=== PATIENT | female | born 1955 | race Caucasian/White ===

== ENCOUNTER → 2018-03-26 00:50 | Outpatient (CLI) | payer OTHER, SELFPAY ==
--- NOTE | 2018-03-26 08:47 | DI.REPORT_ITS ---
SYMPTOM/DIAGNOSIS: ACUTE MENISCAL TEAR OF LT KNEE, RULE OUT HEMARTHROSIS S83.207A LEFT KNEE: Three views: No priors. There is moderate narrowing of the medial femoral tibial joint space and patellofemoral joint. Periarticular spurring is seen involving all three joint compartments. The bones are intact and normally mineralized. There is a small suprapatellar joint effusion. Vascular calcifications are present. IMPRESSION: Moderately severe degenerative changes of the left knee.
== END ==
PROVIDERS: PCP Family Medicine; Visit Provider Family Medicine
DX: M25.562 Pain in left knee (principal); M17.12 Unilateral primary osteoarthritis, left knee; M25.462 Effusion, left knee; S83.207A Unspecified tear of unspecified meniscus, current injury, left knee, initial encounter
CPT/HCPCS: 73562

== ENCOUNTER 2018-08-27 02:04 | Outpatient (CLI) | payer OTHER, SELFPAY | END 2018-08-27 02:24 | PROVIDERS: PCP Family Medicine; Visit Provider Internal Medicine Interventional Cardiology | DX: I48.91 Unspecified atrial fibrillation (principal); Z53.8 Procedure and treatment not carried out for other reasons ==

== ENCOUNTER 2018-12-20 10:09 | Outpatient (REF) | payer OTHER, SELFPAY ==
[2018-12-20 13:40] LABS: ALT 67 U/L (12-78); AST 43 U/L (15-37); Albumin 3.4 g/dL (3.4-5.0); Alkaline Phosphatase 80 U/L (46-116); Anion Gap 11.6 mmol/L (3-11); BUN 10 mg/dL (7-18); Bilirubin, Total 0.4 mg/dL (0.2-1.0); CO2 24.4 mmol/L (21.0-32.0); CREATININE 0.83 mg/dL (0.55-1.02); Calcium 8.9 mg/dL (8.5-10.1); Chloride 102 mmol/L (98-107); Glucose 147 mg/dL (70-100); Lipase 120 U/L (73-393); Potassium 4.3 mmol/L (3.5-5.1); Sodium 138 mmol/L (136-145); Total Protein 7.2 g/dL (6.4-8.2)
== END 2018-12-20 10:29 ==
LOC: LBN 10:09
PROVIDERS: PCP Family Medicine; Visit Provider Family Medicine
DX: R19.7 Diarrhea, unspecified (principal)
CPT/HCPCS: 80053; 83690

== ENCOUNTER 2019-07-08 01:41 | Outpatient (CLI) | payer OTHER, SELFPAY ==
--- NOTE | 2019-07-08 10:46 | DI.MAMMO_ITS ---
EXAM: MG MAMMO SCREENING MG MAMMO SCREENING CLINICAL HISTORY: screening, Z12.39 screening, Z12.39 TECHNIQUE: Mammograms were interpreted according to the usual protocol including computer analysis w ith CAD system, tomosynthesis and C-view imaging. COMPARISON: 2009 through 2017 FINDINGS: The breasts are composed of scattered fibroglandular densities, Breast Density category B. No suspicious masses or suspicious microcalcifications are seen. There is a stable area nodularity i n the central left breast. No skin thickening or abnormal axillary lymph nodes are seen. There has been no significant change from prior exams. IMPRESSION: BIRADS Category 1, negative mammogram. Yearly screening mammography is recommended.
== END 2019-07-08 02:01 ==
PROVIDERS: PCP Family Medicine; Visit Provider Family Medicine
DX: Z12.31 Encounter for screening mammogram for malignant neoplasm of breast (principal)
CPT/HCPCS: 77063; 77067

== ENCOUNTER → 2020-09-09 04:33 | Outpatient (CLI) | payer OTHER, SELFPAY ==
[2020-09-09 11:36] LABS: Abs Immature Grans 0.04 10^3/uL (0.0-0.06); Absolute Basophil Count 0.04 10^3/uL (0.0-0.2); Absolute Eosinophil Count 0.08 10^3/uL (0.0-0.7); Absolute Lymphocyte Count 2.18 10^3/uL (1.2-3.4); Absolute Monocyte Count 0.65 10^3/uL (0.1-0.8); Basophils % 0.4; Eosinophils % 0.9; HCT 42.4 % (36.0-46.0); HGB 14.3 g/dL (11.2-15.7); Immature Grans % 0.4; Lymphocytes % 24.2; MCH 30.4 pg (27.0-33.0); MCHC 33.7 % (32.0-36.0); MCV 90.2 fL (80-95); MPV 10.3 fL (8.0-11.0); Monocytes % 7.2; Neutrophils % 66.9; Nucleated RBC 0 %; Platelet Count 268 10^3/uL (130-400); RDW-SD 49.3 fL; WBC 8.99 10^3/uL (4.4-10.8)
[2020-09-09 12:06] LABS: Hemoglobin A1C > 14.0 % (<5.7)
[2020-09-09 12:17] LABS: Anion Gap 13.3 mmol/L (3-11); BUN 12 mg/dL (7-18); CO2 23.7 mmol/L (21.0-32.0); CREATININE 1.03 mg/dL (0.55-1.02); Calcium 8.7 mg/dL (8.5-10.1); Chloride 95 mmol/L (98-107); Estimated GFR 53.95 (mL/min/1.73m2); Glucose 449 mg/dL (74-106); Potassium 3.6 mmol/L (3.5-5.1); Sodium 132 mmol/L (136-145)
== END ==
PROVIDERS: PCP Family Medicine; Visit Provider Family Medicine
DX: I83.028 Varicose veins of left lower extremity with ulcer other part of lower leg (principal); L97.822 Non-pressure chronic ulcer of other part of left lower leg with fat layer exposed; R73.9 Hyperglycemia, unspecified
CPT/HCPCS: 36415; 80048; 83036; 85025

== ENCOUNTER 2020-10-22 04:09 | Outpatient (CLI) | payer OTHER, SELFPAY ==
[2020-10-22 12:13] LABS: Cholesterol 218 mg/dL (<200); HDL Cholesterol 29 mg/dL (40-60); Triglyceride 473 mg/dL (<150)
[2020-10-22 12:25] LABS: LDL CHOLESTEROL 105 mg/dL (<100)
== END 2020-10-22 04:10 | disposition home or self-care (01) ==
LOC: LBO 04:09
PROVIDERS: PCP Family Medicine; Visit Provider Family Medicine
DX: E11.65 Type 2 diabetes mellitus with hyperglycemia (principal)
CPT/HCPCS: 36415; 80061; 83721

== ENCOUNTER 2020-12-21 14:52 | Outpatient (REF) | payer OTHER, SELFPAY ==
--- NOTE | 2020-12-21 14:30 | PAPFT_PTH ---
PATIENT: Zuleyka Alvarado LOC: [facility] U#:[id number] AGE/SX: 65/F ROOM: RE12/21/[address]: PORSCHE Benitez : 1955 BED: DIS: 12/21/2020 SPEC #: [id number] RECD: 12/21/20 18:36 STATUS: YESENIA REQ #: [id number] BENIGNO: 12/21/20 14:[address]: Sonja Slade DEPT: [facility] Cytology RECD BY: Gris Rodriguez ENTERED: 12/21/20 18:37 SP TYPE: PAPFT OTHR DR: Gage Paul, Tissues: 1 - CX/ENDOCX FOR PAP SMEARS Procedures: PAP THIN PREP/UVM Screening HPV DNA PROBE Comments: [id number]
== END 2020-12-21 14:53 | disposition home or self-care (01) ==
LOC: LBN 14:52
PROVIDERS: PCP Family Medicine; Visit Provider Nurse Practitioner Family
DX: Z12.4 Encounter for screening for malignant neoplasm of cervix (principal); Z11.51 Encounter for screening for human papillomavirus (HPV)
CPT/HCPCS: 88142; 87624

== ENCOUNTER 2020-12-25 04:20 | Outpatient (CLI) | payer OTHER, SELFPAY ==
--- NOTE | 2020-12-25 09:23 | DI.MAMMO_ITS ---
Exam(s) MAMMO SCREENING EXAM: MAMMO SCREENING CLINICAL HISTORY: screening,Z12.39. TECHNIQUE: Bilateral full field digital CC and MLO mammographic images were obtained with 3D tomosyn thesis and utilizing computer aided detection (CAD). COMPARISON: Prior mammograms dating back to 2018, the most recent being June 2019. FINDINGS: Small benign-appearing microcalcification group up again suggest wall in the right breast remain stab le. No new right breast findings. Asymmetric density at approximately 12 o'clock position of the left breast is again noted, located ap proximately 5 cm in from the nipple, this lobulated density measuring approximately 1.6 by 1.7 cm. I t does not contain microcalcifications nor unchanged in size from 2018. There is no significant architectural distortion nor skin thickening-retraction. IMPRESSION: No radiographic evidence of malignancy in the right breast 16 x 17 millimeter central left breast nodule, unchanged from prior studies and therefore most probab ly benign. Nevertheless, I recommend follow-up breast ultrasound to determine if this is an actual n odule such as fibroadenoma versus just asymmetric fibroglandular tissue. BI-RADS Category 0 - Assessment Incomplete: Need additional imaging evaluation Breast Density - Category B - Scattered areas of fibroglandular density Breast density Category C or D implies that the patient has dense breast tissue. Dense breast tissue can make it harder to find cancer on a mammogram. Dense breast tissue is also associated with an incr eased risk of breast cancer. This information about the result of the mammogram report was provided to the patient to raise their awareness. Use this report when you speak with the patient about their risks for breast cancer, which includes their family history. At that time, you may recommend additional screening tests (Ultrasoun d or MRI) as these tests may add significant information. A negative radiographic report should not delay biopsy if a dominant or clinically suspicious mass is present. Up to ten percent of cancers are not identified on mammography. A negative report may reinforce clinical impression. Adenosis and dense breasts may obscure an underlying neoplasm. False positive reports average 6 to 10%. Patient will receive a letter notifying them of these results.
== END 2020-12-25 04:40 ==
PROVIDERS: PCP Family Medicine; Visit Provider Nurse Practitioner Family
DX: Z12.31 Encounter for screening mammogram for malignant neoplasm of breast (principal); R92.8 Other abnormal and inconclusive findings on diagnostic imaging of breast
CPT/HCPCS: 77063; 77067

== ENCOUNTER 2021-03-06 00:07 | Emergency (ER) | payer OTHER, SELFPAY ==
[2021-03-06] VITALS (45 sets, daily range): BP systolic 98–169; BP diastolic 62–138; PULSE 92–175; RESP 13–36; O2SAT 74–98
--- NOTE | 2021-03-06 | RT.EKG_ITS ---
APPROVED REPORT Exam: Resting ECG Reason for Exam: sob Patient Location: E HR:150 bpm ECG Measurements Heart Rate 150 AXIS WA 81 P 0 QRSd 80 QRS -23 QT 287 T 30 QTc 454 Conclusion Sinus tachycardia with irregular rate...V-rate 109-185, variation>10% Anterior infarct, old...Q >40mS, abnormal ST-T, V2-V5 ST depr, consider ischemia, anterolateral lds...ST <-0.10mV, I aVL V2-V6
--- NOTE | 2021-03-06 | DI.RAD_ITS ---
Exam(s) XR PORTABLE CHEST AP EXAM: XR PORTABLE CHEST AP CLINICAL HISTORY: shortness of breath. TECHNIQUE: 2D digital imaging was performed. COMPARISON: No exams were available for comparison FINDINGS: Chest leads in place included chest pads. There is cardiomegaly. Left lung base is difficult to evaluate because of overlying chest leads part Alfonso a. Patient is a lso rotated towards the right. There appears to be a pulmonary venous hypertension pattern. Possibl e interstitial pulmonary edema. Also bandlike infiltrate in the left lower lobe retrocardiac region. IMPRESSION: As above. Recommend nonportable upright PA and lateral views when clinically possible, preferably no n rotated and with no overlying material to obscure visualization. DATA REPOSITORY: RADIATION DOSE DELIVERED: All CT scans at this facility use at least one of these dose optimization techniques: automated exposure control; mA and/or kV adjustment per patient size (includes targeted e xams where dose is matched to clinical indication); or iterative reconstruction.
--- NOTE | 2021-03-06 00:15 | RT.EKG_ITS ---
APPROVED REPORT Exam: Resting ECG Reason for Exam: short of breath Patient Location: E HR:154 bpm ECG Measurements Heart Rate 154 AXIS [place] [id number] P [id number] QRSd 90 QRS -10 QT 310 T 65 QTc 498 Conclusion Atrial fibrillation...V-rate 123-176, irreg A-activity Inferior infarct, old...Q >35mS, II III aVF Anterior infarct, old...Q >40mS, abnormal ST-T, V2-V5
--- NOTE | 2021-03-06 00:26 | W.ED.GENAD ---
Discharge Plan Disposition Patient Disposition: [facility] INPATIENT Condition: Critical Discharge Details Clinical Impression: Acute CHF, DKA (diabetic ketoacidosis), Atrial fibrillation with rapid ventricular response, Pneumonia, Acute respiratory failure with hypoxia Primary Care Provider: Gage Paul ED Provider: Sj Elaine Hurley Meds and New Rx's Prescriptions: No Action Eliquis 5 mg tablet 5 mg PO BID Qty: 180 RF: 3 diltiazem HCl 360 mg capsule,extended release 24 hr 360 mg PO DAILY Qty: 90 RF: 3 metoprolol succinate 100 mg tablet extended release 24 hr 100 mg PO HS 90 Days Qty: 90 RF: 3 sertraline 50 mg tablet 50 mg PO DAILY Qty: 90 RF: 3 (DME) lancets Misc See Rx Instructions .ROUTE .MEDSUPPLY Qty: 100 RF: 3 clotrimazole-betamethasone 1-0.05 % cream 1 applic topical BID 10 Days Qty: 15 RF: 2 atorvastatin 40 mg tablet 40 mg PO DAILY Qty: 90 RF: 3 pramipexole 0.75 mg tablet 1.5 mg PO QHS Qty: 180 RF: 3 metformin 1,000 mg tablet 1,000 mg PO BID Qty: 180 RF: 3 nicotine 14 mg/24 hr patch 24 hour 1 patch transdermal Q24H Qty: 28 RF: 1 Lantus Solostar U-100 Insulin 100 unit/mL (3 mL) insulin pen 25 unit subcut QPM RF: 0 furosemide 40 mg tablet 40 mg PO BID RF: 0 insulin lispro 100 unit/mL insulin pen See Rx Instructions subcut TID RF: 0 (DME) pen needle, diabetic [BD Ultra-Fine Orig Pen Needle] 29 gauge x 1/2 needle 0 .ROUTE .MEDSUPPLY Qty: 100 RF: 0 (DME) Blood Glucose Test Strip See Rx Instructions .ROUTE .MEDSUPPLY Qty: 100 RF: 3 metoprolol succinate 100 mg Tablet Extended Release 24 Hr 100 mg PO DAILY RF: 0 multivitamin [One-A-Day Essential] 1 EACH tablet 1 ea PO DAILY RF: 0 acetaminophen [Mapap Extra Strength] 500 MG tablet 500 - 1,000 mg PO PRN PRNRF: 0 Discharge Data Discharge Date/Time-TO BE ENTERED AT DEPARTURE: 03/06/21 04:12 Medical Decision Making 1229 --patient was seen immediately on arrival. Initial assessment is limited given lack of medical record and inability for patient to provide history. Patient is a 65-year-old female with unknown medical history presents with shortness of breath with EMS in respiratory distress. Patient hypoxic requiring supplemental oxygen. Patient is in atrial fibrillation with RVR on monitor. She is normotensive. Patient is in critical condition on arrival. Converted from EMS CPAP to BiPAP with respiratory therapy present and assisting. Patient is tolerating BiPAP well and maintaining oxygenation in the 90s. Patient has rails on exam with lower extremity edema and I am concerned about acute congestive heart failure. I will check a chest x-ray and send BNP and troponin. Screening EKG limited by artifact, interpreted by me: Please see report, A. fib with RVR. --Additional history obtained: Patient has a history of diastolic heart failure, atrial fibrillation, hyperlipidemia, diabetes. I reviewed a [employer] patch library monitor from 2018 that revealed 100% atrial fibrillation with average rate 112 bpm ranging 67-210. Reviewed cardiology office visit from 06/04/2018 that reveals paroxysmal persistent atrial fibrillation, echo from October 20, 2017 showed LVEF of 60 to 65%, mildly dilated aortic root and ascending aorta are upper limits of normal with 2+ MR. 1237 -- VBG from today reviewed and reveals pH of 7.08 with a PCO2 of 69 consistent with respiratory acidosis. 103 --chest x-ray was reviewed and interpreted by me as bibasilar opacities with cardiopulmonary vascular congestion. Patient reassessed and is improved on BiPAP and nitroglycerin infusion. Now speaking in sentences. Labs reviewed and leukocytosis noted, Covid test pending, patient does have an anion gap of 17.4 with glucose of 538. Potassium is 4.0. 144-- Patient started on insulin infusion with no bolus. I will also give potassium 20 meq IV Patient reassessed and much improved, now able to speak in sentences. She notes she has had a cough over the past 1 week. No fevers. She is vaccinated against Covid. Plan to continue BiPAP at this time. Patient's blood pressure has decreased to systolic of 98 and she remains tachycardic in A. fib. I will decrease nitroglycerin infusion to 5mcg/min. Chest x-ray interpreted by radiology as hyperinflation, increased interstitial markings suggesting CHF or interstitial edema. Right lung base consolidative changes suggested which may represent infiltrate or atelectasis. Small right pleural effusion. Cardiomegaly. Given recent cough, leukocytosis and questionable infiltrate, I will initiate antibiotic coverage with ceftriaxone 1 g IV and send blood cultures and procalcitonin. D-dimer is elevated but patient will not tolerate lying flat at this time. Patient is anticoagulated on Eliquis and I do not believe CT indicated now given alternate diagnosis. I spoke with Dr. Landrum who recommends second trop piror to admission. 243 -- Patient reassessed and continues to improve. Delta trop at 2 hours elevated at 0.16. I called [facility] transfer center to request transfer. Awaiting call back. 300 -- Spoke with [facility] critical care - they will accept patient in transfer. Dr. Arcos to accept. Awaiting bed placement. 325 --almost repeat VBG interpreted by me: Improved pH and decreased PCO2. Repeat BMP pending. [facility] called with bed now available. Will arrange for EMS transportation. 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 Medical Records Medical records reviewed: Yes I reviewed the patient's medical records. Lab Data Lab results reviewed: Yes I reviewed the patient's lab results. Labs: 03/06/21 01:50 Blood Blood Culture - Pending 03/06/21 01:30 Blood Blood Culture - Pending Laboratory Tests Range/Units 03/06/21 03/06/21 03/06/21 00:20 00:20 00:20 WBC (4.4-10.8) 10^3/uL 15.86 H RBC (3.93-5.22) 10^6/uL 4.20 Hgb (11.2-15.7) g/dL 12.9 Hct (36.0-46.0) % 41.5 MCV (80-95) fL 98.8 H MCH (27.0-33.0) pg 30.7 MCHC (32.0-36.0) % 31.1 L RDW (11.7-14.6) % 14.6 Plt Count (130-400) 10^3/uL 356 MPV (8.0-11.0) fL 10.0 Immature Gran % See Differential Neutrophils % 56.0 Lymphocytes % 35.0 Monocytes % 6.0 Eosinophils % 2.0 Basophils % 0.0 Metamyelocytes % 1 Nucleated RBC % % 0 Absolute Neutrophils (1.2-6.7) 10^3/uL 8.88 H Absolute Lymphocytes (1.2-3.4) 10^3/uL 5.55 H Absolute Monocytes (0.1-0.8) 10^3/uL 0.95 H Absolute Eosinophils (0.0-0.7) 10^3/uL 0.32 Absolute Basophils (0.0-0.2) 10^3/uL 0.00 RBC Morphology Normal D-Dimer (<500) ng/mlFEU 731 H VBG pH (7.31-7.41) VBG pCO2 (41-51) mmHg VBG pO2 mmHg VBG HCO3 (23-28) mmol/L VBG Total CO2 (24-29) mmol/L VBG O2 Saturation % VBG Base Excess (-2-3) mmol/L VBG Lactate (0.6-1.4) mmol/L Sodium (136-145) mmol/L 138 Potassium (3.5-5.1) mmol/L 4.0 Chloride (98-107) mmol/L 99 Carbon Dioxide (21.0-32.0) mmol/L 21.6 Anion Gap (3-11) mmol/L 17.4 H BUN (7-18) mg/dL 14 Creatinine (0.55-1.02) mg/dL 1.3 H Estimated GFR/1.73 m2 (mL/min/1.73m2) 41.24 Glucose (74-106) mg/dL 538 H* Calcium (8.5-10.1) mg/dL 9.0 Magnesium (1.8-2.4) mg/dL 1.9 Total Bilirubin (0.2-1.0) mg/dL 0.4 AST (15-37) U/L 56 H ALT (14-59) U/L 58 Alkaline Phosphatase (46-116) U/L 68 Troponin I (<0.06) ng/mL < 0.05 NT-Pro-B Natriuret Pep (<300) pg/mL 1043 H Total Protein (6.4-8.2) g/dL 7.5 Albumin (3.4-5.0) g/dL 3.4 Procalcitonin ng/mL COVID-19 Source SARS-CoV-2 (PCR) (Negative) Range/Units 03/06/21 03/06/21 03/06/21 00:20 00:25 01:30 WBC (4.4-10.8) 10^3/uL RBC (3.93-5.22) 10^6/uL Hgb (11.2-15.7) g/dL Hct (36.0-46.0) % MCV (80-95) fL MCH (27.0-33.0) pg MCHC (32.0-36.0) % RDW (11.7-14.6) % Plt Count (130-400) 10^3/uL MPV (8.0-11.0) fL Immature Gran % Neutrophils % Lymphocytes % Monocytes % Eosinophils % Basophils % Metamyelocytes % Nucleated RBC % % Absolute Neutrophils (1.2-6.7) 10^3/uL Absolute Lymphocytes (1.2-3.4) 10^3/uL Absolute Monocytes (0.1-0.8) 10^3/uL Absolute Eosinophils (0.0-0.7) 10^3/uL Absolute Basophils (0.0-0.2) 10^3/uL RBC Morphology D-Dimer (<500) ng/mlFEU VBG pH (7.31-7.41) 7.08 L* VBG pCO2 (41-51) mmHg 69 H* VBG pO2 mmHg 53 VBG HCO3 (23-28) mmol/L 21 L VBG Total CO2 (24-29) mmol/L 20 L VBG O2 Saturation % 75 VBG Base Excess (-2-3) mmol/L -9 L VBG Lactate (0.6-1.4) mmol/L 5.1 H* Sodium (136-145) mmol/L Potassium (3.5-5.1) mmol/L Chloride (98-107) mmol/L Carbon Dioxide (21.0-32.0) mmol/L Anion Gap (3-11) mmol/L BUN (7-18) mg/dL Creatinine (0.55-1.02) mg/dL Estimated GFR/1.73 m2 (mL/min/1.73m2) Glucose (74-106) mg/dL Calcium (8.5-10.1) mg/dL Magnesium (1.8-2.4) mg/dL Total Bilirubin (0.2-1.0) mg/dL AST (15-37) U/L ALT (14-59) U/L Alkaline Phosphatase (46-116) U/L Troponin I (<0.06) ng/mL NT-Pro-B Natriuret Pep (<300) pg/mL Total Protein (6.4-8.2) g/dL Albumin (3.4-5.0) g/dL Procalcitonin ng/mL < 0.1 COVID-19 Source Nasal/Nares SARS-CoV-2 (PCR) (Negative) Negative Range/Units 03/06/21 03/06/21 02:05 03:15 WBC (4.4-10.8) 10^3/uL RBC (3.93-5.22) 10^6/uL Hgb (11.2-15.7) g/dL Hct (36.0-46.0) % MCV (80-95) fL MCH (27.0-33.0) pg MCHC (32.0-36.0) % RDW (11.7-14.6) % Plt Count (130-400) 10^3/uL MPV (8.0-11.0) fL Immature Gran % Neutrophils % Lymphocytes % Monocytes % Eosinophils % Basophils % Metamyelocytes % Nucleated RBC % % Absolute Neutrophils (1.2-6.7) 10^3/uL Absolute Lymphocytes (1.2-3.4) 10^3/uL Absolute Monocytes (0.1-0.8) 10^3/uL Absolute Eosinophils (0.0-0.7) 10^3/uL Absolute Basophils (0.0-0.2) 10^3/uL RBC Morphology D-Dimer (<500) ng/mlFEU VBG pH (7.31-7.41) 7.30 L VBG pCO2 (41-51) mmHg 50 VBG pO2 mmHg 45 VBG HCO3 (23-28) mmol/L 25 VBG Total CO2 (24-29) mmol/L 23 L VBG O2 Saturation % 77 VBG Base Excess (-2-3) mmol/L -2 VBG Lactate (0.6-1.4) mmol/L Sodium (136-145) mmol/L Potassium (3.5-5.1) mmol/L Chloride (98-107) mmol/L Carbon Dioxide (21.0-32.0) mmol/L Anion Gap (3-11) mmol/L BUN (7-18) mg/dL Creatinine (0.55-1.02) mg/dL Estimated GFR/1.73 m2 (mL/min/1.73m2) Glucose (74-106) mg/dL Calcium (8.5-10.1) mg/dL Magnesium (1.8-2.4) mg/dL Total Bilirubin (0.2-1.0) mg/dL AST (15-37) U/L ALT (14-59) U/L Alkaline Phosphatase (46-116) U/L Troponin I (<0.06) ng/mL 0.17 H* NT-Pro-B Natriuret Pep (<300) pg/mL Total Protein (6.4-8.2) g/dL Albumin (3.4-5.0) g/dL Procalcitonin ng/mL COVID-19 Source SARS-CoV-2 (PCR) (Negative) HPI General Mode of arrival: EMS. Date/Time Provider Initiated Documentation: 03/06/21 00:13. Limitations to Documentation: altered mental status. Information obtained by: EMS. HPI Narrative: 65-year-old female with unknown medical history here with acute respiratory distress. History and review of systems limited as patient is currently on BiPAP and having difficulty speaking. EMS note they were called for shortness of breath and found the patient hypoxic in the 80s. CPAP was initiated. Then identified she was in A. fib with RVR, normotensive. They administered diltiazem 15 mg IV prior to arrival. Patient denies pain. Related Data Home Medications Medication Instructions Recorded Confirmed multivitamin [One-A-Day Essential] 1 ea PO DAILY 10/20/17 03/02/21 acetaminophen [Mapap Extra 500 - 1,000 mg PO PRN PRN 02/26/18 03/02/21 Strength] apixaban 5 mg tablet 5 mg PO BID #180 tab 04/10/20 03/02/21 diltiazem HCl 360 mg capsule,24 360 mg PO DAILY #90 cap 04/10/20 03/02/21 hr,extended release metoprolol succinate 100 mg 100 mg PO HS 90 Days #90 tabcr 04/10/20 03/02/21 tablet,extended release 24 hr sertraline 50 mg tablet 50 mg PO DAILY #90 tab 04/10/20 03/02/21 pramipexole 0.75 mg tablet 1.5 mg PO QHS #180 tab 06/02/20 03/02/21 lancets #100 ea 09/14/20 03/02/21 metformin 1,000 mg tablet 1,000 mg PO BID #180 tab 11/02/20 03/02/21 clotrimazole-betamethasone 1 1 applic TOPICAL BID 10 Days #15 g 12/21/20 03/02/21 %-0.05 % topical cream atorvastatin 40 mg tablet 40 mg PO DAILY #90 tab 12/22/20 03/02/21 nicotine 14 mg/24 hr daily 1 patch TRANSDERMAL Q24H #28 ea 02/19/21 03/02/21 transdermal patch metoprolol succinate 100 mg PO DAILY 03/06/21 03/06/21 furosemide 40 mg tablet 40 mg PO BID 03/09/21 insulin glargine 100 unit/mL (3 25 unit SUBCUT QPM ml 03/09/21 mL) subcutaneous pen insulin lispro 100 unit/mL See Rx Instructions SUBCUT TID 03/09/21 subcutaneous pen pen needle, diabetic 29 gauge x #100 ea 03/09/2108/22 blood sugar diagnostic #100 ea 03/11/21 Previous Rx's Medication Instructions Recorded apixaban 5 mg tablet 5 mg PO BID #180 tab 04/10/20 diltiazem HCl 360 mg capsule,24 360 mg PO DAILY #90 cap 04/10/20 hr,extended release metoprolol succinate 100 mg 100 mg PO HS 90 Days #90 tabcr 04/10/20 tablet,extended release 24 hr sertraline 50 mg tablet 50 mg PO DAILY #90 tab 04/10/20 pramipexole 0.75 mg tablet 1.5 mg PO QHS #180 tab 06/02/20 lancets #100 ea 09/14/20 metformin 1,000 mg tablet 1,000 mg PO BID #180 tab 11/02/20 clotrimazole-betamethasone 1 1 applic TOPICAL BID 10 Days #15 g 12/21/20 %-0.05 % topical cream atorvastatin 40 mg tablet 40 mg PO DAILY #90 tab 12/22/20 nicotine 14 mg/24 hr daily 1 patch TRANSDERMAL Q24H #28 ea 02/19/21 transdermal patch blood sugar diagnostic #100 ea 03/11/21 Allergies Allergy/AdvReac Type Severity Reaction Status Date / Time environmental Allergy Unknown Uncoded 03/10/21 11:35 General Stated Complaint: SOB SYED: 1 Review of Systems Unobtainable due to mental status [facility] Medical History (Updated 03/10/21 @ 11:35 by Anastasia Romo) A-fib Acute respiratory failure with hypercapnia inpatient [facility] 03/06-03/09/21 Afib Arthritis (10/12/17) CHF (congestive heart failure) Degenerative joint disease of left knee Diabetes Diabetes mellitus type II, uncontrolled Diastolic heart failure due to valvular disease Heart murmur (10/12/17) Hyperlipidemia Lipoma of left shoulder Loss of taste Nocturnal hypoxemia Pulmonary edema inpatient [facility] 03/06-03/09/21 Restless leg syndrome Rheumatic fever (10/12/17) Tobacco use disorder Venous insufficiency (chronic) (peripheral) Venous stasis ulcer limited to breakdown of skin with varicose veins Family History Mother Diabetes Hypertension Heart disease Depression Anxiety Maternal Aunt Diabetes Neoplasm Breast Maternal Uncle Neoplasm Father , cardiac issues at age 64. Heart disease Social History (System 03/10/21 @ 11:35 by Anastasia Romo) Smoking/Tobacco Use Status: Current every day Tobacco Type: cigarettes Smoking packs per day: 0.5 Smoking cigarettes per day: 10.0 Years smoked: 46 Smoking pack-years: 23.00 Tobacco: How many years used: 46 Quit status: quit date established Counseling given: support medications Smoking risk assessment performed?: Yes Alcohol Intake: never Drug use: Never Substance use type: does not use Caregiver/Support person: No Housing: house Number of Children: 1 Communication Needs: Hard of Hearing Do you need help understanding health information?: Rarely 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 - [employer] Pets and animals: Yes Pets and animals: cat(s) Do you think of yourself as: straight/heterosexual Current gender identity: female What is your relationship status?: How often do you talk on the phone with friends or family?: three or more times per week How often do you get together with friends or relatives?: twice per week Do you belong to any clubs or organized social groups?: no Panel score (0-1 are the most socially isolated patients): 1 What type of physical activity do you participate in: walking Duration: 15-30 minutes/day Frequency: 1-2 times per week Rebecca/Denominational: Christianity Special rebecca needs: No Seatbelt use: always Helmet use: Yes Helmet use: sometimes Drive intox or ride w/intox electric mule driver: No Working smoke detector in home: Yes Carbon monox detector in home: Yes Do you feel safe at home: Yes Do you feel safe in your relationship?: Yes Exam Const General: acute distress moderate and respiratory and ill appearing Nutritional Appearance: obese Orientation: alert and confused HENMT Head: atraumatic Mouth: moist mucous membranes Eyes Conjunctivae: normal conjunctivae Sclera: normal sclerae EOM: EOM intact bilaterally Neck Neck: trachea midline and supple Resp Auscultation: rales bilaterally and no rhonchi Cardio Rate: tachycardic Rhythm: abnormal rhythm GI Palpation: soft, not firm, no guarding, no masses, not rigid and nontender Skin General skin exam: no rashes or lesions noted Neuro General: patient alert, patient awake, patient oriented x3 and tone normal Extrem General: edema Laterality: bilateral Psych Appearance: grossly normal Course Vital Signs Vital signs: Vital Signs Pulse 161 H 03/06/21 00:05 Respiratory Rate 28 H 03/06/21 00:05 Pulse Oximetry 74 L 03/06/21 00:05 Pulse 161 H 03/06/21 00:05 Pulse 144 H 03/06/21 00:10 Respiratory Rate 31 H 03/06/21 00:13 Respiratory Effort Accessory Muscle Use 03/06/21 00:13 Pulse Oximetry 85 L 03/06/21 00:10 Oxygen Delivery Method Bi-pap 03/06/21 00:05 Critical Care Time Critical Care Time Critical Care Time: Yes Total Critical Care Time: 125 Attestation: I spent greater than 125 minutes addressing this patient's immediate life threats. Please see MDM section of note. This time was spent engaged in work directly related to the patient's care, exclusive of separate procedures, and failure to initiate these interventions would have likely resulted in clinically significant or life threatening deterioration in the patient's condition.
[2021-03-06 00:35] LABS: Source Nasal/Nares
[2021-03-06 00:35] LABS: BE (Venous) -9 mmol/L (-2-3); HCO3 (Venous) 21 mmol/L (23-28); O2 Sat (Venous) 75 %; TCO2 (Venous) 20 mmol/L (24-29); pO2 (Venous) 53 mmHg
[2021-03-06 00:37] LABS: pCO2 (Venous) 69 mmHg (41-51); pH (Venous) 7.08 (7.31-7.41)
[2021-03-06 00:40] LABS: Abs Immature Grans 0.15 10^3/uL (0.0-0.06); HCT 41.5 % (36.0-46.0); HGB 12.9 g/dL (11.2-15.7); MCH 30.7 pg (27.0-33.0); MCHC 31.1 % (32.0-36.0); MCV 98.8 fL (80-95); Nucleated RBC 0 %; Platelet Count 356 10^3/uL (130-400); RDW 14.6 % (11.7-14.6); RDW-SD 52.7 fL; WBC 15.86 10^3/uL (4.4-10.8)
[2021-03-06] MEDS: nitroGLYcerin in D5W 50 MG/250 ML BTL IV (00:46)
[2021-03-06 00:57] LABS: ALT 58 U/L (14-59); AST 56 U/L (15-37); Albumin 3.4 g/dL (3.4-5.0); Alkaline Phosphatase 68 U/L (46-116); Anion Gap 17.4 mmol/L (3-11); BUN 14 mg/dL (7-18); Bilirubin, Total 0.4 mg/dL (0.2-1.0); CO2 21.6 mmol/L (21.0-32.0); CREATININE 1.3 mg/dL (0.55-1.02); Chloride 99 mmol/L (98-107); Estimated GFR 41.24 (mL/min/1.73m2); Magnesium 1.9 mg/dL (1.8-2.4); NT-proBNP 1043 pg/mL (<300); Sodium 138 mmol/L (136-145); Total Protein 7.5 g/dL (6.4-8.2)
[2021-03-06 00:58] LABS: Absolute Eosinophil Count 0.32 10^3/uL (0.0-0.7); Absolute Lymphocyte Count 5.55 10^3/uL (1.2-3.4); Absolute Monocyte Count 0.95 10^3/uL (0.1-0.8); Absolute Neutrophil Count 8.88 10^3/uL (1.2-6.7); Diff Comment Manual Differential; Metamyelocytes % 1; RBC Morphology Normal
[2021-03-06 00:59] LABS: Troponin I < 0.05 ng/mL (<0.06)
[2021-03-06 01:00] LABS: Glucose 538 mg/dL (74-106)
--- NOTE | 2021-03-06 01:12 | DI.VRAD_ITS ---
PROCEDURE INFORMATION: Exam: XR Chest Exam date and time: 03/06/2021 12:14 AM Age: 32 years old Clinical indication: Other: Shortness of breath TECHNIQUE: Imaging protocol: XR of the chest. Views: 1 view. COMPARISON: No relevant prior studies available. FINDINGS: Lungs: Hyperinflation bilaterally. This likely reflects COPD. Differential diagnosis of reactive airway disease or air trapping from an upper respiratory infection. There is diffuse increase interstitial markings suggesting interstitial edema or congestive heart failure. Consolidative changes of the basilar aspect of the right lung suggested. Cannot exclude infiltrate. Differential diagnosis of atelectasis. Pleural spaces: Small right pleural effusion. Heart/Mediastinum: Moderate cardiac enlargement. Bones/joints: Degenerative thoracic spine disease. IMPRESSION: 1. Hyperinflation. 2. Increase interstitial markings suggesting CHF or interstitial edema. 3. Right lung base consolidative changes suggested which may represent infiltrate or atelectasis. 4. Small right pleural effusion. 5. Cardiomegaly. Dictated and Authenticated by: Jeffery Maxwell MD. Ordering:NELY Gustafson MD
[2021-03-06 01:20] LABS: D-Dimer 731 ng/mlFEU (<500)
[2021-03-06 01:35] LABS: COVID-19 PCR Negative (Negative)
[2021-03-06 01:41] LABS: Lactate 5.1 mmol/L (0.6-1.4)
[2021-03-06] MEDS: INSULIN REGULAR IN 0.9 % NACL 100 UNIT/100 ML BAG IV (01:50)
[2021-03-06] MEDS: cefTRIAXone 1 GM/50 ML BAG IVPB (01:53)
[2021-03-06 02:13] LABS: Procalcitonin < 0.1 ng/mL
[2021-03-06] MEDS: POTASSIUM CHLORIDE 20 MEQ/100 ML BAG 50 MEQ IVPB (02:24)
[2021-03-06 02:38] LABS: Troponin I 0.17 ng/mL (<0.06)
[2021-03-06] MEDS: Normal Saline 1,000 ML 50 ML IV (02:45)
[2021-03-06 03:20] LABS: BE (Venous) -2 mmol/L (-2-3); HCO3 (Venous) 25 mmol/L (23-28); O2 Sat (Venous) 77 %; TCO2 (Venous) 23 mmol/L (24-29); pCO2 (Venous) 50 mmHg (41-51); pO2 (Venous) 45 mmHg
[2021-03-06 03:29] LABS: Anion Gap 12.3 mmol/L (3-11); BUN 19 mg/dL (7-18); CO2 24.7 mmol/L (21.0-32.0); CREATININE 1.3 mg/dL (0.55-1.02); Calcium 8.9 mg/dL (8.5-10.1); Chloride 103 mmol/L (98-107); Estimated GFR 41.24 (mL/min/1.73m2); Glucose 371 mg/dL (74-106); Potassium 4.8 mmol/L (3.5-5.1); Sodium 140 mmol/L (136-145)
[2021-03-06] MEDS: AZITHROMYCIN 500 MG in Normal Saline 250 ML 250 MG IVPB (03:46)
== END 2021-03-06 04:12 | disposition short-term general hospital (02) ==
PROVIDERS: Emergency Provider Student in an Organized Health Care Education/Training Program; PCP Family Medicine
DX: I50.9 Heart failure, unspecified (principal); E11.10 Type 2 diabetes mellitus with ketoacidosis without coma; I48.20 Chronic atrial fibrillation, unspecified; J18.9 Pneumonia, unspecified organism; F17.210 Nicotine dependence, cigarettes, uncomplicated; J96.01 Acute respiratory failure with hypoxia
CPT/HCPCS: 36415; 80048; 80053; 82805; 84145; 87040; 87635; 93005; 96361; 96365; 96366; 96367; 99291; 99292; 71045; 83605; 83735; 83880; 84484; 85025; 85379; 93010; J0456; J0696; J3480

== ENCOUNTER 2021-04-30 11:20 | Outpatient (CLI) | payer OTHER, SELFPAY ==
--- NOTE | 2021-04-30 11:15 | RT.EKG_ITS ---
APPROVED REPORT Exam: Resting ECG Reason for Exam: afib Patient Location: O HR:96 bpm ECG Measurements Heart Rate 96 AXIS [place] [id number] P [id number] QRSd 94 QRS -28 QT 403 T 16 QTc 510 Conclusion Atrial fibrillation...V-rate 75-115, irreg A-activity Low voltage Poor R wave progression, cannot exclude old anterior infarct
== END 2021-04-30 11:21 | disposition home or self-care (01) ==
LOC: DI.CARD 11:20
PROVIDERS: PCP Family Medicine; Visit Provider Internal Medicine Cardiovascular Disease
DX: I48.91 Unspecified atrial fibrillation (principal)
CPT/HCPCS: 93010

== ENCOUNTER 2021-06-22 01:39 | Outpatient (CLI) | payer OTHER, SELFPAY ==
--- NOTE | 2021-06-22 06:30 | DI.US_ITS ---
APPROVED REPORT EXAM: Comprehensive 2D, Doppler, and color-flow Echocardiogram Patient Location: Out-Patient Assistant Purchasing Manager: eF Kapoor RDCS (AE) Indications: Diastolic heart failure, Endocarditis Other Information Study Quality: Adequate Conclusion Mildly dilated left ventricle. Estimated ejection fraction is 35% with global hypokinesis Right ventricular size is normal. The right ventricle appears mildly hypocontractile Severely dilated left atrium. Moderately dilated right atrium The aortic valve is sclerotic with trace regurgitation. No aortic stenosis Mild mitral annular calcification. Moderate mitral regurgitation Normal tricuspid valve with mild regurgitation. Estimated right ventricular systolic pressure is 27 mmHg Patient was in atrial fibrillation throughout with heart rates approximately 100 bpm Wall motion Left Ventricle Left ventricle is mildly dilated. Left ventricular systolic function is moderately decreased. There i s normal left ventricular wall thickness. There is global hypokinesis of the left ventricle. There is no ventricular septal defect visualized. LVEF is 35%. Right Ventricle The right ventricle is normal size. Right ventricle is mildly hypokinetic. The RVSP is 27.6mmHg. Atria Left atrium is severely dilated. Right atrium is moderately dilated. The interatrial septum is intact with no evidence for an atrial septal defect. Aortic Valve Aortic valve is calcified. The Aortic valve is sclerotic. Number of aortic valve leaflets could not b e assessed. There is no aortic valvular stenosis. Trace aortic regurgitation. Mitral Valve Moderate mitral annular calcification. No evidence of mitral valve stenosis. moderate mitral regurgit ation. Tricuspid Valve The tricuspid valve is normal in structure. There is no tricuspid valve stenosis. Mild tricuspid regu rgitation. Pulmonic Valve The pulmonary valve is normal in structure. There is no pulmonic valvular stenosis. Trace pulmonic re gurgitation. Great Vessels The aortic root is normal in size. The ascending aorta is mildly dilated. Aortic arch is not well vis ualized. IVC is normal in size and collapses >50% with inspiration. Pericardium There is no pericardial effusion. 2D Dimensions IVSD d PLAX 1.02 cm F: 0.6-1.0 LV Vol A2C d MOD 130.9 mL LVPW d PLAX 1.01 cm F: 0.6 - 1.0 LV Vol A4C d MOD 144.8 mL LVID d PLAX 5.32 cm F: 3.8 - 5.2 LA vol/ BSA A2C s A-L 46.3 mL/m2 LVDs 4.60 cm F: 2.2 - 3.5 LA vol/ BSA A4C s A-L 37.7 mL/m2 Ao Root d 3.34 cm F: 2.7 - 3.3 LA Vol/ BSA Biplane s A-L 42.9 mL/m2 RA Area A4C 18.84 cm2 LA Area A4C s MOD 25.49 cm2 RA Vol/ BSA A4C s A-L 25.4 mL/m2 LA Area A2C s MOD 27.51 cm2 Ao Asc Diam d 3.41 cm F: 2.3 - 3.1 LV EF A4C MOD 35.0 % LV EF Teichholz 28.5 % LV EF A2C MOD 35.8 % LVEF (Whittaker's) 34.46 % F: 54 - 74 LV EF Biplane MOD 34.5 % LV Volume 99.95 mL F: 46 - 106 SV 47.57 mL LV Volume Index 44.82 mL/m2 F: 29 - 61 SV Index 21.32 mL/m2 LV Vol Biplane MOD 138.0 mL FS 13.40 % M-Mode TAPSE 1.45 cm (M/F) >1.7 LV Diastology MV E' medial 0.109 (>0.07 m/s) MV E Vmax 1.43 (0.4-1.3 m/s) LV E/e MED 13.10 (<14) MV E' lateral 0.110 (>0.1 m/s) LV E/e LAT 13.00 (<14) MV E/E' medial 13.15 MV E/E' lateral 13.00 Aortic Valve LVOT Area 3.45 cm2 AoV Area Vmax 2.12 cm2 LVOT Vmax 1.13 m/s AoV Area/ BSA (Vmax) 0.95 cm2/m2 LVOT Mean Andrey. 0.75 m/s NABEEL Mean Andrey. 1.90 cm2 LVOT Peak Grad 5.1 mmHg NABEEL Mean Andrey. Index 0.85 cm2/m2 LVOT Mean Grad 2.6 mmHg LVOT VTI 0.176 m LVOT Diam s 2.05 cm AoV Vmax 1.84 m/s Velocity Ratio 0.61 AoV Mean Andrey. 1.36 m/s AoV Peak Grad 13.6 mmHg LVOT SV 60.62 mL AoV Mean Grad 8.0 mmHg AoV VTI 0.320 m AoV Area VTI 1.89 cm2 AoV Area/ BSA (VTI) 0.85 cm/m2 Mitral Valve MV DT 203 (160-240 msec) MR Vmax 4.33 m/s MV PHT 59 msec MR VTI 1.150 m MV Area PHT 3.74 cm2 MR Peak Grad 74.9 mmHg MV VTI 0.303 m MR Mean Grad 52.2 mmHg MV Area VTI 2.00 (4.0-6.0 cm2) MR PISA Radius 0.43 cm MR EROA 0.10 cm2 MR Aliasing Velocity 0.35 m/s MR PISA 1.18 cm2 Pulmonary Valve PV Vmax 1.12 (0.5-1.5 m/s) RVOT Peak Gr. 1.22 mmHg PV Peak Grad 5.0 mmHg RVOT Mean Gr. 0.60 mmHg PV Mean Grad 2.3 mmHg RVOT VTI 0.099 m PV VTI 0.199 m RVOT Vmax 0.55 m/s Tricuspid Valve TR Peak Grad 24.6 mmHg TR Vmax 2.48 m/s RA Pressure 3.00 mmHg RVSP (TR) 27.6 mmHg
== END 2021-06-22 01:59 ==
PROVIDERS: PCP Family Medicine; Visit Provider Internal Medicine Cardiovascular Disease
DX: I38 Endocarditis, valve unspecified (principal); I50.30 Unspecified diastolic (congestive) heart failure; I08.1 Rheumatic disorders of both mitral and tricuspid valves; I48.91 Unspecified atrial fibrillation
CPT/HCPCS: 93306

== ENCOUNTER → 2021-09-14 11:46 | Outpatient (BNVA) | payer OTHER, SELFPAY | PROVIDERS: PCP Family Medicine; Visit Provider Internal Medicine Cardiovascular Disease | DX: I48.91 Unspecified atrial fibrillation (principal); J44.9 Chronic obstructive pulmonary disease, unspecified; E11.65 Type 2 diabetes mellitus with hyperglycemia; I42.9 Cardiomyopathy, unspecified; F17.211 Nicotine dependence, cigarettes, in remission | CPT/HCPCS: 99214 ==

== ENCOUNTER → 2022-01-03 12:59 | Outpatient (BNVA) | payer SELFPAY | PROVIDERS: PCP Family Medicine; Visit Provider Internal Medicine Cardiovascular Disease | DX: I48.91 Unspecified atrial fibrillation (principal); I50.32 Chronic diastolic (congestive) heart failure; I42.9 Cardiomyopathy, unspecified; J44.9 Chronic obstructive pulmonary disease, unspecified | CPT/HCPCS: 99214; 99213 ==

== ENCOUNTER 2024-09-22 15:52 | Emergency (ER) | payer MEDICARE, SELFPAY ==
[2024-09-22] VITALS (11 sets, daily range): BP systolic 87–110; BP diastolic 45–66; PULSE 84–111; RESP 18–25; TEMP 36.8; O2SAT 93–97
--- NOTE | 2024-09-22 16:30 | RT.EKG_ITS ---
APPROVED REPORT Exam: Resting ECG Reason for Exam: lightheaded Patient Location: E HR:102 bpm ECG Measurements Heart Rate 102 AXIS NM [id number] P [id number] QRSd 99 QRS -3 QT 458 T 161 QTc 596 Conclusion Atrial fibrillation 102 long QTC no stemi
--- NOTE | 2024-09-22 16:36 | ED.GENADUL_ITS ---
Discharge Plan Disposition Patient Disposition: Against Medical Advice Discharge Details Clinical Impression: Atrial fibrillation, Lightheadedness, Prolonged QT interval, Wound of right leg Primary Care Provider: Gage Paul ED Provider: Samantha Brewster Home Meds and New Rx's Prescriptions: No Action clotrimazole-betamethasone 1-0.05 % cream 1 applic topical BID 10 Days Qty: 15 2RF (DME) sarwat.stocking,knee,reg,xlrg Misc See Rx Instructions .ROUTE .MEDSUPPLY Qty: 12 6RF Rx Instructions: As directed atorvastatin 40 mg tablet 40 mg PO DAILY Qty: 90 3RF (DME) Blood Glucose Test Strip See Rx Instructions .Route Qty: 300 3RF Rx Instructions: Accu-check test sstrips. test 4x/day to keep HbA1c less than 6/5%. Dx E11.9 (DME) blood-glucose meter Misc See Rx Instructions .Route Qty: 1 0RF Rx Instructions: accu-check meter. to test 4x/day to keep HbA1c less than 6.5% Dx E11.9 diltiazem HCl 360 mg capsule,extended release 24 hr 360 mg PO DAILY Qty: 90 3RF Jardiance 10 mg tablet 10 mg PO DAILY Qty: 90 3RF furosemide 40 mg tablet 40 mg PO BID Qty: 180 3RF gabapentin 300 mg capsule 300 mg PO TID Qty: 270 3RF insulin degludec [Tresiba FlexTouch U-200] 200 unit/mL (3 mL) insulin pen See Rx Instructions subcut DAILY Qty: 9 6RF Rx Instructions: 20 units qam, 50 units qhs subcutaneously daily; (DME) lancets 33 gauge misc See Rx Instructions .ROUTE .MEDSUPPLY Qty: 100 11RF Rx Instructions: As directed, TID, to keep HbA1c below 6.5%, on insulin; Dx: E11.9 losartan 25 mg tablet 25 mg PO BID Qty: 180 3RF metformin 1,000 mg tablet 1,000 mg PO BID Qty: 180 3RF metoprolol succinate 100 mg tablet extended release 24 hr 100 mg PO BID 90 Days Qty: 180 3RF nicotine 21 mg/24 hr patch 24 hour 1 patch transdermal Q24H Qty: 28 3RF (DME) pen needle, diabetic [BD Ultra-Fine Orig Pen Needle] 29 gauge x 1/2 needle 0 .ROUTE .MEDSUPPLY Qty: 100 12RF Rx Instructions: As directed, 5x day pramipexole 0.75 mg tablet 1.5 mg PO QHS Qty: 180 3RF sertraline 50 mg tablet 50 mg PO DAILY Qty: 90 3RF spironolactone 25 mg tablet 25 mg PO DAILY Qty: 90 3RF insulin aspart U-100 [Novolog FlexPen U-100 Insulin] 100 unit/mL (3 mL) insulin pen See Rx Instructions subcut TID MDD 30 units Qty: 15 11RF Rx Instructions: Inject 1-10 units SQ TID with each meal acording to sliding scale subcut three times a day; 140-180 3 units, 181-240 4 units, 241-300 6 units, 301-350 8 units, 351-400 10 units Ozempic 0.25 mg or 0.5 mg (2 mg/3 mL) pen injector 0.5 mg subcut QWEEK Qty: 3 1RF Rx Instructions: for 4 weeks multivitamin [One-A-Day Essential] 1 EACH tablet 1 ea PO DAILY acetaminophen [Mapap Extra Strength] 500 MG tablet 500 - 1,000 mg PO PRN PRN Discharge Instructions Additional Instructions: You have decided to leave AGAINST MEDICAL ADVICE. There were concerning changes on your EKG and you have a very low magnesium. I am concerned that this could cause serious cardiac arrhythmias leading to permanent disability or if untreated. Please take an [id number]-[id number] magnesium supplement (there are dissolvable ones like CALM or tablets of magnesium available over the counter) to help correct your low magnesium. You are also quite dehydrated today. Drink plenty of fluids at home. Elevate your legs above heart level. Change your right lower leg dressing daily, wash with antibacterial soap and water and apply a nonstick bandage. Keep an eye out for signs of infection such as redness, swelling, pus drainage, pain. You may return to emergency care at any time to complete your workup/treatment or if you develop any new concerning symptoms such as weakness, episodes of dizziness, chest pain, shortness of breath; or if you are very worried and wanted to be rechecked again immediately. As discussed, call [facility] internal medicine first thing in the morning to schedule follow-up appointment and to be rechecked in office [facility]. Referrals: Gage Paul DO [Primary Care Provider] - [facility] General Date/Time Provider Initiated Documentation: 09/22/24 16:03 . [facility] Narrative: Zuleyka is a 69year old female who presents to the emergency department today for evaluation of bleeding lesion to her right lower leg. She reports that she must of scratched one of the sores on her leg and taken off a scab while she was toweling off after shower today. She had difficulty controlling the bleeding, EMS came and dressed the wound, and transported her to the hospital. While ambulating to the room from the waiting room He became lightheaded. Denies other associated symptoms such as warmth, nausea, palpitations, shortness of breath. This was transient, resolved when she she sat down. Heart rate was noted to be up to the 140s initially, then dropped back into the 70s/80s. She denies recent fever/chills, headache, dizziness, syncope, congestion, sore throat, cough, chest pain, palpitations, shortness of breath, nausea/vomiting, abdominal pain, change in bowel or bladder function. Admits she has not been drinking any water today, says her mouth feels dry. Past medical history is significant for IDDM, COPD, diastolic HF, cardiomyopathy, A-fib not on anticoag ulation due to cost (stopped a few months ago), venous stasis dermatitis of lower extremities, and HLD. She is a tobacco user. Physical exam remarkable for irregular rate and rhythm, tachycardia. Very tacky mucous membranes. Easy work of breathing, lung sounds clear bilaterally. Abdomen soft, nondistended, nontender palpation. Bilateral pedal edema noted, 1 mm superficial laceration noted over varicose vein to right anterior mir, no active bleeding at this time. D/dx includes but is not limited to: Dehydration, electrolyte imbalance, cardiac arrhythmia, hypoglycemia, orthostatic hypotension, medication reaction I independently interpreted the following tests: EKG notable for A-fib with rate 102, mild ST depressions noted in lateral leads, no changes consistent with acute ischemia. QTc prolonged, 596. Patient does have a history of A-fib with prolonged QTc, QTc 510 on 04/30/2021 EKG. Mild leukocytosis, white cell count 11.32. Creatinine slightly elevated at 1.5, with BUN 22. Hypomagnesemia noted, 1.4. Coags reassuring. While in the emergency department, Zuleyka took p.o. fluids (large cup of water) and magnesium p.o. without difficulty. I did discuss with her my significant concern regarding her very prolonged QTc in light of hypomagnesemia, as well as dehydration. She refused IV, but had been agreeable to straight stick for blood work. RN washed and dressed the wound. 1. I explained the current situation and condition to the patient. 2. I explained the recommended treatment for this condition -IV magnesium and rehydration. 3. I explained the risk of not having the recommended treatment -cardiac arrhythmia, CVA/NH, permanent disability, loss of lifestyle, 4. The patient understands this information has no questions, and repeated back this information. She acknowledges the risks associated with leaving prior to completion of treatment. 5. The patient states that they need to leave and will follow-up tomorrow with PCP 6. Mental status is lucid and the patient has decision-making capacity. 7. I did provide discharge instructions to patient, including use of magnesium supplements. Advised her that she can come back at any time to finish workup/treatment. I did review wound care instructions, including red flags concerning for infection. Related Data Home Medications ?Medication ?Instructions ?Recorded ?Confirmed multivitamin (One-A-Day Essential 1 ea PO DAILY 10/20/17 09/22/24 tablet) acetaminophen 500 mg tablet (Mapap 500 - 1,000 mg PO PRN PRN 02/26/18 09/22/24 Extra Strength) sarwat.stocking,knee,reg,xlrg #12 ea 04/06/21 09/22/24 atorvastatin 40 mg tablet 40 mg PO DAILY #90 tabs 06/21/24 09/22/24 blood sugar diagnostic (Blood #300 ea 06/21/24 09/22/24 Glucose Test strips) blood-glucose meter #1 ea 06/21/24 09/22/24 diltiazem HCl 360 mg capsule,24 360 mg PO DAILY #90 caps 06/21/24 09/22/24 hr,extended release empagliflozin 10 mg tablet 10 mg PO DAILY #90 tabs 06/21/24 09/22/24 (Jardiance) furosemide 40 mg tablet 40 mg PO BID #180 tabs 06/21/24 09/22/24 gabapentin 300 mg capsule 300 mg PO TID #270 caps 06/21/24 09/22/24 insulin degludec 200 unit/mL (3 See Rx Instructions subcut DAILY 06/21/24 09/22/24 mL) subcutaneous pen (Tresiba #9 mL FlexTouch U-200 insulin) lancets 33 gauge #100 ea 06/21/24 09/22/24 losartan 25 mg tablet 25 mg PO BID #180 tabs 06/21/24 09/22/24 metformin 1,000 mg tablet 1,000 mg PO BID #180 tabs 06/21/24 09/22/24 metoprolol succinate 100 mg 100 mg PO BID atrial fibrillation 06/21/24 09/22/24 tablet,extended release 24 hr 90 days #180 tabs nicotine 21 mg/24 hr daily 1 patch transdermal Q24H #28 ea 06/21/24 09/22/24 transdermal patch pen needle, diabetic 29 gauge x #100 ea 06/21/24 09/22/24 1/2 (BD Ultra-Fine Original Pen Needle) pramipexole 0.75 mg tablet 1.5 mg (2 x 0.75 mg) PO QHS #180 06/21/24 09/22/24 tabs sertraline 50 mg tablet 50 mg PO DAILY #90 tabs 06/21/24 09/22/24 spironolactone 25 mg tablet 25 mg PO DAILY #90 tabs 06/21/24 09/22/24 clotrimazole-betamethasone 1 1 applic topical BID 10 days #15 07/02/24 09/22/24 %-0.05 % topical cream grams insulin aspart U-100 100 unit/mL See Rx Instructions subcut TID #15 07/04/24 09/22/24 (3 mL) subcutaneous pen (Novolog mL FlexPen U-100 Insulin aspart) semaglutide 0.25 mg or 0.5 mg (2 0.5 mg (0.736 mL) subcut QWEEK #3 09/12/24 09/22/24 mg/3 mL) subcutaneous pen injector mL (Ozempic) Previous Rx's ?Medication ?Instructions ?Recorded sarwat.stocking,knee,reg,xlrg #12 ea 04/06/21 atorvastatin 40 mg tablet 40 mg PO DAILY #90 tabs 06/21/24 blood sugar diagnostic (Blood #300 ea 06/21/24 Glucose Test strips) blood-glucose meter #1 ea 06/21/24 diltiazem HCl 360 mg capsule,24 360 mg PO DAILY #90 caps 06/21/24 hr,extended release empagliflozin 10 mg tablet 10 mg PO DAILY #90 tabs 06/21/24 (Jardiance) furosemide 40 mg tablet 40 mg PO BID #180 tabs 06/21/24 gabapentin 300 mg capsule 300 mg PO TID #270 caps 06/21/24 insulin degludec 200 unit/mL (3 See Rx Instructions subcut DAILY 06/21/24 mL) subcutaneous pen (Tresiba #9 mL FlexTouch U-200 insulin) lancets 33 gauge #100 ea 06/21/24 losartan 25 mg tablet 25 mg PO BID #180 tabs 06/21/24 metformin 1,000 mg tablet 1,000 mg PO BID #180 tabs 06/21/24 metoprolol succinate 100 mg 100 mg PO BID atrial fibrillation 06/21/24 tablet,extended release 24 hr 90 days #180 tabs nicotine 21 mg/24 hr daily 1 patch transdermal Q24H #28 ea 06/21/24 transdermal patch pen needle, diabetic 29 gauge x #100 ea 06/21/24 1/2 (BD Ultra-Fine Original Pen Needle) pramipexole 0.75 mg tablet 1.5 mg (2 x 0.75 mg) PO QHS #180 06/21/24 tabs sertraline 50 mg tablet 50 mg PO DAILY #90 tabs 06/21/24 spironolactone 25 mg tablet 25 mg PO DAILY #90 tabs 06/21/24 clotrimazole-betamethasone 1 1 applic topical BID 10 days #15 07/02/24 %-0.05 % topical cream grams insulin aspart U-100 100 unit/mL See Rx Instructions subcut TID #15 07/04/24 (3 mL) subcutaneous pen (Novolog mL FlexPen U-100 Insulin aspart) semaglutide 0.25 mg or 0.5 mg (2 0.5 mg (0.736 mL) subcut QWEEK #3 09/12/24 mg/3 mL) subcutaneous pen injector mL (Ozempic) Allergies Allergy/AdvReac Type Severity Reaction Status Date / Time environmental Allergy Unknown post nasal Uncoded 09/22/24 16:17 drip General Stated Complaint: GenMedical SYED: 3 Review of Systems Narrative: see HPI Exam Const General: cooperative, comfortable, no acute distress and well developed Nutritional Appearance: overweight Orientation: alert and oriented x3 HENMT Head: normal to inspection Ears: hearing grossly normal bilaterally General nose exam: external nose normal Face and sinus: dry mucous membranes Mouth: tongue abnormal (dry) Resp Effort & Inspection: normal respiratory effort and able to speak in complete sentences Auscultation: clear to auscultation bilaterally Cardio Rate: tachycardic Rhythm: abnormal rhythm irregularly irregular GI Inspection: normal to inspection and non-distended Palpation: soft, no guarding and not rigid Skin Trauma: laceration (1 mm laceration above varicose vein on anterior right mir) Extrem General: edema Laterality: bilateral (lower leg and ankle) Course Vital Signs Vital signs: Vital Signs Temperature 36.8 C 09/22/24 16:12 Pulse 84 09/22/24 16:12 Respiratory Rate 20 09/22/24 16:12 Blood Pressure 87/60 L 09/22/24 16:12 Pulse Oximetry 95 09/22/24 16:12 Temperature 36.8 C 09/22/24 16:12 Pulse 111 H 09/22/24 16:25 Respiratory Rate 25 H 09/22/24 16:25 Respiratory Effort Normal 09/22/24 16:25 Respiratory Depth Normal 09/22/24 16:25 Respiratory Pattern Normal 09/22/24 16:25 Blood Pressure 99/45 L 09/22/24 16:25 Blood Pressure Position Supine 09/22/24 16:25 Pulse Oximetry 96 09/22/24 16:25 Oxygen Delivery Method Room Air 09/22/24 16:25 Oxygen Flow Rate 0 09/22/24 16:12 Medical Decision Making Quality:SDOH Health Related Social Needs: No Data to Display PFSH All Active Problems (Updated 09/22/24 @ 18:16 by Samantha Chacon) Wound of right leg (Acute) Prolonged QT interval (Acute) Lightheadedness (Acute) Onychogryphosis (Acute) Nocturnal hypoxia (Acute) Personal history of nicotine dependence (Acute) Cardiomyopathy (Acute) Diabetic peripheral neuropathy (Acute) Chronic obstructive pulmonary disease (Chronic) Chronic diastolic heart failure (Acute) Venous stasis dermatitis of both lower extremities (Acute) Toenail deformity (Acute) Atrial fibrillation with rapid ventricular response (Acute) Pneumonia (Acute) Acute respiratory failure with hypoxia (Acute) Sebaceous cyst (Acute 10/12/17) Nocturnal hypoxemia (Chronic) 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) Restless leg syndrome (Chronic) Degenerative joint disease of left knee (Chronic) Lipoma of left shoulder (Acute) Hyperlipidemia (Acute) Diabetes mellitus type II, uncontrolled (Acute) Venous stasis ulcer limited to breakdown of skin with varicose veins (Acute) Elevated BP without diagnosis of hypertension (Chronic 10/12/17) Atrial fibrillation (Chronic) Medical History A-fib Acute respiratory failure with hypercapnia inpatient [facility] [place] 03/06-03/09/21 Afib Arthritis (10/12/17) CHF (congestive heart failure) Diabetes Heart murmur (10/12/17) Loss of taste Pulmonary edema inpatient [facility] [place] 03/06-03/09/21 Rheumatic fever (10/12/17) Venous insufficiency (chronic) (peripheral) Family History Mother Diabetes Hypertension Heart disease Depression Anxiety Maternal Aunt Diabetes Neoplasm Breast Maternal Uncle Neoplasm Father , cardiac issues at age 64. 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 - [employer] Pets and animals: Yes Pets and animals: cat(s) Do you think of yourself as: straight/heterosexual Current gender identity: female What is your relationship status?: How often do you talk on the phone with friends or family?: three or more times per week How often do you get together with friends or relatives?: twice per week Do you belong to any clubs or organized social groups?: no Panel score (0-1 are the most socially isolated patients): 1 What type of physical activity do you participate in: walking Duration: 15-30 minutes/day Frequency: 1-2 times per week Rebecca/Sabianism: Anglican Special rebecca needs: No Seatbelt use: always Helmet use: Yes Helmet use: sometimes Drive intox or ride w/intox laundry route driver: No Working smoke detector in home: Yes Carbon monox detector in home: Yes Do you feel safe at home: Yes Do you feel safe in your relationship?: Yes
[2024-09-22 17:16] LABS: Abs Immature Grans 0.05 10^3/uL (0.0-0.06); Absolute Basophil Count 0.09 10^3/uL (0.0-0.2); Absolute Lymphocyte Count 2.28 10^3/uL (1.2-3.4); Absolute Monocyte Count 0.82 10^3/uL (0.1-0.8); Basophils % 0.8 %; Eosinophils % 0.9 %; HCT 38.8 % (36.0-46.0); HGB 12.7 g/dL (11.2-15.7); Immature Grans % 0.4 %; Lymphocytes % 20.1 %; MCHC 32.7 % (32.0-36.0); MCV 92 fL (80-95); MPV 9.3 fL (8.0-11.0); Monocytes % 7.2 %; Neutrophils % 70.6 %; Platelet Count 303 10^3/uL (130-400); RBC 4.23 10^6/uL (3.93-5.22); RDW 16.2 % (11.7-14.6); RDW-SD 54.9 fL; WBC 11.32 10^3/uL (4.4-10.8)
[2024-09-22 17:17] LABS: Absolute Neutrophil Count 7.99 10^3/uL (1.2-6.7)
[2024-09-22 17:30] LABS: INR 1.1 (0.9-1.1); PTT Activated 24.6 sec (20.6-30.2); Prothrombin Time 10.7 sec (9.1-11.1)
[2024-09-22 17:42] LABS: ALT 24 U/L (14-59); AST 15 U/L (15-37); Albumin 3.3 g/dL (3.4-5.0); Alkaline Phosphatase 97 U/L (46-116); Anion Gap 9.8 mmol/L (3-11); BUN 22 mg/dL (7-18); Bilirubin, Total 0.35 mg/dL (0.2-1.0); CO2 31.2 mmol/L (21.0-32.0); CREATININE 1.5 mg/dL (0.55-1.02); Calcium 8.8 mg/dL (8.5-10.1); Chloride 102 mmol/L (98-107); Estimated GFR 37.72 (mL/min/1.73m2); Glucose 178 mg/dL (74-106); Magnesium 1.4 mg/dL (1.8-2.4); Potassium 3.9 mmol/L (3.5-5.1); Sodium 143 mmol/L (136-145); Total Protein 7.5 g/dL (6.4-8.2)
[2024-09-22 17:59] LABS: FREE T4 0.89 ng/dL (0.76-1.46)
[2024-09-22] MEDS: Magnesium Oxide 400 MG TAB 800 MG PO (18:39)
== END 2024-09-22 18:39 | disposition left against medical advice (07) ==
PROVIDERS: Emergency Provider Nurse Practitioner Family; PCP Family Medicine
DX: R42 Dizziness and giddiness (principal); E83.42 Hypomagnesemia; I50.32 Chronic diastolic (congestive) heart failure; I48.91 Unspecified atrial fibrillation; E11.9 Type 2 diabetes mellitus without complications; E78.5 Hyperlipidemia, unspecified; R94.31 Abnormal electrocardiogram [ECG] [EKG]; Z79.4 Long term (current) use of insulin; Z79.84 Long term (current) use of oral hypoglycemic drugs; Z79.85 Long-term (current) use of injectable non-insulin antidiabetic drugs; Z87.891 Personal history of nicotine dependence
CPT/HCPCS: 80053; 82962; 93005; 99284; 83735; 84439; 84443; 85025; 85610; 85730; 93010

== ENCOUNTER → 2025-06-24 00:52 | Outpatient (CLI) | payer MEDICARE, SELFPAY ==
--- NOTE | 2025-06-24 07:30 | DI.MAMMO_ITS ---
Exam(s) MAMMO SCREENING EXAM: MAMMO SCREENING CLINICAL HISTORY: screening,z12.39. TECHNIQUE: Bilateral full field digital CC and MLO mammographic images were obtained with 3D tomosynthesis and utilizing computer aided detection (CAD). COMPARISON: Prior mammograms were reviewed. Prior ultrasound 2020 also reviewed FINDINGS: There has been no significant change in the appearance and distribution of the fibroglandular tissue. Asymmetric density 5 cm in from the nipple in the left breast is unchanged from prior mammograms dating back to 2018 and therefore benign. Benign-appearing microcalcifications inferiorly and posteriorly in the right breast are unchanged. There are no new spiculated masses nor malignant appearing microcalcification groups. There is no significant architectural distortion nor skin thickening-retraction. IMPRESSION: No radiographic evidence of malignancy. Stable benign-appearing findings. BI-RADS Category 2 - Benign Findings Breast Density - Category B - There are scattered areas of fibroglandular density. Breast density Category C or D implies that the patient has dense breast tissue. Dense breast tissue can make it harder to find cancer on a mammogram. Dense breast tissue is also associated with an increased risk of breast cancer. This information about the result of the mammogram report was provided to the patient to raise their awareness. Use this report when you speak with the patient about their risks for breast cancer, which includes their family history. At that time, you may recommend additional screening tests (Ultrasound or MRI) as these tests may add significant information. A negative radiographic report should not delay biopsy if a dominant or clinically suspicious mass is present. Up to ten percent of cancers are not identified on mammography. A negative report may reinforce clinical impression. Adenosis and dense breasts may obscure an underlying neoplasm. False positive reports average 6 to 10%. Patient will receive a letter notifying them of these results.
== END ==
LOC: DI 00:52
PROVIDERS: PCP Family Medicine; Visit Provider Family Medicine
DX: Z12.31 Encounter for screening mammogram for malignant neoplasm of breast (principal); R92.323 Mammographic fibroglandular density, bilateral breasts
CPT/HCPCS: 77063; 77067

== ENCOUNTER 2025-07-14 15:19 | Outpatient (REF) | payer MEDICARE, SELFPAY | END 2025-07-14 15:20 | disposition home or self-care (01) | LOC: LBN 15:19 | PROVIDERS: PCP Family Medicine; Visit Provider Family Medicine | DX: R41.82 Altered mental status, unspecified (principal) | CPT/HCPCS: 87077; 87086; 87186 ==

== ENCOUNTER 2025-07-20 15:02 | Inpatient (IN) | payer MEDICARE, SELFPAY ==
[2025-07-20] VITALS (12 sets, daily range): BP systolic 103–118; BP diastolic 60–84; PULSE 82–129; RESP 12–19; TEMP 36–36.8; O2SAT 89–93
--- NOTE | 2025-07-20 15:00 | RT.EKG_ITS ---
APPROVED REPORT Exam: Resting ECG Reason for Exam: tachycardia Patient Location: E HR:130 bpm ECG Measurements Heart Rate 130 AXIS NH [id number] P [id number] QRSd 111 QRS 105 QT 357 T 27 QTc 525 Conclusion Atrial fibrillation...V-rate 105-147, irreg A-activity Anterior infarct, old...Q >40mS, abnormal ST-T, V2-V5 Prolonged QT interval...QTc >500mS No Occlusion CT
--- NOTE | 2025-07-20 15:00 | DI.CT_ITS ---
Exam(s) CT HEAD WO EXAM: CT HEAD WO CLINICAL HISTORY: hallucinations. TECHNIQUE: Imaging Protocol: Axial computed tomography images with coronal and sagittal reformatted images were created and reviewed COMPARISON: No exams were available for comparison FINDINGS: Ventricles and Extra axial spaces: Normal in size and morphology for the patient's age. Hemorrhage: None. Cerebral parenchyma: There is no evidence of an acute territorial infarct. No acute mass effect is identified. The goldsmith-white matter differentiation is preserved. Midline shift: None. Brainstem/Cerebellum: Normal. Calvarium: Normal. Visualized Paranasal sinuses/Mastoids: There is complete opacification of the left maxillary sinus. The remaining visualized paranasal sinuses and mastoid air cells are clear. Soft Tissues: Unremarkable. IMPRESSION: 1. No acute intracranial process. 2. Left maxillary sinusitis. 3. The preliminary [facility] report was reviewed. RADIATION DOSE DELIVERED: 871.27mGy.cm Total DLP DATA REPOSITORY: All CT scans at this facility are submitted to the National Radiology Data Registry (NRDR) Dose Index Registry (DIR) with the [employer] (ACR). RADIATION OPTIMIZATION: All CT scans at this facility use at least one of these dose optimization techniques: automated exposure control; mA and/or kV adjustment per patient size (includes targeted exams where dose is matched to clinical indication); or iterative reconstruction.
--- NOTE | 2025-07-20 15:19 | W.ED.GENAD ---
Discharge Plan Disposition Patient Disposition: Admit to [facility] Condition: Stable Discharge Details Clinical Impression: Vision loss, bilateral, Hypnopompic hallucination, Right hilar mass, Atrial fibrillation, Diabetes mellitus type II, uncontrolled, Atrial fibrillation with rapid ventricular response, Nocturnal hypoxemia Primary Care Provider: Gage Paul ED Provider: Elizaebth Bermudez Home Meds and New Rx's Prescriptions: No Action (DME) sarwat.stocking,knee,reg,xlrg Misc See Rx Instructions .ROUTE .MEDSUPPLY Qty: 12 6RF Rx Instructions: As directed apixaban 5 mg tablet 5 mg PO BID Qty: 60 3RF atorvastatin 40 mg tablet 40 mg PO DAILY Qty: 90 3RF clotrimazole-betamethasone 1-0.05 % cream 1 applic topical BID 10 Days Qty: 15 2RF diltiazem HCl 360 mg capsule,extended release 24 hr 360 mg PO DAILY Qty: 90 3RF furosemide 40 mg tablet 40 mg PO BID Qty: 180 3RF insulin degludec [Tresiba FlexTouch U-200] 200 unit/mL (3 mL) insulin pen See Rx Instructions subcut DAILY Qty: 9 6RF Rx Instructions: 20 units qam, 50 units qhs subcutaneously daily; losartan 25 mg tablet 25 mg PO BID Qty: 180 3RF nicotine 21 mg/24 hr patch 24 hour 1 patch transdermal Q24H Qty: 28 3RF sertraline 50 mg tablet 50 mg PO DAILY Qty: 90 3RF spironolactone 25 mg tablet 25 mg PO DAILY Qty: 90 3RF (DME) Blood Glucose Test Strip See Rx Instructions .Route Qty: 300 3RF Rx Instructions: Accu-check test sstrips. test 4x/day to keep HbA1c less than 6/5%. Dx E11.9 (DME) blood-glucose meter Misc See Rx Instructions .Route Qty: 1 0RF Rx Instructions: accu-check meter. to test 4x/day to keep HbA1c less than 6.5% Dx E11.9 (DME) lancets 33 gauge misc See Rx Instructions .ROUTE .MEDSUPPLY Qty: 100 11RF Rx Instructions: As directed, TID, to keep HbA1c below 6.5%, on insulin; Dx: E11.9 (DME) pen needle, diabetic [BD Ultra-Fine Orig Pen Needle] 29 gauge x 1/2 needle 0 .ROUTE .MEDSUPPLY Qty: 100 12RF Rx Instructions: As directed, 5x day insulin aspart U-100 [Novolog FlexPen U-100 Insulin] 100 unit/mL (3 mL) insulin pen See Rx Instructions subcut TID MDD 30 units Qty: 15 11RF Rx Instructions: Inject 1-10 units SQ TID with each meal acording to sliding scale subcut three times a day; 140-180 3 units, 181-240 4 units, 241-300 6 units, 301-350 8 units, 351-400 10 units metoprolol succinate 100 mg tablet extended release 24 hr 100 mg PO BID 90 Days Qty: 180 3RF metformin 1,000 mg tablet 1,000 mg PO BID Qty: 180 3RF multivitamin [One-A-Day Essential] 1 EACH tablet 1 ea PO DAILY acetaminophen [Mapap Extra Strength] 500 MG tablet 500 - 1,000 mg PO PRN PRN HPI General Mode of arrival: EMS. Date/Time Provider Initiated Documentation: 07/20/25 15:11. Limitations to Documentation: no limitations. Information obtained by: patient, EMS and old records reviewed. HPI Narrative: This is a 70-year-old female patient with a past medical history significant for cardiomyopathy/diastolic heart failure, COPD, diabetes, A-fib on apixaban, hypertension, and bilateral cataracts, presenting for evaluation of ongoing hallucinations. The patient was seen at her primary care providers on the of this month, with hallucinations that occur upon awakening. She states that she sees furniture flying through the air, states that she was recently diagnosed with severe cataracts, and at this point can only perceive light, she cannot read things but when she looks at her phone she sees letters that are upside down. She recognizes that these are hallucinations, but they are very bothersome to her. She reports that she has an appointment to have her cataracts manage next Monday, but is having difficulty performing her ADLs. She has not been taking her medications because she cannot read the labels, states that she has not taken any falls or injuries, but has not been eating and drinking normally and since these vision changes started about a month ago, she feels that she has lost about 60 pounds due to not having adequate p.o. intake. Denies headaches, fever, chills, or other physical complaints. Denies suicidal and homicidal ideation Related Data Home Medications ?Medication ?Instructions ?Recorded ?Confirmed multivitamin (One-A-Day Essential 1 ea PO DAILY 10/20/17 07/20/25 tablet) acetaminophen 500 mg tablet (Mapap 500 - 1,000 mg PO PRN PRN 02/26/18 07/20/25 Extra Strength) sarwat.stocking,knee,reg,xlrg #12 ea 04/06/21 07/20/25 blood sugar diagnostic (Blood #300 ea 06/21/24 07/20/25 Glucose Test strips) blood-glucose meter #1 ea 06/21/24 07/20/25 lancets 33 gauge #100 ea 06/21/24 07/20/25 pen needle, diabetic 29 gauge x #100 ea 06/21/24 07/20/25 1/2 (BD Ultra-Fine Original Pen Needle) insulin aspart U-100 100 unit/mL See Rx Instructions subcut TID #15 07/04/24 07/20/25 (3 mL) subcutaneous pen (Novolog mL FlexPen U-100 Insulin aspart) metformin 1,000 mg tablet 1,000 mg PO BID #180 tabs 05/05/25 07/20/25 metoprolol succinate 100 mg 100 mg PO BID atrial fibrillation 05/05/25 07/20/25 tablet,extended release 24 hr 90 days #180 tabs apixaban 5 mg tablet 5 mg PO BID stroke prevention #60 05/30/25 07/20/25 tabs atorvastatin 40 mg tablet 40 mg PO DAILY #90 tabs 05/30/25 07/20/25 clotrimazole-betamethasone 1 1 applic topical BID 10 days #15 05/30/25 07/20/25 %-0.05 % topical cream grams diltiazem HCl 360 mg capsule,24 360 mg PO DAILY #90 caps 05/30/25 07/20/25 hr,extended release furosemide 40 mg tablet 40 mg PO BID #180 tabs 05/30/25 07/20/25 insulin degludec 200 unit/mL (3 See Rx Instructions subcut DAILY 05/30/25 07/20/25 mL) subcutaneous pen (Tresiba #9 mL FlexTouch U-200 insulin) losartan 25 mg tablet 25 mg PO BID #180 tabs 05/30/25 07/20/25 nicotine 21 mg/24 hr daily 1 patch transdermal Q24H #28 ea 05/30/25 07/20/25 transdermal patch sertraline 50 mg tablet 50 mg PO DAILY #90 tabs 05/30/25 07/20/25 spironolactone 25 mg tablet 25 mg PO DAILY #90 tabs 05/30/25 07/20/25 Previous Rx's ?Medication ?Instructions ?Recorded sarwat.stocking,knee,reg,xlrg #12 ea 04/06/21 blood sugar diagnostic (Blood #300 ea 06/21/24 Glucose Test strips) blood-glucose meter #1 ea 06/21/24 lancets 33 gauge #100 ea 06/21/24 pen needle, diabetic 29 gauge x #100 ea 06/21/24 1 (BD Ultra-Fine Original Pen Needle) insulin aspart U-100 100 unit/mL See Rx Instructions subcut TID #15 07/04/24 (3 mL) subcutaneous pen (Novolog mL FlexPen U-100 Insulin aspart) metformin 1,000 mg tablet 1,000 mg PO BID #180 tabs 05/05/25 metoprolol succinate 100 mg 100 mg PO BID atrial fibrillation 05/05/25 tablet,extended release 24 hr 90 days #180 tabs apixaban 5 mg tablet 5 mg PO BID stroke prevention #60 05/30/25 tabs atorvastatin 40 mg tablet 40 mg PO DAILY #90 tabs 05/30/25 clotrimazole-betamethasone 1 1 applic topical BID 10 days #15 05/30/25 %-0.05 % topical cream grams diltiazem HCl 360 mg capsule,24 360 mg PO DAILY #90 caps 05/30/25 hr,extended release furosemide 40 mg tablet 40 mg PO BID #180 tabs 05/30/25 insulin degludec 200 unit/mL (3 See Rx Instructions subcut DAILY 05/30/25 mL) subcutaneous pen (Tresiba #9 mL FlexTouch U-200 insulin) losartan 25 mg tablet 25 mg PO BID #180 tabs 05/30/25 nicotine 21 mg/24 hr daily 1 patch transdermal Q24H #28 ea 05/30/25 transdermal patch sertraline 50 mg tablet 50 mg PO DAILY #90 tabs 05/30/25 spironolactone 25 mg tablet 25 mg PO DAILY #90 tabs 05/30/25 Allergies Allergy/AdvReac Type Severity Reaction Status Date / Time No Known Allergies Allergy Verified 07/20/25 16:05 General Stated Complaint: GenMedical SYED: 3 Exam Narrative Exam Narrative: Gen: Awake and alert, in no apparent distress HEENT: Non-icteric sclera, pupils are equal and sluggishly reactive to light, light perception and hand wave but cannot finger count, eyes do not accurately track where this provider's hand is during finger counting attempt. EOMs are full, conjunctiva clear, pressure 12mmHg b/l Neck: Supple Lungs: No apparent respiratory distress, normal respiratory effort. CV: Appears well perfused, strong distal pulses Abdomen: Non-distended MSK: Moves 4 extremities without apparent limitation in ROM Skin: Visualized skin without rashes, cyanosis. Neuro: No unilateral weakness, symmetrical strength and sensation, no facial asymmetry. Speaks in full, clear sentences. Psych: Appropriate for situation. Course Vital Signs Vital signs: Vital Signs Temperature 36.8 C 07/20/25 14:59 Pulse 118 H 07/20/25 14:59 Respiratory Rate 18 07/20/25 14:59 Blood Pressure 117/76 07/20/25 14:59 Pulse Oximetry 92 07/20/25 14:59 Temperature 36.8 C 07/20/25 14:59 Temperature Source Oral 07/20/25 14:59 Pulse 118 H 07/20/25 14:59 Respiratory Rate 18 07/20/25 14:59 Respiratory Effort Normal 07/20/25 15:10 Respiratory Depth Normal 07/20/25 15:10 Respiratory Pattern Normal 07/20/25 15:10 Blood Pressure 117/76 07/20/25 14:59 Blood Pressure Position Supine 07/20/25 14:59 Pulse Oximetry 92 07/20/25 14:59 Oxygen Delivery Method Room Air 07/20/25 14:59 Oxygen Flow Rate 0 07/20/25 14:59 Pain Level 0 07/20/25 15:10 Medical Decision Making This is a 70-year-old female patient presenting for evaluation of hallucinations. Differential includes but is not limited to hallucinations in the setting of her significant visual impairment, Certainly I considered medical Intermatic etiologies including intracranial hemorrhage, mass effect, metabolic and electrolyte derangement, anemia, hyper and hypothyroidism. Considered ongoing infection though the patient has completed a course of ciprofloxacin for cystitis, and is asymptomatic at this time. Consider dehydration, kidney injury, liver pathology. We will obtain an EKG as the patient is slightly tachycardic, as well as labs to include CBC, CMP, magnesium, troponin, TSH, urinalysis. I will obtain a Noncon head CT. Will provide the patient with some fluids for rehydration given her tachycardia and poor p.o. intake. - I reviewed the patient's laboratory studies, which show no leukocytosis, anemia, or thrombocytopenia. Her chemistry panel reveals no significant electrolyte derangements other than a very mild hypokalemia to 3.4, creatinine 1.1, no liver enzyme elevations. Troponin is negative and without interval increase on 1 hour delta recheck. The patient's EKG shows an atrial fibrillation with RVR, patient reports that she has not yet taken her meds tonight, and has been missing doses. CT of her brain shows no abnormalities to account for her symptoms. Repeat urinalysis did have some squamous contamination with pyuria, but no bacteria or nitrates to suggest ongoing infection. I consulted ophthalmology at [facility] to discuss this patient's case. I was able to find a note from approximately 1 month ago where she had a diabetic retinopathy examination which was reassuring, and at that time had 20/80 corrected vision. I am concerned given the significant decrease in vision from that time on my exam today. New loss of vision is bilateral, with no eye pain, redness, or increase in intraocular pressure to suggest glaucoma, optic neuritis, uveitis, etc. She did have a vitreous hemorrhage last month, I will obtain an ultrasound to evaluate for retinal detachment. They recommend adding ESR and CRP to rule out temporal arteritis, this was done and the patient had very low values which is reassuring against this etiology. The on-call provider at [facility] was able to be gotten in contact with, they note that it is technically possible for her bilateral cataracts to have progressed rapidly in the setting of uncontrolled diabetes, and could have become brunescent, which can cause significant visual loss. They will review the patient's chart and prior exams tomorrow and contact the hospitalist with recommendations. The patient did have an episode of hypoxia to 88-89% on room air, she does have a documented history of nocturnal hypoxia but given her ongoing tachycardia and missed doses of apixaban I do think it prudent to proceed with CT imaging of the chest to rule out any associated respiratory abnormalities. I reviewed the patient CT as well as the radiology report, and unfortunately note is made of a large right hilar mass, concerning for primary lung malignancy with metastases. There is no evidence of pulmonary embolism, underlying COPD is noted. I made the patient aware of this finding, she has no prior diagnosis of lung cancer or lung mass, and will require further workup and management of this acute finding. I do not think that it adequately explains the symptoms which she presented with today, namely rapid vision loss and hallucinations. However, she would benefit from an MRI to evaluate for metastatic lesion, and cannot safely be discharged home due to her new oxygen requirement and inability to perform ADLs and safely take her medications. For this reason I reached out to the hospitalist who has graciously accepted this patient for admission to their service for ongoing management of her acute visual loss, hallucinations, and hypoxia likely due to COPD and newly identified lung mass. The patient remained hemodynamically improved while under my care, though continued to have some tachycardia, was transferred to the hospitalist service without incident. Elizabeth Bermudez MD [facility] All Active Problems (Updated 07/20/25 @ 20:58 by Elizabeth Bermudez MD) Right hilar mass (Acute) Vision loss, bilateral (Acute) Suspected malignant neoplasm of lung (Acute) Acute hypoxemic respiratory failure (Acute) Cystitis (Acute) Hypnopompic hallucination (Acute) Environmental allergies (Acute) Wound of right leg (Acute) Onychogryphosis (Acute) Nocturnal hypoxia (Acute) Personal history of nicotine dependence (Acute) Cardiomyopathy (Acute) Diabetic peripheral neuropathy (Acute) Chronic obstructive pulmonary disease (Chronic) Chronic diastolic heart failure (Acute) Venous stasis dermatitis of both lower extremities (Acute) Toenail deformity (Acute) Atrial fibrillation with rapid ventricular response (Acute) Pneumonia (Acute) Acute respiratory failure with hypoxia (Acute) Sebaceous cyst (Acute 10/12/17) Nocturnal hypoxemia (Chronic) 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) Restless leg syndrome (Chronic) Degenerative joint disease of left knee (Chronic) Lipoma of left shoulder (Acute) Hyperlipidemia (Acute) Diabetes mellitus type II, uncontrolled (Acute) Venous stasis ulcer limited to breakdown of skin with varicose veins (Acute) Elevated BP without diagnosis of hypertension (Chronic 10/12/17) Atrial fibrillation (Chronic) Medical History A-fib Acute respiratory failure with hypercapnia inpatient [facility] 03/06-03/09/21 Afib Arthritis (10/12/17) CHF (congestive heart failure) Diabetes Heart murmur (10/12/17) Loss of taste Pulmonary edema inpatient [facility] 03/06-03/09/21 Rheumatic fever (10/12/17) Venous insufficiency (chronic) (peripheral) Family History Mother Diabetes Hypertension Heart disease Depression Anxiety Maternal Aunt Diabetes Neoplasm Breast Maternal Uncle Neoplasm Father , cardiac issues at age 64. 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 - [employer] Pets and animals: Yes Pets and animals: cat(s) Do you think of yourself as: straight/heterosexual Current gender identity: female What is your relationship status?: How often do you talk on the phone with friends or family?: three or more times per week How often do you get together with friends or relatives?: twice per week Do you belong to any clubs or organized social groups?: no Panel score (0-1 are the most socially isolated patients): 1 What type of physical activity do you participate in: walking Duration: 15-30 minutes/day Frequency: 1-2 times per week Rebecca/Yarsani: Mormonism Special rebecca needs: No Seatbelt use: always Helmet use: Yes Helmet use: sometimes Drive intox or ride w/intox stage driver: No Working smoke detector in home: Yes Carbon monox detector in home: Yes Do you feel safe at home: Yes Do you feel safe in your relationship?: Yes POCUS Exam (ED) Limited Ocular Exam DATE OF EXAM: 07/20/25 TIME OF EXAM: 19:43 PROVIDER THAT PERFORMED THE STUDY: Elizabeth Bermudez OCULAR EXAM: Right eye INDICATION FOR RIGHT EYE EXAM: Decreased vision VISUALIZED STRUCTURES: Right optic nerve and Right lens. PERTINENT FINDINGS/IMPRESSION OF THE RIGHT EYE: No apparent abnomalities and Left eye INDICATION FOR LEFT EYE EXAM: Decreased vision. VISUALIZED STRUCTURES: Left optic nerve and Left lens PERTINTINENT FINDINGS/IMPRESSION OF THE LEFT EYE: No apparent abnormalities: Exam complete
[2025-07-20] MEDS: Lactated Ringers 1,000 ML 1000 ML IV (15:34)
[2025-07-20 15:42] LABS: Abs Immature Grans 0.02 10^3/uL (0.0-0.06); HCT 34.9 % (36.0-46.0); HGB 11.5 g/dL (11.2-15.7); Immature Grans % 0.3 %; MCH 29.0 pg (27.0-33.0); MCHC 33.0 % (32.0-36.0); MCV 88 fL (80-95); MPV 9.3 fL (8.0-11.0); Platelet Count 270 10^3/uL (130-400); RBC 3.96 10^6/uL (3.93-5.22); RDW 16.6 % (11.7-14.6); RDW-SD 53.6 fL; WBC 7.98 10^3/uL (4.4-10.8)
[2025-07-20 15:53] LABS: Magnesium 1.6 mg/dL (1.6-2.6)
[2025-07-20 15:54] LABS: Troponin I 15 ng/L (<35)
[2025-07-20 15:55] LABS: ALT 14 U/L (10-49); AST 20 U/L (<34); Albumin 4.1 g/dL (3.2-5.0); Alkaline Phosphatase 90 U/L (46-116); Anion Gap 7.5 mmol/L (3-11); BUN 19 mg/dL (9-23); Bilirubin, Total 0.80 mg/dL (0.2-1.2); CO2 26.5 mmol/L (20.0-31.0); Calcium 9.3 mg/dL (8.3-10.6); Chloride 107 mmol/L (98-107); Glucose 84 mg/dL (74-106); Potassium 3.4 mmol/L (3.5-5.1); Sodium 141 mmol/L (136-145); Total Protein 7.6 g/dL (5.7-8.2)
[2025-07-20 15:57] LABS: TSH (W/Ref FT4) 4.98 uIU/mL (0.55-4.78)
--- NOTE | 2025-07-20 16:21 | DI.[facility]AD_ITS ---
PROCEDURE INFORMATION: Exam: CT Head Without Contrast Exam date and time: 07/20/2025 3:50 PM Age: 70 years old Clinical indication: Other: Hallucinations TECHNIQUE: Imaging protocol: Computed tomography of the head without contrast. COMPARISON: No relevant prior studies available. FINDINGS: Brain: Cerebral volume loss noted. Scattered areas of decreased attenuation in the deep periventricular white matter consistent with small vessel ischemic change. No evidence for acute intracranial hemorrhage. Cerebral ventricles: No ventriculomegaly. Paranasal sinuses: There is dense left maxillary sinus opacification. Mastoid air cells: Visualized mastoid air cells are well aerated. Bones: Unremarkable. No acute fracture. Soft tissues: Unremarkable. IMPRESSION: Senescent changes noted. No acute intracranial abnormality. Dictated and Authenticated by: Lyudmila Hyman MD. Orderin [facility]. Yuan Johnson MD
[2025-07-20 16:53] LABS: Troponin I 14 ng/L (<35)
[2025-07-20 17:26] LABS: ESR 28 mm/hr (0-30)
[2025-07-20 17:38] LABS: C-Reactive Protein 0.90 mg/dL (<=0.50)
[2025-07-20 18:22] LABS: Glucose Negative (Negative)
--- NOTE | 2025-07-20 18:30 | DI.CT_ITS ---
Exam(s) CT CHEST PE CTA EXAM: CT CHEST PE CTA CLINICAL HISTORY: tachy, hypoxia. TECHNIQUE: Imaging Protocol: CT angiography of the chest was performed using pulmonary embolus protocol. Multi planar reconstructions were performed. CONTRAST MATERIAL: Intravenous: Omnipaque 350 Contrast volume: 90 cc COMPARISON: No exams were available for comparison FINDINGS: CHEST: PULMONARY ARTERIES: There are no intraluminal filling defects to suggest acute pulmonary emboli. LUNGS: COPD findings. There is significant volume loss the right middle lobe. There is also right hilar-infrahilar mass and prominent right hilar and contiguous subcarinal adenopathy. There is also paratracheal adenopathy. Also adenopathy in the aortopulmonic window.. There are no pleural effusions. MEDIASTINUM: Prominent right hilar and mediastinal and subcarinal lymphadenopathy as described above. CARDIAC: Mild cardiomegaly. No pericardial effusion.Caliber of the thoracic aorta is within normal limits. No evidence of aortic dissection. There is no significant shift of the interventricular septum. PARTIALLY VISUALIZED UPPERMOST ABDOMEN: There is a left adrenal lesion measuring 2.5 by 1.5 cm. This may be metastatic. OSSEOUS: There is a compression deformity of T3 vertebral body with approximately 30 percent height loss; may be metastatic. There is no retropulsion of the posterior cortex of T3 vertebral body.. IMPRESSION: 1. There is extensive mediastinal and right hilar and subcarinal adenopathy. There appears to be right hilar mass..Most probably lung malignancy with mediastinal metastases. There are no pleural effusions. 2. No evidence of pulmonary embolus. No evidence of aortic dissection nor pericardial effusion. 3. T3 compression deformity, possibly metastatic. Left adrenal mass possibly metastatic. Preliminary V rad report was reviewed RADIATION DOSE DELIVERED: 188.14mGy.cm Total DLP DATA REPOSITORY: All CT scans at this facility are submitted to the National Radiology Data Registry (NRDR) Dose Index Registry (DIR) with the [employer] [place] [employer] [employer] (ACR). RADIATION OPTIMIZATION: All CT scans at this facility use at least one of these dose optimization techniques: automated exposure control; mA and/or kV adjustment per patient size (includes targeted exams where dose is matched to clinical indication); or iterative reconstruction.
[2025-07-20 18:35] LABS: RBC Negative HPF (0-2)
[2025-07-20] MEDS: Tetracaine 0.5% 4 ML BTL OP (18:35)
[2025-07-20] MEDS: Normal Saline - Diluent 50 ML VIAL IJ (18:55)
[2025-07-20] MEDS: Omnipaque 350 MG/ML 100 ML BTL IJ (18:55)
--- NOTE | 2025-07-20 20:27 | DI.VRAD_ITS ---
PROCEDURE INFORMATION: Exam: CTA Chest With Contrast Exam date and time: 07/20/2025 7:36 PM Age: 70 years old Clinical indication: Tachypnea and other: Hypoxia; Tachy, hypoxia TECHNIQUE: Imaging protocol: Computed tomographic angiography of the chest with contrast. Exam focused on the arteries. 3D rendering (Not supervised by radiologist): MIP and/or 3D reconstructed images were created by the technologist. COMPARISON: SD XR CHEST ONE VIEW 03/06/2021 6:44 AM FINDINGS: Pulmonary arteries: Normal. No pulmonary emboli. Aorta: Unremarkable. No aortic aneurysm. No aortic dissection. Lungs: There is right middle lobe atelectasis. Underlying COPD noted. There is attenuation of the mainstem bronchi bilaterally, right worse than left particularly involving the right lower lobe bronchus. Pleural spaces: Unremarkable. No pneumothorax. No pleural effusion. Heart: Mild cardiomegaly. Coronary arteries: Coronary artery calcifications/stents identified. Lymph nodes: There is severe mediastinal and subcarinal adenopathy. There is some left supraclavicular adenopathy and bilateral hilar adenopathy, right much worse than left. There appears to be a right middle mediastinal mass measuring 3.5 cm. Right hilar mass measures approximately 3.1 cm. Adrenal glands: Left adrenal lesion 1.6 cm. Bones/joints: Compression deformity T3 noted with possible subtle osteo sclerotic change. No retropulsion or stenosis. Soft tissues: Unremarkable. IMPRESSION: 1. Extensive mediastinal and hilar adenopathy with concern for right hilar mass. Suspect primary lung neoplasm with metastases. 2. T3 compression deformity, possible metastatic change. 3. No evidence for pulmonary embolus. 4. Possible metastatic disease left adrenal gland. Dictated and Authenticated by: Lyudmila Hyman MD. Orderin St. Yuan Johnson MD
--- NOTE | 2025-07-20 20:52 | W.PM.HP.N ---
Date of service: 07/20/25 Time of Service: 20:52 Assessment and Plan Assessment and plan (1) Acute hypoxemic respiratory failure: Status: Acute Assessment and plan: - Likely due to combination of new presumed metastatic lung mass in combination with COPD (though without acute exacerbation) - Patient also does have a documented history of some nocturnal hypoxia - Given history of COPD will maintain oxygen saturation between 80 and 92% (2) Suspected malignant neoplasm of lung: Status: Acute Assessment and plan: - As seen on chest CT describing extensive mediastinal and hilar adenopathy concern for right hilar mass suspected primary lung neoplasm with metastasis including a T3 compression deformity possible metastatic change and possible metastatic disease of the left adrenal gland - Patient is aware of these findings - Recommend close outpatient follow-up and establishment with oncology (3) Hypnopompic hallucination: Status: Acute Assessment and plan: - Secondary to rapidly declining visual changes as noted above - Appreciate ophthalmology consultation and follow-up (4) Chronic obstructive pulmonary disease: Status: Chronic Assessment and plan: - Acute exacerbation - Patient does not appear to have inhalers (5) Atrial fibrillation: Status: Chronic Assessment and plan: - Continue home Lopressor and diltiazem - Patient reportedly had been taking Eliquis but recently stopped - Will be on Lovenox during hospitalization for DVT prophylaxis (6) Diabetes mellitus type II, uncontrolled: Status: Acute Assessment and plan: - Unpleasant worsening vision - Continue home long-acting insulin add metformin - Sliding scale insulin, carb consistent diet (7) Diastolic heart failure due to valvular disease: Status: Chronic Assessment and plan: - New home Lopressor, spironolactone, losartan, Lasix, statin History of Present Illness History of Present Illness Chief Complaint: visual hallucinations Narrative: 70-year-old female with a past medical history A-fib on Eliquis, COPD, cataracts presented to the emergency department with complaints of visual hallucination and rapid visual loss over the last few weeks. Patient states that when she wakes up she feels pressure upon her across the room at her vision has become significantly worse to the point where she can only see hand waving just in front of her face. She states that she has an appointment with ophthalmology and should be having surgery on Monday but that she is unable to perform her activities of daily living including taking her medications due to her rapid visual loss. She denies any headache, lightheadedness, dizziness, chest pain, nausea vomiting or diarrhea. In the emergency department patient was noted as being somewhat tachycardic and actually being hypoxic with pulse ox down to mid 80s requiring 2 L nasal cannula to maintain oxygen saturation between 88 and 92% due to history of COPD. Case was discussed with on-call ophthalmology who will review the case see the patient tomorrow. Additionally given that the patient was hypoxic CT chest PE was performed and all did not show any pulmonary emboli did show extensive mediastinal hilar adenopathy concerning for right hilar mass suspecting primary lung neoplasm with metastasis potentially to the left adrenal gland as well as a T3 compression deformity, though no pulmonary emboli were seen. Given the patient has acute hypoxic respiratory failure likely due to presumed lung mass in combination with visual acuity preventing her from performing her ADLs emergency room provider paged hospitalist for admission. Review of Systems All systems reviewed & are unremarkable except as noted in HPI and below PFSH All Active Problems (Updated 07/20/25 @ 20:58 by Elizabeth Bermudez MD) Right hilar mass (Acute) Vision loss, bilateral (Acute) Suspected malignant neoplasm of lung (Acute) Acute hypoxemic respiratory failure (Acute) Cystitis (Acute) Hypnopompic hallucination (Acute) Environmental allergies (Acute) Wound of right leg (Acute) Onychogryphosis (Acute) Nocturnal hypoxia (Acute) Personal history of nicotine dependence (Acute) Cardiomyopathy (Acute) Diabetic peripheral neuropathy (Acute) Chronic obstructive pulmonary disease (Chronic) Chronic diastolic heart failure (Acute) Venous stasis dermatitis of both lower extremities (Acute) Toenail deformity (Acute) Atrial fibrillation with rapid ventricular response (Acute) Pneumonia (Acute) Acute respiratory failure with hypoxia (Acute) Sebaceous cyst (Acute 10/12/17) Nocturnal hypoxemia (Chronic) 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) Restless leg syndrome (Chronic) Degenerative joint disease of left knee (Chronic) Lipoma of left shoulder (Acute) Hyperlipidemia (Acute) Diabetes mellitus type II, uncontrolled (Acute) Venous stasis ulcer limited to breakdown of skin with varicose veins (Acute) Elevated BP without diagnosis of hypertension (Chronic 10/12/17) Atrial fibrillation (Chronic) Medical History A-fib Acute respiratory failure with hypercapnia inpatient [facility] [place] 03/06-03/09/21 Afib Arthritis (10/12/17) CHF (congestive heart failure) Diabetes Heart murmur (10/12/17) Loss of taste Pulmonary edema inpatient [facility] [place] 03/06-03/09/21 Rheumatic fever (10/12/17) Venous insufficiency (chronic) (peripheral) Family History Mother Diabetes Hypertension Heart disease Depression Anxiety Maternal Aunt Diabetes Neoplasm Breast Maternal Uncle Neoplasm Father , cardiac issues at age 64. 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 - [employer] Pets and animals: Yes Pets and animals: cat(s) Do you think of yourself as: straight/heterosexual Current gender identity: female What is your relationship status?: How often do you talk on the phone with friends or family?: three or more times per week How often do you get together with friends or relatives?: twice per week Do you belong to any clubs or organized social groups?: no Panel score (0-1 are the most socially isolated patients): 1 What type of physical activity do you participate in: walking Duration: 15-30 minutes/day Frequency: 1-2 times per week Rebecca/Yazidi: Bahai Special rebecca needs: No Seatbelt use: always Helmet use: Yes Helmet use: sometimes Drive intox or ride w/intox short haul driver: No Working smoke detector in home: Yes Carbon monox detector in home: Yes Do you feel safe at home: Yes Do you feel safe in your relationship?: Yes Meds Allergies and Home Medications Allergies Allergy/AdvReac Type Severity Reaction Status Date / Time No Known Allergies Allergy Verified 07/20/25 16:05 Home Medications ?Medication ?Instructions ?Recorded ?Confirmed ?Type multivitamin (One-A-Day Essential 1 ea PO DAILY 10/20/17 07/20/25 History tablet) acetaminophen 500 mg tablet (Mapap 500 - 1,000 mg PO PRN PRN 02/26/18 07/20/25 History Extra Strength) sarwat.stocking,knee,reg,xlrg #12 ea 04/06/21 07/20/25 Rx blood sugar diagnostic (Blood #300 ea 06/21/24 07/20/25 Rx Glucose Test strips) blood-glucose meter #1 ea 06/21/24 07/20/25 Rx lancets 33 gauge #100 ea 06/21/24 07/20/25 Rx pen needle, diabetic 29 gauge x #100 ea 06/21/24 07/20/25 Rx 1/2 (BD Ultra-Fine Original Pen Needle) insulin aspart U-100 100 unit/mL See Rx Instructions subcut TID #15 07/04/24 07/20/25 Rx (3 mL) subcutaneous pen (Novolog mL FlexPen U-100 Insulin aspart) metformin 1,000 mg tablet 1,000 mg PO BID #180 tabs 05/05/25 07/20/25 Rx metoprolol succinate 100 mg 100 mg PO BID atrial fibrillation 05/05/25 07/20/25 Rx tablet,extended release 24 hr 90 days #180 tabs apixaban 5 mg tablet 5 mg PO BID stroke prevention #60 05/30/25 07/20/25 Rx tabs atorvastatin 40 mg tablet 40 mg PO DAILY #90 tabs 05/30/25 07/20/25 Rx clotrimazole-betamethasone 1 1 applic topical BID 10 days #15 05/30/25 07/20/25 Rx %-0.05 % topical cream grams diltiazem HCl 360 mg capsule,24 360 mg PO DAILY #90 caps 05/30/25 07/20/25 Rx hr,extended release furosemide 40 mg tablet 40 mg PO BID #180 tabs 05/30/25 07/20/25 Rx insulin degludec 200 unit/mL (3 See Rx Instructions subcut DAILY 05/30/25 07/20/25 Rx mL) subcutaneous pen (Tresiba #9 mL FlexTouch U-200 insulin) losartan 25 mg tablet 25 mg PO BID #180 tabs 05/30/25 07/20/25 Rx nicotine 21 mg/24 hr daily 1 patch transdermal Q24H #28 ea 05/30/25 07/20/25 Rx transdermal patch sertraline 50 mg tablet 50 mg PO DAILY #90 tabs 05/30/25 07/20/25 Rx spironolactone 25 mg tablet 25 mg PO DAILY #90 tabs 05/30/25 07/20/25 Rx Exam Narrative Exam Narrative: Well-appearing female laying in bed in no acute distress, ANO x 4, heart regular rhythm, lungs good auscultation bilaterally, abdomen soft, nontender, nondistended, severely impaired vision, only able to see hand waving about 6 inches in front of her face Results Labs 07/20/25 15:26 07/20/25 15:26 Labs: Laboratory Results - last 24 hr 07/20/25 07/20/25 07/20/25 15:26 16:30 18:11 WBC 7.98 RBC 3.96 Hgb 11.5 Hct 34.9 L MCV 88 MCH 29.0 MCHC 33.0 RDW 16.6 H Plt Count 270 MPV 9.3 Immature Gran % 0.3 Neutrophils % 66.1 Lymphocytes % 19.9 Monocytes % 11.4 Eosinophils % 1.4 Basophils % 0.9 Nucleated RBC % 0.0 Absolute Neutrophils 5.28 Absolute Lymphocytes 1.59 Absolute Monocytes 0.91 H Absolute Eosinophils 0.11 Absolute Basophils 0.07 ESR 28 Sodium 141 Potassium 3.4 L Chloride 107 Carbon Dioxide 26.5 Anion Gap 7.5 BUN 19 Creatinine 1.16 H Est GFR (CKD-EPI 2020) 46.30 Glucose 84 Calcium 9.3 Magnesium 1.6 Total Bilirubin 0.80 AST 20 ALT 14 Alkaline Phosphatase 90 Troponin I 15 14 Cancelled C-Reactive Protein 0.90 H Total Protein 7.6 Albumin 4.1 TSH 4.98 H Free T4 1.24 Urine Color Urine Clarity Urine pH Ur Specific [place] Urine Protein Urine Ketones Urine Blood Urine Nitrite Urine Bilirubin Urine Urobilinogen Ur Leukocyte Esterase Urine RBC Urine WBC Ur Epithelial Cells Urine Crystals Urine Bacteria Urine Casts Urine Mucus Ur Culture Indicated? Urine Glucose 07/20/25 18:14 WBC RBC Hgb Hct MCV MCH MCHC RDW Plt Count MPV Immature Gran % Neutrophils % Lymphocytes % Monocytes % Eosinophils % Basophils % Nucleated RBC % Absolute Neutrophils Absolute Lymphocytes Absolute Monocytes Absolute Eosinophils Absolute Basophils ESR Sodium Potassium Chloride Carbon Dioxide Anion Gap BUN Creatinine Est GFR (CKD-EPI 2020) Glucose Calcium Magnesium Total Bilirubin AST ALT Alkaline Phosphatase Troponin I C-Reactive Protein Total Protein Albumin TSH Free T4 Urine Color Yellow Urine Clarity Clear Urine pH 6.0 Ur Specific [place] 1.020 Urine Protein 30 H Urine Ketones Trace H Urine Blood Negative Urine Nitrite Negative Urine Bilirubin Small H Urine Urobilinogen 1.0 H Ur Leukocyte Esterase Negative Urine RBC Negative Urine WBC 10-20 H Ur Epithelial Cells Many Urine Crystals Negative Urine Bacteria Negative Urine Casts Negative Urine Mucus Heavy Ur Culture Indicated? No/Sq. Contamination Urine Glucose Negative Last Vital Signs Temp 98.3 F 07/20/25 14:59 Pulse 99 H 07/20/25 17:00 Resp 18 07/20/25 14:59 BP 109/84 07/20/25 17:00 Pulse Ox 90 L 07/20/25 17:00 VTE Prohylaxis Risk Level: Moderate/High Risk Contraindications: None Prophylaxis: Pharmacologic Time Spent Time spent with Patient: <40 minutes Time was spent: preparing to see the patient(eg.review tests), obtaining and/or reviewing separately otained hiistory, ordering medications,tests, procedures, referring, communicating with other health manager critical care unit, indepentently interpreting results, counseling the patient and care coordination
--- NOTE | 2025-07-20 21:48 | W.PC.ACHO ---
Registration Status: REG ER Primary Language: Preferred Language: Swedish ED Information & Data Chief Complaint GenMedical 07/20/25 15:22 Triage Note Per EMS, pt experiencing 07/20/25 14:59 ongoing visual hallucinations x1 week. Pt states known PMH of cataracts that are getting worse. Follows up with Dr. Figueroa for them. Recently treated for cystitis with Cephalexin per pt. A&Ox4. Medical / Surgical History (Last Reviewed 01/03/22 @ 13:21 by Lauren De Los Santos MD) Diabetes CHF (congestive heart failure) A-fib Pulmonary edema Acute respiratory failure with hypercapnia Arthritis (10/12/17) Heart murmur (10/12/17) Rheumatic fever (10/12/17) Loss of taste Venous insufficiency (chronic) (peripheral) Afib Most Recent Vital Signs Temperature 36.8 C 07/20/25 14:59 Temperature Source Oral 07/20/25 14:59 Pulse 99 H 07/20/25 17:00 Respiratory Rate 18 07/20/25 14:59 Respiratory Effort Normal 07/20/25 15:10 Respiratory Depth Normal 07/20/25 15:10 Respiratory Pattern Normal 07/20/25 15:10 Blood Pressure 109/84 07/20/25 17:00 Blood Pressure Mean 92 07/20/25 17:00 Blood Pressure Position Supine 07/20/25 14:59 Pulse Oximetry 90 L 07/20/25 17:00 Oxygen Delivery Method Room Air 07/20/25 14:59 Oxygen Flow Rate 0 07/20/25 14:59 Pain Level 0 07/20/25 15:10 Allergies No Known Allergies Allergy (Verified 07/20/25 16:05) Active Medications Generic Name Dose Route Start Last Admin Trade Name Freq PRN Reason Stop Dose Admin Iohexol 100 ml 07/20/25 19:00 07/20/25 18:55 Omnipaque 350 Mg/Ml 100 Ml Btl IJ 08/19/25 23:59 90 ml DIRECTED MARY ANN Administration Sodium Chloride 50 ml 07/20/25 19:00 07/20/25 18:55 Normal Saline - Diluent 50 Ml Vial IJ 50 ml DIRECTED MARY ANN Administration Tetracaine HCl 4 ml 07/20/25 19:00 07/20/25 18:35 Tetracaine 0.5% 4 Ml Btl OP 2 drp DIRECTED MARY ANN Administration IV IV Catheter Type [Left Saline Lock Antecubital] IV Catheter Gauge [Left 20 Antecubital] Diagnostics 07/20/25 07/20/25 07/20/25 Range/Units 18:14 18:11 16:30 WBC (4.4-10.8) 10^3/uL RBC (3.93-5.22) 10^6/uL Hgb (11.2-15.7) g/dL Hct (36.0-46.0) % MCV (80-95) fL MCH (27.0-33.0) pg MCHC (32.0-36.0) % RDW (11.7-14.6) % Plt Count (130-400) 10^3/uL MPV (8.0-11.0) fL Immature Gran % % Neutrophils % % Lymphocytes % % Monocytes % % Eosinophils % % Basophils % % Nucleated RBC % (0.0-0.3) % Absolute Neutrophils (1.2-6.7) 10^3/uL Absolute Lymphocytes (1.2-3.4) 10^3/uL Absolute Monocytes (0.1-0.8) 10^3/uL Absolute Eosinophils (0.0-0.7) 10^3/uL Absolute Basophils (0.0-0.2) 10^3/uL ESR (0-30) mm/hr Sodium (136-145) mmol/L Potassium (3.5-5.1) mmol/L Chloride (98-107) mmol/L Carbon Dioxide (20.0-31.0) mmol/L Anion Gap (3-11) mmol/L BUN (9-23) mg/dL Creatinine (0.55-1.02) mg/dL Est GFR (CKD-EPI 2020) (mL/min/1.73m2) Glucose (74-106) mg/dL Calcium (8.3-10.6) mg/dL Magnesium (1.6-2.6) mg/dL Total Bilirubin (0.2-1.2) mg/dL AST (<34) U/L ALT (10-49) U/L Alkaline Phosphatase (46-116) U/L Troponin I Cancelled 14 (<35) ng/L C-Reactive Protein 0.90 H (<=0.50) mg/dL Total Protein (5.7-8.2) g/dL Albumin (3.2-5.0) g/dL TSH (0.55-4.78) uIU/mL Free T4 (0.89-1.76) ng/mL Urine Color Yellow (Yellow) Urine Clarity Clear (Clear) Urine pH 6.0 (5-8) Ur Specific [place] 1.020 (1.005-1.025) Urine Protein 30 H (Neg-Trace) mg/dL Urine Ketones Trace H (Negative) mg/dL Urine Blood Negative (Negative) Urine Nitrite Negative (Negative) Urine Bilirubin Small H (Negative) Urine Urobilinogen 1.0 H (Up to 0.2) mg/dL Ur Leukocyte Esterase Negative (Negative) Urine RBC Negative (0-2) HPF Urine WBC 10-20 H (0-5) HPF Ur Epithelial Cells Many (Negative) HPF Urine Crystals Negative (Negative) HPF Urine Bacteria Negative (Negative) HPF Urine Casts Negative (Negative) LPF Urine Mucus Heavy (Negative) Ur Culture Indicated? No/Sq. Contamination Urine Glucose Negative (Negative) mg/dL 07/20/25 Range/Units 15:26 WBC 7.98 (4.4-10.8) 10^3/uL RBC 3.96 (3.93-5.22) 10^6/uL Hgb 11.5 (11.2-15.7) g/dL Hct 34.9 L (36.0-46.0) % MCV 88 (80-95) fL MCH 29.0 (27.0-33.0) pg MCHC 33.0 (32.0-36.0) % RDW 16.6 H (11.7-14.6) % Plt Count 270 (130-400) 10^3/uL MPV 9.3 (8.0-11.0) fL Immature Gran % 0.3 % Neutrophils % 66.1 % Lymphocytes % 19.9 % Monocytes % 11.4 % Eosinophils % 1.4 % Basophils % 0.9 % Nucleated RBC % 0.0 (0.0-0.3) % Absolute Neutrophils 5.28 (1.2-6.7) 10^3/uL Absolute Lymphocytes 1.59 (1.2-3.4) 10^3/uL Absolute Monocytes 0.91 H (0.1-0.8) 10^3/uL Absolute Eosinophils 0.11 (0.0-0.7) 10^3/uL Absolute Basophils 0.07 (0.0-0.2) 10^3/uL ESR 28 (0-30) mm/hr Sodium 141 (136-145) mmol/L Potassium 3.4 L (3.5-5.1) mmol/L Chloride 107 (98-107) mmol/L Carbon Dioxide 26.5 (20.0-31.0) mmol/L Anion Gap 7.5 (3-11) mmol/L BUN 19 (9-23) mg/dL Creatinine 1.16 H (0.55-1.02) mg/dL Est GFR (CKD-EPI 2020) 46.30 (mL/min/1.73m2) Glucose 84 (74-106) mg/dL Calcium 9.3 (8.3-10.6) mg/dL Magnesium 1.6 (1.6-2.6) mg/dL Total Bilirubin 0.80 (0.2-1.2) mg/dL AST 20 (<34) U/L ALT 14 (10-49) U/L Alkaline Phosphatase 90 (46-116) U/L Troponin I 15 (<35) ng/L C-Reactive Protein (<=0.50) mg/dL Total Protein 7.6 (5.7-8.2) g/dL Albumin 4.1 (3.2-5.0) g/dL TSH 4.98 H (0.55-4.78) uIU/mL Free T4 1.24 (0.89-1.76) ng/mL Urine Color (Yellow) Urine Clarity (Clear) Urine pH (5-8) Ur Specific [place] (1.005-1.025) Urine Protein (Neg-Trace) mg/dL Urine Ketones (Negative) mg/dL Urine Blood (Negative) Urine Nitrite (Negative) Urine Bilirubin (Negative) Urine Urobilinogen (Up to 0.2) mg/dL Ur Leukocyte Esterase (Negative) Urine RBC (0-2) HPF Urine WBC (0-5) HPF Ur Epithelial Cells (Negative) HPF Urine Crystals (Negative) HPF Urine Bacteria (Negative) HPF Urine Casts (Negative) LPF Urine Mucus (Negative) Ur Culture Indicated? Urine Glucose (Negative) mg/dL Intake and Output - 24 Hour Total 07/20/25 14:54 thru 11/30/25 17:19 Intake Total 1000 Balance 1000 Weight 239 lb 6.4 oz Intake: IV 1000 Falls Risk Assessment History of Falls No History 07/20/25 15:10 Contributing Factors Confusion,Unstable, 07/20/25 15:10 Impairments,Medications Ambulatory Aids Uses ambulatory device 07/20/25 15:10 Tubes/Lines None 07/20/25 15:10 Gait Evaluation No gait disturbance 07/20/25 15:10 Fall Total Score 27 07/20/25 15:10 Level of Risk Moderate Risk 07/20/25 15:10 Problems (Last Reviewed 01/03/22 @ 13:21 by Lauren De Los Santos MD) Suspected malignant neoplasm of lung (Acute) Acute hypoxemic respiratory failure (Acute) Hypnopompic hallucination (Acute) Chronic obstructive pulmonary disease (Chronic) 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) Diabetes mellitus type II, uncontrolled (Acute) Atrial fibrillation (Chronic) Attestation Statement: By documenting the first initial, last name, and credentials of the reporting nurse below, both parties acknowledge that all relevant information regarding the patient handoff has been communicated, and that all questions have been addressed to ensure continuity and safety of care. Additional Patient Information/Comments: Alert and oriented x4. hx afib, current smoker, on 2 lpm O2. ambulated with walker and directions. Severe cataracts with significant vision loss. Visual halluciniations but is aware of them. Needs MRI. Report Received From: Sonja
--- NOTE | 2025-07-21 | DI.MRI_ITS ---
Exam(s) MR BRAIN WO/W EXAM: MR BRAIN WO/W CLINICAL HISTORY: lung tumor, vision changes, hallucinations TECHNIQUE: Multiplanar multisequence MRI of the brain was performed. Both noninfused and contrast infused sequences were performed. IV Contrast injected was 20 cc Dotarem. COMPARISON: CT CT HEAD WO from 07/20/2025 FINDINGS: There is some motion artifact on multiple sequences CEREBRAL PARENCHYMA: No evidence of intracranial hemorrhage, mass effect nor shift of midline structure. No extraaxial fluid collections. Ventricles are not enlarged nor shifted. There is no significant focal signal abnormality in the cerebellar hemispheres nor within the vaishali, midbrain, and thalami. There are few small foci of FLAIR bright sub cm signal abnormality in the Azul- supra ventricular white matter as well as in both sides of the vaishali, not associated with hemorrhage, surrounding edema, nor restricted diffusion. DWI: No areas of restricted diffusion to suggest acute ischemic event. SWI: No microhemorrhages evident. There are no ring enhancing lesions in the brain. There is no abnormal meningeal enhancement. PITUITARY GLAND: No mass nor parasellar abnormality. No obvious abnormality in the cavernous sinuses. FLOW VOIDS: The expected flow void are noted. No evidence of obvious aneurysm nor obvious vascular malformation. PARANASAL SINUSES: Left maxillary sinus is completely opacified. Right maxillary sinus is clear as are the other paranasal sinuses and there are no mastoid effusions. ORBITS: No obvious abnormal findings. IMPRESSION: 1. No significant acute intracranial findings on this MRI scan of the brain. 2. No abnormal enhancing intracranial findings. There are no ring enhancing lesions in the brain and there is no abnormal meningeal enhancement. 3. There are few nonspecific FLAIR bright foci of signal abnormality as described above not associated with hemorrhage, surrounding edema, nor restricted diffusion nor enhancement and therefore most probably related to chronic small vessel ischemic changes. There is no evidence of obvious metastatic lesions in the brain. DATA REPOSITORY:
[2025-07-21 03:33] VITALS: BP 96/66; PULSE 110; RESP 20; TEMP 36.5; O2SAT 93
[2025-07-21 06:44] LABS: HCT 34.7 % (36.0-46.0); HGB 11.4 g/dL (11.2-15.7); MCH 28.9 pg (27.0-33.0); MCHC 32.9 % (32.0-36.0); MCV 88 fL (80-95); MPV 9.4 fL (8.0-11.0); Platelet Count 239 10^3/uL (130-400); RBC 3.95 10^6/uL (3.93-5.22); RDW 16.3 % (11.7-14.6); RDW-SD 52.5 fL; WBC 7.17 10^3/uL (4.4-10.8)
[2025-07-21 07:04] LABS: Anion Gap 6.1 mmol/L (3-11); BUN 12 mg/dL (9-23); CO2 27.9 mmol/L (20.0-31.0); Calcium 8.5 mg/dL (8.3-10.6); Chloride 110 mmol/L (98-107); Glucose 71 mg/dL (74-106); Potassium 3.3 mmol/L (3.5-5.1); Sodium 144 mmol/L (136-145)
[2025-07-21 07:08] LABS: Magnesium 1.6 mg/dL (1.6-2.6)
--- NOTE | 2025-07-21 07:15 | PUCON_ITS ---
General Date Of Service Date of service: 07/21/25 Time of Service: 07:50 Requesting physician: Tyson Bragg Reason for Consult: Lung mass Recommendations: Assessment: 1. Right hilar lung mass - highly concerning for a primary lung cancer with mediastinal spread 2. Mediastinal lymphadenopathy - likely due to malignancy 3. Weight loss 4. Visual hallucinations 5. Afib - on eliquis Recommendations: - given vision changes / hallucinations and lung mass, recommend MRI brain to assess for COLLISION MECHANIC metastatic disease - tentatively schedule for EBUS to obtain tissue for diagnosis. Can schedule for 07/29/25. Will need to hold anticoagulation 72 hrs prior - social work evaluation to help with discharge planning, given her vision issues - recommend discharge with either airsupra PRN, breyna 80 PRN, or symbicort 80 PRN - will need full PFT's as an outpatient, which I will arrange for Discussed with Dr. Bragg Assessment and Plan Assessment and plan (1) Tobacco use disorder: Status: Resolved (2) Suspected malignant neoplasm of lung: Status: Acute (3) Right hilar mass: Status: Acute History of Present Illness Narrative: Patient is a 70 yo with a history of COPD, tobacco abuse, and Afib, who was admitted on 07/20 for hypoxia, visual hallucinations and vision loss. CT chest imaging on admission showed a large right hilar mass with extension vs lymphadenopathy in the mediasitnum / subcarinal region. CT head did not show any evidence of COLLISION MECHANIC metastatic disease. She has had visual hallucinations and blurry vision for the past 1-2 weeks. Denied significant dyspnea. Has an intermittent cough. Denies any hemoptysis or purulent sputum production. She was an actgive smoker prior to admission. She has lost 60 lbs over the past 6 months. Denies any prior diagnosis of COPD or asthma. She has seasonal allergies to pollens and has increased dyspnea during pollen season. Does not use any inhalers on a regular basis. Currently on room air. Denies any further visual hallucinations since admission. ROS: 10 pt ROS negative except as above. PFSH All Active Problems (Updated 07/20/25 @ 20:58 by Elizabeth Bermudez MD) Right hilar mass (Acute) Vision loss, bilateral (Acute) Suspected malignant neoplasm of lung (Acute) Acute hypoxemic respiratory failure (Acute) Cystitis (Acute) Hypnopompic hallucination (Acute) Environmental allergies (Acute) Wound of right leg (Acute) Onychogryphosis (Acute) Nocturnal hypoxia (Acute) Personal history of nicotine dependence (Acute) Cardiomyopathy (Acute) Diabetic peripheral neuropathy (Acute) Chronic obstructive pulmonary disease (Chronic) Chronic diastolic heart failure (Acute) Venous stasis dermatitis of both lower extremities (Acute) Toenail deformity (Acute) Atrial fibrillation with rapid ventricular response (Acute) Pneumonia (Acute) Acute respiratory failure with hypoxia (Acute) Sebaceous cyst (Acute 10/12/17) Nocturnal hypoxemia (Chronic) 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) Restless leg syndrome (Chronic) Degenerative joint disease of left knee (Chronic) Lipoma of left shoulder (Acute) Hyperlipidemia (Acute) Diabetes mellitus type II, uncontrolled (Acute) Venous stasis ulcer limited to breakdown of skin with varicose veins (Acute) Elevated BP without diagnosis of hypertension (Chronic 10/12/17) Atrial fibrillation (Chronic) Medical History A-fib Acute respiratory failure with hypercapnia inpatient [facility] 03/06-03/09/21 Afib Arthritis (10/12/17) CHF (congestive heart failure) Diabetes Heart murmur (10/12/17) Loss of taste Pulmonary edema inpatient [facility] 03/06-03/09/21 Rheumatic fever (10/12/17) Venous insufficiency (chronic) (peripheral) Family History Mother Diabetes Hypertension Heart disease Depression Anxiety Maternal Aunt Diabetes Neoplasm Breast Maternal Uncle Neoplasm Father , cardiac issues at age 64. 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 - [employer] Pets and animals: Yes Pets and animals: cat(s) Do you think of yourself as: straight/heterosexual Current gender identity: female What is your relationship status?: How often do you talk on the phone with friends or family?: three or more times per week How often do you get together with friends or relatives?: twice per week Do you belong to any clubs or organized social groups?: no Panel score (0-1 are the most socially isolated patients): 1 What type of physical activity do you participate in: walking Duration: 15-30 minutes/day Frequency: 1-2 times per week Rebecca/Denominational: Confucianist Special rebecca needs: No Seatbelt use: always Helmet use: Yes Helmet use: sometimes Drive intox or ride w/intox independent driver: No Working smoke detector in home: Yes Carbon monox detector in home: Yes Do you feel safe at home: Yes Do you feel safe in your relationship?: Yes Visit Medication and Allergies Active Medications Generic Name Dose Route Start Last Admin Trade Name Freq PRN Reason Stop Dose Admin Atorvastatin Calcium 40 mg 07/21/25 08:30 Atorvastatin 40 Mg Tab PO DAILY MARY ANN Dextrose 0 gm 07/20/25 21:41 Glucose Oral Gel 15 Gm/37.5 Gm Tube PO DIRECTED PRN Dextrose 0 gm 07/20/25 21:41 Glucose Oral Gel 15 Gm/37.5 Gm Tube PO DIRECTED PRN Dextrose/Water 0 gm 07/20/25 21:41 Dextrose 50%-Water 25 Gm/50 Ml Syr IVP DIRECTED PRN Diltiazem HCl 360 mg 07/21/25 08:30 Diltiazem Cd 180 Mg Capcr PO DAILY MARY ANN Enoxaparin Sodium 40 mg 07/21/25 08:30 Enoxaparin 40 Mg/0.4 Ml Syr SC DAILY [facility] Insulin Aspart 0 units 07/20/25 22:00 07/20/25 22:23 Insulin Aspart 300 Units/3 Ml Pen SC Not Given 0800,1200,1700,2200 [facility] Protocol Iohexol 100 ml 07/20/25 19:00 07/20/25 18:55 Omnipaque 350 Mg/Ml 100 Ml Btl IJ 08/19/25 23:59 90 ml DIRECTED MARY ANN Administration Losartan Potassium 25 mg 07/21/25 08:30 Losartan 25 Mg Tab PO BID [facility] Metformin HCl 1,000 mg 07/21/25 08:00 Metformin 500 Mg Tab PO BID@0800,1700 [facility] Metoprolol Succinate 100 mg 07/21/25 08:30 Metoprolol Cr 100 Mg Tabcr PO BID MARY ANN Non-Formulary Medication 0 unit 07/21/25 08:30 Insulin Degludec [Tresiba Flextouch U-200] SC DAILY MARY ANN Polyethylene Glycol 17 gm 07/20/25 22:28 Polyethylene Glycol 3350 17 Gm Packet PO DAILY PRN PRN Constipation Sertraline HCl 50 mg 07/21/25 08:30 Sertraline 50 Mg Tab PO DAILY MARY ANN Sodium Chloride 50 ml 07/20/25 19:00 07/20/25 18:55 Normal Saline - Diluent 50 Ml Vial IJ 50 ml DIRECTED MARY ANN Administration Spironolactone 25 mg 07/21/25 08:30 Spironolactone 25 Mg Tab PO DAILY MARY ANN Tetracaine HCl 4 ml 07/20/25 19:00 07/20/25 18:35 Tetracaine 0.5% 4 Ml Btl OP 2 drp DIRECTED MARY ANN Administration Allergies No Known Allergies Allergy (Verified 07/20/25 16:05) Exam Narrative Exam Narrative: General: alert, no acute distress Head: normocephalic ENT: no stridor, trachea midline CV: normal rate, irregular rhythm Respiratory: no wheezing, no crackles, no rhonchi, no prolonged expiration GI: abd soft, non-tender, non-distended Skin: no rashes Extremities: no edema Psych: normal affect Results Last Vital Signs Temp 36.5 C 07/21/25 03:33 Pulse 110 H 07/21/25 03:33 Resp 20 07/21/25 03:33 BP 96/66 L 07/21/25 03:33 Pulse Ox 93 07/21/25 03:33 Labs 07/21/25 06:26 07/21/25 06:26 Labs: Laboratory Results - last 24 hr 07/20/25 07/20/25 07/20/25 15:26 16:30 18:11 WBC 7.98 RBC 3.96 Hgb 11.5 Hct 34.9 L MCV 88 MCH 29.0 MCHC 33.0 RDW 16.6 H Plt Count 270 MPV 9.3 Immature Gran % 0.3 Neutrophils % 66.1 Lymphocytes % 19.9 Monocytes % 11.4 Eosinophils % 1.4 Basophils % 0.9 Nucleated RBC % 0.0 Absolute Neutrophils 5.28 Absolute Lymphocytes 1.59 Absolute Monocytes 0.91 H Absolute Eosinophils 0.11 Absolute Basophils 0.07 ESR 28 Sodium 141 Potassium 3.4 L Chloride 107 Carbon Dioxide 26.5 Anion Gap 7.5 BUN 19 Creatinine 1.16 H Est GFR (CKD-EPI 2020) 46.30 Glucose 84 Calcium 9.3 Magnesium 1.6 Total Bilirubin 0.80 AST 20 ALT 14 Alkaline Phosphatase 90 Troponin I 15 14 Cancelled C-Reactive Protein 0.90 H Total Protein 7.6 Albumin 4.1 TSH 4.98 H Free T4 1.24 Urine Color Urine Clarity Urine pH Ur Specific [place] Urine Protein Urine Ketones Urine Blood Urine Nitrite Urine Bilirubin Urine Urobilinogen Ur Leukocyte Esterase Urine RBC Urine WBC Ur Epithelial Cells Urine Crystals Urine Bacteria Urine Casts Urine Mucus Ur Culture Indicated? Urine Glucose 07/20/25 07/21/25 18:14 06:26 WBC 7.17 RBC 3.95 Hgb 11.4 Hct 34.7 L MCV 88 MCH 28.9 MCHC 32.9 RDW 16.3 H Plt Count 239 MPV 9.4 Immature Gran % Neutrophils % Lymphocytes % Monocytes % Eosinophils % Basophils % Nucleated RBC % Absolute Neutrophils Absolute Lymphocytes Absolute Monocytes Absolute Eosinophils Absolute Basophils ESR Sodium 144 Potassium 3.3 L Chloride 110 H Carbon Dioxide 27.9 Anion Gap 6.1 BUN 12 Creatinine 0.86 Est GFR (CKD-EPI 2020) 65.39 Glucose 71 L Calcium 8.5 Magnesium 1.6 Total Bilirubin AST ALT Alkaline Phosphatase Troponin I C-Reactive Protein Total Protein Albumin TSH Free T4 Urine Color Yellow Urine Clarity Clear Urine pH 6.0 Ur Specific [place] 1.020 Urine Protein 30 H Urine Ketones Trace H Urine Blood Negative Urine Nitrite Negative Urine Bilirubin Small H Urine Urobilinogen 1.0 H Ur Leukocyte Esterase Negative Urine RBC Negative Urine WBC 10-20 H Ur Epithelial Cells Many Urine Crystals Negative Urine Bacteria Negative Urine Casts Negative Urine Mucus Heavy Ur Culture Indicated? No/Sq. Contamination Urine Glucose Negative Imaging CT scan - chest: report reviewed and image reviewed
[2025-07-21 07:46] VITALS: BP 129/79; PULSE 88; RESP 16; TEMP 36.6; O2SAT 96
[2025-07-21 08:35] VITALS: O2SAT 90
--- NOTE | 2025-07-21 09:14 | PDOC.CMIN ---
Date of service: 07/21/25 Time of Service: 09:14 Care Management Initial Assmt Initial Assessment Reason for Hospitalization: Respiratory Failure, visual hallucinations Functional Status/Living Situation Patient Presentation: Zuleyka was sitting on the edge of her bed when CM met with her. She was easy to engage in conversation and c/o vision loss and visual hallucinations x 10 days. Per pt, her hallucinations happened when she was home, but not since she came to [facility]. She is also waiting to see an ophthamologist, and is hoping to get in sooner. Zuleyka lives alone in a [place] in [place] [place]. Her brother Glen lives next door and checks in on her several times per day. He also provides her transportation, since she no longer drives. Per pt, her son Jose lives out of state and the two are not close. Zuleyka is planning to discharge home when medically ready and is agreeable to new services if indicated. She is also interested in receiving MOW, CM will send a referral to the [facility]. Patient may benefit from a PT and Palliative consults. CM will follow. 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[place]) Instrumental Activities of Daily Living (ADLs): Independent (requires support with ambulation) and Requires support with Groceries and Transportation Medications Medication Management: No Issues/Barriers identified Physical Functioning/Mobility Assistive Device: Walker, grab bars, glucometer Advance Directives Advance Directives: Do you have an Advance Directive: N 03/06/21, 00:51 AD On File at [facility]: N 03/06/21, 00:51 Date Asked 07/20/25 07/20/25, 15:05 AD Date Reviewed COLST On File at [facility] COLST Date Scanned Code Status Resuscitation Status Full Code Insurance Coverage/Financial Issues Insurance: HUMANA Medicare Replacement - [id number] Care Team Visit Care Team Role Provider Type Jessica Thapa NP MD [facility] STAFF PHYSICIAN Gage Paul DO Primary Care Provider OSTEOPATHIC DOCTOR Sameer Altman MD Other Providers [facility] STAFF PHYSICIAN Elizabeth Bermudez MD Emergency Provider [facility] STAFF PHYSICIAN Humza Bueno MD Admit Provider [facility] STAFF PHYSICIAN Attending Provider Discharge Potential Discharge Needs: PT Evaluation Anticipated Barriers to Discharge: None Identified Patient/Family Education Needs: Review discharge instructions, discuss Ask Me Three Transportation: Private vehicle Plan: Anticipate, Zuleyka will discharge home with New [facility] services if indicated. Patient will follow up with community providers and continue per her discharge plan of care. Brother Glen will provide her transportation. Social Determinants of Health Screening Social Determinants of health last assessed in clinic: 07/21/25 Will the Patient Participate in the Screening?: Yes Do you worry about having a steady place to live?: no Problems where you live: no known problems In the past 12 months, have you had to go without electric, gas, oil or water in your home?: no 1. Within the past 12 months, we worried whether our food would run out before we got money to buy more.: Never true 2. Within the past 12 months, the food we bought just didn't last and we didn't have money to get more.: Never true Has lack of transportation kept you from medical appointments or from doing things needed for daily living?: no Has anyone in your life made you feel unsafe or unsupported?: no How hard is it for you to pay for the very basics like food, housing, medical care, and heating? Would you say it is:: Very hard Do you want help finding or keeping work or a job?: I do not need or want help If for any reason you need help with day-to-day activities such as bathing, preparing meals, shopping, managing finances, etc., do you get the help you need?: I could use a little more help How often do you feel lonely or isolated from those around you?: Never Do you speak a language other than Nauruan at home?: No Health Related Social Needs Health related social needs: problems related to housing/economic circumstances (Z59.89) and problems with daily activities (Z73.9) Health related social needs details: visually impaired, diffuculty with daily needs due to vision loss [facility] All Active Problems (Updated 07/20/25 @ 20:58 by Elizabeth Bermudez MD) Right hilar mass (Acute) Vision loss, bilateral (Acute) Suspected malignant neoplasm of lung (Acute) Acute hypoxemic respiratory failure (Acute) Cystitis (Acute) Hypnopompic hallucination (Acute) Environmental allergies (Acute) Wound of right leg (Acute) Onychogryphosis (Acute) Nocturnal hypoxia (Acute) Personal history of nicotine dependence (Acute) Cardiomyopathy (Acute) Diabetic peripheral neuropathy (Acute) Chronic obstructive pulmonary disease (Chronic) Chronic diastolic heart failure (Acute) Venous stasis dermatitis of both lower extremities (Acute) Toenail deformity (Acute) Atrial fibrillation with rapid ventricular response (Acute) Pneumonia (Acute) Acute respiratory failure with hypoxia (Acute) Sebaceous cyst (Acute 10/12/17) Nocturnal hypoxemia (Chronic) 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) Restless leg syndrome (Chronic) Degenerative joint disease of left knee (Chronic) Lipoma of left shoulder (Acute) Hyperlipidemia (Acute) Diabetes mellitus type II, uncontrolled (Acute) Venous stasis ulcer limited to breakdown of skin with varicose veins (Acute) Elevated BP without diagnosis of hypertension (Chronic 10/12/17) Atrial fibrillation (Chronic) Medical History A-fib Acute respiratory failure with hypercapnia inpatient [facility] 03/06-03/09/21 Afib Arthritis (10/12/17) CHF (congestive heart failure) Diabetes Heart murmur (10/12/17) Loss of taste Pulmonary edema inpatient [facility] 03/06-03/09/21 Rheumatic fever (10/12/17) Venous insufficiency (chronic) (peripheral) Family History Mother Diabetes Hypertension Heart disease Depression Anxiety Maternal Aunt Diabetes Neoplasm Breast Maternal Uncle Neoplasm Father , cardiac issues at age 64. 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 - [employer] Pets and animals: Yes Pets and animals: cat(s) Do you think of yourself as: straight/heterosexual Current gender identity: female What is your relationship status?: How often do you talk on the phone with friends or family?: three or more times per week How often do you get together with friends or relatives?: twice per week Do you belong to any clubs or organized social groups?: no Panel score (0-1 are the most socially isolated patients): 1 What type of physical activity do you participate in: walking Duration: 15-30 minutes/day Frequency: 1-2 times per week Rebecca/Judaism: Amish Special rebecca needs: No Seatbelt use: always Helmet use: Yes Helmet use: sometimes Drive intox or ride w/intox jinrikisha driver: No Working smoke detector in home: Yes Carbon monox detector in home: Yes Do you feel safe at home: Yes Do you feel safe in your relationship?: Yes
[2025-07-21] MEDS: Normal Saline Flush 10 ML SYR IVP (09:24)
[2025-07-21] MEDS: Gadoterate meglumine 20 ML SYRINGE IJ (09:25)
[2025-07-21] MEDS: metFORMIN 500 MG TAB 1000 MG PO ×2 (10:20→16:30)
[2025-07-21] MEDS: Losartan 25 MG TAB PO (10:20)
[2025-07-21] MEDS: Atorvastatin 40 MG TAB PO (10:21)
[2025-07-21] MEDS: Metoprolol CR 100 MG TABCR PO (10:21)
[2025-07-21] MEDS: Sertraline 50 MG TAB PO (10:21)
[2025-07-21] MEDS: dilTIAZem CD 180 MG CAPCR 360 MG PO (10:22)
[2025-07-21] MEDS: Spironolactone 25 MG TAB PO (10:22)
[2025-07-21] MEDS: Enoxaparin 40 MG/0.4 ML SYR SC (10:25)
[2025-07-21 10:58] VITALS: BP 114/82; PULSE 134; RESP 16; TEMP 36.7; O2SAT 93
[2025-07-21] MEDS: Insulin Glargine 300 UNITS/3 ML PEN 16 UNITS SC (11:57)
[2025-07-21] MEDS: Insulin Aspart 300 UNITS/3 ML PEN SC ×2 (12:22→17:46)
--- NOTE | 2025-07-21 14:24 | NUR.NOTE ---
Nursing Note: Received a call from [facility] regarding a referral received. ED Note and H&P note sent, will ask Med Surg staff to fax discharge summary once completed.
--- NOTE | 2025-07-21 15:38 | PHA.REVIEW2 ---
Pharmacy Admission Review Admission Clinical Review Admission Pharmacy Review: Right hilar mass (Acute) Suspected malignant neoplasm of lung (Acute) Acute hypoxemic respiratory failure (Acute) Hypnopompic hallucination (Acute) Diabetes mellitus type II, uncontrolled (Acute) No Known Allergies Allergy (Verified 07/20/25 16:05) Resuscitation Status Full Code Height 5 ft 4 in Weight 108.6 kg Comments Comments/Follow Ups: avoid or recheck qtc before starting meds that prolong qtc Pharmacy Admission Review Renal Dosing Renal Dosing: BUN 12 mg/dL (9-23) 07/21/25 06:26 Creatinine 0.86 mg/dL (0.55-1.02) 07/21/25 06:26 Medications needing adjustments: Reviewed (scr=0.86; crcl=63; no meds need adjustment) Anticoagulation Anticoagulation: Hgb 11.4 g/dL (11.2-15.7) 07/21/25 06:26 Hct 34.7 % (36.0-46.0) L 07/21/25 06:26 Plt Count 239 10^3/uL (130-400) 07/21/25 06:26 Creatinine 0.86 mg/dL (0.55-1.02) 07/21/25 06:26 DVT Prophylaxis: Reviewed Medications: Enoxaparin Opiate Usage Evaluate Pain Scale/Pains Meds: N/A Relevant Labs Relevant Labs: ESR 28 mm/hr (0-30) 07/20/25 15:26 Sodium 144 mmol/L (136-145) 07/21/25 06:26 Potassium 3.3 mmol/L (3.5-5.1) L 07/21/25 06:26 Chloride 110 mmol/L (98-107) H 07/21/25 06:26 Magnesium 1.6 mg/dL (1.6-2.6) 07/21/25 06:26 C-Reactive Protein 0.90 mg/dL (<=0.50) H 07/20/25 16:30 Electrolytes, C-Reactive P, ESR: Reviewed (recommended to replete K+ and Mg+) DM Control DM Control: Reviewed Insulin Dosing, Diabetic Medication: on home metformin and converted Tresiba to glargine; am glucose=71 Cardiac Review Cardiac Review: bp=99/67; hr=64 Troponin I Cancelled 07/20/25 18:11 BP, HR, EF%: Reviewed QTc Review QTc: N/A (bqs=848ml meds ordered that prolong qtc) Home Meds Home Med List reviewed: Reviewed Current Meds Current Medication Order Review: Reviewed Pharmacy Antibiotic Review Relevant Labs: Relevant Labs 07/20/25 16:30 C-Reactive Protein 0.90 H Comments: no antibiotics at this time Comments Comments/Follow Ups: avoid or recheck qtc before starting meds that prolong qtc
[2025-07-21 15:43] VITALS: BP 99/67; PULSE 64; RESP 16; TEMP 36.6; O2SAT 95
--- NOTE | 2025-07-21 16:18 | CMDISCH_ITS ---
Date of service: 07/21/25 Time of Service: 16:18 LACE Index Scoring Tool Questions: Length of Stay (in days): 1 Was the patient admitted via the E.D.?: Yes Comorbidities: Diabetes w/o Complication and Metastatic Solid Tumor E.D. Visits: 11 Answers: Total Score: 13 Risk of Readmission: High Risk Care Management Discharge Plan Reason for Hospitalization: Visual hallucinations, hypoxic Discharge Plan: Zuleyka is being discharged home with New [facility] RN/PT/OT/TOY ELECTRIC TRAIN REPAIRER services. Zuleyka will follow up with community providers and continue per her discharge plan of care. Zuleyka's brother Glen is planning on providing transportation. Patient/Family Education Needs: Review discharge instructions and plan for outpatient follow up. Discuss ask me three. Services Needed at Discharge: Home Health Care Services (CM notified Sudarshan at [facility] prior to discharge. ) SDOH Health Related Social Needs: Health related social needs house/econ circumstance da ashley activities Health related social needs details visually impaired, diffuculty with daily needs due to vision loss Health related social needs details: visually impaired, diffuculty with daily needs due to vision loss
[2025-07-21] MEDS: Magnesium Chloride 64 MG TABCR PO (16:31)
[2025-07-21] MEDS: Potassium Chloride 20 MEQ TABCR 40 MEQ PO (16:31)
--- NOTE | 2025-07-21 16:56 | DSE_ITS ---
Date of service: 07/21/25 Time of Service: 16:56 DS: Diagnosis Discharge Diagnosis (1) Tobacco use disorder: Status: Resolved (2) Suspected malignant neoplasm of lung: Status: Acute (3) Right hilar mass: Status: Acute Discharge Plan Disposition Patient Disposition: Home W/Home Health Services Home Health Services: New Referral Anticipated Discharge Date/Time: 07/21/25 17:00 Condition: Fair Discharge Details Reason For Visit: Acute Hypoxic Respiratory Failure Admit Date/Time: 07/20/25 20:51 Admit Provider: Humza Bueno Attending Provider: Humza Bueno [facility] Hospital Course: The patient presented with visual hallucinations, rapid vision loss, and new hypoxemia. In the ED she was noted to be tachycardic and hypoxic, requiring 2 L NC to maintain oxygen saturation between 88?92%. CT chest revealed a large right hilar mass with extensive mediastinal and subcarinal lymphadenopathy, concerning for primary lung malignancy with possible metastasis to the left adrenal gland and T3 compression deformity. No pulmonary embolism was identified. CT head showed no acute intracranial process. Ophthalmology was consulted for rapidly worsening visual acuity and hypnopompic hallucinations (likely related to severe bilateral visual loss). Pulmonology was consulted for evaluation of the lung mass, new hypoxemia, and diagnostic planning. Hypoxia improved during hospitalization, and the patient maintained oxygenation on room air by discharge. Pertinent Results Laboratory Findings * CBC: Hgb 11.5, Hct 34.9 (mild anemia); WBC 7.98. * BMP: K? 3.4 (mild hypokalemia), Cr 1.16, eGFR 46. * CRP 0.90. TSH 4.98 (mildly elevated), Free T4 normal. * Troponin normal. * UA: 10?20 WBC, trace ketones, protein 30; no culture indicated due to con tamination. Imaging * CT Chest PE protocol: Large right hilar mass with mediastinal/subcarinal adenopathy; no PE; suspected metastatic disease (left adrenal, T3 compression deformity). * CT Head: No acute intracranial abnormality; no evidence of brain metastasis. 1. Acute Hypoxemic Respiratory Failure ? Acute * Likely secondary to combination of presumed metastatic lung mass and underlying COPD. * Known history of nocturnal hypoxia. * Oxygen saturation goal 88?92% given COPD. * Hypoxia improved; discharged on room air. * Breyna on discharge per recommendation of pulmonology 2. Suspected Malignant Neoplasm of Lung / Right Hilar Mass ? Acute * CT chest: large right hilar mass with mediastinal and subcarinal adenopathy; concern for metastatic spread. * Possible metastatic changes at T3 and left adrenal gland. * Patient is aware of results. * Follow-up: * EBUS planned for 07/29/25 (hold anticoagulation for 72 hours beforehand). * Outpatient PFTs to be arranged. * Establish care with oncology promptly after discharge. 3. Hypnopompic Hallucinations ? Acute * Likely secondary to profound vision loss. * Ophthalmology consulted; follow-up arranged. 4. Rapid Vision Loss / Cataracts ? Acute * Only able to perceive hand motion ~6 inches from face. * Keep scheduled appointment this Monday with [facility] for planned cataract surgery and further evaluation. * Return precautions provided. 5. Chronic Obstructive Pulmonary Disease ? Chronic * No clear acute exacerbation during stay. * Initiate PRN inhaler regimen at discharge Breyna 80 (per pulmonology). * Arrange outpatient PFTs. 6. Atrial Fibrillation ? Chronic * Continue home metoprolol and diltiazem. * Patient had recently stopped Eliquis; received Lovenox during hospitalization for DVT prophylaxis, continue Eliquis in setting of possible cancer adn Afib. * Anticoagulation management to be coordinated around upcoming EBUS - stop 72 hours prior. 7. Diabetes Mellitus Type II, Uncontrolled ? Acute * Continue home long-acting insulin. * Continue metformin. * Sliding-scale insulin with meals; carbohydrate-consistent diet. * Vision impairment impacts medication self-management; outpatient support recommended. 8. Chronic Diastolic Heart Failure due to Valvular Disease ? Chronic * Continue home metoprolol, spironolactone, losartan, Lasix, and atorvastatin. Pertinent Exam on Day of Discharge * Well-appearing, no acute distress. * Alert and oriented ?4. * Lungs clear to auscultation. * Heart regular rate and rhythm. * Abdomen soft and non-tender. * Profound bilateral visual impairment; unable to see beyond hand motion at ~6 inches. Discharged home with home health services, including [facility], physical therapy, occupational therapy, and medical social work for assistance with medication management, safety evaluation, vision-related functional support, and ongoing monitoring of medical conditions. Patient states her brother is staying with her in her home and that she is safe for discharge. Home Meds and New Rx's Prescriptions: New magnesium chloride [Mag 64] 64 mg Tablet,Delayed Release (Dr/Ec) 64 mg PO NOW Qty: 30 0RF budesonide-formoterol [Breyna] 80-4.5 mcg/actuation HFA aerosol inhaler 1 - 2 puff inhalation 12XD PRNQty: 10.2 0RF Rx Instructions: up to max 12 times per day (24h) as needed for difficulty breathing Continued (DME) sarwat.stocking,knee,reg,xlrg Misc See Rx Instructions .ROUTE .MEDSUPPLY Qty: 12 6RF Rx Instructions: As directed apixaban 5 mg tablet 5 mg PO BID Qty: 60 3RF atorvastatin 40 mg tablet 40 mg PO DAILY Qty: 90 3RF clotrimazole-betamethasone 1-0.05 % cream 1 applic topical BID 10 Days Qty: 15 2RF diltiazem HCl 360 mg capsule,extended release 24 hr 360 mg PO DAILY Qty: 90 3RF furosemide 40 mg tablet 40 mg PO BID Qty: 180 3RF insulin degludec [Tresiba FlexTouch U-200] 200 unit/mL (3 mL) insulin pen See Rx Instructions subcut DAILY Qty: 9 6RF Rx Instructions: 20 units qam, 50 units qhs subcutaneously daily; losartan 25 mg tablet 25 mg PO BID Qty: 180 3RF nicotine 21 mg/24 hr patch 24 hour 1 patch transdermal Q24H Qty: 28 3RF sertraline 50 mg tablet 50 mg PO DAILY Qty: 90 3RF spironolactone 25 mg tablet 25 mg PO DAILY Qty: 90 3RF (DME) Blood Glucose Test Strip See Rx Instructions .Route Qty: 300 3RF Rx Instructions: Accu-check test sstrips. test 4x/day to keep HbA1c less than 6/5%. Dx E11.9 (DME) blood-glucose meter Misc See Rx Instructions .Route Qty: 1 0RF Rx Instructions: accu-check meter. to test 4x/day to keep HbA1c less than 6.5% Dx E11.9 (DME) lancets 33 gauge misc See Rx Instructions .ROUTE .MEDSUPPLY Qty: 100 11RF Rx Instructions: As directed, TID, to keep HbA1c below 6.5%, on insulin; Dx: E11.9 (DME) pen needle, diabetic [BD Ultra-Fine Orig Pen Needle] 29 gauge x 1/2 needle 0 .ROUTE .MEDSUPPLY Qty: 100 12RF Rx Instructions: As directed, 5x day insulin aspart U-100 [Novolog FlexPen U-100 Insulin] 100 unit/mL (3 mL) insulin pen See Rx Instructions subcut TID MDD 30 units Qty: 15 11RF Rx Instructions: Inject 1-10 units SQ TID with each meal acording to sliding scale subcut three times a day; 140-180 3 units, 181-240 4 units, 241-300 6 units, 301-350 8 units, 351-400 10 units metoprolol succinate 100 mg tablet extended release 24 hr 100 mg PO BID 90 Days Qty: 180 3RF metformin 1,000 mg tablet 1,000 mg PO BID Qty: 180 3RF multivitamin [One-A-Day Essential] 1 EACH tablet 1 ea PO DAILY acetaminophen [Mapap Extra Strength] 500 MG tablet 500 - 1,000 mg PO PRN PRN Discharge Instructions Instructions: Chronic Obstructive Pulmonary Disease (COPD) (DC), Budesonide and Formoterol Additional Instructions: Ophthalmology: * Keep appointment this Monday with [facility]. * Return sooner for new eye pain, worsened vision, or recurrence of hallucinations. Pulmonology / Oncology: * EBUS scheduled for 07/29/25 (hold anticoagulation 72 hours before). * Pulmonology to arrange outpatient PFTs. * Establish and follow closely with oncology - a referral has been sent to [facility] oncology. * STOP smoking Medications: * Continue all home medications unless otherwise specified. * Use PRN inhaler Breyna 80 as prescribed. * Continue diabetic regimen; take meals regularly. * Continue Apixaban (restart) is very important that you take your apixaban every day as prescribed because it greatly lowers your risk of having a stroke or a dangerous blood clot. * Start magnesium; your level was low. Return to ED for: * Worsening shortness of breath * Chest pain * Severe or sudden worsening vision * Altered mental status or new hallucinations * Signs of infection or fever Home Health will call you after discharge to arrange your first visit and schedule your services Stand Alone Forms: Portal Information Referrals: [facility] [Outside] - 07/25/25 HEMATOLOGY/ONC,[facility] [OTHER, Oncology] Referral Note: A referral has been sent. They will call you with appointment. Gage Paul DO [Primary Care Provider, Medicine] Referral Note: 1 week post inpatient hospitalization - new diagnosis of Lung mass. Activity:: Activity as Tolerated Equipment/Supplies:: No Equipment Needed Diet:: As Tolerated DS: Summary Time Spent with Patient providing and/or coordinating discharge services: Greater than 30 minutes Status at Discharge Functional status at discharge: independent ambulation Overall status at discharge: patient is back to baseline Mental Status: mental status grossly normal Speech and Movement: speech and movement normal Mood: congruent mood Affect: normal affect Quality:SDOH Health Related Social Needs: Health related social needs house/econ circumstance da ashley activities Health related social needs details visually impaired, diffuculty with daily needs due to vision loss Health related social needs details: visually impaired, diffuculty with daily needs due to vision loss Exam Narrative Exam Narrative: General: Awake, alert, in no apparent distress. HEENT: Sclera non-icteric. Pupils equal and sluggishly reactive to light. Vision limited to light perception and hand-motion; unable to count fingers. Eyes do not accurately track during finger-counting attempts. Extraocular movements intact. Conjunctiva clear. Intraocular pressure 12 mmHg bilaterally. Neck: Supple. Lungs: No respiratory distress; normal respiratory effort. Cardiovascular: Well perfused; strong distal pulses. Abdomen: Non-distended. Musculoskeletal: Moves all four extremities without limitation in range of motion. Skin: No rashes or cyanosis observed. Neurologic: No focal deficits. Symmetric strength and sensation. No facial asymmetry. Speech fluent and clear. Psychiatric: Appropriate affect and behavior for the situation. Psych Mental Status: mental status grossly normal Speech and Movement: speech and movement normal Mood: congruent mood Affect: normal affect DS: Data Vitals/I&O Vitals and I&O: Vital Signs Temperature 36.6 C 07/21/25 15:43 Temperature Source Temporal Artery Scan 07/21/25 15:43 Pulse 64 07/21/25 15:43 Pulse Rhythm Irregular 07/20/25 22:02 Pulse 124 H 07/20/25 21:39 Respiratory Rate 16 07/21/25 15:43 Respiratory Effort Normal, Non-Labored 07/20/25 22:02 Respiratory Depth Normal 07/20/25 22:02 Respiratory Pattern Normal 07/20/25 22:02 Blood Pressure 99/67 L 07/21/25 15:43 Blood Pressure Mean 77 07/21/25 15:43 Blood Pressure Position Supine 07/20/25 14:59 Pulse Oximetry 95 07/21/25 15:43 Oxygen Delivery Method Room Air 07/21/25 15:43 Oxygen Flow Rate 0 07/21/25 15:43 Pain Level 0 07/21/25 15:43 Comment pulse kept bouncing from 130s to 100s 07/21/25 10:58 Comment 2L NC 07/20/25 21:39 Intake & Output 07/20/25 07/21/25 07/21/25 23:59 11:59 23:59 Intake Total 1000 / 1000 300 / 300 Output Total 400 / 400 Balance 1000 / 1000 300 / -100 -400 / -100 Weight 108.6 kg Intake: IV 1000 / 1000 Oral 300 / 300 Output: Urine 400 / 400 Other: Urine Color Light Ally Urine Appearance Clear Stool Size Large Stool Characteristics Soft Data Completed and Pending Pending Labs at Discharge: 07/20/25 07/20/25 07/20/25 15:26 16:30 18:11 WBC 7.98 RBC 3.96 Hgb 11.5 Hct 34.9 L MCV 88 MCH 29.0 MCHC 33.0 RDW 16.6 H Plt Count 270 MPV 9.3 Immature Gran % 0.3 Neutrophils % 66.1 Lymphocytes % 19.9 Monocytes % 11.4 Eosinophils % 1.4 Basophils % 0.9 Nucleated RBC % 0.0 Absolute Neutrophils 5.28 Absolute Lymphocytes 1.59 Absolute Monocytes 0.91 H Absolute Eosinophils 0.11 Absolute Basophils 0.07 ESR 28 Sodium 141 Potassium 3.4 L Chloride 107 Carbon Dioxide 26.5 Anion Gap 7.5 BUN 19 Creatinine 1.16 H Est GFR (CKD-EPI 2020) 46.30 Glucose 84 Calcium 9.3 Magnesium 1.6 Total Bilirubin 0.80 AST 20 ALT 14 Alkaline Phosphatase 90 Troponin I 15 14 Cancelled C-Reactive Protein 0.90 H Total Protein 7.6 Albumin 4.1 TSH 4.98 H Free T4 1.24 Urine Color Urine Clarity Urine pH Ur Specific [place] Urine Protein Urine Ketones Urine Blood Urine Nitrite Urine Bilirubin Urine Urobilinogen Ur Leukocyte Esterase Urine RBC Urine WBC Ur Epithelial Cells Urine Crystals Urine Bacteria Urine Casts Urine Mucus Ur Culture Indicated? Urine Glucose 07/20/25 07/21/25 18:14 06:26 WBC 7.17 RBC 3.95 Hgb 11.4 Hct 34.7 L MCV 88 MCH 28.9 MCHC 32.9 RDW 16.3 H Plt Count 239 MPV 9.4 Immature Gran % Neutrophils % Lymphocytes % Monocytes % Eosinophils % Basophils % Nucleated RBC % Absolute Neutrophils Absolute Lymphocytes Absolute Monocytes Absolute Eosinophils Absolute Basophils ESR Sodium 144 Potassium 3.3 L Chloride 110 H Carbon Dioxide 27.9 Anion Gap 6.1 BUN 12 Creatinine 0.86 Est GFR (CKD-EPI 2020) 65.39 Glucose 71 L Calcium 8.5 Magnesium 1.6 Total Bilirubin AST ALT Alkaline Phosphatase Troponin I C-Reactive Protein Total Protein Albumin TSH Free T4 Urine Color Yellow Urine Clarity Clear Urine pH 6.0 Ur Specific [place] 1.020 Urine Protein 30 H Urine Ketones Trace H Urine Blood Negative Urine Nitrite Negative Urine Bilirubin Small H Urine Urobilinogen 1.0 H Ur Leukocyte Esterase Negative Urine RBC Negative Urine WBC 10-20 H Ur Epithelial Cells Many Urine Crystals Negative Urine Bacteria Negative Urine Casts Negative Urine Mucus Heavy Ur Culture Indicated? No/Sq. Contamination Urine Glucose Negative PFSH All Active Problems (Updated 07/20/25 @ 20:58 by Elizabeth Bermudez MD) Right hilar mass (Acute) Vision loss, bilateral (Acute) Suspected malignant neoplasm of lung (Acute) Acute hypoxemic respiratory failure (Acute) Cystitis (Acute) Hypnopompic hallucination (Acute) Environmental allergies (Acute) Wound of right leg (Acute) Onychogryphosis (Acute) Nocturnal hypoxia (Acute) Personal history of nicotine dependence (Acute) Cardiomyopathy (Acute) Diabetic peripheral neuropathy (Acute) Chronic obstructive pulmonary disease (Chronic) Chronic diastolic heart failure (Acute) Venous stasis dermatitis of both lower extremities (Acute) Toenail deformity (Acute) Atrial fibrillation with rapid ventricular response (Acute) Pneumonia (Acute) Acute respiratory failure with hypoxia (Acute) Sebaceous cyst (Acute 10/12/17) Nocturnal hypoxemia (Chronic) 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) Restless leg syndrome (Chronic) Degenerative joint disease of left knee (Chronic) Lipoma of left shoulder (Acute) Hyperlipidemia (Acute) Diabetes mellitus type II, uncontrolled (Acute) Venous stasis ulcer limited to breakdown of skin with varicose veins (Acute) Elevated BP without diagnosis of hypertension (Chronic 10/12/17) Atrial fibrillation (Chronic) Medical History A-fib Acute respiratory failure with hypercapnia inpatient [facility] 03/06-03/09/21 Afib Arthritis (10/12/17) CHF (congestive heart failure) Diabetes Heart murmur (10/12/17) Loss of taste Pulmonary edema inpatient [facility] 03/06-03/09/21 Rheumatic fever (10/12/17) Venous insufficiency (chronic) (peripheral) Family History Mother Diabetes Hypertension Heart disease Depression Anxiety Maternal Aunt Diabetes Neoplasm Breast Maternal Uncle Neoplasm Father , cardiac issues at age 64. 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 - [employer] Pets and animals: Yes Pets and animals: cat(s) Do you think of yourself as: straight/heterosexual Current gender identity: female What is your relationship status?: How often do you talk on the phone with friends or family?: three or more times per week How often do you get together with friends or relatives?: twice per week Do you belong to any clubs or organized social groups?: no Panel score (0-1 are the most socially isolated patients): 1 What type of physical activity do you participate in: walking Duration: 15-30 minutes/day Frequency: 1-2 times per week Rebecca/Jehovah'S Witness: Restoration Special rebecca needs: No Seatbelt use: always Helmet use: Yes Helmet use: sometimes Drive intox or ride w/intox backhaul driver: No Working smoke detector in home: Yes Carbon monox detector in home: Yes Do you feel safe at home: Yes Do you feel safe in your relationship?: Yes Time Spent with Patient Time Spent with Patient: 45-69 minutes Time was spent: preparing to see the patient(eg.review tests), ordering medications,tests, procedures, referring, communicating with other health animal care attendant, indepentently interpreting results, counseling the patient and care coordination
--- NOTE | 2025-07-21 17:00 | PDOC.HHF2F_ITS ---
Date of service: 07/21/25 Time of Service: 17:00 Home Health Referral Home Health Orders Clinical synopsis of why skilled professionals are needed: The patient presented with visual hallucinations, rapid vision loss, and new hypoxemia. In the ED she was noted to be tachycardic and hypoxic, requiring 2 L NC to maintain oxygen saturation between 88?92%. CT chest revealed a large right hilar mass with extensive mediastinal and subcarinal lymphadenopathy, concerning for primary lung malignancy with possible metastasis to the left adrenal gland and T3 compression deformity. No pulmonary embolism was identified. CT head showed no acute intracranial process. MRI showed no acute intracranial process. Ophthalmology was consulted for rapidly worsening visual acuity and hypnopompic hallucinations (likely related to severe bilateral visual loss). Pulmonology was consulted for evaluation of the lung mass, new hypoxemia, and diagnostic planning. 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 CBS causes vivid, non-threatening visual hallucinations that occur in the absence of a mental health disorder. It is important to reassure the patient that these hallucinations are not a sign of dementia or psychosis but are instead linked to the profound visual impairment. The patient has been advised to follow up with ophthalmology as needed for further evaluation and management. Hypoxia improved during hospitalization, and the patient maintained oxygenation on room air by discharge. Due to the patient's newly diagnosed lung cancer, rapid vision loss, hypoxemia, and functional limitations related to her visual impairment, she is referred for home health services. These will assist with medication management, safety evaluation, daily living tasks, and functional mobility. The patient has demonstrated medication non-compliance, and fdc will help ensure proper medication administration and adherence. Physical therapy and occupational therapy will support her mobility and ability to perform daily activities, while medical social work will help coordinate care and address psychosocial concerns. The home health agency will contact the patient to schedule the initial visit. 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; new diagnosis of a large right hilar mass with extensive mediastinal and subcarinal lymphadenopathy, concerning for primary lung malignancy with possible metastasis to the left adrenal gland and T3 compression deformity Registered Nurse: Check all that apply Instruct on new or changed medication(s)/assess compliance: Ordered Assess for exacerbation of medical condition, instruct patient/caregivers on signs and symptoms to report for early detection: Ordered Physical Therapist: Check all that apply Increase strength & endurance for safe mobility at home: Ordered To design/establish home maintenance program: Ordered Fall reduction therapy program for patient with history of frequent falls: Ordered Home safety evaluation and teaching/gait training including stair management (if applicable): Ordered Occupational Therapist: Evaluate and treat for patient unable to perform ADL/IADL/self-care: Ordered Upper extremity strengthening, range and motion: Ordered Technical Instructor Course Developer: Assist with community resources: Ordered Assist with terminal clerk care planning: Ordered Home Bound Status Assistance of another person (Describe assistance and medical necessity): Unable to see adequately Patient has a condition such that leaving home is medically contraindicated (Describe): Unable to see adequately Describe why leaving home would require a considerable and taxing effort: Safety Concerns: describe (Unable to see adequately ) Encounter Date and Reason: I certify that a FTF encounter for this patient was performed on July 21, 2025 and that such encounter was related to the primary reason the patient requires home health services. The encounter was conducted in the following manner: * By me as the certifying physician, [employer], PA or * By an inpatient physician, [employer] or PA during an inpatient stay who communicated findings to me, Certification And Authentication I certify that I composed the above information based on my clinical judgment relating to this patient's medical condition and, if applicable, clinical findings communicated to me by the NPP or inpatient physician who performed the FTF encounter. Name of Provider that will be monitoring home health services: Gage Paul
== END 2025-07-21 18:36 | disposition home health service (06) | DRG 180 ==
LOC: ER 21:29 → MS 21:55
PROVIDERS: Admitting Provider Family Medicine; Emergency Provider Emergency Medicine; PCP Family Medicine; Responsible Provider Nurse Practitioner Family; Visit Provider Family Medicine
DX: C34.01 Malignant neoplasm of right main bronchus (principal); J96.01 Acute respiratory failure with hypoxia; R44.2 Other hallucinations; Z68.41 Body mass index [BMI] 40.0-44.9, adult; C77.1 Secondary and unspecified malignant neoplasm of intrathoracic lymph nodes; I42.9 Cardiomyopathy, unspecified; I50.32 Chronic diastolic (congestive) heart failure; C79.72 Secondary malignant neoplasm of left adrenal gland; I48.91 Unspecified atrial fibrillation; J44.9 Chronic obstructive pulmonary disease, unspecified; E11.65 Type 2 diabetes mellitus with hyperglycemia; R63.4 Abnormal weight loss; E11.42 Type 2 diabetes mellitus with diabetic polyneuropathy; I87.2 Venous insufficiency (chronic) (peripheral); Z79.4 Long term (current) use of insulin; Z79.84 Long term (current) use of oral hypoglycemic drugs; H54.3 Unqualified visual loss, both eyes; H53.16 Psychophysical visual disturbances; Z87.891 Personal history of nicotine dependence
CPT/HCPCS: 00123; 36415; 70553; 71275; 76512; 80048; 80053; 85027; 85652; 93005; 96360; 96361; 99222; 99285; J1650; 70450; 81003; 81015; 83735; 84439; 84443; 84484; 85025; 86140; 93010; 94760; 99239; J1815; J3490

== ENCOUNTER → 2025-07-21 09:54 | Outpatient (BNVA) | payer MEDICARE, SELFPAY | PROVIDERS: PCP Family Medicine; Referring Provider Family Medicine; Visit Provider Internal Medicine Pulmonary Disease ==

== ENCOUNTER → 2025-07-29 12:44 | Outpatient (CLI) | payer MEDICARE, SELFPAY ==
--- NOTE | 2025-07-29 12:45 | DI.US_ITS ---
APPROVED REPORT EXAM: Comprehensive 2D, Doppler, and color-flow Echocardiogram Patient Location: Out-Patient Hide Dropper: Fe Kapoor RDCS (AE) Indications: Systolic heart failure, Pre op evaluation for EBUS lung screen, HX of CHF Other Information Study Quality: Adequate Conclusion Mild concentric left ventricular hypertrophy. Ejection fraction is 45%. There is global hypokinesis Normal right ventricular size and function Both atria are borderline in size Aortic valve is calcified and trileaflet without stenosis. There is trace aortic regurgitation Mild mitral annular calcification Mild mitral and tricuspid regurgitation Estimated right ventricular systolic pressure is 26 mmHg Very mildly dilated aortic root and ascending aorta Wall motion Left Ventricle The left ventricle is normal size. Left ventricular systolic function is mildly decreased. Mild concentric left ventricular hypertrophy. There is global hypokinesis of the left ventricle. There is no ventricular septal defect visualized. LVEF is 45%. Right Ventricle The right ventricle is normal size. The right ventricular systolic function is normal. Atria Left atrium is borderline dilated. Right atrium is borderline dilated. The interatrial septum is intact with no evidence for an atrial septal defect. Aortic Valve Aortic valve is calcified. Aortic valve is trileaflet. No hemodynamically significant valvular aortic stenosis. Trace aortic regurgitation. Mitral Valve Mild mitral annular calcification. No evidence of mitral valve stenosis. Mild mitral regurgitation. Tricuspid Valve The tricuspid valve is normal in structure. There is no tricuspid valve stenosis. Mild tricuspid regurgitation. The RVSP is 25..9 mmHg. Pulmonic Valve The pulmonary valve is normal in structure. There is no pulmonic valvular stenosis. Mild pulmonic regurgitation. Great Vessels Aortic root is mildly dilated. The ascending aorta is mildly dilated. Ascending aorta is not well visualized. IVC is normal in size and collapses >50% with inspiration. Pericardium There is no pericardial effusion. 2D Dimensions IVSD d PLAX 1.10 cm F: 0.6-1.0 Ao Root d 3.41 cm F: 2.7 - 3.3 LVPW d PLAX 1.14 cm F: 0.6 - 1.0 Ao Asc Diam d 3.45 cm F: 2.3 - 3.1 LVID d PLAX 5.00 cm F: 3.8 - 5.2 LVDs 3.90 cm F: 2.2 - 3.5 LV EF Teichholz 44.8 % FS 22.34 % LV EDV (Teich) 117.4 mL LV ESV (Teich) 64.8 mL M-Mode TAPSE 1.23 cm (M/F) >1.7 Auto EF LV EDV A4C 83.4 mL LV EDV A2C 97.1 mL LV EDV BP 93.5 mL LV ESV A4C 47.8 mL LV ESV A2C 52.3 mL LV ESV BP 52.5 mL LVEF(%) A4C 42.8 % LVEF(%) A2C 46.2 % LVEF(%) BP 43.8 % LV SV A4C 35.7 ml LV SV A2C 44.8 ml LV SV BP 40.9 ml LV CO A4C 2.3 L/min LV CO A2C 3.0 L/min LV CO BP 2.7 L/min HR A4C 64.72 BPM HR A2C 67.65 BPM LV EDV Index (BP) LV Strain Long Pk Overal Avg (s) 11.04 LA Volume LA Length A4C 6.0 cm LA Length A2C 6.4 cm LA Area A4C s 21.95 cm2 LA Area A2C s 23.28 cm2 LA Vol A4C A-L 67.84 mL LA Vol A2C A-L 72.07 mL LA Vol Biplane A-L 72.0 mL LA Vol/BSA A4C A-L LA Vol/BSA A2C A-L LA Vol/BSA BP A-L 34.1 mL/m2 LA Vol A4C MOD 61.0 mL LA Vol A2C MOD 68.8 mL LA Vol BP MOD 66.4 mL RA Volume RA Area A4C 15.1 cm2 RA ESV A4C (A-L) 34.1mL RA Vol/BSA A4C A-L RA Length A4C 5.6 cm RA ESV A4C (MOD) 31.9mL LV Diastology MV E' medial 0.087 (>0.07 m/s) MV E Vmax 1.23 (0.4-1.3 m/s) MV E/E' MED 14.11 (<14) MV A Vmax 0.50 (0.4-1.3 m/s) MV E' lateral 0.108 (>0.1 m/s) E/A Ratio 2.5 MV E/E' LAT 11.42 (<14) MV E' Average 0.097 m/s MV E/E'(average) 12.63 Aortic Valve AoV Vmax 2.17 m/s LVOT Vmax 1.33 m/s AoV Peak Grad 18.9 mmHg LVOT Peak Grad 7.1 mmHg AoV Area (Vmax) 1.98 cm2 LVOT VTI 0.285 m AoV VTI 0.498 m LVOT Mean Grad 4.1 mmHg AoV Mean Andrey. 1.55 m/s LVOT SV 91.94 mL AoV Mean Grad 10.9 mmHg LVOT Diam s 2.00 cm AoV Area (VTI) 1.84 cm2 Velocity Ratio 0.61 Mitral Valve MV DT 167 (160-240 msec) MV Vmax TIPS 1.34 m/s MV Mean Grad 2.3 (<2mmHg) MV VTI 0.305 m Pulmonary Valve PV Vmax 1.06 (0.5-1.5 m/s) RVOT Vmax 0.72 m/s PV Peak Grad 4.5 mmHg RVOT Peak Gr. 2.1 mmHg PV Mean Andrey 0.74 m/s RVOT VTI 0.192 m PV Mean Grad 2.5 mmHg RVOT Mean Gr. 1.2 mmHg Tricuspid Valve RA Pressure 3.00 mmHg TR Vmax 2.39 m/s TV S' 0.08 m/s TR Peak Grad 22.8 mmHg RVSP (TR) 25.9 mmHg
== END ==
LOC: DI 12:44
PROVIDERS: PCP Family Medicine; Visit Provider Internal Medicine Pulmonary Disease
DX: I50.20 Unspecified systolic (congestive) heart failure (principal); I51.7 Cardiomegaly
CPT/HCPCS: 93306

== ENCOUNTER 2025-07-30 08:59 | Inpatient (IN) | payer MEDICARE, SELFPAY ==
[2025-07-30] VITALS (63 sets, daily range): BP systolic 91–156; BP diastolic 53–113; PULSE 60–149; RESP 11–30; TEMP 36.4–37; O2SAT 74–99
--- NOTE | 2025-07-30 08:45 | RT.EKG_ITS ---
APPROVED REPORT Exam: Resting ECG Reason for Exam: Dizzy Patient Location: E HR:89 bpm ECG Measurements Heart Rate 89 AXIS LA [id number] P [id number] QRSd 117 QRS 21 QT 406 T 37 QTc 492 Conclusion Atrial fibrillation...V-rate 66-115, irreg A-activity Nonspecific intraventricular conduction delay...QRSd >115mS, not LBBB/RBBB Low voltage, extremity and precordial leads...extremity<0.5mV, precordial<1.0mV Anteroseptal infarct, old...Q >40mS, V1-V2 Physician: No STEMI
--- NOTE | 2025-07-30 09:30 | DI.RAD_ITS ---
Exam(s) XR CHEST 2V PA LATERAL EXAM: XR CHEST 2V PA LATERAL CLINICAL HISTORY: shortness of breath. TECHNIQUE: 2D digital imaging was performed. COMPARISON: CR,XR XR PORTABLE CHEST AP from 03/06/[address] ABDOMEN PELVIS W from 07/30/2025 FINDINGS: 2 views: Cardiomegaly again noted. There is infiltrate in the right lung base appearing to be in the right middle lobe. There is also interstitial disease in both lung [place]. Also mild increased markings in left lower lobe retrocardiac region posterior basal segment left lower lobe. There are no obvious pleural effusions IMPRESSION: Abnormal findings as above. Please note that recent chest CT scan of 07/20/2025 revealed right lung-hilar mass and extensive mediastinal and subcarinal adenopathy. DATA REPOSITORY: RADIATION DOSE DELIVERED:
--- NOTE | 2025-07-30 09:30 | DI.CT_ITS ---
Exam(s) CT ABDOMEN PELVIS W EXAM: CT ABDOMEN PELVIS W CLINICAL HISTORY: abdominal pain, anorexia, nausea. TECHNIQUE: Imaging Protocol: Axial computed tomography images with coronal and sagittal reformatted images were created and reviewed CONTRAST MATERIAL: Intravenous: Omnipaque-350 100cc Oral: None COMPARISON: CT CT CHEST PE CTA from 07/20/2025 FINDINGS: VISUALIZED LUNG BASES: Right lung mass infiltrate and subcarinal lymphadenopathy noted, as evident on recent chest CT scan of 07/20/2025 and highly suspicious for malignancy. There are no pleural effusions. ABDOMEN: There is no ascites. LIVER: There are no focal hepatic lesions evident. No dilated intrahepatic ducts. GALLBLADDER/BILIARY: No obvious gallbladder pathology. CBD is not dilated. PANCREAS: No evidence of pancreatic mass nor dilatation of the pancreatic duct. SPLEEN: Spleen is not enlarged. No obvious intrasplenic lesions. Splenic and portal veins are patent. ADRENALS: Again noted is a previously described hypodense nodule in the left adrenal gland which measures 2.8 by 1.9 cm. The opposite-right adrenal gland remains unremarkable. KIDNEYS:Benign cysts are noted in left kidney, the largest of these in the mid- superior aspect of the left kidney measuring 3.3 x 3 cm and appearing to contain a single thin internal septum/Bosniak 2. Another smaller benign cyst in the inferior pole left kidney measuring 2.5 cm also noted. In the opposite-right kidney there are no significant focal findings. No solid renal masses. No calculi nor hydronephrosis.. ABDOMINAL AORTA: Abdominal aorta is calcified and atherosclerotic and there is a fusiform infrarenal abdominal aortic aneurysm which exhibits maximum external diameter of 3.2 cm. The common iliac arteries are calcified but not enlarged. External iliac arteries also calcified but not enlarged. There are no aneurysms evident within the internal iliac arteries. LYMPH NODES:There is no retroperitoneal nor paraaortic adenopathy. ABDOMINAL WALL: No evidence of significant anterior abdominal wall nor inguinal hernia. GI: There is no evidence of bowel obstruction, free air, nor abscess. PELVIS: GI: No evidence of appendicitis.There diverticuli evident in the left side of the colon as well as within the redundant sigmoid. There is, however, no evidence of obvious acute diverticulitis. LYMPH NODES: There is no intrapelvic nor inguinal adenopathy. REPRODUCTIVE: Uterus and adnexal regions appear age-appropriate. There is no free fluid in the pelvis. URINARY BLADDER: The urinary bladder is mildly distended, measuring 11.5 cm AP x 10 cm wide by 8 cm craniocaudal. No masses nor calculi seen within the bladder. OSSEOUS: No fractures and no significant osseous lesions. There is grade 1 degenerative anterolisthesis of L4 upon L5 related to facet arthropathy. IMPRESSION: 1. There is a snowman shaped fusiform infrarenal abdominal aortic aneurysm. The maximum diameter is 3.2 cm. There is no para-aortic adenopathy. 2. There is extensive subcarinal lymphadenopathy evident on the uppermost images as well as right lung mass, these findings recently documented on chest CT scan of 07/20/2025. 3. There is a nodule/mass in the left adrenal gland gland noted measuring approximately 8 x 19 mm. This may be metastatic, given the findings in the chest. The opposite-right adrenal gland remains unremarkable. 4. There is diverticulosis of the very redundant sigmoid but no evidence of obvious acute diverticulitis. There is also no evidence of appendicitis. Report called by myself to ER provider 07/30/2025 at 10:33 a.m. RADIATION DOSE DELIVERED: 766.08mGy.cm Total DLP DATA REPOSITORY: All CT scans at this facility are submitted to the National Radiology Data Registry (NRDR) Dose Index Registry (DIR) with the [employer] ([employer]). RADIATION OPTIMIZATION: All CT scans at this facility use at least one of these dose optimization techniques: automated exposure control; mA and/or kV adjustment per patient size (includes targeted exams where dose is matched to clinical indication); or iterative reconstruction.
[2025-07-30 09:43] LABS: BE (Venous) 5 mmol/L (-2-3); HCO3 (Venous) 31 mmol/L (23-28); HCT 40.7 % (36.0-46.0); HGB 13.4 g/dL (11.2-15.7); MCH 29.4 pg (27.0-33.0); MCHC 32.9 % (32.0-36.0); MCV 89 fL (80-95); MPV 9.4 fL (8.0-11.0); O2 Sat (Venous) 43 %; Platelet Count 281 10^3/uL (130-400); RBC 4.56 10^6/uL (3.93-5.22); RDW 16.7 % (11.7-14.6); RDW-SD 54.6 fL; TCO2 (Venous) 28 mmol/L (24-29); WBC 11.09 10^3/uL (4.4-10.8); pCO2 (Venous) 54 mmHg (41-51); pO2 (Venous) 27 mmHg
[2025-07-30 09:44] LABS: Abs Immature Grans 0.04 10^3/uL (0.0-0.06); Immature Grans % 0.4 %
[2025-07-30] MEDS: Normal Saline 1,000 ML 150 ML IV (09:54)
[2025-07-30] MEDS: Albuterol/Ipratropium 3 ML UPD VIAL UPD ×2 (09:54→13:56)
[2025-07-30] MEDS: Omnipaque 350 MG/ML 100 ML BTL IJ (10:01)
[2025-07-30] MEDS: Normal Saline - Diluent 50 ML VIAL IJ (10:01)
[2025-07-30 10:18] LABS: Troponin I 3 ng/L (<35)
[2025-07-30 10:19] LABS: ALT 15 U/L (10-49); AST 26 U/L (<34); Albumin 4.2 g/dL (3.2-5.0); Alkaline Phosphatase 92 U/L (46-116); Anion Gap 5.4 mmol/L (3-11); BUN 21 mg/dL (9-23); Bilirubin, Total 0.4 mg/dL (0.2-1.2); CO2 30.7 mmol/L (20.0-31.0); Calcium 9.2 mg/dL (8.3-10.6); Chloride 99 mmol/L (98-107); Glucose 73 mg/dL (74-106); Potassium 4.4 mmol/L (3.5-5.1); Sodium 135 mmol/L (136-145); Total Protein 7.9 g/dL (5.7-8.2)
--- NOTE | 2025-07-30 10:30 | DI.RAD_ITS ---
Exam(s) XR TIB/FIB LT EXAM: XR TIB/FIB LT CLINICAL HISTORY: pain and swelling. TECHNIQUE: 2D digital imaging was performed. COMPARISON: No exams were available for comparison FINDINGS: 2 Views-AP and lateral No evidence of acute fracture of the tibia and fibula. There are advanced osteoarthritic degenerative changes in the knee. Mild degenerative changes in the ankle tibiotalar joint. No osseous lesions evident. There is diffuse subcutaneous soft tissue swelling throughout the entire length of the calf extending into the foot. IMPRESSION: No fractures. Advanced osteoarthritic degenerative changes in the knee. Diffuse subcutaneous circumferential soft tissue swelling in the calf. There is no radiopaque foreign body. DATA REPOSITORY: RADIATION DOSE DELIVERED:
[2025-07-30 11:04] LABS: Troponin I 3 ng/L (<35)
--- NOTE | 2025-07-30 11:30 | DI.US_ITS ---
Exam(s) US LOWER EXTREMITY VENOUS LT EXAM: US LOWER EXTREMITY VENOUS LT CLINICAL HISTORY: swelling and tenderness TECHNIQUE: Grayscale, color, and doppler imaging of the deep venous system of the left lower extremity was performed. COMPARISON: US US ECHOCARDIOGRAM from 07/29/2025 FINDINGS: There is no evidence of intraluminal thrombus and there is normal compression and augmentation demonstrated within the common femoral vein, femoral vein, and popliteal vein. In the ipsilateral calf the interrogated veins also exhibit normal compression/ augmentation properties. The ipsilateral saphenofemoral junction is patent. IMPRESSION: 1. No evidence of DVT in the left lower extremity. DATA REPOSITORY:
--- NOTE | 2025-07-30 12:25 | W.ED.GENAD ---
Discharge Plan Disposition Patient Disposition: Admit to [facility] Discharge Details Clinical Impression: Orthostasis, Respiratory failure, Lung mass, Hypoglycemia, Diabetes, Atrial fibrillation Primary Care Provider: Gage Paul ED Provider: Gris Romano Home Meds and New Rx's Prescriptions: No Action (DME) sarwat.stocking,knee,reg,xlrg Misc See Rx Instructions .ROUTE .MEDSUPPLY Qty: 12 6RF Rx Instructions: As directed apixaban 5 mg tablet 5 mg PO BID Qty: 60 3RF atorvastatin 40 mg tablet 40 mg PO DAILY Qty: 90 3RF clotrimazole-betamethasone 1-0.05 % cream 1 applic topical BID 10 Days Qty: 15 2RF diltiazem HCl 360 mg capsule,extended release 24 hr 360 mg PO DAILY Qty: 90 3RF furosemide 40 mg tablet 40 mg PO BID Qty: 180 3RF insulin degludec [Tresiba FlexTouch U-200] 200 unit/mL (3 mL) insulin pen See Rx Instructions subcut DAILY Qty: 9 6RF Rx Instructions: 20 units qam, 50 units qhs subcutaneously daily; losartan 25 mg tablet 25 mg PO BID Qty: 180 3RF nicotine 21 mg/24 hr patch 24 hour 1 patch transdermal Q24H Qty: 28 3RF sertraline 50 mg tablet 50 mg PO DAILY Qty: 90 3RF spironolactone 25 mg tablet 25 mg PO DAILY Qty: 90 3RF (DME) Blood Glucose Test Strip See Rx Instructions .Route Qty: 300 3RF Rx Instructions: Accu-check test sstrips. test 4x/day to keep HbA1c less than 6/5%. Dx E11.9 (DME) blood-glucose meter Mis See Rx Instructions .Route Qty: 1 0RF Rx Instructions: accu-check meter. to test 4x/day to keep HbA1c less than 6.5% Dx E11.9 (DME) lancets 33 gauge misc See Rx Instructions .ROUTE .MEDSUPPLY Qty: 100 11RF Rx Instructions: As directed, TID, to keep HbA1c below 6.5%, on insulin; Dx: E11.9 (DME) pen needle, diabetic [BD Ultra-Fine Orig Pen Needle] 29 gauge x 1/2 needle 0 .ROUTE .MEDSUPPLY Qty: 100 12RF Rx Instructions: As directed, 5x day insulin aspart U-100 [Novolog FlexPen U-100 Insulin] 100 unit/mL (3 mL) insulin pen See Rx Instructions subcut TID MDD 30 units Qty: 15 11RF Rx Instructions: Inject 1-10 units SQ TID with each meal acording to sliding scale subcut three times a day; 140-180 3 units, 181-240 4 units, 241-300 6 units, 301-350 8 units, 351-400 10 units metoprolol succinate 100 mg tablet extended release 24 hr 100 mg PO BID 90 Days Qty: 180 3RF metformin 1,000 mg tablet 1,000 mg PO BID Qty: 180 3RF multivitamin [One-A-Day Essential] 1 EACH tablet 1 ea PO DAILY acetaminophen [Mapap Extra Strength] 500 MG tablet 500 - 1,000 mg PO PRN PRN magnesium chloride [Mag 64] 64 mg Tablet,Delayed Release (Dr/Ec) 64 mg PO NOW Qty: 30 0RF budesonide-formoterol [Breyna] 80-4.5 mcg/actuation HFA aerosol inhaler 1 - 2 puff inhalation 12XD PRNQty: 10.2 0RF Rx Instructions: up to max 12 times per day (24h) as needed for difficulty breathing HPI General Date/Time Provider Initiated Documentation: 07/30/25 09:02. HPI Narrative: This 70-year-old female presents with history of Cisco Bonnet syndrome, undifferentiated right hilar mass, acute hypoxemic respiratory failure, cardiomyopathy peripheral vascular disease venous stasis of bilateral lower extremities with report of left leg pain nausea, weakness and increased swelling and pain to the left lower extremity this morning. States she took her medications yesterday has not taken any medications today. Unable to see or ambulate while at home secondary to weakness per patient. States he has not been eating or drinking much as she has no interest secondary to some anorexia. This has been for the past week. She states she maybe had a cup of water yesterday. She did take her insulin last evening. She reports that her blood sugar was 43 this morning so she had some orange juice and when EMS picked her up they reported her blood glucose was 88. She states she has been getting around her house okay until today but her symptoms are progressively worsening over the course of the week. She denies any changes in medications. She states she has difficulty seeing her medications at baseline. She scheduled for a biopsy of a lung mass tomorrow. Is holding her Eliquis for biopsy per patient. Related Data Home Medications ?Medication ?Instructions ?Recorded ?Confirmed multivitamin (One-A-Day Essential 1 ea PO DAILY 10/20/17 07/30/25 tablet) acetaminophen 500 mg tablet (Mapap 500 - 1,000 mg PO PRN PRN 02/26/18 07/30/25 Extra Strength) sarwat.stocking,knee,reg,xlrg #12 ea 04/06/21 07/30/25 blood sugar diagnostic (Blood #300 ea 06/21/24 07/30/25 Glucose Test strips) blood-glucose meter #1 ea 06/21/24 07/30/25 lancets 33 gauge #100 ea 06/21/24 07/30/25 pen needle, diabetic 29 gauge x #100 ea 06/21/24 07/30/25 1/2 (BD Ultra-Fine Original Pen Needle) insulin aspart U-100 100 unit/mL See Rx Instructions subcut TID #15 07/04/24 07/30/25 (3 mL) subcutaneous pen (Novolog mL FlexPen U-100 Insulin aspart) metformin 1,000 mg tablet 1,000 mg PO BID #180 tabs 05/05/25 07/30/25 metoprolol succinate 100 mg 100 mg PO BID atrial fibrillation 05/05/25 07/30/25 tablet,extended release 24 hr 90 days #180 tabs apixaban 5 mg tablet 5 mg PO BID stroke prevention #60 05/30/25 07/30/25 tabs atorvastatin 40 mg tablet 40 mg PO DAILY #90 tabs 05/30/25 07/30/25 clotrimazole-betamethasone 1 1 applic topical BID 10 days #15 05/30/25 07/30/25 %-0.05 % topical cream grams diltiazem HCl 360 mg capsule,24 360 mg PO DAILY #90 caps 05/30/25 07/30/25 hr,extended release furosemide 40 mg tablet 40 mg PO BID #180 tabs 05/30/25 07/30/25 insulin degludec 200 unit/mL (3 See Rx Instructions subcut DAILY 05/30/25 07/30/25 mL) subcutaneous pen (Tresiba #9 mL FlexTouch U-200 insulin) losartan 25 mg tablet 25 mg PO BID #180 tabs 05/30/25 07/30/25 nicotine 21 mg/24 hr daily 1 patch transdermal Q24H #28 ea 05/30/25 07/30/25 transdermal patch sertraline 50 mg tablet 50 mg PO DAILY #90 tabs 05/30/25 07/30/25 spironolactone 25 mg tablet 25 mg PO DAILY #90 tabs 05/30/25 07/30/25 budesonide-formoterol HFA 80 1 - 2 puff inhalation 12XD PRN 07/21/25 07/30/25 mcg-4.5 mcg/actuation aerosol #10.2 grams inhaler (Breyna) magnesium chloride 64 mg 64 mg PO NOW #30 tabs 07/21/25 07/30/25 (magnesium chloride) tablet,delayed release (Mag 64) Previous Rx's ?Medication ?Instructions ?Recorded sarwat.stocking,knee,reg,xlrg #12 ea 04/06/21 blood sugar diagnostic (Blood #300 ea 06/21/24 Glucose Test strips) blood-glucose meter #1 ea 06/21/24 lancets 33 gauge #100 ea 06/21/24 pen needle, diabetic 29 gauge x #100 ea 06/21/24 1/2 (BD Ultra-Fine Original Pen Needle) insulin aspart U-100 100 unit/mL See Rx Instructions subcut TID #15 07/04/24 (3 mL) subcutaneous pen (Novolog mL FlexPen U-100 Insulin aspart) metformin 1,000 mg tablet 1,000 mg PO BID #180 tabs 05/05/25 metoprolol succinate 100 mg 100 mg PO BID atrial fibrillation 05/05/25 tablet,extended release 24 hr 90 days #180 tabs apixaban 5 mg tablet 5 mg PO BID stroke prevention #60 05/30/25 tabs atorvastatin 40 mg tablet 40 mg PO DAILY #90 tabs 05/30/25 clotrimazole-betamethasone 1 1 applic topical BID 10 days #15 05/30/25 %-0.05 % topical cream grams diltiazem HCl 360 mg capsule,24 360 mg PO DAILY #90 caps 05/30/25 hr,extended release furosemide 40 mg tablet 40 mg PO BID #180 tabs 05/30/25 insulin degludec 200 unit/mL (3 See Rx Instructions subcut DAILY 05/30/25 mL) subcutaneous pen (Tresiba #9 mL FlexTouch U-200 insulin) losartan 25 mg tablet 25 mg PO BID #180 tabs 05/30/25 nicotine 21 mg/24 hr daily 1 patch transdermal Q24H #28 ea 05/30/25 transdermal patch sertraline 50 mg tablet 50 mg PO DAILY #90 tabs 05/30/25 spironolactone 25 mg tablet 25 mg PO DAILY #90 tabs 05/30/25 budesonide-formoterol HFA 80 1 - 2 puff inhalation 12XD PRN 07/21/25 mcg-4.5 mcg/actuation aerosol #10.2 grams inhaler (Breyna) magnesium chloride 64 mg 64 mg PO NOW #30 tabs 07/21/25 (magnesium chloride) tablet,delayed release (Mag 64) Allergies Allergy/AdvReac Type Severity Reaction Status Date / Time No Known Allergies Allergy Verified 07/30/25 09:09 General Stated Complaint: GenMedical SYED: 3 Exam Narrative Exam Narrative: Alert and oriented chronically ill 70-year-old female presents with wheezing, no respiratory distress lungs irregular regular heart rhythm, bilateral lymphedema left with some erythema, no crepitus or warmth, distal pulse intact posterior tibialis, cranial nerves II QDOT intact following MVC commands, mild epigastric abdominal discomfort Course Vital Signs Vital signs: Vital Signs Temperature 36.4 C L 07/30/25 08:59 Pulse 88 07/30/25 08:59 Respiratory Rate 18 07/30/25 08:59 Blood Pressure 116/86 07/30/25 08:59 Pulse Oximetry 94 07/30/25 08:59 Temperature 36.4 C L 07/30/25 09:09 Temperature Source Oral 07/30/25 09:09 Pulse 101 H 07/30/25 11:31 Pulse 101 H 07/30/25 11:31 Respiratory Rate 16 07/30/25 11:31 Respiratory Effort Normal, Non-Labored 07/30/25 10:28 Respiratory Depth Normal 07/30/25 10:28 Respiratory Pattern Normal 07/30/25 10:28 Blood Pressure 104/53 L 07/30/25 11:31 Blood Pressure Mean 72 07/30/25 11:31 Blood Pressure Position Supine 07/30/25 09:09 Pulse Oximetry 89 L 07/30/25 11:31 Oxygen Delivery Method Room Air 07/30/25 09:09 Oxygen Flow Rate 0 07/30/25 09:09 Pain Level 7 07/30/25 09:09 Lab/Test Results Lab/Test Results: Laboratory Tests Range/Units 07/30/25 07/30/25 09:35 10:35 WBC (4.4-10.8) 10^3/uL 11.09 H RBC (3.93-5.22) 10^6/uL 4.56 Hgb (11.2-15.7) g/dL 13.4 Hct (36.0-46.0) % 40.7 MCV (80-95) fL 89 MCH (27.0-33.0) pg 29.4 MCHC (32.0-36.0) % 32.9 RDW (11.7-14.6) % 16.7 H Plt Count (130-400) 10^3/uL 281 MPV (8.0-11.0) fL 9.4 Immature Gran % % 0.4 Neutrophils % % 74.8 Lymphocytes % % 14.4 Monocytes % % 9.1 Eosinophils % % 0.9 Basophils % % 0.4 Nucleated RBC % (0.0-0.3) % 0.0 Absolute Neutrophils (1.2-6.7) 10^3/uL 8.30 H Absolute Lymphocytes (1.2-3.4) 10^3/uL 1.60 Absolute Monocytes (0.1-0.8) 10^3/uL 1.01 H Absolute Eosinophils (0.0-0.7) 10^3/uL 0.10 Absolute Basophils (0.0-0.2) 10^3/uL 0.04 VBG pH (7.31-7.41) 7.36 VBG pCO2 (41-51) mmHg 54 H VBG pO2 mmHg 27 VBG HCO3 (23-28) mmol/L 31 H VBG Total CO2 (24-29) mmol/L 28 VBG O2 Saturation % 43 VBG Base Excess (-2-3) mmol/L 5 H Sodium (136-145) mmol/L 135 L Potassium (3.5-5.1) mmol/L 4.4 Chloride (98-107) mmol/L 99 Carbon Dioxide (20.0-31.0) mmol/L 30.7 Anion Gap (3-11) mmol/L 5.4 BUN (9-23) mg/dL 21 Creatinine (0.55-1.02) mg/dL 1.03 H Est GFR (CKD-EPI 2020) (mL/min/1.73m2) 53.10 Glucose (74-106) mg/dL 73 L Calcium (8.3-10.6) mg/dL 9.2 Total Bilirubin (0.2-1.2) mg/dL 0.4 AST (<34) U/L 26 ALT (10-49) U/L 15 Alkaline Phosphatase (46-116) U/L 92 Troponin I (<35) ng/L 3 3 NT-Pro-B Natriuret Pep (<300) pg/mL 292 Total Protein (5.7-8.2) g/dL 7.9 Albumin (3.2-5.0) g/dL 4.2 Medical Decision Making Results: CT abdomen and pelvis shows an adrenal mass concerning for carcinoma possible metastasis per radiology interpretation, 3.2 cm abdominal aortic aneurysm, no other acute findings, CT chest was reviewed from prior stay patient has a right perihilar mass consistent with chest x-ray today without acute obvious infiltrate CBC without significant acute abnormality, pCO2 54, patient fully alert and oriented and answering questions appropriately, CMP within normal limits aside from glucose which was 73 creatinine 1.03 urinalysis without findings consistent with infection. Ultrasound and x-ray of left lower extremity do not show acute pathology Assessment and plan: Chronically ill 70-year-old female with a complex medical history presents in rate controlled atrial flutter with some weakness, her blood pressure soft 107/80 on arrival no obvious signs of infection, she does have some erythema to her left lower extremity without crepitus or warmth, this is likely venous stasis related secondary to swelling. Do not feel like patient needs antibiotics for this at this time. Ultrasound and x-ray reassuring. No significant leukocytosis low suspicion for sepsis clinically. Glucose of 73 so supplemented with crackers and some orange juice. Repeat 88 blood glucose so patient ordered a meal and blood glucose increased to 120. On repeat assessment 1 hour later likely cost was 98 so this will likely need to be trended. She has ordered another meal. Patient has not been eating or drinking much at home and I suspect with her insulin is causing her hypoglycemia at this time. Will continue to perform hourly checks. Patient is hypoxic when she sleeps but with any exertion such as sitting up in bed she does desat to approximately 85%, we performed orthostatics and patient dropped from 111/83 in the supine position to 83/58 sitting. She was notably tachycardic with this, however she is in atrial fibrillation. She did not take her metoprolol today and she is unsure as to whether or not she took it yesterday so likely she needs her oral medications. Metoprolol 100 mg CR was initiated in the emergency department. As patient is intermittently hypoglycemic, hypoxic, in atrial fibrillation, weak on reassessment, she remains tachycardic after orthostatics and ambulation in the emergency department. Also when patient is exerting herself her oxygen pulse to 85%. Blood pressure initially was fluid responsive, 150 cc an hour was initiated secondary to ejection fraction of 45% on her 07/29/2025 echocardiogram. Pushing oral fluids as well. At rest she is 90 to 91% and no history of COPD per patient. Low suspicion for pneumonia or bacterial source we will hold on antibiotics and steroids secondary to procedure tomorrow. Patient was noted to be tachycardic at approximately 1400 when she was sitting up and eating, I suspect there is also an element of orthostasis related to this so we will continue with fluids she is not exhibiting worsening hypoxia so do not think she is in CHF, holding furosemide and insulin right now. I will treat with a single dose of Lopressor 5 mg after discussing with admitting hospitalist, Dr. Bueno who will be taking over her care. Spoke with Dr. Atlman pulmonology who is performing patient's procedure tomorrow I will be involved with her care as needed. Quality:SDOH Health Related Social Needs: Health related social needs house/econ circumstance daily activities Health related social needs details visually impaired, diffuculty with daily needs due to vision loss PFSH All Active Problems (Updated 07/30/25 @ 14:48 by DIXON Banks) Atrial fibrillation (Chronic) Diabetes (Chronic) Hypoglycemia (Acute) Lung mass (Acute) Respiratory failure (Acute) Orthostasis (Acute) Hypoglycemia (Acute) Orthostatic hypotension (Acute) Cisco Bonnet syndrome (Acute) Right hilar mass (Acute) Vision loss, bilateral (Acute) Suspected malignant neoplasm of lung (Acute) Acute hypoxemic respiratory failure (Acute) Cystitis (Acute) Hypnopompic hallucination (Acute) Environmental allergies (Acute) Wound of right leg (Acute) Onychogryphosis (Acute) Nocturnal hypoxia (Acute) Personal history of nicotine dependence (Acute) Cardiomyopathy (Acute) Diabetic peripheral neuropathy (Acute) Chronic obstructive pulmonary disease (Chronic) Chronic diastolic heart failure (Acute) Venous stasis dermatitis of both lower extremities (Acute) Toenail deformity (Acute) Atrial fibrillation with rapid ventricular response (Acute) Pneumonia (Acute) Acute respiratory failure with hypoxia (Acute) Sebaceous cyst (Acute 10/12/17) Nocturnal hypoxemia (Chronic) Restless leg syndrome (Chronic) Degenerative joint disease of left knee (Chronic) Lipoma of left shoulder (Acute) Hyperlipidemia (Acute) Venous stasis ulcer limited to breakdown of skin with varicose veins (Acute) Elevated BP without diagnosis of hypertension (Chronic 10/12/17) Medical History A-fib Acute respiratory failure with hypercapnia inpatient [facility] 03/06-03/09/21 Afib Arthritis (10/12/17) CHF (congestive heart failure) Diabetes Heart murmur (10/12/17) Loss of taste Pulmonary edema inpatient [facility] 03/06-03/09/21 Rheumatic fever (10/12/17) Venous insufficiency (chronic) (peripheral) Family History Mother Diabetes Hypertension Heart disease Depression Anxiety Maternal Aunt Diabetes Neoplasm Breast Maternal Uncle Neoplasm Father , cardiac issues at age 64. 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 - [employer] Pets and animals: Yes Pets and animals: cat(s) Do you think of yourself as: straight/heterosexual Current gender identity: female What is your relationship status?: How often do you talk on the phone with friends or family?: three or more times per week How often do you get together with friends or relatives?: twice per week Do you belong to any clubs or organized social groups?: no Panel score (0-1 are the most socially isolated patients): 1 What type of physical activity do you participate in: walking Duration: 15-30 minutes/day Frequency: 1-2 times per week Rebecca/Bahai: Yarsanism Special rebecca needs: No Seatbelt use: always Helmet use: Yes Helmet use: sometimes Drive intox or ride w/intox dumpster driver: No Working smoke detector in home: Yes Carbon monox detector in home: Yes Do you feel safe at home: Yes Do you feel safe in your relationship?: Yes
[2025-07-30] MEDS: Metoprolol CR 100 MG TABCR PO ×2 (12:31→19:46)
[2025-07-30 13:02] LABS: Glucose Negative (Negative)
--- NOTE | 2025-07-30 14:12 | W.PM.HP.N ---
Date of service: 07/30/25 Time of Service: 14:12 Assessment and Plan Assessment and plan (1) Hypoglycemia: Status: Acute Assessment and plan: -patient found to have hypoglycemia after using long acting insulin in AM with recent poor PO intake -gluc initially down to 66 in ED, now up to 98 -continue Q1hr finger sticks and encourage PO intake -will also need to be NPO at midnight for potential procedure in AM (see below) (2) Orthostatic hypotension: Status: Acute Assessment and plan: -in ED was 111/83 and dropped to 83/51 when standing -likely due to recent poor PO intake and taking her lasix, losartan and diltiazem (all of which will be held) -s/p 1L NS in ED -will continue NS at 75ml/hr -recheck orthostatics in AM (3) Chronic obstructive pulmonary disease: Status: Chronic Assessment and plan: - witthout acute exacerbation - continue home inhaler regimen (4) Atrial fibrillation: Assessment and plan: - Continue home Lopressor and diltiazem - hold eliquis for EBUS tomorrow morning (5) Diabetes mellitus type II, uncontrolled: Assessment and plan: - here with hypoglycemia (see above) - holding insluin at this time (6) Suspected malignant neoplasm of lung: Status: Acute Assessment and plan: - As seen on chest CT describing extensive mediastinal and hilar adenopathy concern for right hilar mass suspected primary lung neoplasm with metastasis including a T3 compression deformity possible metastatic change and possible metastatic disease of the left adrenal gland - patient scheduled for EBUS with Pulm tomororw morning 07/31 - if patients hypoglycemia and orthostasis resolves plan is to DC early AM straight to her EBUS (7) Diastolic heart failure due to valvular disease: Assessment and plan: - hold home spironolactone, losartan, Lasix, as patient is orthostatic (see above) (8) Cisco Bonnet syndrome: Status: Acute Assessment and plan: -secondary to rapid decline in vision over the last few months -aparently is worse in the morning when she wakes up History of Present Illness History of Present Illness Chief Complaint: nausea, weakness Narrative: 70yo female with a-fib not on anticoagulation, IDDM with significant recent visual decline 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 Patient states that due to her weakness and her visual impairment she was unable to ambulate at home and that she has had significant decrease in her p.o. intake of both fluid and solids. She states that she last took her medications yesterday morning but did not take her metoprolol, diltiazem, losartan, Lasix, spironolactone, or insulin this morning. She also states that she checked her blood sugar this morning and it was 43 prompting her to drink some orange juice and called EMS. Once EMS arrived her blood glucose increased to 88. She denies any headache, lightheadedness, dizziness, chest pain, shortness of breath, diarrhea or vomiting. In the emergency department patient was noted to being tachycardic with a heart rate up to the 120s, and initial blood pressure 116/86. CBC and CMP were unremarkable as well as CT abdomen pelvis, chest x-ray, tib-fib x-ray and lower extremity venous study looking for DVT. However, patient was noted as being persistently hypoglycemic with blood sugars 66 though did improve after eating in the emergency department up to 98. She also was persistently tachycardic with heart rates in the 120s despite giving her a.m. long-acting metoprolol. She was given an additional 5 mg of IV Lopressor. Additionally, patient was noted as having orthostatic hypotension with an initial blood pressure of 111/83 that dropped to 83/51 upon standing. Of note, patient has EBUS procedure scheduled for tomorrow morning 07/31/2025. At which time emergency room provider paged hospitalist for admission for patient with orthostatic hypotension and hypoglycemia. Review of Systems All systems reviewed & are unremarkable except as noted in HPI and below PFSH All Active Problems (Updated 07/30/25 @ 14:48 by DIXON Banks) Atrial fibrillation (Chronic) Diabetes (Chronic) Hypoglycemia (Acute) Lung mass (Acute) Respiratory failure (Acute) Orthostasis (Acute) Hypoglycemia (Acute) Orthostatic hypotension (Acute) Cisco Bonnet syndrome (Acute) Right hilar mass (Acute) Vision loss, bilateral (Acute) Suspected malignant neoplasm of lung (Acute) Acute hypoxemic respiratory failure (Acute) Cystitis (Acute) Hypnopompic hallucination (Acute) Environmental allergies (Acute) Wound of right leg (Acute) Onychogryphosis (Acute) Nocturnal hypoxia (Acute) Personal history of nicotine dependence (Acute) Cardiomyopathy (Acute) Diabetic peripheral neuropathy (Acute) Chronic obstructive pulmonary disease (Chronic) Chronic diastolic heart failure (Acute) Venous stasis dermatitis of both lower extremities (Acute) Toenail deformity (Acute) Atrial fibrillation with rapid ventricular response (Acute) Pneumonia (Acute) Acute respiratory failure with hypoxia (Acute) Sebaceous cyst (Acute 10/12/17) Nocturnal hypoxemia (Chronic) Restless leg syndrome (Chronic) Degenerative joint disease of left knee (Chronic) Lipoma of left shoulder (Acute) Hyperlipidemia (Acute) Venous stasis ulcer limited to breakdown of skin with varicose veins (Acute) Elevated BP without diagnosis of hypertension (Chronic 10/12/17) Medical History A-fib [place] [facility] [place] Afib Arthritis (10/12/17) CHF (congestive heart failure) Diabetes Heart murmur (10/12/17) Loss of taste Pulmonary edema [place] [facility] [place] Rheumatic fever (10/12/17) Venous insufficiency (chronic) (peripheral) Family History Mother Diabetes Hypertension Heart disease Depression Anxiety Maternal Aunt Diabetes Neoplasm Breast Maternal Uncle Neoplasm Father , cardiac issues at age 64. 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 - [employer] Pets and animals: Yes Pets and animals: cat(s) Do you think of yourself as: straight/heterosexual Current gender identity: female What is your relationship status?: How often do you talk on the phone with friends or family?: three or more times per week How often do you get together with friends or relatives?: twice per week Do you belong to any clubs or organized social groups?: no Panel score (0-1 are the most socially isolated patients): 1 What type of physical activity do you participate in: walking Duration: 15-30 minutes/day Frequency: 1-2 times per week Rebecca/Latter-Day: Jew Special rebecca needs: No Seatbelt use: always Helmet use: Yes Helmet use: sometimes Drive intox or ride w/intox refuse driver: No Working smoke detector in home: Yes Carbon monox detector in home: Yes Do you feel safe at home: Yes Do you feel safe in your relationship?: Yes Meds Allergies and Home Medications Allergies Allergy/AdvReac Type Severity Reaction Status Date / Time No Known Allergies Allergy Verified 07/30/25 09:09 Home Medications ?Medication ?Instructions ?Recorded ?Confirmed ?Type multivitamin (One-A-Day Essential 1 ea PO DAILY 10/20/17 07/30/25 History tablet) acetaminophen 500 mg tablet (Mapap 500 - 1,000 mg PO PRN PRN 02/26/18 07/30/25 History Extra Strength) sarwat.stocking,knee,reg,xlrg #12 ea 04/06/21 07/30/25 Rx blood sugar diagnostic (Blood #300 ea 06/21/24 07/30/25 Rx Glucose Test strips) blood-glucose meter #1 ea 06/21/24 07/30/25 Rx lancets 33 gauge #100 ea 06/21/24 07/30/25 Rx pen needle, diabetic 29 gauge x #100 ea 06/21/24 07/30/25 Rx 1/2 (BD Ultra-Fine Original Pen Needle) insulin aspart U-100 100 unit/mL See Rx Instructions subcut TID #15 07/04/24 07/30/25 Rx (3 mL) subcutaneous pen (Novolog mL FlexPen U-100 Insulin aspart) metformin 1,000 mg tablet 1,000 mg PO BID #180 tabs 05/05/25 07/30/25 Rx metoprolol succinate 100 mg 100 mg PO BID atrial fibrillation 05/05/25 07/30/25 Rx tablet,extended release 24 hr 90 days #180 tabs apixaban 5 mg tablet 5 mg PO BID stroke prevention #60 05/30/25 07/30/25 Rx tabs atorvastatin 40 mg tablet 40 mg PO DAILY #90 tabs 05/30/25 07/30/25 Rx clotrimazole-betamethasone 1 1 applic topical BID 10 days #15 05/30/25 07/30/25 Rx %-0.05 % topical cream grams diltiazem HCl 360 mg capsule,24 360 mg PO DAILY #90 caps 05/30/25 07/30/25 Rx hr,extended release furosemide 40 mg tablet 40 mg PO BID #180 tabs 05/30/25 07/30/25 Rx insulin degludec 200 unit/mL (3 See Rx Instructions subcut DAILY 05/30/25 07/30/25 Rx mL) subcutaneous pen (Tresiba #9 mL FlexTouch U-200 insulin) losartan 25 mg tablet 25 mg PO BID #180 tabs 05/30/25 07/30/25 Rx nicotine 21 mg/24 hr daily 1 patch transdermal Q24H #28 ea 05/30/25 07/30/25 Rx transdermal patch sertraline 50 mg tablet 50 mg PO DAILY #90 tabs 05/30/25 07/30/25 Rx spironolactone 25 mg tablet 25 mg PO DAILY #90 tabs 05/30/25 07/30/25 Rx budesonide-formoterol HFA 80 1 - 2 puff inhalation 12XD PRN 07/21/25 07/30/25 Rx mcg-4.5 mcg/actuation aerosol #10.2 grams inhaler (Breyna) magnesium chloride 64 mg 64 mg PO NOW #30 tabs 07/21/25 07/30/25 Rx (magnesium chloride) tablet,delayed release (Mag 64) Exam Narrative Exam Narrative: Well-appearing female laying in bed in no acute distress, ANO x 4, heart irregularly irregular with rates in the low 100's, lungs good auscultation bilaterally, abdomen soft, nontender, nondistended, severely impaired vision, only able to see hand waving about 6 inches in front of her face Results Labs 07/30/25 09:35 07/30/25 09:35 Labs: Laboratory Results - last 24 hr 07/30/25 07/30/25 12 09:35 10:35 12:43 WBC 11.09 H RBC 4.56 Hgb 13.4 Hct 40.7 MCV 89 MCH 29.4 MCHC 32.9 RDW 16.7 H Plt Count 281 MPV 9.4 Immature Gran % 0.4 Neutrophils % 74.8 Lymphocytes % 14.4 Monocytes % 9.1 Eosinophils % 0.9 Basophils % 0.4 Nucleated RBC % 0.0 Absolute Neutrophils 8.30 H Absolute Lymphocytes 1.60 Absolute Monocytes 1.01 H Absolute Eosinophils 0.10 Absolute Basophils 0.04 VBG pH 7.36 VBG pCO2 54 H VBG pO2 27 VBG HCO3 31 H VBG Total CO2 28 VBG O2 Saturation 43 VBG Base Excess 5 H Sodium 135 L Potassium 4.4 Chloride 99 Carbon Dioxide 30.7 Anion Gap 5.4 BUN 21 Creatinine 1.03 H Est GFR (CKD-EPI 2020) 53.10 Glucose 73 L Calcium 9.2 Total Bilirubin 0.4 AST 26 ALT 15 Alkaline Phosphatase 92 Troponin I 3 3 NT-Pro-B Natriuret Pep 292 Total Protein 7.9 Albumin 4.2 Urine Color Yellow Urine Clarity Clear Urine pH 7.0 Ur Specific [place] 1.010 Urine Protein Negative Urine Ketones Negative Urine Blood Negative Urine Nitrite Negative Urine Bilirubin Negative Urine Urobilinogen 0.2 Ur Leukocyte Esterase Negative Urine Glucose Negative Last Vital Signs Temp 97.5 F L 07/30/25 09:09 Pulse 101 H 07/30/25 11:31 Resp 16 07/30/25 11:31 BP 104/53 L 07/30/25 11:31 Pulse Ox 89 L 07/30/25 11:31 VTE Prohylaxis Risk Level: Moderate/High Risk Contraindications: Other (planned procedure in AM) Prophylaxis: Mechanical Time Spent Time spent with Patient: >75 minutes Time was spent: preparing to see the patient(eg.review tests), obtaining and/or reviewing separately otained hiistory, ordering medications,tests, procedures, referring, communicating with other health day care assistant, indepentently interpreting results, counseling the patient and care coordination
[2025-07-30] MEDS: Metoprolol 5 MG/5 ML VIAL IVP (14:35)
--- NOTE | 2025-07-30 16:05 | PHA.REVIEW2 ---
Pharmacy Admission Review Admission Clinical Review Admission Pharmacy Review: Hypoglycemia (Acute) Orthostatic hypotension (Acute) Cisco Bonnet syndrome (Acute) Suspected malignant neoplasm of lung (Acute) No Known Allergies Allergy (Verified 07/30/25 09:09) Resuscitation Status Full Code Height 5 ft 4 in Weight 109.316 kg Pharmacy Admission Review Renal Dosing Renal Dosing: BUN 21 mg/dL (9-23) 07/30/25 09:35 Creatinine 1.03 mg/dL (0.55-1.02) H 07/30/25 09:35 Medications needing adjustments: Reviewed (CrCl 62.29 mL/min) List of meds needing interventions: Current medications are okay Anticoagulation Anticoagulation: Hgb 13.4 g/dL (11.2-15.7) 07/30/25 09:35 Hct 40.7 % (36.0-46.0) 07/30/25 09:35 Plt Count 281 10^3/uL (130-400) 07/30/25 09:35 Creatinine 1.03 mg/dL (0.55-1.02) H 07/30/25 09:35 DVT Prophylaxis: Reviewed (holding home Eliquis due to EBUS tomorrow per H+P) Relevant Labs Relevant Labs: Sodium 135 mmol/L (136-145) L 07/30/25 09:35 Potassium 4.4 mmol/L (3.5-5.1) 07/30/25 09:35 Chloride 99 mmol/L (98-107) 07/30/25 09:35 Electrolytes, C-Reactive P, ESR: Reviewed DM Control DM Control: Glucose 73 mg/dL (74-106) L 07/30/25 09:35 Finger Stick Blood Glucose 99 1435 Finger Stick Blood Glucose 99 1435 Finger Stick Blood Glucose 98 1323 Finger Stick Blood Glucose 98 1323 Finger Stick Blood Glucose 125 1202 Finger Stick Blood Glucose 125 1202 Finger Stick Blood Glucose 67 1037 Finger Stick Blood Glucose 67 1037 Finger Stick Blood Glucose 88 0930 Finger Stick Blood Glucose 88 0930 DM Control: Reviewed Insulin Dosing, Diabetic Medication: No meds ordered at this time - home meds on hold per H+P, hypoglycemic in ED Cardiac Review Cardiac Review: Troponin I 3 ng/L (<35) 07/30/25 10:35 NT-Pro-B Natriuret Pep 292 pg/mL (<300) 07/30/25 09:35 Blood Pressure 98/84 1507 Blood Pressure 97/67 1507 Blood Pressure 126/78 1450 Blood Pressure 112/71 1441 Blood Pressure 119/85 1435 Blood Pressure 140/113 1431 Blood Pressure 156/99 1418 Blood Pressure 119/85 1401 Blood Pressure 105/67 1345 Blood Pressure 105/80 1335 Blood Pressure 102/71 1332 Blood Pressure 104/58 1326 Blood Pressure 111/84 1210 Blood Pressure 119/82 1206 Blood Pressure 103/64 1131 Blood Pressure 104/53 1101 Blood Pressure 125/79 1052 BP, HR, EF%: Reviewed (HR 101 (has been in 100-140 range all day)) List meds needing interventions: Has order for metoprolol XL 100mg BID and patients own diltiazem ER 360mg daily QTc Review QTc: Reviewed (525 from 07/20, report for 07/30 pending) IV to PO Switch IV Medications: Reviewed (NPO for EBUS tomorrow) Home Meds Home Med List reviewed: Intervened Relevent Home Meds Not ordered & why?: acetaminophen (PRN), Eliquis (on hold per H+P), clotrimazole/betamethasone cream, furosemide (on hold per H+P), Tresiba (on hold per H+P), insulin aspart (on hold per H+P), losartan (on hold per H+P), metformin (on hold per H+P), multivitamin and spironolactone (on hold per H+P) Changed diltiazem to patients own order (ER capsules are non-formulary). Reached out to nurse to see if this could be brought in for the patient. Waiting to hear back. Current Meds Current Medication Order Review: Reviewed
--- NOTE | 2025-07-30 16:18 | W.PC.ACHO ---
Registration Status: ADM IN Primary Language: Preferred Language: Amharic ED Information & Data Chief Complaint GenMedical 07/30/25 14:37 Triage Note Pt reports weakness, 07/30/25 08:59 dizziness, nausea for a few days- reports that she has not slept for a few night- pedal edema (L greater than R)- nothing for pain this morning Medical / Surgical History (Last Reviewed 01/03/22 @ 13:21 by Lauren De Los Santos MD) Diabetes mellitus type II, uncontrolled Diastolic heart failure due to valvular disease Atrial fibrillation Diabetes CHF (congestive heart failure) A-fib Pulmonary edema Acute respiratory failure with hypercapnia Arthritis (10/12/17) Heart murmur (10/12/17) Rheumatic fever (10/12/17) Loss of taste Venous insufficiency (chronic) (peripheral) Afib Most Recent Vital Signs Temperature 36.4 C L 07/30/25 09:09 Temperature Source Oral 07/30/25 09:09 Pulse 110 H 07/30/25 15:10 Pulse Rhythm Irregular 07/30/25 15:49 Pulse 120 H 07/30/25 15:10 Respiratory Rate 14 07/30/25 15:10 Respiratory Effort Short of Breath 07/30/25 15:49 Respiratory Depth Normal 07/30/25 15:49 Respiratory Pattern Normal 07/30/25 15:49 Blood Pressure 98/84 L 07/30/25 15:07 Blood Pressure Mean 87 07/30/25 15:07 Blood Pressure Position Supine 07/30/25 09:09 Pulse Oximetry 92 07/30/25 15:10 Oxygen Delivery Method Room Air 07/30/25 09:09 Oxygen Flow Rate 0 07/30/25 09:09 Pain Level 7 07/30/25 16:09 Allergies No Known Allergies Allergy (Verified 07/30/25 09:09) Precautions Isolation Standard precaution 07/30/25 09:08 IV IV Catheter Type [Right Peripheral IV Antecubital] IV Catheter Gauge [Right 20 Antecubital] Diet Orders Category Date Time Status Diabetes Consistent CHO/Heart Healthy [DIET] Nutrition 07/30/25 Dinner Active Nothing Per Oral [DIET] Nutrition 07/31/25 00:01 Ordered Diagnostics 07/30/25 07/30/25 07/30/25 Range/Units 12:43 10:35 09:35 WBC 11.09 H (4.4-10.8) 10^3/uL RBC 4.56 (3.93-5.22) 10^6/uL Hgb 13.4 (11.2-15.7) g/dL Hct 40.7 (36.0-46.0) % MCV 89 (80-95) fL MCH 29.4 (27.0-33.0) pg MCHC 32.9 (32.0-36.0) % RDW 16.7 H (11.7-14.6) % Plt Count 281 (130-400) 10^3/uL MPV 9.4 (8.0-11.0) fL Immature Gran % 0.4 % Neutrophils % 74.8 % Lymphocytes % 14.4 % Monocytes % 9.1 % Eosinophils % 0.9 % Basophils % 0.4 % Nucleated RBC % 0.0 (0.0-0.3) % Absolute Neutrophils 8.30 H (1.2-6.7) 10^3/uL Absolute Lymphocytes 1.60 (1.2-3.4) 10^3/uL Absolute Monocytes 1.01 H (0.1-0.8) 10^3/uL Absolute Eosinophils 0.10 (0.0-0.7) 10^3/uL Absolute Basophils 0.04 (0.0-0.2) 10^3/uL VBG pH 7.36 (7.31-7.41) VBG pCO2 54 H (41-51) mmHg VBG pO2 27 mmHg VBG HCO3 31 H (23-28) mmol/L VBG Total CO2 28 (24-29) mmol/L VBG O2 Saturation 43 % VBG Base Excess 5 H (-2-3) mmol/L Sodium 135 L (136-145) mmol/L Potassium 4.4 (3.5-5.1) mmol/L Chloride 99 (98-107) mmol/L Carbon Dioxide 30.7 (20.0-31.0) mmol/L Anion Gap 5.4 (3-11) mmol/L BUN 21 (9-23) mg/dL Creatinine 1.03 H (0.55-1.02) mg/dL Est GFR (CKD-EPI 2020) 53.10 (mL/min/1.73m2) Glucose 73 L (74-106) mg/dL Calcium 9.2 (8.3-10.6) mg/dL Total Bilirubin 0.4 (0.2-1.2) mg/dL AST 26 (<34) U/L ALT 15 (10-49) U/L Alkaline Phosphatase 92 (46-116) U/L Troponin I 3 3 (<35) ng/L NT-Pro-B Natriuret Pep 292 (<300) pg/mL Total Protein 7.9 (5.7-8.2) g/dL Albumin 4.2 (3.2-5.0) g/dL Urine Color Yellow (Yellow) Urine Clarity Clear (Clear) Urine pH 7.0 (5-8) Ur Specific [place] 1.010 (1.005-1.025) Urine Protein Negative (Neg-Trace) mg/dL Urine Ketones Negative (Negative) mg/dL Urine Blood Negative (Negative) Urine Nitrite Negative (Negative) Urine Bilirubin Negative (Negative) Urine Urobilinogen 0.2 (Up to 0.2) mg/dL Ur Leukocyte Esterase Negative (Negative) Urine Glucose Negative (Negative) mg/dL Iffus-wi-Omdw Documentation Fingerstick Glucose Start: 07/30/25 09:32 Freq: Status: Complete Protocol: Activity Type Activity Date Activity User E-sign Co-sign Detail Recorded Client Recorded Date Recorded By Document 07/30/25 09:30 BKG DAEMON(5) NVT-BG05 07/30/25 09:32 BKG DAEMON(6) Fingerstick Glucose Start: 07/30/25 09:28 Freq: .Stat Status: Active Protocol: Activity Type Activity Date Activity User E-sign Co-sign Detail Recorded Client Recorded Date Recorded By Document 07/30/25 14:35 BKG DAEMON(7) NVT-BG05 07/30/25 14:48 BKG DAEMON(8) Intake and Output - 24 Hour Total 07/30/25 08:52 thru 07/30/25 15:49 Intake Total 10 Balance 10 Weight 109.316 kg Intake: IV 10 Other: Urine Appearance Clear Falls Risk Assessment History of Falls No History 07/30/25 15:49 Contributing Factors Unstable,Impairments, 07/30/25 09:59 Medications Ambulatory Aids Uses ambulatory device 07/30/25 15:49 Tubes/Lines With any additional score 07/30/25 15:49 Gait Evaluation W/any additional score 07/30/25 15:49 Cognition No cognitive impairment 07/30/25 09:59 Fall Total Score 55 07/30/25 15:49 Level of Risk High Risk 07/30/25 15:49 Problems (Last Reviewed 01/03/22 @ 13:21 by Lauren De Los Santos MD) Hypoglycemia (Acute) Orthostatic hypotension (Acute) Cisco Bonnet syndrome (Acute) Suspected malignant neoplasm of lung (Acute) Chronic obstructive pulmonary disease (Chronic) Attestation Statement: By documenting the first initial, last name, and credentials of the reporting nurse below, both parties acknowledge that all relevant information regarding the patient handoff has been communicated, and that all questions have been addressed to ensure continuity and safety of care. Additional Patient Information/Comments: Pt admitted with weakness, afib with RVR, and hypoglycemia, deteriorating vision for 2 month, cataract surgery scheduled. Pt on IVF NS 150ml/hr, is alert, oriented, verbal, ambulatory with walker and guidance, voided and BM in ED Report Received From: SAMANTA Marin
[2025-07-30] MEDS: Normal Saline 1,000 ML 75 ML IV ×2 (16:22→21:46)
[2025-07-30] MEDS: Melatonin 3 MG TAB PO (20:54)
[2025-07-30] MEDS: dilTIAZem 60 MG TAB PO (21:36)
[2025-07-31] VITALS (82 sets, daily range): BP systolic 88–160; BP diastolic 48–145; PULSE 86–132; RESP 14–27; TEMP 36.3–37.3; O2SAT 83–97; BMI 41.3
[2025-07-31] MEDS: Acetaminophen 325 MG TAB 650 MG PO (00:29)
[2025-07-31] MEDS: Ondansetron 4 MG/2 ML VIAL IVP ×2 (00:38→16:24)
[2025-07-31] MEDS: DEXTROSE 5%-LACTATED RINGERS 1,000 ML 100 ML IV (05:26)
[2025-07-31 06:40] LABS: HCT 34.6 % (36.0-46.0); HGB 11.4 g/dL (11.2-15.7); MCH 29.3 pg (27.0-33.0); MCHC 32.9 % (32.0-36.0); MCV 89 fL (80-95); MPV 9.8 fL (8.0-11.0); Platelet Count 241 10^3/uL (130-400); RBC 3.89 10^6/uL (3.93-5.22); RDW 16.7 % (11.7-14.6); RDW-SD 54.4 fL; WBC 7.97 10^3/uL (4.4-10.8)
[2025-07-31 07:03] LABS: Magnesium 1.5 mg/dL (1.6-2.6)
[2025-07-31 07:05] LABS: Anion Gap 6.6 mmol/L (3-11); BUN 17 mg/dL (9-23); CO2 27.4 mmol/L (20.0-31.0); Calcium 8.5 mg/dL (8.3-10.6); Chloride 107 mmol/L (98-107); Glucose 69 mg/dL (74-106); Potassium 4.5 mmol/L (3.5-5.1); Sodium 141 mmol/L (136-145)
[2025-07-31] MEDS: Atorvastatin 40 MG TAB PO (08:18)
[2025-07-31] MEDS: Magnesium Chloride 64 MG TABCR PO (08:18)
[2025-07-31] MEDS: Sertraline 50 MG TAB PO (08:19)
[2025-07-31] MEDS: Metoprolol CR 100 MG TABCR PO ×2 (08:19→20:52)
[2025-07-31] MEDS: dilTIAZem CD 180 MG CAPCR 360 MG PO (08:19)
--- NOTE | 2025-07-31 09:38 | W.PULMCON ---
General Date Of Service Date of service: 07/31/25 Time of Service: 09:00 Requesting physician: Humza Bueno Reason for Consult: Lung mass Recommendations: Assessment: 1. Right hilar lung mass - highly concerning for a primary lung cancer with mediastinal spread 2. Mediastinal lymphadenopathy - likely due to malignancy 3. Weight loss 4. Visual hallucinations 5. Afib - on eliquis - held for EBUS today Recommendations: - her acute issues have improved. At this time I feel it is safe to proceed as planned with EBUS today at 1 pm, to help diagnose her large lung mass. This is likely malignant, so expediting her diagnosis is important. I reviewed the risks (including bleeding, respiratory failure, pneumothorax, chest pain) benefits, and alternatives with her this AM. She is agreeable to proceed. Consent signed - continue breyna 80 BID and PRN albuterol as outpatient Discussed with Dr. Bueno Assessment and Plan Assessment and plan (1) Lung mass: Status: Acute (2) Acute hypoxemic respiratory failure: Status: Acute (3) Tobacco use disorder: Status: Resolved (4) A-fib: History of Present Illness Narrative: Patient is a 70 yo with a history of COPD, tobacco abuse, and Afib, who was admitted on 07/31 for hypoglycemia and orthostatic hypotension. CT chest imaging last month showed a large right hilar mass with extension vs lymphadenopathy in the mediasitnum / subcarinal region. MRI brain did not show any evidence of HAND TILE MAKER metastatic disease. She was scheduled for EBUS on 07/31 to diagnose her lung mass. She presented to the ED due to hypoglycemia. Was taking insulin and not having any PO intake. Overnight has not had any significant acute issues. Currently on 2 L O2. Her eliquis has been held for > 48 hours. ROS: 10 pt ROS negative except as above. PFSH All Active Problems (Updated 07/30/25 @ 14:48 by DIXON Banks) Atrial fibrillation (Chronic) Diabetes (Chronic) Hypoglycemia (Acute) Lung mass (Acute) Respiratory failure (Acute) Orthostasis (Acute) Hypoglycemia (Acute) Orthostatic hypotension (Acute) Cisco Bonnet syndrome (Acute) Right hilar mass (Acute) Vision loss, bilateral (Acute) Suspected malignant neoplasm of lung (Acute) Acute hypoxemic respiratory failure (Acute) Cystitis (Acute) Hypnopompic hallucination (Acute) Environmental allergies (Acute) Wound of right leg (Acute) Onychogryphosis (Acute) Nocturnal hypoxia (Acute) Personal history of nicotine dependence (Acute) Cardiomyopathy (Acute) Diabetic peripheral neuropathy (Acute) Chronic obstructive pulmonary disease (Chronic) Chronic diastolic heart failure (Acute) Venous stasis dermatitis of both lower extremities (Acute) Toenail deformity (Acute) Atrial fibrillation with rapid ventricular response (Acute) Pneumonia (Acute) Acute respiratory failure with hypoxia (Acute) Sebaceous cyst (Acute 10/12/17) Nocturnal hypoxemia (Chronic) Restless leg syndrome (Chronic) Degenerative joint disease of left knee (Chronic) Lipoma of left shoulder (Acute) Hyperlipidemia (Acute) Venous stasis ulcer limited to breakdown of skin with varicose veins (Acute) Elevated BP without diagnosis of hypertension (Chronic 10/12/17) Medical History A-fib Acute respiratory failure with hypercapnia [place] [facility] [place] Afib Arthritis (10/12/17) CHF (congestive heart failure) Diabetes Heart murmur (10/12/17) Loss of taste Pulmonary edema inpatient [facility] [place]/06-03/09/21 Rheumatic fever (10/12/17) Venous insufficiency (chronic) (peripheral) Family History Mother Diabetes Hypertension Heart disease Depression Anxiety Maternal Aunt Diabetes Neoplasm Breast Maternal Uncle Neoplasm Father , cardiac issues at age 64. 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 - [employer] Pets and animals: Yes Pets and animals: cat(s) Do you think of yourself as: straight/heterosexual Current gender identity: female What is your relationship status?: How often do you talk on the phone with friends or family?: three or more times per week How often do you get together with friends or relatives?: twice per week Do you belong to any clubs or organized social groups?: no Panel score (0-1 are the most socially isolated patients): 1 What type of physical activity do you participate in: walking Duration: 15-30 minutes/day Frequency: 1-2 times per week Rebecca/Taoism: Sabianism Special rebecca needs: No Seatbelt use: always Helmet use: Yes Helmet use: sometimes Drive intox or ride w/intox hazardous materials driver: No Working smoke detector in home: Yes Carbon monox detector in home: Yes Do you feel safe at home: Yes Do you feel safe in your relationship?: Yes Visit Medication and Allergies Active Medications Generic Name Dose Route Start Last Admin Trade Name Freq PRN Reason Stop Dose Admin Acetaminophen 650 mg 07/31/25 00:24 07/31/25 00:29 Acetaminophen 325 Mg Tab PO 650 mg Q6H PRN PRN Administration Atorvastatin Calcium 40 mg 07/31/25 08:30 07/31/25 08:18 Atorvastatin 40 Mg Tab PO 40 mg DAILY MARY ANN Administration Budesonide/Formoterol Fumarate 1 - 2 puff 07/30/25 15:48 Budesonide/Formoterol 80/4.5 6.9 Gm 60 Puff Inh IH Q4H PRN PRN Diltiazem HCl 360 mg 07/31/25 08:30 07/31/25 08:19 Diltiazem Cd 180 Mg Capcr PO 360 mg DAILY MARY ANN Administration Magnesium Chloride 64 mg 07/31/25 08:30 07/31/25 08:18 Magnesium Chloride 64 Mg Tabcr PO 64 mg DAILY MARY ANN Administration Melatonin 3 mg 07/30/25 21:00 07/30/25 20:54 Melatonin 3 Mg Tab PO 3 mg HS MARY ANN Administration Metoprolol Succinate 100 mg 07/30/25 20:00 07/31/25 08:19 Metoprolol Cr 100 Mg Tabcr PO 100 mg BID MARY ANN Administration Nicotine 21 mg 07/31/25 08:30 Nicotine 21 Mg/24 Hr Patch TD Q24H MARY ANN Ondansetron HCl 4 mg 07/31/25 00:34 07/31/25 00:38 Ondansetron 4 Mg/2 Ml Vial IVP 4 mg Q8H PRN PRN Administration Polyethylene Glycol 17 gm 07/30/25 15:48 Polyethylene Glycol 3350 17 Gm Packet PO DAILY PRN PRN Constipation Sertraline HCl 50 mg 07/31/25 08:30 07/31/25 08:19 Sertraline 50 Mg Tab PO 50 mg DAILY MARY ANN Administration Allergies No Known Allergies Allergy (Verified 07/30/25 09:09) Exam Narrative Exam Narrative: General: alert, no acute distress Head: normocephalic ENT: no stridor, trachea midline CV: normal rate, irregular rhythm Respiratory: no wheezing, no crackles, no rhonchi, no prolonged expiration GI: abd soft, non-tender, non-distended Skin: no rashes Extremities: no edema Psych: normal affect Results Last Vital Signs Temp 36.8 C 07/31/25 03:25 Pulse 104 H 07/31/25 07:36 Resp 18 07/31/25 03:25 BP 123/89 07/31/25 07:36 Pulse Ox 96 07/31/25 08:39 Labs 07/31/25 06:15 07/31/25 06:15 Labs: Laboratory Results - last 24 hr 07/30/25 07/30/25 07/30/25 09:35 10:35 12:43 WBC 11.09 H RBC 4.56 Hgb 13.4 Hct 40.7 MCV 89 MCH 29.4 MCHC 32.9 RDW 16.7 H Plt Count 281 MPV 9.4 Immature Gran % 0.4 Neutrophils % 74.8 Lymphocytes % 14.4 Monocytes % 9.1 Eosinophils % 0.9 Basophils % 0.4 Nucleated RBC % 0.0 Absolute Neutrophils 8.30 H Absolute Lymphocytes 1.60 Absolute Monocytes 1.01 H Absolute Eosinophils 0.10 Absolute Basophils 0.04 VBG pH 7.36 VBG pCO2 54 H VBG pO2 27 VBG HCO3 31 H VBG Total CO2 28 VBG O2 Saturation 43 VBG Base Excess 5 H Sodium 135 L Potassium 4.4 Chloride 99 Carbon Dioxide 30.7 Anion Gap 5.4 BUN 21 Creatinine 1.03 H Est GFR (CKD-EPI 2020) 53.10 Glucose 73 L Calcium 9.2 Magnesium Total Bilirubin 0.4 AST 26 ALT 15 Alkaline Phosphatase 92 Troponin I 3 3 NT-Pro-B Natriuret Pep 292 Total Protein 7.9 Albumin 4.2 Urine Color Yellow Urine Clarity Clear Urine pH 7.0 Ur Specific Cameron 1.010 Urine Protein Negative Urine Ketones Negative Urine Blood Negative Urine Nitrite Negative Urine Bilirubin Negative Urine Urobilinogen 0.2 Ur Leukocyte Esterase Negative Urine Glucose Negative 07/31/25 06:15 WBC 7.97 RBC 3.89 L Hgb 11.4 D Hct 34.6 L MCV 89 MCH 29.3 MCHC 32.9 RDW 16.7 H Plt Count 241 MPV 9.8 Immature Gran % Neutrophils % Lymphocytes % Monocytes % Eosinophils % Basophils % Nucleated RBC % Absolute Neutrophils Absolute Lymphocytes Absolute Monocytes Absolute Eosinophils Absolute Basophils VBG pH VBG pCO2 VBG pO2 VBG HCO3 VBG Total CO2 VBG O2 Saturation VBG Base Excess Sodium 141 Potassium 4.5 Chloride 107 Carbon Dioxide 27.4 Anion Gap 6.6 BUN 17 Creatinine 0.88 Est GFR (CKD-EPI 2020) 63.68 Glucose 69 L Calcium 8.5 Magnesium 1.5 L Total Bilirubin AST ALT Alkaline Phosphatase Troponin I NT-Pro-B Natriuret Pep Total Protein Albumin Urine Color Urine Clarity Urine pH Ur Specific Cameron Urine Protein Urine Ketones Urine Blood Urine Nitrite Urine Bilirubin Urine Urobilinogen Ur Leukocyte Esterase Urine Glucose Imaging CT scan - chest: report reviewed and image reviewed
[2025-07-31] MEDS: Dextrose 50%-Water 25 GM/50 ML SYR IVP (11:51)
--- NOTE | 2025-07-31 12:23 | W.ANESPRE ---
General Info Date of Service Date Performed: 07/31/25 Height: 5 ft 4 in Weight: 109.316 kg Body Mass Index (BMI): 41.3 Surgical Procedure: Operation Date: 07/31/25 13:10 Proposed Procedure Side Surgeon p Bronchoscopy with TYRA Altman MD Meds Allergies and Home Medications Allergies Allergy/AdvReac Type Severity Reaction Status Date / Time No Known Allergies Allergy Verified 07/30/25 09:09 Home Medication ?Medication ?Instructions ?Recorded multivitamin (One-A-Day Essential 1 ea PO DAILY 10/20/17 tablet) acetaminophen 500 mg tablet (Mapap 500 - 1,000 mg PO PRN PRN 02/26/18 Extra Strength) sarwat.stocking,knee,reg,xlrg #12 ea 04/06/21 blood sugar diagnostic (Blood #300 ea 06/21/24 Glucose Test strips) blood-glucose meter #1 ea 06/21/24 lancets 33 gauge #100 ea 06/21/24 pen needle, diabetic 29 gauge x #100 ea 06/21/24 1/2 (BD Ultra-Fine Original Pen Needle) insulin aspart U-100 100 unit/mL See Rx Instructions subcut TID #15 07/04/24 (3 mL) subcutaneous pen (Novolog mL FlexPen U-100 Insulin aspart) metformin 1,000 mg tablet 1,000 mg PO BID #180 tabs 05/05/25 metoprolol succinate 100 mg 100 mg PO BID atrial fibrillation 05/05/25 tablet,extended release 24 hr 90 days #180 tabs apixaban 5 mg tablet 5 mg PO BID stroke prevention #60 05/30/25 tabs atorvastatin 40 mg tablet 40 mg PO DAILY #90 tabs 05/30/25 clotrimazole-betamethasone 1 1 applic topical BID 10 days #15 05/30/25 %-0.05 % topical cream grams diltiazem HCl 360 mg capsule,24 360 mg PO DAILY #90 caps 05/30/25 hr,extended release furosemide 40 mg tablet 40 mg PO BID #180 tabs 05/30/25 insulin degludec 200 unit/mL (3 See Rx Instructions subcut DAILY 05/30/25 mL) subcutaneous pen (Tresiba #9 mL FlexTouch U-200 insulin) losartan 25 mg tablet 25 mg PO BID #180 tabs 10/10/25 nicotine 21 mg/24 hr daily 1 patch transdermal Q24H #28 ea 05/30/25 transdermal patch sertraline 50 mg tablet 50 mg PO DAILY #90 tabs 05/30/25 spironolactone 25 mg tablet 25 mg PO DAILY #90 tabs 05/30/25 budesonide-formoterol HFA 80 1 - 2 puff inhalation 12XD PRN 07/21/25 mcg-4.5 mcg/actuation aerosol #10.2 grams inhaler (Breyna) magnesium chloride 64 mg 64 mg PO NOW #30 tabs 07/21/25 (magnesium chloride) tablet,delayed release (Mag 64) Current Visit Medications: Current Medications Generic Name Dose Route Start Last Admin Trade Name Freq PRN Reason Stop Dose Admin Acetaminophen 650 mg 07/31/25 00:24 07/31/25 00:29 Acetaminophen 325 Mg Tab PO 650 mg Q6H PRN PRN Administration Atorvastatin Calcium 40 mg 07/31/25 08:30 07/31/25 08:18 Atorvastatin 40 Mg Tab PO 40 mg DAILY MARY ANN Administration Budesonide/Formoterol Fumarate 1 - 2 puff 07/30/25 15:48 Budesonide/Formoterol 80/4.5 6.9 Gm 60 Puff Inh IH Q4H PRN PRN Diltiazem HCl 360 mg 07/31/25 08:30 07/31/25 08:19 Diltiazem Cd 180 Mg Capcr PO 360 mg DAILY MARY ANN Administration Magnesium Chloride 64 mg 07/31/25 08:30 07/31/25 08:18 Magnesium Chloride 64 Mg Tabcr PO 64 mg DAILY MARY ANN Administration Melatonin 3 mg 07/30/25 21:00 07/30/25 20:54 Melatonin 3 Mg Tab PO 3 mg HS MARY ANN Administration Metoprolol Succinate 100 mg 07/30/25 20:00 07/31/25 08:19 Metoprolol Cr 100 Mg Tabcr PO 100 mg BID MARY ANN Administration Nicotine 21 mg 07/31/25 08:30 07/31/25 08:30 Nicotine 21 Mg/24 Hr Patch TD Not Given Q24H MARY ANN Ondansetron HCl 4 mg 07/31/25 00:34 07/31/25 00:38 Ondansetron 4 Mg/2 Ml Vial IVP 4 mg Q8H PRN PRN Administration Polyethylene Glycol 17 gm 07/30/25 15:48 Polyethylene Glycol 3350 17 Gm Packet PO DAILY PRN PRN Constipation Sertraline HCl 50 mg 07/31/25 08:30 07/31/25 08:19 Sertraline 50 Mg Tab PO 50 mg DAILY [facility] Administration [facility] Active Problems Active Problems: Problem Status Onset Code Atrial fibrillation Chronic I48.91 Diabetes Chronic E11.9 Hypoglycemia Acute E16.2 Lung mass Acute R91.8 Respiratory failure Acute J96.90 Orthostasis Acute I95.1 Hypoglycemia Acute E16.2 Orthostatic hypotension Acute I95.1 Cisco Bonnet syndrome Acute H53.16 Right hilar mass Acute R91.8 Vision loss, bilateral Acute H54.3 Suspected malignant neoplasm of lung Acute R68.89 Acute hypoxemic respiratory failure Acute J96.01 Cystitis Acute N30.90 Hypnopompic hallucination Acute R44.2 Environmental allergies Acute Z91.09 Wound of right leg Acute S81.801A Onychogryphosis Acute L60.2 Nocturnal hypoxia Acute G47.34 Personal history of nicotine dependence Acute Z87.891 Cardiomyopathy Acute I42.9 Diabetic peripheral neuropathy Acute E11.42 Chronic obstructive pulmonary disease Chronic J44.9 Chronic diastolic heart failure Acute I50.32 Venous stasis dermatitis of both lower extremities Acute I87.2 Toenail deformity Acute L60.8 Atrial fibrillation with rapid ventricular response Acute I48.91 Pneumonia Acute J18.9 Acute respiratory failure with hypoxia Acute J96.01 Sebaceous cyst Acute 10/12/17 L72.3 Nocturnal hypoxemia Chronic G47.34 Tobacco use disorder Resolved F17.200 Restless leg syndrome Chronic G25.81 Degenerative joint disease of left knee Chronic M17.12 Lipoma of left shoulder Acute D17.22 Hyperlipidemia Acute E78.5 Venous stasis ulcer limited to breakdown of skin with varicose veins Acute I83.009, L97.901 Elevated BP without diagnosis of hypertension Chronic 10/12/17 R03.0 Medical History Medical History A-fib Acute respiratory failure with hypercapnia [place] [facility] [place]03[place]09[place] Afib Arthritis (10/12/17) CHF (congestive heart failure) Diabetes Heart murmur (10/12/17) Loss of taste Pulmonary edema inpatient [facility] [place]06-03/09/21 Rheumatic fever (10/12/17) Venous insufficiency (chronic) (peripheral) Tobacco Smoking/Tobacco Use Status: Former Tobacco Use Passive smoking exposure: Yes Counseling given: support medications Alcohol Alcohol Intake: never Substance Use Substance use: Never Substance use type: does not use Vital Signs and Lab Results Vital Signs Most Recent Vital Signs in EMR: Most Recent Vital Signs Temp Pulse Resp BP Pulse Ox 37.1 C 91 H 16 107/69 96 07/31/25 11:38 07/31/25 11:38 07/31/25 11:38 07/31/25 11:38 07/31/25 11:38 Point of Care Results Point of Care Results: Finger Stick Blood Glucose 148 07/31/25 12:07 Lab Results 07/31/25 06:15 07/31/25 06:15 Complete Blood Count: WBC, (4.4-10.8) 7.97 10^3/uL Today, 06:15 RBC, (3.93-5.22) 3.89 10^6/uL L Today, 06:15 Hgb, (11.2-15.7) 11.4 g/dL Δ Today, 06:15 Hct, (36.0-46.0) 34.6 % L Today, 06:15 Plt Count, (130-400) 241 10^3/uL Today, 06:15 Complete Metabolic Panel: Sodium, (136-145) 141 mmol/L Today, 06:15 Potassium, (3.5-5.1) 4.5 mmol/L Today, 06:15 Chloride, (98-107) 107 mmol/L Today, 06:15 Carbon Dioxide, (20.0-31.0) 27.4 mmol/L Today, 06:15 BUN, (9-23) 17 mg/dL Today, 06:15 Creatinine, (0.55-1.02) 0.88 mg/dL Today, 06:15 Est GFR (CKD-EPI 2020), (mL/min/1.73m2) 63.68 Today, 06:15 Magnesium, (1.6-2.6) 1.5 mg/dL L Today, 06:15 Calcium, (8.3-10.6) 8.5 mg/dL Today, 06:15 Albumin, (3.2-5.0) 4.2 g/dL 07/30/25, 09:35 Glucose, (74-106) 69 mg/dL L Today, 06:15 C-Reactive Protein, (<=0.50) 0.90 mg/dL H 07/20/25, 16:30 Liver Function Panel: ALT, (10-49) 15 U/L 07/30/25, 09:35 AST, (<34) 26 U/L 07/30/25, 09:35 Cardiac Panel: Troponin I, (<35) 3 ng/L 07/30/25 NT-Pro-B Natriuret Pep, (<300) 292 pg/mL 07/30/25 Venous Blood Gas: VBG pH, (7.31-7.41) 7.36 07/30/25, 09:35 VBG pO2 27 mmHg 07/30/25, 09:35 VBG pCO2, (41-51) 54 mmHg H 07/30/25, 09:35 VBG O2 Saturation 43 % 07/30/25, 09:35 VBG HCO3, (23-28) 31 mmol/L H 07/30/25, 09:35 VBG Base Excess, (-2-3) 5 mmol/L H 07/30/25, 09:35 VBG Total CO2, (24-29) 28 mmol/L 07/30/25, 09:35 Thyroid Panel: TSH, (0.55-4.78) 4.98 uIU/mL H 07/20/25, 15:26 Imaging and Studies Imaging and Studies Study information below may be from another EMR and interpreted by another provider. Please see original notes in EMR for more complete details. EKG Summary: 07/30/25 Exam: Resting ECG Reason for Exam: Dizzy Patient Location: E HR:89 bpm ECG Measurements Heart Rate 89 AXIS LA [id number] P [id number] QRSd 117 QRS 21 QT 406 T37 QTc 492 Conclusion Atrial fibrillation...V-rate 66-115, irreg A-activity Nonspecific intraventricular conduction delay...QRSd >115mS, not LBBB/RBBB Low voltage, extremity and precordial leads...extremity<0.5mV, precordial<1.0mV Anteroseptal infarct, old...Q >40mS, V1-V2 Echocardiogram Summary: 07/29/25 Conclusion Mild concentric left ventricular hypertrophy. Ejection fraction is 45%. There is global hypokinesis Normal right ventricular size and function Both atria are borderline in size Aortic valve is calcified and trileaflet without stenosis. There is trace aortic regurgitation Mild mitral annular calcification Mild mitral and tricuspid regurgitation Estimated right ventricular systolic pressure is 26 mmHg Very mildly dilated aortic root and ascending aorta Pulmonary Function Summary: 03/08/18 FVC: 2.26 FEV1/FVC: 77 FEV1: 1.73 Anesthesia Assessment and Plan Anesthesia History Personal History: No History of Anesthesia Complications Family History: No Family History of Anesthesia Complications Exercise Tolerance Exercise Tolerance: Metabolic Equivalents<4 Pertinent Negatives Pertinent Negatives: No Symptoms of GERD Cardiac & Pulmonary Exam Cardiac Exam: Normal S1/S2 Heart Sounds Pulmonary Exam: Clear Bilateral Breath Sounds Implantable Cardiac Device Does patient have a Pacemaker or an ICD?: No Airway Exam Known Difficult Airway: No Mallampati Class: 3 Mouth Opening: Normal (> 3cm) Thyromental Distance: Greater than 3 cm Neck Range of Motion: Full ROM Neck Circumference: Normal Teeth Condition: Generalized Poor Dentition and Loose or Chipped (pt stated that all her teeth are loose) Tooth Numbering:  1. Missing 14-18, 25-28, 46-48, 38-36 ASA Classification ASA Score: ASA 3 Emergency Case?: No NPO Status NPO Status: NPO Clears >2 hours, Solids >8 hours Anesthesia Plan Resuscitation Status: Full Code Anesthesia Technique: General Anesthesia Airway Planned: Endotracheal Tube Monitors Used: Standard Monitors Preoperative Comments:: 1152 FS 51, amp D50, 1205 FS 148
[2025-07-31] MEDS: Albuterol 2.5 MG/3 ML INH SOLN VIAL UPD (12:51)
[2025-07-31] MEDS: Lidocaine 2% Pres-Free 2 ML VIAL IJ (12:54)
--- NOTE | 2025-07-31 12:56 | W.PM.OP ---
Operative Note Operative Note PRE-OP DIAGNOSIS: Lung mass, mediastinal lymphadenopathy PROCEDURE: Flexible video bronchoscopy with endobronchial ultrasound (EBUS) and ultrasound guided transbronchial needle aspiration of lymph nodes in stations 7 SURGEON: Sameer Altman ANESTHESIA TYPE: General LMA/ETT (Under the direction of the anesthesiolgy team and as per the anesthesia record) Refer to Anesthesia Record ESTIMATED BLOOD LOSS: 5 (mL) PATHOLOGY: other (Transbronchial needle aspirate of lymph nodes in stations 7 sent for cytopathology.) COMPLICATIONS: None Indications: Diagnosis of lung mass and mediastinal lymphadenopathy Procedure Description: The procedure risks, benefits, and alternatives were discussed with the patient. The patient understood and informed consent was obtained. Laboratory studies and radiographs were reviewed. A time-out was performed. Following induction of general anesthesia, the patient was ventilated through an 8.0 ET tube. The video bronchoscope was introduced through the ET tube and into the trachea. The right and left bronchial trees were visualized to the segmental level. There was diffuse endobronchial disease from the level of the main babar to the distal main stem bronchi. The RML was totally occluded by tumor. The left main stem bronchus was ~30% occluded by tumor compressing the airway. The video bronchoscope was withdrawn and the EBUS scope was inserted into the airway without difficulty. Endobronchial ultrasound was used to examine, measure, and guide the sampling of lymph nodes as follows: 1. Biopsy: Station 7. The largest lymph node measured 3 cm in short axis. The node was isoechoic and the capsule was intact. Under EBUS guidance, 7 transbronchial needle aspirates were performed at this station. This lymph node measured [address] scan. Rapid onsite cytology demonstrated the presence of malignant cells At this point, the EBUS scope was withdrawn from the airway and the conventional flexible video bronchoscope was reinserted. A second survey of the accessible airway was performed to ensure hemostasis, which was adequate. The patient was recovered under the direction of the anesthesiology team and transported to the recovery area. The results of the procedure will be discussed with the patient and appropriate follow up will be arranged. Date of Procedure: 07/31/25
[2025-07-31] MEDS: Lactated Ringers 1,000 ML 30 ML IV (13:40)
--- NOTE | 2025-07-31 14:00 | PAPNONF_PTH ---
PATIENT: Zuleyka Alvarado LOC: U#:[id number] AGE/SX: 70/F ROOM: 208 RE07/30/[address]: Humza Bueno MD : [id number] BED: A DIS: 08/06/2025 SPEC #: [id number] RECD: 07/31/25 18:21 STATUS: YESENIA REQ #: [id number] BENIGNO: 07/31/25 14:[address]: Humza Bueno DEPT: [facility] Cytology RECD BY: Gris Rodriguez ENTERED: 07/31/25 18:23 SP TYPE: PAPEDGARF WEI DR: Gage Paul DO Tissues: 1 - BODY FLUID CYTO-FINE NEEDLE ASPIRATE-[facility] Procedures: BODY FLUID CYTO-FINE NEEDLE ASPIRATE-[facility] Comments: [id number] (PATH FNA EBUS CONSULT) (REFRIGERATED)
--- NOTE | 2025-07-31 15:16 | W.ANESPOSTOP ---
Postoperative Evaluation Date, Time and Location Date Performed: 07/31/25 Time Performed: 15:17 Patient Location: PACU Vital Signs Most Recent Imported Vital Signs: Most Recent Vital Signs Temp Pulse Resp BP Pulse Ox 36.4 C L 108 H 17 108/65 90 L 07/31/25 15:11 07/31/25 15:11 07/31/25 15:11 07/31/25 15:10 07/31/25 15:11 Pain Score Most Recent Pain Score: Most Recent Pain Score Pain Level [Left Leg] 4 07/30/25 20:30 Pain Level 7 07/30/25 09:09 Assessment Mental Status: Awake (Alert & Oriented to Patient Baseline) Airway and Respiratory Function: Patent airway with normal (patient baseline) respiratory exam Cardiovascular Function: Hemodynamically Stable Hydration Status: Adequately Hydrated Nausea & Vomiting: No Nausea or Vomiting Pain: Pain is tolerable per patient Peripheral Nerve Block: Patient did not receive a nerve block Postoperative Comments:: pt having productive cough, duoneb given at 1511
--- NOTE | 2025-07-31 16:27 | INITIAL_ITS ---
Date of service: 07/31/25 Time of Service: 16:53 Care Management Initial Assmt Initial Assessment Reason for Hospitalization: hypoglycemia, orthostatic hypotension Functional Status/Living Situation Patient Presentation: Zuleyka was lying in bed and had just returned to [place] following her endobronchial ultrasound (EBUS) when CM met with her. Zuleyka initially presented to the ED on 07/20 for evaluation of ongoing hallucinations. She was admitted and subsequently discharged on 07/21. She re-presented to the ED on 07/30, reporting that she was unable to see or ambulate at home due to weakness, accompanied by low blood sugar. She also reported reduced oral intake due to lack of interest (see ED documentation). Per report, Zuleyka has required 3L O2 via nasal cannula, which is not her baseline. Patient reports no home O2 is in place. Per RN, Zuleyka stated she had no food at home. A to-go bag of food will be provided at discharge. A previous referral was sent to [facility] Meals on Wheels. Zuleyka shared that she had a meeting scheduled with the [facility] case maker on 07/30, which she missed due to hospitalization. CM recommends she follow up with [facility]. Zuleyka lives alone in a log cabin in [facility]. Her brother, Glen, lives next door and is a strong support for her, including providing transportation. Per PCP, [facility] has a Hematology/Oncology referral in place. A Palliative Care consult may also be appropriate. CM will continue to follow. Town of Residence: [facility] Resides with: Alone Significant Other/Family: Local (Brother Glen, Son Jose lives out of the sate and their relationship is distant. ) Natural Supports: Brother Glen lives next door Employment Status: Retired (Ran a [employer] in [place]) Instrumental Activities of Daily Living (ADLs): Requires support with Groceries, Transportation and Other (Ambulation) Medications Medication Management: No Issues/Barriers identified Physical Functioning/Mobility Assistive Device: Walker, grab bars, glucometer Advance Directives Advance Directives: Do you have an Advance Directive: N , 00:51 AD On File at [facility]: N 03/06/21, 00:51 Date Asked 07/30/25 07/30/25, 09:13 AD Date Reviewed COLST On File at [facility] COLST Date Scanned Code Status Resuscitation Status Full Code Portal Pt does not currently have a portal and education provided: Yes Insurance Coverage/Financial Issues Insurance: [employer] Medicare Replacement - [id number] Care Team Visit Care Team Role Provider Type Gage Paul DO Primary Care Provider OSTEOPATHIC DOCTOR DIXON Banks Emergency Provider PHYSICIANS TELECOMM[employer]ICATIONS FIELD ENGINEER Humza uBeno MD Admit Provider MD LEWIS STAFF PHYSICIAN Attending Provider Discharge Potential Discharge Needs: PCP F/U Appt Anticipated Barriers to Discharge: None Identified Patient/Family Education Needs: Review discharge instructions, discuss Ask Me Three Transportation: Private vehicle (Brother) Plan: Anticipate, Zuleyka will discharge home with a resumption of [facility] PT/OT/RN/CORE ANALYST. It is recommended that Zuleyka follow up with community providers and continue per her discharge plan of care. Brother Glen will provide her transportation. CM will follow. Social Determinants of Health Screening Social Determinants of health last assessed in clinic: 07/31/25 Will the Patient Participate in the Screening?: Yes Do you worry about having a steady place to live?: no Problems where you live: no known problems In the past 12 months, have you had to go without electric, gas, oil or water in your home?: yes 1. Within the past 12 months, we worried whether our food would run out before we got money to buy more.: Don't know/refused 2. Within the past 12 months, the food we bought just didn't last and we didn't have money to get more.: Don't know/refused Has lack of transportation kept you from medical appointments or from doing things needed for daily living?: no Has anyone in your life made you feel unsafe or unsupported?: no How hard is it for you to pay for the very basics like food, housing, medical care, and heating? Would you say it is:: Very hard Do you want help finding or keeping work or a job?: I do not need or want help If for any reason you need help with day-to-day activities such as bathing, preparing meals, shopping, managing finances, etc., do you get the help you need?: I need a lot more help How often do you feel lonely or isolated from those around you?: Rarely Do you speak a language other than Syriac at home?: No Does the patient want assistance with any of the above?: Yes Health Related Social Needs Health related social needs: material hardship(utilities) (Z59.12), problems related to housing/economic circumstances (Z59.89), problems with daily activities (Z73.9) and feeling lonely/isolated (Z60.8) Health related social needs details: poor vision, has cataract appointments 10/12 and 10/17 COUNTS INCLUDE 234 BEDS AT THE [facility] All Active Problems (Updated 07/30/25 @ 14:48 by DIXON Banks) Atrial fibrillation (Chronic) Diabetes (Chronic) Hypoglycemia (Acute) Lung mass (Acute) Respiratory failure (Acute) Orthostasis (Acute) Hypoglycemia (Acute) Orthostatic hypotension (Acute) Cisco Bonnet syndrome (Acute) Right hilar mass (Acute) Vision loss, bilateral (Acute) Suspected malignant neoplasm of lung (Acute) Acute hypoxemic respiratory failure (Acute) Cystitis (Acute) Hypnopompic hallucination (Acute) Environmental allergies (Acute) Wound of right leg (Acute) Onychogryphosis (Acute) Nocturnal hypoxia (Acute) Personal history of nicotine dependence (Acute) Cardiomyopathy (Acute) Diabetic peripheral neuropathy (Acute) Chronic obstructive pulmonary disease (Chronic) Chronic diastolic heart failure (Acute) Venous stasis dermatitis of both lower extremities (Acute) Toenail deformity (Acute) Atrial fibrillation with rapid ventricular response (Acute) Pneumonia (Acute) Acute respiratory failure with hypoxia (Acute) Sebaceous cyst (Acute 10/12/17) Nocturnal hypoxemia (Chronic) Restless leg syndrome (Chronic) Degenerative joint disease of left knee (Chronic) Lipoma of left shoulder (Acute) Hyperlipidemia (Acute) Venous stasis ulcer limited to breakdown of skin with varicose veins (Acute) Elevated BP without diagnosis of hypertension (Chronic 10/12/17) Medical History A-fib Acute respiratory failure with hypercapnia inpatient [facility] 03/06-03/09/21 Afib Arthritis (10/12/17) CHF (congestive heart failure) Diabetes Heart murmur (10/12/17) Loss of taste Pulmonary edema inpatient [facility] 03/06-03/09/21 Rheumatic fever (10/12/17) Venous insufficiency (chronic) (peripheral) Family History Mother Diabetes Hypertension Heart disease Depression Anxiety Maternal Aunt Diabetes Neoplasm Breast Maternal Uncle Neoplasm Father , cardiac issues at age 64. 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 - [employer] Pets and animals: Yes Pets and animals: cat(s) Do you think of yourself as: straight/heterosexual Current gender identity: female What is your relationship status?: How often do you talk on the phone with friends or family?: three or more times per week How often do you get together with friends or relatives?: twice per week Do you belong to any clubs or organized social groups?: no Panel score (0-1 are the most socially isolated patients): 1 What type of physical activity do you participate in: walking Duration: 15-30 minutes/day Frequency: 1-2 times per week Rebecca/Islam: Quaker Special rebecca needs: No Seatbelt use: always Helmet use: Yes Helmet use: sometimes Drive intox or ride w/intox class b truck driver: No Working smoke detector in home: Yes Carbon monox detector in home: Yes Do you feel safe at home: Yes Do you feel safe in your relationship?: Yes Readmission Within the Past 30 Days Yes or No: Yes Date of First Admission Date of 1st Admission: 07/21/25 Date of this Admission Date of Admission: 07/30/25 This admission was: Through ED Office Visit Since 1st Admission Have you seen your PCP in the office since discharge?: No Had an appointment Been Scheduled?: Yes Speicalist Appointments Have you seen any other specialist since your 1st Admission?: Yes Date you saw the Specialist: 07/29/25 Specialist Seen: Pulmonology I. Interview patient and/or Family Difficulty reaching your doctor or getting an office appt?: No Have you had trouble purchasing/ or taking medication?: No Have you had trouble with getting meals at home?: Yes Describe your typical meals since you have been home: minimal Did you feel ready for discharge when you left the last time: Yes Were services received that you thought were set up on disch: Yes What services were received?: HH services, SERAFINW had not come out yet Why weren't services received?: MOChely KEEN was suppose to met with her 07/30 Did you call your physician beore you came to the ED?: No Did your physician tell you to come in?: No If the patient had a VNA ordered Did the patient have a VNA order?: Yes Did you call the VNA before you came?: No Did the VNA tell you to come to the hospital?: No Ask the Care Team Members: What do you think caused the patient to be readmitted: Unable to see or ambulate while at home secondary to weakness per patient. ED visits How many ED visits in the past 12 months: 3 Assessment for Readmission Summary of readmission circumstances, based upon interviews: Patient returned to the ED following weakness and unable to see or ambulate while at home. Pt also arrive with low BS and shares she had no meals in the home. Anticipated HH Services Anticipated HH Services at Discharge [facility] Resumption,.
--- NOTE | 2025-07-31 17:18 | W.PM.PROGNOT ---
Date of Service Date of service: 07/31/25 Time of Service: 17:18 Assessment and Plan Assessment and plan (1) Hypoglycemia: Status: Acute Assessment and plan: -patient found to have hypoglycemia after using long acting insulin in AM with recent poor PO intake -gluc initially down to 66 in ED, now up to 98 -continue Q1hr finger sticks and encourage PO intake -glucose improved throughout the day, now taking PO (2) Orthostatic hypotension: Status: Acute Assessment and plan: -in ED was 111/83 and dropped to 83/51 when standing -likely due to recent poor PO intake and taking her lasix, losartan and diltiazem (all of which will be held) -s/p 1L NS in ED -was on NS at 75ml/hr -BPs now improved (3) Acute hypoxemic respiratory failure: Status: Acute Assessment and plan: -found to require 2L NC to maintain O2 >92% -likely combination of s/p procedure and lung CA -will wean as tolerated, and if contnues to require O2 in the AM will do home O2 exercise test prior to DC (4) Chronic obstructive pulmonary disease: Status: Chronic Assessment and plan: - witthout acute exacerbation - continue home inhaler regimen (5) Atrial fibrillation: Assessment and plan: - Continue home Lopressor and diltiazem (6) Diabetes mellitus type II, uncontrolled: Assessment and plan: - here with hypoglycemia (see above) - holding insluin at this time as blood sugars remain low (7) Suspected malignant neoplasm of lung: Status: Acute Assessment and plan: - As seen on chest CT describing extensive mediastinal and hilar adenopathy concern for right hilar mass suspected primary lung neoplasm with metastasis including a T3 compression deformity possible metastatic change and possible metastatic disease of the left adrenal gland - s/p EBUS at this time (8) Diastolic heart failure due to valvular disease: Assessment and plan: - hold home spironolactone, losartan, Lasix, as patient is orthostatic (see above) (9) Cisco Bonnet syndrome: Status: Acute Assessment and plan: -secondary to rapid decline in vision over the last few months -aparently is worse in the morning when she wakes up Discharge Planning Discharge Planning: pending either improvement in O2 requirements or setting up with home O2, either way likely DC 08/01 Subjective Subjective Interval history since last seen: Patient seen prior to EBUS procedure where she stated that she was doing well and had no complaints. Exam Narrative Exam Narrative: Well-appearing female laying in bed in no acute distress, ANO x 4, heart irregularly irregular with rates in the low 100's, lungs good auscultation bilaterally, abdomen soft, nontender, nondistended, severely impaired vision, only able to see hand waving about 6 inches in front of her face Objective Last Vital Signs Temp 97.5 F L 07/31/25 15:31 Pulse 103 H 07/31/25 16:41 Resp 16 07/31/25 16:25 BP 117/74 07/31/25 16:25 Pulse Ox 83 L 07/31/25 16:30 Laboratory Results - last 24 hr 07/31/25 06:15 WBC 7.97 RBC 3.89 L Hgb 11.4 D Hct 34.6 L MCV 89 MCH 29.3 MCHC 32.9 RDW 16.7 H Plt Count 241 MPV 9.8 Sodium 141 Potassium 4.5 Chloride 107 Carbon Dioxide 27.4 Anion Gap 6.6 BUN 17 Creatinine 0.88 Est GFR (CKD-EPI 2020) 63.68 Glucose 69 L Calcium 8.5 Magnesium 1.5 L VTE Prohylaxis Risk Level: Moderate/High Risk Contraindications: Other (planned procedure in AM) Prophylaxis: Mechanical Time Spent with Patient Time Spent with Patient: >50 minutes Time was spent: preparing to see the patient(eg.review tests), obtaining and/or reviewing separately otained hiistory, ordering medications,tests, procedures, referring, communicating with other health rn progressive care, indepentently interpreting results, counseling the patient and care coordination
[2025-07-31] MEDS: Melatonin 3 MG TAB PO (20:52)
[2025-08-01] VITALS (12 sets, daily range): BP systolic 93–111; BP diastolic 55–91; PULSE 95–112; RESP 16–25; TEMP 36–36.9; O2SAT 81–92
[2025-08-01] MEDS: Sertraline 50 MG TAB PO (08:25)
[2025-08-01] MEDS: Metoprolol CR 100 MG TABCR PO ×2 (08:25→19:48)
[2025-08-01] MEDS: dilTIAZem CD 180 MG CAPCR 360 MG PO (08:25)
[2025-08-01] MEDS: Atorvastatin 40 MG TAB PO (08:25)
[2025-08-01] MEDS: Magnesium Chloride 64 MG TABCR PO (08:25)
--- NOTE | 2025-08-01 09:10 | W.PM.PROGNOT ---
Date of Service Date of service: 08/01/25 Time of Service: 09:10 Assessment and Plan Assessment and plan (1) Hypoglycemia: Status: Acute Assessment and plan: -patient found to have hypoglycemia after using long acting insulin in AM with recent poor PO intake -gluc initially down to 66 in ED, now up to 98 -continue Q1hr finger sticks and encourage PO intake -glucose improved throughout the day, now taking PO (2) Orthostatic hypotension: Status: Acute Assessment and plan: -in ED was 111/83 and dropped to 83/51 when standing -likely due to recent poor PO intake and taking her lasix, losartan and diltiazem (all of which will be held) -s/p 1L NS in ED -was on NS at 75ml/hr -BPs now improved (3) Acute hypoxemic respiratory failure: Status: Acute Assessment and plan: -found to require 3L NC to maintain O2 >92% -likely combination of s/p procedure and lung CA -will wean as tolerated -home O2 test showed 3L NC continuous (4) Chronic obstructive pulmonary disease: Status: Chronic Assessment and plan: - witthout acute exacerbation - continue home inhaler regimen (5) Atrial fibrillation: Assessment and plan: - Continue home Lopressor and diltiazem (6) Diabetes mellitus type II, uncontrolled: Assessment and plan: - here with hypoglycemia (see above) - holding insluin at this time as blood sugars remain low (7) Suspected malignant neoplasm of lung: Status: Acute Assessment and plan: - As seen on chest CT describing extensive mediastinal and hilar adenopathy concern for right hilar mass suspected primary lung neoplasm with metastasis including a T3 compression deformity possible metastatic change and possible metastatic disease of the left adrenal gland - s/p EBUS at this time (8) Diastolic heart failure due to valvular disease: Assessment and plan: - hold home spironolactone, losartan, Lasix, as patient is orthostatic (see above) (9) Cisco Bonnet syndrome: Status: Acute Assessment and plan: -secondary to rapid decline in vision over the last few months -aparently is worse in the morning when she wakes up Discharge Planning Discharge Planning: Plan was to go home, but patient now stating that her brother is no longer willing to take care of her. Given her poor eye sight, recent food insecurities, and new O2 requirement, Care Management will discuss plan for safe discharge with patient. Subjective Subjective Interval history since last seen: Patient states that she is doing well and appreciates that we are working on a safe discharge plan for her. Exam Narrative Exam Narrative: Well-appearing female laying in bed in no acute distress, ANO x 4, heart irregularly irregular with rates in the low 100's, lungs good auscultation bilaterally, abdomen soft, nontender, nondistended, severely impaired vision, only able to see hand waving about 6 inches in front of her face Objective Last Vital Signs Temp 96.8 F L 08/01/25 07:40 Pulse 100 H 08/01/25 07:40 Resp 16 08/01/25 07:40 BP 101/67 08/01/25 07:40 Pulse Ox 88 L 08/01/25 07:40 VTE Prohylaxis Risk Level: Moderate/High Risk Contraindications: Other (planned procedure in AM) Prophylaxis: Mechanical Time Spent with Patient Time Spent with Patient: >50 minutes Time was spent: preparing to see the patient(eg.review tests), obtaining and/or reviewing separately otained hiistory, ordering medications,tests, procedures, referring, communicating with other health transitional care liaison, indepentently interpreting results, counseling the patient and care coordination
--- NOTE | 2025-08-01 09:18 | CMPROGNOTE_ITS ---
Date of service: 08/01/25 Time of Service: 09:18 Care Management Progress Note Progress Note Text Progress Note Text: Zuleyka was sitting on the side of her bed when CM met with her. She was pleasant in manner and agreeable to conversation. Zuleyka was admitted with hypoglycemia and hypotension. Her systolic blood pressure has improved but remains in the 90s. The hypoglycemia has also improved with blood sugars of 126 and 99 today. Zuleyka explained that she has been able to function independently at home. She is able to shower, toilet and dress herself. She can heat meals in the microwave and make her way throughout her house using a floor lighting system. Her brother Jace lives next door and has been very helpful. Zuleyka informed CM that the reason he stated he can't help her anymore is because his won't let him. She thinks she wants her in a group home. Zuleyka is afraid they will not let her return to her home. She reported to CM that she was ready for discharge yesterday but that her brother and [id number] refused to come and get her. When asked who owns the home (it was their parents), she stated that she signed it over to her brother a while back but has been living there for 10 years. After the discussion, CM attempted to reach Vaibhav but his phone is not accepting calls and no message could be left. Discharge Potential Discharge Needs: PCP F/U Appt Anticipated Barriers to Discharge: SDOH Patient/Family Education Needs: Review discharge instructions, discuss Ask Me Three Transportation: Private vehicle Plan: Zuleyka's discharge plan is unclear at this time. She had been living alone with assistance from her brother who lives next door. Apparently he has indicated he will no longer be available to help Zuleyka. It has been suggested that Zuleyka seek short term rehab in a SNF but her PT evaluation indicated she was supervision only with a FWW and could likely manage at home if not for the oxygen tubing. CM will follow and continue to support discharge planning. Social Determinants of Health Screening Social Determinants of health last assessed in clinic: 08/01/25 Will the Patient Participate in the Screening?: Yes Do you worry about having a steady place to live?: no Problems where you live: no known problems In the past 12 months, have you had to go without electric, gas, oil or water in your home?: yes 1. Within the past 12 months, we worried whether our food would run out before we got money to buy more.: Never true 2. Within the past 12 months, the food we bought just didn't last and we didn't have money to get more.: Never true Has lack of transportation kept you from medical appointments or from doing things needed for daily living?: no Has anyone in your life made you feel unsafe or unsupported?: no How hard is it for you to pay for the very basics like food, housing, medical care, and heating? Would you say it is:: Very hard Do you want help finding or keeping work or a job?: I do not need or want help If for any reason you need help with day-to-day activities such as bathing, preparing meals, shopping, managing finances, etc., do you get the help you need?: I need a lot more help How often do you feel lonely or isolated from those around you?: Rarely Do you speak a language other than New Zealander at home?: No Does the patient want assistance with any of the above?: Yes Health Related Social Needs Health related social needs: material hardship(utilities) (Z59.12), problems related to housing/economic circumstances (Z59.89), problems with daily activities (Z73.9) and feeling lonely/isolated (Z60.8) Health related social needs details: poor vision, has cataract appointments 10/12 and 10/17
--- NOTE | 2025-08-01 15:22 | PT.INIE ---
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 Patient states that due to her weakness and her visual impairment she was unable to ambulate at home and that she has had significant decrease in her p.o. intake. Pt is awaiting results of her biopsy. She currently is requiring 3L/Min to sustain sats >88%. PMHX: Atrial fibrillation (Chronic) Diabetes (Chronic) Hypoglycemia (Acute) Lung mass (Acute) Respiratory failure (Acute) Orthostasis (Acute) Hypoglycemia (Acute) Orthostatic hypotension (Acute) Cisco Bonnet syndrome (Acute) Right hilar mass (Acute) Vision loss, bilateral (Acute) Suspected malignant neoplasm of lung (Acute) Acute hypoxemic respiratory failure (Acute) Cystitis (Acute) Hypnopompic hallucination (Acute) Environmental allergies (Acute) Wound of right leg (Acute) Onychogryphosis (Acute) Nocturnal hypoxia (Acute) Personal history of nicotine dependence (Acute) Cardiomyopathy (Acute) Diabetic peripheral neuropathy (Acute) Chronic obstructive pulmonary disease (Chronic) Chronic diastolic heart failure (Acute) Venous stasis dermatitis of both lower extremities (Acute) Toenail deformity (Acute) Atrial fibrillation with rapid ventricular response (Acute) Pneumonia (Acute) Acute respiratory failure with hypoxia (Acute) Sebaceous cyst (Acute 10/12/17) Nocturnal hypoxemia (Chronic) Restless leg syndrome (Chronic) Degenerative joint disease of left knee (Chronic) Lipoma of left shoulder (Acute) Hyperlipidemia (Acute) Venous stasis ulcer limited to breakdown of skin with varicose veins (Acute) Elevated BP without diagnosis of hypertension (Chronic 10/12/17) Medical History A-fib Acute respiratory failure with hypercapnia inpatient [facility] [place] 03/06-03/09/21Afib Arthritis (10/12/17) CHF (congestive heart failure) Diabetes Heart murmur (10/12/17) Loss of taste Pulmonary edema inpatient [facility] [place] 03/06-03/09/21Rheumatic fever (10/12/17) Venous insufficiency (chronic) (peripheral) Social History/Home Situation: Pt resides alone in her own home with 1 3 step to enter. Pt is independent with her FWW with in her home. SHe has added pink lighting close to the floor to aide her in navigation d/t her progressive loss of vision.. She reports she is able to prepare meals in microwave, manage her meds and perform her ADLs independently despite her visual impairment. She reports she had HHS and MOW. Equipment Owned/DME: FWW Subjective: Pt reports she does not need the oxygen because she has not needed it in the past. Pt education provided regarding new findings of low oxygen saturation at rest and with activity requiring 3 L/min continuously with sats dropping to83% at times. Objective: [] General Observation: Patient presented side-lying left with 3 L O2 via nasal cannula. Patient with 2+ pitting edema bilateral lower extremities, continuous SaO2 monitoring Mental Status: Alert and oriented x 4, cooperative, able to follow instructions, agreeable to participate in assessment Pain: Denied ROM: [] BUE: WFL BLE: WFL Strength: [] BUE: >/= to 3/5 Right Lower Extremity: >/= to 3/5 Left Lower Extremity: >/= to 3/5 Sensation: Intact Bed Mobility/Transfers: [] Supine to sit independent Sit to stand independent Stand to sit independent Bed to chair FWW standby assist with cues for environmental orientation due to blindness Gait: Ambulated with FWW SBA with cues for environmental orientation due to blindness 100 feet, dependent for O2 tubing management with 3 stand rests. SaO2 on 3 L/min via nasal cannula ranged from 83-89%. Patient demonstrated reciprocal pattern with adequate foot clearance Balance: [] Static Sitting: Normal Dynamic Sitting: Good Static Standing:Normal Dynamic Standing: Fair d/t visual deficit Special Tests: [] Mobility Limitations Standardized Measure [] [facility] AM-PAC 6 clicks Basic Mobility Inpatient Short Form: [] Raw Score: 23 CMS Score: 11.20% Informed Consent/Education: Patient instructed in purpose of PT consult. Assessment: Patient is a 70 yo female who presents with clinical signs and symptoms consistent with current/admitting diagnoses that have resulted to mobility limitations, gait instability, generalized weakness, and impairment of motor control as demonstrated by the following impairment level findings: 1. increased Work of breathing 2. Impaired standing balance 3. poor breath control/ pacing techniques to maintain sats 88-92% Impairments are contributing to the following functional limitations: 1. Inability to safely ambulate without assistive device 2. Increase completion time for mobility ADL performance 3. Increased fall risk Patient is assessed as a low complexity based on the following: History: 70-year-old female with impairment level findings, functional limitations, and past medical history as indicated above Examination: Demonstrable impairment in strength, balance, and mobility level with underlying impairments and functional limitations as documented above Presentation: low Decision Making: low Goals: 1. pt will demonstrate independent tubing management during functional mobility with FWW 2. pt will maintain sats 88-92% during functional mobility tasks Plan of Care/Treatment Plan: 1-2x/day, 7 days/week x 1 week. Plan of care has been reviewed with the COMMUNITY HEALTH PROGRAM COORDINATOR providing the service under Physical Therapy direction. Initiate Physical Therapy intervention for strengthening, bed mobility, transfers, gait, stairs, balance training, use of assistive device. DISCHARGE RECOMMENDATIONS: HHPT vs short term SNF for instruction in tubing management TREATMENT CODE/TIME: 21191, 38454/ [id number] Thank you for the opportunity to participate in the care of this patient. Angela Abel PT [facility]
[2025-08-01] MEDS: Acetaminophen 325 MG TAB 650 MG PO (19:00)
[2025-08-01] MEDS: Melatonin 3 MG TAB PO (19:48)
[2025-08-02] VITALS (9 sets, daily range): BP systolic 102–119; BP diastolic 65–79; PULSE 78–102; RESP 16–18; TEMP 36–36.8; O2SAT 88–93
[2025-08-02] MEDS: Acetaminophen 325 MG TAB 650 MG PO ×2 (06:56→20:24)
[2025-08-02] MEDS: Atorvastatin 40 MG TAB PO (10:01)
[2025-08-02] MEDS: Metoprolol CR 100 MG TABCR PO ×2 (10:02→20:24)
[2025-08-02] MEDS: dilTIAZem CD 180 MG CAPCR 360 MG PO (10:02)
[2025-08-02] MEDS: Magnesium Chloride 64 MG TABCR PO (10:02)
[2025-08-02] MEDS: Sertraline 50 MG TAB PO (10:02)
--- NOTE | 2025-08-02 13:48 | W.PM.PROGNOT ---
Date of Service Date of service: 08/02/25 Time of Service: 08:00 Assessment and Plan Assessment and plan (1) Hypoglycemia: Status: Resolved Assessment and plan: Home incident with hypoglycemia, used long acting insulin in the morning, poor PO intake Improved with PO intake while hospitalized, resolved from a causation/response standpoint (2) Orthostatic hypotension: Status: Resolved Assessment and plan: -in ED was 111/83 and dropped to 83/51 when standing -likely due to recent poor PO intake and taking her lasix, losartan and diltiazem (all of which will be held) -s/p 1L NS in ED -was on NS at 75ml/hr -BPs now improved (3) Acute hypoxemic respiratory failure: Status: Acute Assessment and plan: -found to require 3L NC to maintain O2 >92% -likely combination of s/p procedure and lung CA -will wean as tolerated -home O2 test showed 3L NC continuous Will need home O2 at discharge (4) Chronic obstructive pulmonary disease: Status: Chronic Assessment and plan: - witthout acute exacerbation - continue home inhaler regimen (5) Atrial fibrillation: Assessment and plan: - Continue home Lopressor and diltiazem (6) Diabetes mellitus type II, uncontrolled: Assessment and plan: Hypoglycemic on admission due to poor PO intake Blood glucose at appropriate levels Rechecking A1C, likely can restart a subset of home regimen (7) Suspected malignant neoplasm of lung: Status: Acute Assessment and plan: - As seen on chest CT describing extensive mediastinal and hilar adenopathy concern for right hilar mass suspected primary lung neoplasm with metastasis including a T3 compression deformity possible metastatic change and possible metastatic disease of the left adrenal gland - s/p EBUS at this time Needs oncology set up before discharge (8) Diastolic heart failure due to valvular disease: Assessment and plan: - hold home spironolactone, losartan, Lasix, as patient is orthostatic (see above) (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 Alvarado is comfortable in bed. No new concerns. Exam Narrative Exam Narrative: General: This is a pleasant woman in no distress HEENT: Normocephalic, atraumatic. Severe vision deficit. CV: irregularly irregular Resp: CTAB Abd: soft, NTND MSK: voluntary motion x4 Neuro: awake, alert, poor visual perception Objective Last Vital Signs Temp 36.8 C 08/02/25 11:39 Pulse 102 H 08/02/25 11:39 Resp 16 08/02/25 11:39 BP 102/68 08/02/25 11:39 Pulse Ox 89 L 08/02/25 11:39 VTE Prohylaxis Risk Level: Moderate/High Risk Contraindications: Other (planned procedure in AM) Prophylaxis: Mechanical Time Spent with Patient Time Spent with Patient: 25-34 minutes Time was spent: preparing to see the patient(eg.review tests), obtaining and/or reviewing separately otained hiistory, ordering medications,tests, procedures, referring, communicating with other health career technical education instructor, indepentently interpreting results, counseling the patient and care coordination
--- NOTE | 2025-08-02 16:11 | PT.INTREAT ---
PT Notes Visit Reasons: Hypoglycemia, Orthostatic Hypotension Inpatient Physical Therapy Treatment Note [facility] Date: August 02, 2025 PRECAUTIONS: Impaired vision, fall risk, standard SUBJECTIVE: Patient motivated to participate in therapy today OBJECTIVE: ? PAIN: 0/10 VITALS: O2 saturation during ambulation. At start of ambulation was 91% on 3 L O2. She required 3 stop breaks during ambulation each time her O2 saturation dropping to 83-85%. She is able to do pursed lip breathing and bring it up to 88-90%. Therapeutic Activities (12710 ): Direct one-on-one instruction in dynamic activities to improve functional performance. ? BED MOBILITY/TRANSFERS? Rolling L/R: Independent Supine-sit: Independent ? Sit-supine: Independent ? Sit-stand: Independent ? Stand-sit: Independent? Bed-Chair: Independent ? Chair-bed: Independent Provided skilled cues and instruction on performance and technique throughout. Gait Training (83497b1): Direct one-on-one instruction and skilled instruction in: [x] employing an assistive device [x] movement sequencing [x] turning and movement with proper form : Requiring verbal cues secondary to impaired vision [x] Provided verbal cues for equipment management and technique [x] Patient education regarding pacing and breathing techniques to maximize activity tolerance? GAIT? Assistive Device: [Front wheel walker]? Weight bearing: [Full weightbearing] Assist: Standby assist? Distance: 80 feet x 2 with 3 rest breaks ? Deviation: Left and right secondary to impaired vision ? Therapeutic Exercises (29109c[]): Direct one-on-one instruction in therapeutic exercises to develop strength, endurance, range of motion and flexibility. ? Exercises Long arc quad bilateral 2 x 10 in sitting Seated marching 2 x 10 Ankle pumps 20 times left and right Standing hip abduction 2 x 5 bilateral ? Heel raises 10 Right short swing ham 10 times bilateral Seated hip abduction 10 x 3-second hold? ? Provided skilled instruction in proper exercise performance ASSESSMENT:?Need to monitor O2 saturations as she does desat with ambulation. Due to vision impairment requires verbal cues for directional assistance. Tolerated her therapeutic exercises well with no significant drop in O2 saturation. PLAN: Continue as above until medically cleared for discharge. TREATMENT CODE/TIME: 16092 X1 16856 X1 30 minutes (2:15-2:45 pm) DISCHARGE RECOMMENDATION: HHPT vs short term SNF for instruction in tubing management
--- NOTE | 2025-08-02 16:54 | CMPROGNOTE_ITS ---
Date of service: 08/02/25 Time of Service: 16:54 Care Management Progress Note Progress Note Text Progress Note Text: This afternoon CM received a call from Jose Dawson, Zuleyka's estranged son. His uncle Vaibhav, Zuleyka's brother, who lives next door, notified him of her hospitalization and of his concerns about her returning home. Jose was not looking for information; he called to provide some background. He informed CM that his mother has always been difficult and nasty, especially when she did not get what she wanted. He stated that she has alienated everyone in her family and the only one who still talks to her is her brother. Jose went on to explain that the house Zuleyka is living in was built by his grandfather 40 years ago. It was in both Zuleyka's name and her brother Vaibhav' name. In recent years Zuleyka has become very irresponsible with her money and has been scammed multiple times. She has not been paying the bills and the house has gone into disrepair. Because her vision is so bad, it is possible Zuleyka does not realize how bad it is. Acc ording to Jose, Vaibhav reported that there is a plumbing leak and that there are bugs in the area of the leak. He also stated that she does not have power although she likely has heat as she gets fuel assistance. Due the concerns about being scammed, Her brother was able to convince Zuleyka to sign over the property to him completely. She has been living there for about 10 years. CM discussed short term rehab with Zuleyka yesterday and she was not willing to consider that option. In light of today's conversation however, it might be best if she did go to rehab until a better solution can be found for her living arrangements. LEONILA will discuss this with Zuleyka again tomorrow. In the meantime, LEONILA asked Jose to try to have his uncle contact CM so that some of these issues can be discussed. He is on her HIPAA. Discharge Anticipated Barriers to Discharge: SDAL Patient/Family Education Needs: Review discharge instructions, discuss [facility] Transportation: Other (to be determined by disposition) Plan: Audelias discharge plan is not clear at this time. Her home is reportedly in disrepair and may not have power or heat and has a water leak. Her brother owns the house and has indicated to his nephew that he is no longer going to try to help his sister but it is not clear what that means. Hopefully Vaibhav will contact LEONILA so the issues can be discussed. LEONILA will discuss the possibility of short term rehab with Zuleyka again as well. Social Determinants of Health Screening Social Determinants of health last assessed in clinic: 08/02/25 Will the Patient Participate in the Screening?: Yes Do you worry about having a steady place to live?: no Problems where you live: no known problems In the past 12 months, have you had to go without electric, gas, oil or water in your home?: yes 1. Within the past 12 months, we worried whether our food would run out before we got money to buy more.: Sometimes true 2. Within the past 12 months, the food we bought just didn't last and we didn't have money to get more.: Sometimes true Has lack of transportation kept you from medical appointments or from doing things needed for daily living?: no Has anyone in your life made you feel unsafe or unsupported?: no How hard is it for you to pay for the very basics like food, housing, medical care, and heating? Would you say it is:: Very hard Do you want help finding or keeping work or a job?: I do not need or want help If for any reason you need help with day-to-day activities such as bathing, preparing meals, shopping, managing finances, etc., do you get the help you need?: I need a lot more help How often do you feel lonely or isolated from those around you?: Rarely Do you speak a language other than Icelandic at home?: No Does the patient want assistance with any of the above?: Yes Health Related Social Needs Health related social needs: food insecurity (Z59.41), material hardship(utilities) (Z59.12), problems related to housing/economic circumstances (Z59.89), problems with daily activities (Z73.9) and feeling lonely/isolated (Z60.8) Health related social needs details: poor vision, has cataract appointments 10/12 and 10/17
[2025-08-02] MEDS: Melatonin 3 MG TAB PO (20:24)
[2025-08-03 03:45] VITALS: BP 124/90; PULSE 90; RESP 18; TEMP 36.7; O2SAT 89
[2025-08-03 07:14] LABS: Magnesium 1.5 mg/dL (1.6-2.6)
[2025-08-03 07:20] LABS: Hemoglobin A1C 7.6 % (<5.7)
--- NOTE | 2025-08-03 09:20 | PTTR_ITS ---
PT Notes Visit Reasons: Hypoglycemia, Orthostatic Hypotension Inpatient Physical Therapy Treatment Note [facility] Date: 08/04/25 AM SESSION: PRECAUTIONS: Impaired vision, fall risk, standard SUBJECTIVE: Patient motivated to participate in therapy today OBJECTIVE: ? PAIN: 0/10 VITALS: O2 saturation during ambulation. At start of ambulation was 89% on 3 L O2. Had her perform some pursed lip breathing which elevated O2 saturation to 91% prior to walking. Only 1 she required 1 stop break today compared to 3 stops yesterday during ambulation each time her O2 saturation dropping to 85- 87%. She is able to do pursed lip breathing and bring it up to 88-90%. Following her ambulation she returned to bed with O2 saturation of 91%. Therapeutic Activities (57674 ): Direct one-on-one instruction in dynamic activities to improve functional performance. ? BED MOBILITY/TRANSFERS? Rolling L/R: Independent Supine-sit: Independent ? Sit-supine: Independent ? Sit-stand: Independent ? Stand-sit: Independent? Bed-Chair: Independent ? Chair-bed: Independent Provided skilled cues and instruction on performance and technique throughout. Gait Training (30209u6): Direct one-on-one instruction and skilled instruction in: [x] employing an assistive device [x] movement sequencing [x] turning and movement with proper form : Requiring verbal cues secondary to impaired vision [x] Provided verbal cues for equipment management and technique [x] Patient education regarding pacing and breathing techniques to maximize activity tolerance? GAIT? Assistive Device: [Front wheel walker]? Weight bearing: [Full weightbearing] Assist: Standby assist? Distance: 80 feet x 2 with 1 rest break ? Deviation: Left and right secondary to impaired vision ? Therapeutic Exercises (32584l9): Direct one-on-one instruction in therapeutic exercises to develop strength, endurance, range of motion and flexibility. O2 saturation fluctuated between 88 and 91% during her seated strengthening exercises. ? Exercises Long arc quad bilateral 2 x 10 in sitting Seated marching 2 x 10 Ankle pumps 20 times left and right Heel raises 10 Right short swing ham 10 times bilateral Seated hip abduction 10 x 3-second hold? ? Seated hip adduction 10 x 3-second hold Provided skilled instruction in proper exercise performance ASSESSMENT:?Due to visual impairment she does require significant assist with positioning of front wheel walker but O2 saturation remained a little higher this morning compared to yesterday. PM SESSION: Declined afternoon session. Patient states she was not feeling well. TREATMENT CODE/TIME: AM session: 52434 X1 13540 X1 30 minutes (8:30-9:00 am) DISCHARGE RECOMMENDATION: HHPT vs short term SNF for instruction in tubing management
[2025-08-03] MEDS: Magnesium Chloride 64 MG TABCR PO (09:21)
[2025-08-03] MEDS: dilTIAZem CD 180 MG CAPCR 360 MG PO (09:21)
[2025-08-03] MEDS: Atorvastatin 40 MG TAB PO (09:22)
[2025-08-03] MEDS: Metoprolol CR 100 MG TABCR PO ×2 (09:22→20:22)
[2025-08-03] MEDS: Sertraline 50 MG TAB PO (09:22)
[2025-08-03 09:36] VITALS: BP 107/67; PULSE 86; RESP 16; TEMP 36.9; O2SAT 93
[2025-08-03 14:56] VITALS: BP 104/69; PULSE 83; RESP 16; TEMP 36.7; O2SAT 91
--- NOTE | 2025-08-03 16:33 | PGE_ITS ---
Date of Service Date of service: 08/03/25 Time of Service: 08:00 Assessment and Plan Assessment and plan (1) Hypoglycemia: Status: Resolved Assessment and plan: Home incident with hypoglycemia, used long acting insulin in the morning, poor PO intake Improved with PO intake while hospitalized, resolved from a causation/response standpoint (2) Orthostatic hypotension: Status: Resolved Assessment and plan: -in ED was 111/83 and dropped to 83/51 when standing -likely due to recent poor PO intake and taking her lasix, losartan and diltiazem (all of which will be held) -s/p 1L NS in ED -was on NS at 75ml/hr -BPs now improved (3) Acute hypoxemic respiratory failure: Status: Resolved Assessment and plan: -found to require 3L NC to maintain O2 >92% -likely combination of s/p procedure and lung CA -will wean as tolerated -home O2 test showed 3L NC continuous Will need home O2 at discharge Resolved, no longer acute. COPD worsening, new baseline, requiring home O2 at this time. (4) Chronic obstructive pulmonary disease: Status: Chronic Assessment and plan: Exacerbated by lung cancer and procedure Now requiring home O2 Continue bronchodilators (5) Atrial fibrillation: Assessment and plan: Continue home apixaban, CCB (6) Diabetes mellitus type II, uncontrolled: Assessment and plan: Hypoglycemic on admission due to poor PO intake Blood glucose now at appropriate levels A1C 7.6, not well controlled, however risk of hypoglycemia persists Continue Q12H fingersticks while hospitalized At home she will need to have support to maintain nutrition (7) Suspected malignant neoplasm of lung: Status: Acute Assessment and plan: - As seen on chest CT describing extensive mediastinal and hilar adenopathy concern for right hilar mass suspected primary lung neoplasm with metastasis including a T3 compression deformity possible metastatic change and possible metastatic disease of the left adrenal gland - s/p EBUS at this time Needs oncology set up before discharge (8) Diastolic heart failure due to valvular disease: Assessment and plan: Blood pressures remain soft, continue to hold home spironolactone, furosemide, losartan (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 Alvarado is comfortable in bed. No overnight events, no new complaints. Exam Narrative Exam Narrative: General: This is a pleasant woman in no distress HEENT: Normocephalic, atraumatic. Severe vision deficit. CV: irregularly irregular Resp: CTAB Abd: soft, NTND MSK: voluntary motion x4 Neuro: awake, alert, poor visual perception Objective Last Vital Signs Temp 36.7 C 08/03/25 14:56 Pulse 83 08/03/25 14:56 Resp 16 08/03/25 14:56 BP 104/69 08/03/25 14:56 Pulse Ox 91 L 08/03/25 14:56 Laboratory Results - last 24 hr 08/03/25 06:32 Hemoglobin A1c 7.6 H Magnesium 1.5 L VTE Prohylaxis Risk Level: Moderate/High Risk Contraindications: Other (planned procedure in AM) Prophylaxis: Mechanical Time Spent with Patient Time Spent with Patient: 25-34 minutes Time was spent: preparing to see the patient(eg.review tests), obtaining and/or reviewing separately otained hiistory, ordering medications,tests, procedures, referring, communicating with other health lawn care professional, indepentently interpreting results, counseling the patient and care coordination
[2025-08-03 19:53] VITALS: BP 128/73; PULSE 90; RESP 18; TEMP 36.8; O2SAT 90
[2025-08-03] MEDS: Melatonin 3 MG TAB PO (20:22)
[2025-08-03] MEDS: Acetaminophen 325 MG TAB 650 MG PO (20:30)
[2025-08-03 23:24] VITALS: BP 115/91; PULSE 68; RESP 22; TEMP 35.8; O2SAT 94
[2025-08-04] MEDS: Polyethylene Glycol 3350 17 GM PACKET PO ×2 (00:13→17:39)
[2025-08-04 03:21] VITALS: BP 108/80; PULSE 91; RESP 14; TEMP 36; O2SAT 93
[2025-08-04 06:39] LABS: Abs Immature Grans 0.03 10^3/uL (0.0-0.06); HCT 36.7 % (36.0-46.0); HGB 12.0 g/dL (11.2-15.7); Immature Grans % 0.4 %; MCH 28.7 pg (27.0-33.0); MCHC 32.7 % (32.0-36.0); MCV 88 fL (80-95); MPV 9.3 fL (8.0-11.0); Platelet Count 226 10^3/uL (130-400); RBC 4.18 10^6/uL (3.93-5.22); RDW 16.0 % (11.7-14.6); RDW-SD 51.8 fL; WBC 8.00 10^3/uL (4.4-10.8)
[2025-08-04 06:58] LABS: Magnesium 1.6 mg/dL (1.6-2.6)
[2025-08-04 06:59] LABS: ALT 11 U/L (10-49); AST 19 U/L (<34); Albumin 3.6 g/dL (3.2-5.0); Alkaline Phosphatase 67 U/L (46-116); Anion Gap 7.5 mmol/L (3-11); BUN 11 mg/dL (9-23); Bilirubin, Total 0.6 mg/dL (0.2-1.2); CO2 28.5 mmol/L (20.0-31.0); Calcium 8.7 mg/dL (8.3-10.6); Chloride 105 mmol/L (98-107); Glucose 116 mg/dL (74-106); Potassium 3.9 mmol/L (3.5-5.1); Sodium 141 mmol/L (136-145); Total Protein 6.8 g/dL (5.7-8.2)
[2025-08-04 07:24] VITALS: BP 121/73; PULSE 91; RESP 17; TEMP 36.8; O2SAT 90
--- NOTE | 2025-08-04 08:20 | PDOC.CMPRO ---
Date of service: 08/04/25 Time of Service: 08:20 Care Management Progress Note Progress Note Text Progress Note Text: Zuleyka was awake and lying in bed when CM met with her. She is pleasant and easy to engage in conversation. She doesn't maintain eye contact, however this is to be expected as she has bilateral vision loss. Zuleyka reports that she is aware of PT's discharge recommendation which is HHPT vs short term SNF (primarily for instruction in tubing management.) Pts plan at this time is to discharge home with resumption of [facility] SN, PT, OT and INSTRUMENTATION TECHNOLOGIST services. She intends to have her brother pick her up when she is ready, if she can get ahold of him. She does not have her ravi, however this does not appear to be a barrier to discharge as Zuleyka reports that she knows how to get in once she's there. Zuleyka reports that she has electricity, heat and food and is agreeable to new home o2 on discharge. Discharge Potential Discharge Needs: PCP F/U Appt Anticipated Barriers to Discharge: None Identified Patient/Family Education Needs: Review discharge instructions, discuss Ask Me Three Transportation: Private vehicle Plan: PTs recommendation is HHPT vs short term SNF for instruction in tubing management. Zuleyka is planning to discharge home with resumption of [facility] SN, PT, OT and INSTRUMENTATION TECHNOLOGIST services once medically ready. Transportation will be via brother (pt preference) vs [facility] private vehicle. She does not have her ravi, but reports that she knows how to get in once she's there. She has electricity, heat and food, and is agreeable to new home o2 on discharge. Social Determinants of Health Screening Social Determinants of health last assessed in clinic: 08/04/25 Will the Patient Participate in the Screening?: Yes Do you worry about having a steady place to live?: no Problems where you live: no known problems In the past 12 months, have you had to go without electric, gas, oil or water in your home?: yes 1. Within the past 12 months, we worried whether our food would run out before we got money to buy more.: Never true 2. Within the past 12 months, the food we bought just didn't last and we didn't have money to get more.: Never true Has lack of transportation kept you from medical appointments or from doing things needed for daily living?: no Has anyone in your life made you feel unsafe or unsupported?: no How hard is it for you to pay for the very basics like food, housing, medical care, and heating? Would you say it is:: Very hard Do you want help finding or keeping work or a job?: I do not need or want help If for any reason you need help with day-to-day activities such as bathing, preparing meals, shopping, managing finances, etc., do you get the help you need?: I need a lot more help How often do you feel lonely or isolated from those around you?: Rarely Do you speak a language other than Persian at home?: No Does the patient want assistance with any of the above?: Yes Health Related Social Needs Health related social needs: material hardship(utilities) (Z59.12), problems related to housing/economic circumstances (Z59.89), problems with daily activities (Z73.9) and feeling lonely/isolated (Z60.8) Health related social needs details: poor vision, has cataract appointments 10/12 and 10/17
--- NOTE | 2025-08-04 08:48 | PGE_ITS ---
Assessment and Plan Assessment and plan (1) Lung cancer: Status: Chronic (2) Right hilar mass: Status: Acute (3) Tobacco use disorder: Status: Resolved (4) Acute hypoxemic respiratory failure: Status: Resolved General Date Of Service Date of service: 08/04/25 Time of Service: 07:45 Requesting physician: Humza Bueno Reason for Consult: Lung mass Recommendations: Assessment: 1. Lung cancer - prelim pathology report positive for malignancy at station 7 lymph node. Final pathology is pending 2. Mediastinal lymphadenopathy - likely due to malignancy 3. Acute on chronic hypoxemic respiratory failure - due to underlying lung cancer and possible COPD - currently on 2 L O2 4. 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 Afib - was on eliquis Recommendations: - follow up on pathology report - will place a referral to oncology as outpatient - titrate oxygen for SpO2 > 89% - can resume anticoagulation from a pulmonary standpoint Discussed with Dr. Kc Subjective Note Note: Patient is a 70 yo with a history of COPD, tobacco abuse, and Afib, who was admitted on 07/31 for hypoglycemia and orthostatic hypotension. CT chest imaging last month showed a large right hilar mass with extension vs lymphadenopathy in the mediasitnum / subcarinal region. MRI brain did not show any evidence of AIR CONDITIONING UNIT TESTER metastatic disease. EBUS was completed 07/31 with biopsy of the station 7 lymph node. Final pathology is pending. PARISA showed malignant cells. She denies significant dypsnea this AM. Denies any hemoptysis over the past few days. Currently on 2 L O2. ROS: 6 pt ROS negative except as above. Exam Narrative Exam Narrative: General: alert, no acute distress Head: normocephalic ENT: no stridor, trachea midline CV: normal rate, irregular rhythm Respiratory: no wheezing, no crackles, no rhonchi, no prolonged expiration GI: abd soft, non-tender, non-distended Skin: no rashes Extremities: no edema, no digital clubbing Psych: normal affect Objective Last Vital Signs Temp 36.8 C 08/04/25 07:24 Pulse 91 H 08/04/25 07:24 Resp 17 08/04/25 07:24 BP 121/73 08/04/25 07:24 Pulse Ox 90 L 08/04/25 07:24 Laboratory Results - last 24 hr 12/15/25 06:15 WBC 8.00 RBC 4.18 Hgb 12.0 Hct 36.7 MCV 88 MCH 28.7 MCHC 32.7 RDW 16.0 H Plt Count 226 MPV 9.3 Immature Gran % 0.4 Neutrophils % 65.1 Lymphocytes % 20.9 Monocytes % 10.4 Eosinophils % 2.4 Basophils % 0.8 Nucleated RBC % 0.0 Absolute Neutrophils 5.22 Absolute Lymphocytes 1.67 Absolute Monocytes 0.83 H Absolute Eosinophils 0.19 Absolute Basophils 0.06 Sodium 141 Potassium 3.9 Chloride 105 Carbon Dioxide 28.5 Anion Gap 7.5 BUN 11 Creatinine 0.84 Est GFR (CKD-EPI 2020) 67.19 Glucose 116 H Calcium 8.7 Magnesium 1.6 Total Bilirubin 0.6 AST 19 ALT 11 Alkaline Phosphatase 67 Total Protein 6.8 Albumin 3.6 Results Medications Medications: Active Medications Generic Name Dose Route Start Last Admin Trade Name Freq PRN Reason Stop Dose Admin Acetaminophen 650 mg 07/31/25 00:24 08/03/25 20:30 Acetaminophen 325 Mg Tab PO 650 mg Q6H PRN PRN Administration Atorvastatin Calcium 40 mg 07/31/25 08:30 08/03/25 09:22 Atorvastatin 40 Mg Tab PO 40 mg DAILY MARY ANN Administration Budesonide/Formoterol Fumarate 1 - 2 puff 07/30/25 15:48 Budesonide/Formoterol 80/4.5 6.9 Gm 60 Puff Inh IH Q4H PRN PRN Diltiazem HCl 360 mg 07/31/25 08:30 08/03/25 09:21 Diltiazem Cd 180 Mg Capcr PO 360 mg DAILY MARY ANN Administration Magnesium Chloride 64 mg 07/31/25 08:30 08/03/25 09:21 Magnesium Chloride 64 Mg Tabcr PO 64 mg DAILY MARY ANN Administration Melatonin 3 mg 07/30/25 21:00 08/03/25 20:22 Melatonin 3 Mg Tab PO 3 mg HS MARY ANN Administration Metoprolol Succinate 100 mg 07/30/25 20:00 08/03/25 20:22 Metoprolol Cr 100 Mg Tabcr PO 100 mg BID MARY ANN Administration Nicotine 21 mg 07/31/25 08:30 08/03/25 09:21 Nicotine 21 Mg/24 Hr Patch TD Not Given Q24H MARY ANN Ondansetron HCl 4 mg 07/31/25 16:20 Ondansetron 0.8 Mg/Ml Solution PO Q8H PRN PRN Polyethylene Glycol 17 gm 07/30/25 15:48 08/04/25 00:13 Polyethylene Glycol 3350 17 Gm Packet PO 17 gm DAILY PRN PRN Administration Constipation Sertraline HCl 50 mg 07/31/25 08:30 08/03/25 09:22 Sertraline 50 Mg Tab PO 50 mg DAILY MARY ANN Administration Allergies No Known Allergies Allergy (Verified 07/30/25 09:09) Labs 08/04/25 06:15 08/04/25 06:15 Labs: Laboratory Tests Range/Units 07/30/25 07/30/25 07/30/25 09:35 10:35 12:43 WBC (4.4-10.8) 10^3/uL 11.09 H RBC (3.93-5.22) 10^6/uL 4.56 Hgb (11.2-15.7) g/dL 13.4 Hct (36.0-46.0) % 40.7 MCV (80-95) fL 89 MCH (27.0-33.0) pg 29.4 MCHC (32.0-36.0) % 32.9 RDW (11.7-14.6) % 16.7 H Plt Count (130-400) 10^3/uL 281 MPV (8.0-11.0) fL 9.4 Immature Gran % % 0.4 Neutrophils % % 74.8 Lymphocytes % % 14.4 Monocytes % % 9.1 Eosinophils % % 0.9 Basophils % % 0.4 Nucleated RBC % (0.0-0.3) % 0.0 Absolute Neutrophils (1.2-6.7) 10^3/uL 8.30 H Absolute Lymphocytes (1.2-3.4) 10^3/uL 1.60 Absolute Monocytes (0.1-0.8) 10^3/uL 1.01 H Absolute Eosinophils (0.0-0.7) 10^3/uL 0.10 Absolute Basophils (0.0-0.2) 10^3/uL 0.04 VBG pH (7.31-7.41) 7.36 VBG pCO2 (41-51) mmHg 54 H VBG pO2 mmHg 27 VBG HCO3 (23-28) mmol/L 31 H VBG Total CO2 (24-29) mmol/L 28 VBG O2 Saturation % 43 VBG Base Excess (-2-3) mmol/L 5 H Sodium (136-145) mmol/L 135 L Potassium (3.5-5.1) mmol/L 4.4 Chloride (98-107) mmol/L 99 Carbon Dioxide (20.0-31.0) mmol/L 30.7 Anion Gap (3-11) mmol/L 5.4 BUN (9-23) mg/dL 21 Creatinine (0.55-1.02) mg/dL 1.03 H Est GFR (CKD-EPI 2020) (mL/min/1.73m2) 53.10 Glucose (74-106) mg/dL 73 L Hemoglobin A1c (<5.7) % Calcium (8.3-10.6) mg/dL 9.2 Magnesium (1.6-2.6) mg/dL Total Bilirubin (0.2-1.2) mg/dL 0.4 AST (<34) U/L 26 ALT (10-49) U/L 15 Alkaline Phosphatase (46-116) U/L 92 Troponin I (<35) ng/L 3 3 NT-Pro-B Natriuret Pep (<300) pg/mL 292 Total Protein (5.7-8.2) g/dL 7.9 Albumin (3.2-5.0) g/dL 4.2 Urine Color (Yellow) Yellow Urine Clarity (Clear) Clear Urine pH (5-8) 7.0 Ur Specific [place] (1.005-1.025) 1.010 Urine Protein (Neg-Trace) mg/dL Negative Urine Ketones (Negative) mg/dL Negative Urine Blood (Negative) Negative Urine Nitrite (Negative) Negative Urine Bilirubin (Negative) Negative Urine Urobilinogen (Up to 0.2) mg/dL 0.2 Ur Leukocyte Esterase (Negative) Negative Urine Glucose (Negative) mg/dL Negative Range/Units 07/31/25 08/03/25 08/04/25 06:15 06:32 06:15 WBC (4.4-10.8) 10^3/uL 7.97 8.00 RBC (3.93-5.22) 10^6/uL 3.89 L 4.18 Hgb (11.2-15.7) g/dL 11.4 D 12.0 Hct (36.0-46.0) % 34.6 L 36.7 MCV (80-95) fL 89 88 MCH (27.0-33.0) pg 29.3 28.7 MCHC (32.0-36.0) % 32.9 32.7 RDW (11.7-14.6) % 16.7 H 16.0 H Plt Count (130-400) 10^3/uL 241 226 MPV (8.0-11.0) fL 9.8 9.3 Immature Gran % % 0.4 Neutrophils % % 65.1 Lymphocytes % % 20.9 Monocytes % % 10.4 Eosinophils % % 2.4 Basophils % % 0.8 Nucleated RBC % (0.0-0.3) % 0.0 Absolute Neutrophils (1.2-6.7) 10^3/uL 5.22 Absolute Lymphocytes (1.2-3.4) 10^3/uL 1.67 Absolute Monocytes (0.1-0.8) 10^3/uL 0.83 H Absolute Eosinophils (0.0-0.7) 10^3/uL 0.19 Absolute Basophils (0.0-0.2) 10^3/uL 0.06 VBG pH (7.31-7.41) VBG pCO2 (41-51) mmHg VBG pO2 mmHg VBG HCO3 (23-28) mmol/L VBG Total CO2 (24-29) mmol/L VBG O2 Saturation % VBG Base Excess (-2-3) mmol/L Sodium (136-145) mmol/L 141 141 Potassium (3.5-5.1) mmol/L 4.5 3.9 Chloride (98-107) mmol/L 107 105 Carbon Dioxide (20.0-31.0) mmol/L 27.4 28.5 Anion Gap (3-11) mmol/L 6.6 7.5 BUN (9-23) mg/dL 17 11 Creatinine (0.55-1.02) mg/dL 0.88 0.84 Est GFR (CKD-EPI 2020) (mL/min/1.73m2) 63.68 67.19 Glucose (74-106) mg/dL 69 L 116 H Hemoglobin A1c (<5.7) % 7.6 H Calcium (8.3-10.6) mg/dL 8.5 8.7 Magnesium (1.6-2.6) mg/dL 1.5 L 1.5 L 1.6 Total Bilirubin (0.2-1.2) mg/dL 0.6 AST (<34) U/L 19 ALT (10-49) U/L 11 Alkaline Phosphatase (46-116) U/L 67 Troponin I (<35) ng/L NT-Pro-B Natriuret Pep (<300) pg/mL Total Protein (5.7-8.2) g/dL 6.8 Albumin (3.2-5.0) g/dL 3.6 Urine Color (Yellow) Urine Clarity (Clear) Urine pH (5-8) Ur Specific [place] (1.005-1.025) Urine Protein (Neg-Trace) mg/dL Urine Ketones (Negative) mg/dL Urine Blood (Negative) Urine Nitrite (Negative) Urine Bilirubin (Negative) Urine Urobilinogen (Up to 0.2) mg/dL Ur Leukocyte Esterase (Negative) Urine Glucose (Negative) mg/dL Imaging Chest x-ray: report reviewed and image reviewed
[2025-08-04] MEDS: Metoprolol CR 100 MG TABCR PO ×2 (09:03→20:37)
[2025-08-04] MEDS: Magnesium Chloride 64 MG TABCR PO (09:03)
[2025-08-04] MEDS: dilTIAZem CD 180 MG CAPCR 360 MG PO (09:03)
[2025-08-04] MEDS: Atorvastatin 40 MG TAB PO (09:03)
[2025-08-04] MEDS: Sertraline 50 MG TAB PO (09:03)
[2025-08-04 11:07] VITALS: BP 108/65; PULSE 86; RESP 17; TEMP 36.7; O2SAT 91
[2025-08-04] MEDS: Budesonide/Formoterol 80/4.5 6.9 GM 60 PUFF INH IH (11:19)
--- NOTE | 2025-08-04 12:56 | PT.INTREAT ---
Date of service: 08/04/25 PT Notes Visit Reasons: Hypoglycemia, Orthostatic Hypotension Inpatient Physical Therapy Treatment Note [facility] Date: 08/04/25 AM SESSION: PRECAUTIONS: Impaired vision, fall risk, standard SUBJECTIVE: Patient motivated to participate in therapy today OBJECTIVE: ? PAIN: 0/10 VITALS: O2 saturation during ambulation. At start of ambulation was 89% on 1 L O2. Had her perform some pursed lip breathing which elevated O2 saturation to 96% prior to walking. On 1 she required 1 stop break today compared to 3 stops yesterday during ambulation each time her O2 saturation dropping to 85-87%. She is able to do pursed lip breathing and bring it up to 89-93%. Following her ambulation she returned to bed with O2 saturation of 91%. Therapeutic Activities : Direct one-on-one instruction in dynamic activities to improve functional performance. ? BED MOBILITY/TRANSFERS? Rolling L/R: Independent Supine-sit: Independent ? Sit-supine: Independent ? Sit-stand: Independent ? Stand-sit: Independent? Bed-Chair: SBA with FWW ?cues for directionality and assist tubing mgmt ?d/t visual impairment ? Chair-bed: SBA with FWW cues for directionality and assist tubing mgmt d/t visual impairment Provided skilled cues and instruction on performance and technique throughout. Gait Training ([id number]): Direct one-on-one instruction and skilled instruction in: [x] employing an assistive device [x] movement sequencing [x] turning and movement with proper form : Requiring verbal cues secondary to impaired vision [x] Provided verbal cues for equipment management and technique [x] Patient education regarding pacing and breathing techniques to maximize activity tolerance? GAIT? Assistive Device: [Front wheel walker]? Weight bearing: [Full weightbearing] Assist: Standby assist? ?with cues for FWW mgmgt d/t vision ? Distance: 100 feet x 1 with 1 rest break ?120 feet x 1 ? Deviation: Left and right secondary to impaired vision ? pm session? Therapeutic Exercises ([id number]): Direct one-on-one instruction in therapeutic exercises to develop strength, endurance, range of motion and flexibility. O2 saturation fluctuated between 88 and 91% during her seated strengthening exercises. ? Exercises Long arc quad bilateral 2 x 10 in sitting Seated marching 2 x 10 Ankle pumps 20 times left and right Heel raises 10 Right short swing ham 10 times bilateral Seated hip abduction 10 x 3-second hold? ? Seated hip adduction 10 x 3-second hold Provided skilled instruction in proper exercise performance ASSESSMENT:Pt remains limited by severity of visual impairment. She is dependent on staff for environmental cues/ directions. She is at risk for falls d/t inability to safely manage the oxygen tubing. She has shown progression/improvement in her PLB technique and was able to utilize PLB intermittently without cueing to immprove oxygen saturation at rest and during recovery. She has poor technique during functional mobility. Concern for her safety if she is dicahreged to her home with oxygen requirement d/t visual deficit and high trip hazard. TREATMENT CODE/TIME: AM session: [id number] x 25 minutes ([id number] ) PM Session; [id number] x15 mins ( [id number]) DISCHARGE RECOMMENDATION: HHPT vs short term SNF for instruction in tubing management
[2025-08-04 15:13] VITALS: BP 104/74; PULSE 83; RESP 16; TEMP 36.7; O2SAT 90
--- NOTE | 2025-08-04 17:34 | PGE_ITS ---
Date of Service Date of service: 08/04/25 Time of Service: 08:00 Assessment and Plan Assessment and plan (1) Suspected malignant neoplasm of lung: Status: Acute Assessment and plan: - As seen on chest CT describing extensive mediastinal and hilar adenopathy concern for right hilar mass suspected primary lung neoplasm with metastasis including a T3 compression deformity possible metastatic change and possible metastatic disease of the left adrenal gland - s/p EBUS at this time Needs oncology set up before discharge (2) Chronic obstructive pulmonary disease: Status: Chronic Assessment and plan: Exacerbated by lung cancer and procedure Now requiring home O2 Continue bronchodilators (3) Atrial fibrillation: Assessment and plan: Continue home apixaban, CCB (4) Diabetes mellitus type II, uncontrolled: Assessment and plan: Hypoglycemic on admission due to poor PO intake Blood glucose now at appropriate levels A1C 7.6, not well controlled, however risk of hypoglycemia persists Continue Q12H fingersticks while hospitalized At home she will need to have support to maintain nutrition (5) Diastolic heart failure due to valvular disease: Assessment and plan: Blood pressures remain soft, continue to hold home spironolactone, furosemide, losartan (6) Cisco Bonnet syndrome: Status: Acute Assessment and plan: AKA visual release hallucinations -secondary to rapid decline in vision over the last few months -aparently is worse in the morning when she wakes up (7) Hypoglycemia: Status: Resolved Assessment and plan: Home incident with hypoglycemia, used long acting insulin in the morning, poor PO intake Improved with PO intake while hospitalized, resolved from a causation/response standpoint (8) Orthostatic hypotension: Status: Resolved Assessment and plan: -in ED was 111/83 and dropped to 83/51 when standing -likely due to recent poor PO intake and taking her lasix, losartan and diltiazem (all of which will be held) -s/p 1L NS in ED -was on NS at 75ml/hr -BPs now improved (9) Acute hypoxemic respiratory failure: Status: Resolved Assessment and plan: -found to require 3L NC to maintain O2 >92% -likely combination of s/p procedure and lung CA -will wean as tolerated -home O2 test showed 3L NC continuous Will need home O2 at discharge Resolved, no longer acute. COPD worsening, new baseline, requiring home O2 at this time. Subjective Subjective Interval history since last seen: Ms. Alvarado is resting comfortably. She is medically cleared, awaiting safe discharge. Exam Narrative Exam Narrative: General: This is a pleasant woman in no distress HEENT: Normocephalic, atraumatic. Severe vision deficit. CV: irregularly irregular Resp: CTAB Abd: soft, NTND MSK: voluntary motion x4 Neuro: awake, alert, poor visual perception Objective Last Vital Signs Temp 36.7 C 08/04/25 15:13 Pulse 83 08/04/25 15:13 Resp 16 08/04/25 15:13 BP 104/74 08/04/25 15:13 Pulse Ox 90 L 08/04/25 15:13 Laboratory Results - last 24 hr 08/04/25 06:15 WBC 8.00 RBC 4.18 Hgb 12.0 Hct 36.7 MCV 88 MCH 28.7 MCHC 32.7 RDW 16.0 H Plt Count 226 MPV 9.3 Immature Gran % 0.4 Neutrophils % 65.1 Lymphocytes % 20.9 Monocytes % 10.4 Eosinophils % 2.4 Basophils % 0.8 Nucleated RBC % 0.0 Absolute Neutrophils 5.22 Absolute Lymphocytes 1.67 Absolute Monocytes 0.83 H Absolute Eosinophils 0.19 Absolute Basophils 0.06 Sodium 141 Potassium 3.9 Chloride 105 Carbon Dioxide 28.5 Anion Gap 7.5 BUN 11 Creatinine 0.84 Est GFR (CKD-EPI 2020) 67.19 Glucose 116 H Calcium 8.7 Magnesium 1.6 Total Bilirubin 0.6 AST 19 ALT 11 Alkaline Phosphatase 67 Total Protein 6.8 Albumin 3.6 VTE Prohylaxis Risk Level: Moderate/High Risk Contraindications: Other (planned procedure in AM) Prophylaxis: Mechanical Time Spent with Patient Time Spent with Patient: 25-34 minutes Time was spent: preparing to see the patient(eg.review tests), obtaining and/or reviewing separately otained hiistory, ordering medications,tests, procedures, referring, communicating with other health manager critical care, indepentently interpreting results, counseling the patient and care coordination
[2025-08-04 19:48] VITALS: BP 119/78; PULSE 96; RESP 12; TEMP 36.7; O2SAT 92
[2025-08-04] MEDS: Melatonin 3 MG TAB PO (20:37)
[2025-08-04] MEDS: Sennosides/Docusate Sodium TAB 1 TAB PO (20:37)
[2025-08-04 23:27] VITALS: BP 106/79; PULSE 85; RESP 16; TEMP 36.6; O2SAT 91
[2025-08-05] VITALS (7 sets, daily range): BP systolic 101–117; BP diastolic 59–80; PULSE 79–99; RESP 20–93; TEMP 35.8–37.5; O2SAT 91–94
[2025-08-05] MEDS: Miconazole 2% Topical Powder 85 GM BTL (02:20)
[2025-08-05 06:53] LABS: Abs Immature Grans 0.03 10^3/uL (0.0-0.06); HCT 38.1 % (36.0-46.0); HGB 12.5 g/dL (11.2-15.7); Immature Grans % 0.3 %; MCH 29.0 pg (27.0-33.0); MCHC 32.8 % (32.0-36.0); MCV 88 fL (80-95); MPV 9.3 fL (8.0-11.0); Platelet Count 262 10^3/uL (130-400); RBC 4.31 10^6/uL (3.93-5.22); RDW 16.0 % (11.7-14.6); RDW-SD 52.8 fL; WBC 8.98 10^3/uL (4.4-10.8)
[2025-08-05 07:15] LABS: ALT 12 U/L (10-49); AST 17 U/L (<34); Albumin 3.8 g/dL (3.2-5.0); Alkaline Phosphatase 69 U/L (46-116); Anion Gap 9.2 mmol/L (3-11); BUN 12 mg/dL (9-23); Bilirubin, Total 0.5 mg/dL (0.2-1.2); CO2 27.8 mmol/L (20.0-31.0); Calcium 9.1 mg/dL (8.3-10.6); Chloride 105 mmol/L (98-107); Glucose 114 mg/dL (74-106); Potassium 3.9 mmol/L (3.5-5.1); Sodium 142 mmol/L (136-145); Total Protein 7.0 g/dL (5.7-8.2)
[2025-08-05] MEDS: Albuterol HFA 8 GM 60 PUFF INH IH (08:24)
[2025-08-05] MEDS: Budesonide/Formoterol 80/4.5 6.9 GM 60 PUFF INH IH (08:24)
[2025-08-05] MEDS: Atorvastatin 40 MG TAB PO (09:05)
[2025-08-05] MEDS: Sennosides/Docusate Sodium TAB 1 TAB PO (09:06)
[2025-08-05] MEDS: dilTIAZem CD 180 MG CAPCR 360 MG PO (09:07)
[2025-08-05] MEDS: Magnesium Chloride 64 MG TABCR PO (09:07)
[2025-08-05] MEDS: Sertraline 50 MG TAB PO (09:07)
[2025-08-05] MEDS: Metoprolol CR 100 MG TABCR PO ×2 (09:07→21:25)
[2025-08-05] MEDS: Polyethylene Glycol 3350 17 GM PACKET PO (09:09)
--- NOTE | 2025-08-05 15:07 | PT.INTREAT ---
PT Notes Visit Reasons: Hypoglycemia, Orthostatic Hypotension Date: 08/05/2025 PRECAUTIONS: Impaired vision, fall risk, standard SUBJECTIVE: Pt in bed when approached for therapy this morning, agreed to participating with therapy session, pt in bed when approached for therapy in the afternoon, agreed to participating with therapy intervention. OBJECTIVE: ?NC on 1L ? PAIN: denies VITALS: Pre-Treatment: Sao2 at high 80's goes back up to low 90's with deep breathing strategies Post-Treatment: ?Sao2 at low 90's ? Therapeutic Activities [id number]: Direct one-on-one instruction in dynamic activities to improve functional performance. ?? BED MOBILITY/TRANSFERS? Rolling L/R: independent Supine-sit: independent ? Sit-supine: ?independent ? Sit-stand: ?Independent? Stand-sit: ?Independent? Bed-Chair:? Independent? Chair-bed: Independent Provided skilled cues and instruction on performance and technique throughout. Gait Training [id number]: Direct one-on-one instruction and skilled instruction in: Employing an assistive device Movement sequencing Turning and movement with proper form Provided verbal cues for equipment management and technique Provided instruction in gait pattern Patient education regarding pacing and breathing techniques to maximize activity tolerance? GAIT? Assistive Device: ?FWW ? Weight bearing: FWB Assist: ?CGA for redirection due to vision challenge ? Distance:??150'x2 (am), 150'x2 (pm) rest break in between to prevent SOB? Deviation: Stoop forward posture, low step height, short step length ? STAIRS:? ?6 steps 6x up/down step over step Bilateral handrail SBA (am/pm)? Therapeutic Exercises 13265: Direct one-on-one instruction in therapeutic exercises to develop strength, endurance, range of motion and flexibility. Exercises (am/pm) Sit to stand [id number] Seated Long arc quad bilateral 2 x 10 in sitting Seated marching 2 x 10 Ankle pumps 20 times left and right Heel raises 10 Right short swing ham 10 times bilateral Seated hip abduction 10 x 3-second hold? ? Seated hip adduction 10 x 3-second hold Seated external rotation 1 x 10 L/R Standing march 1 x 10 Standing Squat 1 x 10 Standing heel and toe rocking 1 x 10 Seated shoulder abduction 1 x 10 Seated scapular retraction 1 x 10 Seated chops and lifts 1 x 10 Provided skilled instruction in proper exercise performance Provided skilled manual cues to facilitate proper muscle recruitment and/or form: ASSESSMENT:?Pt tolerated activity well, pt Sao2 stayed WNL given time in between activity for rest and DBE. pt able to perform all activity on RA. PLAN: Continue with balance training, global strengthening and general conditioning for improved safety, mobility and activity tolerance until pt is ready for DC. TREATMENT CODE/TIME: [id number], [id number] 35mins (11:20-11:55am)/ [id number] 20mins (2:00-2:20pm)
--- NOTE | 2025-08-05 16:45 | PGE_ITS ---
Date of Service Date of service: 08/05/25 Time of Service: 08:00 Assessment and Plan Assessment and plan (1) Suspected malignant neoplasm of lung: Status: Acute Assessment and plan: - As seen on chest CT describing extensive mediastinal and hilar adenopathy concern for right hilar mass suspected primary lung neoplasm with metastasis including a T3 compression deformity possible metastatic change and possible metastatic disease of the left adrenal gland - s/p EBUS at this time Needs oncology set up before discharge (2) Chronic obstructive pulmonary disease: Status: Chronic Assessment and plan: Exacerbated by lung cancer and procedure Now requiring home O2 Continue bronchodilators (3) Atrial fibrillation: Assessment and plan: Continue home apixaban, CCB (4) Diabetes mellitus type II, uncontrolled: Assessment and plan: Hypoglycemic on admission due to poor PO intake Blood glucose now at appropriate levels A1C 7.6, not well controlled, however risk of hypoglycemia persists Continue Q12H fingersticks while hospitalized At home she will need to have support to maintain nutrition (5) Diastolic heart failure due to valvular disease: Assessment and plan: Blood pressures remain soft, continue to hold home spironolactone, furosemide, losartan (6) Cisco Bonnet syndrome: Status: Acute Assessment and plan: AKA visual release hallucinations -secondary to rapid decline in vision over the last few months -aparently is worse in the morning when she wakes up (7) Hypoglycemia: Status: Resolved Assessment and plan: Home incident with hypoglycemia, used long acting insulin in the morning, poor PO intake Improved with PO intake while hospitalized, resolved from a causation/response standpoint (8) Orthostatic hypotension: Status: Resolved Assessment and plan: -in ED was 111/83 and dropped to 83/51 when standing -likely due to recent poor PO intake and taking her lasix, losartan and diltiazem (all of which will be held) -s/p 1L NS in ED -was on NS at 75ml/hr -BPs now improved (9) Acute hypoxemic respiratory failure: Status: Resolved Assessment and plan: -found to require 3L NC to maintain O2 >92% -likely combination of s/p procedure and lung CA -will wean as tolerated -home O2 test showed 3L NC continuous Will need home O2 at discharge Resolved, no longer acute. COPD worsening, new baseline, requiring home O2 at this time. Subjective Subjective Interval history since last seen: Ms. Alvarado is comfortable, no new concerns. She feels that her vision is improving and reports that her blood thinner caused her vision problems. Exam Narrative Exam Narrative: General: This is a pleasant woman in no distress HEENT: Normocephalic, atraumatic. Severe vision deficit. CV: irregularly irregular Resp: CTAB Abd: soft, NTND MSK: voluntary motion x4 Neuro: awake, alert, poor visual perception Objective Last Vital Signs Temp 36.2 C L 08/05/25 14:47 Pulse 98 H 08/05/25 14:47 Resp 20 08/05/25 14:47 BP 101/62 08/05/25 14:47 Pulse Ox 92 08/05/25 14:47 Laboratory Results - last 24 hr 08/05/25 06:10 WBC 8.98 RBC 4.31 Hgb 12.5 Hct 38.1 MCV 88 MCH 29.0 MCHC 32.8 RDW 16.0 H Plt Count 262 MPV 9.3 Immature Gran % 0.3 Neutrophils % 66.3 Lymphocytes % 21.3 Monocytes % 9.8 Eosinophils % 1.6 Basophils % 0.7 Nucleated RBC % 0.0 Absolute Neutrophils 5.96 Absolute Lymphocytes 1.91 Absolute Monocytes 0.88 H Absolute Eosinophils 0.14 Absolute Basophils 0.06 Sodium 142 Potassium 3.9 Chloride 105 Carbon Dioxide 27.8 Anion Gap 9.2 BUN 12 Creatinine 0.81 Est GFR (CKD-EPI 2020) 70.07 Glucose 114 H Calcium 9.1 Total Bilirubin 0.5 AST 17 ALT 12 Alkaline Phosphatase 69 Total Protein 7.0 Albumin 3.8 VTE Prohylaxis Risk Level: Moderate/High Risk Contraindications: Other (planned procedure in AM) Prophylaxis: Mechanical Time Spent with Patient Time Spent with Patient: 25-34 minutes Time was spent: preparing to see the patient(eg.review tests), obtaining and/or reviewing separately otained hiistory, ordering medications,tests, procedures, referring, communicating with other health skin care technician, indepentently interpreting results, counseling the patient and care coordination
--- NOTE | 2025-08-05 18:25 | PDOC.CMPRO ---
Date of service: 08/05/25 Time of Service: 18:26 Care Management Progress Note Progress Note Text Progress Note Text: Zuleyka was lying in bed when LEONILA met with her. She was pleasant and engaged well in conversation. LEONILA discussed with Zuleyka a conversation that LEONILA had with her brother, Vaibhav, before the visit today. Vaibhav expressed frustration with being Zuleyka's caregiver, and stated that he is no longer able to go to her home and help her. Zuleyka reported that he had been going into the home three times a day- morning, noon and night, to make sure she had food and took her medication. Zuleyka stated that she is independent with her ADLs, and is able to warm up food on her own. She reported that she has HH Mon, Mon, and Mon, and that MOW was supposed to be initiated but had not started yet. Zuleyka stated that she is ready and wanting to return home, but her biggest concerns were the cost of her medications (if any are needed on d/c), and her phone not being operational currently due to non payment. She stated that she gets paid on 08/12, and that she plans to pay her phone bill on that day. She stated that she believes she can accept calls, but cannot make calls, except to call 911. LEONILA connected Zuleyka with ELO, who met with her over the phone, and is able to support Zuleyka by helping cover the cost of her medications. ELO has also reached out to [facility] to confirm the start date of MOW. LEONILA will request that Zuleyka is sent home with a couple of sandwiches and snacks for her to have food when she gets home. LEONILA will coordinate RCT transportation, with a stop at the pharmacy, if needed. Per ELO, Zuleyka has two prescriptions at [facility] in [facility] and [facility]. Per MD, the [facility] has been discontinued. Palliative care was consulted; she can be seen outpatient, at home, if a consult is not able to be coordinated prior to her discharge. LEONILA spoke to Vaibhav again, later in the day, who stated that he has turned the water back on at the house, and the door is unlocked for her. LEONILA expressed the importance of his support to help Zuleyka connect and engage with community resources, even if he is unable to physically provide care; he seemed reasonably willing to follow through with this support. Vaibhav reported that Zuleyka has an appt with her PCP on 08/07 at 3pm; this was added to her discharge plan. CM/ELO will help support Zuleyka with obtaining an RCT ride for this outpatient appt. CM will continue to follow. 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 She will likely have new home O2, coordinated by RT. CM will coordinate RCT private vehicle transportation home, [facility], if needed. Zuleyka has a PCP f/u appt scheduled for 08/07 at 3pm; CM will attempt to coordinate transportation for this appt. A referral was placed with [facility] to confirm MOW, and to help support Zuleyka with director long term care planning and options counseling. She will follow up with her PCP and discharge plan of care. CM will continue to follow. Social Determinants of Health Screening Social Determinants of health last assessed in clinic: 08/05/25 Will the Patient Participate in the Screening?: Yes Do you worry about having a steady place to live?: no Problems where you live: no known problems In the past 12 months, have you had to go without electric, gas, oil or water in your home?: yes 1. Within the past 12 months, we worried whether our food would run out before we got money to buy more.: Sometimes true 2. Within the past 12 months, the food we bought just didn't last and we didn't have money to get more.: Sometimes true Has lack of transportation kept you from medical appointments or from doing things needed for daily living?: no Has anyone in your life made you feel unsafe or unsupported?: no How hard is it for you to pay for the very basics like food, housing, medical care, and heating? Would you say it is:: Very hard Do you want help finding or keeping work or a job?: I do not need or want help If for any reason you need help with day-to-day activities such as bathing, preparing meals, shopping, managing finances, etc., do you get the help you need?: I need a lot more help How often do you feel lonely or isolated from those around you?: Rarely Do you speak a language other than Lebanese at home?: No Does the patient want assistance with any of the above?: Yes Health Related Social Needs Health related social needs: food insecurity (Z59.41), material hardship(utilities) (Z59.12), problems related to housing/economic circumstances (Z59.89), problems with daily activities (Z73.9) and feeling lonely/isolated (Z60.8) Health related social needs details: poor vision, has cataract appointments 10/12 and 10/17
[2025-08-05] MEDS: Melatonin 3 MG TAB PO (21:25)
[2025-08-05] MEDS: Acetaminophen 325 MG TAB 650 MG PO (21:25)
[2025-08-06 03:11] VITALS: BP 100/60; PULSE 90; TEMP 36.6; O2SAT 90
[2025-08-06 07:19] LABS: Abs Immature Grans 0.03 10^3/uL (0.0-0.06); HCT 37.7 % (36.0-46.0); HGB 12.4 g/dL (11.2-15.7); Immature Grans % 0.3 %; MCH 29.2 pg (27.0-33.0); MCHC 32.9 % (32.0-36.0); MCV 89 fL (80-95); MPV 9.4 fL (8.0-11.0); Platelet Count 265 10^3/uL (130-400); RBC 4.25 10^6/uL (3.93-5.22); RDW 16.3 % (11.7-14.6); RDW-SD 52.8 fL; WBC 9.08 10^3/uL (4.4-10.8)
[2025-08-06 07:53] VITALS: BP 110/70; PULSE 90; RESP 16; TEMP 36.6; O2SAT 92
[2025-08-06] MEDS: Magnesium Chloride 64 MG TABCR PO (08:14)
[2025-08-06] MEDS: Sennosides/Docusate Sodium TAB 1 TAB PO (08:14)
[2025-08-06] MEDS: Atorvastatin 40 MG TAB PO (08:14)
[2025-08-06] MEDS: dilTIAZem CD 180 MG CAPCR 360 MG PO (08:14)
[2025-08-06] MEDS: Metoprolol CR 100 MG TABCR PO (08:14)
[2025-08-06] MEDS: Sertraline 50 MG TAB PO (08:15)
[2025-08-06 08:27] VITALS: O2SAT 92
--- NOTE | 2025-08-06 09:02 | PDOC.CMDIS ---
Date of service: 08/06/25 Time of Service: 09:02 LACE Index Scoring Tool Questions: Length of Stay (in days): 7 - 13 Was the patient admitted via the E.D.?: Yes Comorbidities: Diabetes w/o Complication, Congestive Heart Failure and Chronic Pulmonary Disease E.D. 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 She will follow up with her community providers and plan of care and transport with via private car with a friend. Patient/Family Education Needs: Review of discharge instructions, limitations, follow up plan and discuss Ask Me Three Services Needed at Discharge: Home Health Care Services SDOH Health Related Social Needs: Health related social needs food insecurity material hardship house/econ circumstance daily activities lonely/isolated Health related social needs details poor vision, has cataract appointments 10/12 and 10/17 Health related social needs details: poor vision, has cataract appointments 10/12 and 10/17
--- NOTE | 2025-08-06 10:13 | PT.INTREAT ---
PT Notes Visit Reasons: Hypoglycemia, Orthostatic Hypotension Date: 08/06/2025 PRECAUTIONS: Impaired vision, fall risk, standard SUBJECTIVE: Pt in bed when approached for therapy this morning, agreed to participating with therapy session, OBJECTIVE: ?NC on 1L / Room Air during session? PAIN: denies VITALS: Pre-Treatment: Sao2 at low 90's Post-Treatment: ?Sao2 at low 90's ? Therapeutic Activities 27280: Direct one-on-one instruction in dynamic activities to improve functional performance. ?? BED MOBILITY/TRANSFERS? Rolling L/R: independent Supine-sit: independent ? Sit-supine: ?independent ? Sit-stand: ?Independent? Stand-sit: ?Independent? Bed-Chair:? Independent? Chair-bed: Independent Provided skilled cues and instruction on performance and technique throughout. Gait Training 30217: Direct one-on-one instruction and skilled instruction in: Employing an assistive device Movement sequencing Turning and movement with proper form Provided verbal cues for equipment management and technique Provided instruction in gait pattern Patient education regarding pacing and breathing techniques to maximize activity tolerance? GAIT? Assistive Device: ?FWW ? Weight bearing: FWB Assist: ?CGA for redirection due to vision challenge ? Distance:??150'x2 rest break in between to prevent SOB? Deviation: Stoop forward posture, low step height, short step length ? STAIRS:? ?6 steps 6x up/down step over step Bilateral handrail SBA ? ASSESSMENT:?Pt tolerated activity well, pt Sao2 stayed WNL given time in between activity for rest and DBE. pt able to perform all activity on RA. PLAN: Continue with balance training, global strengthening and general conditioning for improved safety, mobility and activity tolerance until pt is ready for DC. TREATMENT CODE/TIME: [id number], 25mins (9:50-10:15am)
--- NOTE | 2025-08-06 10:38 | PDOC.HHF2F_ITS ---
Date of service: 08/06/25 Time of Service: 10:39 Home Health Referral Registered Nurse: Check all that apply Instruct on new or changed medication(s)/assess compliance: Ordered Assess for exacerbation of medical condition, instruct patient/caregivers on signs and symptoms to report for early detection: Ordered Physical Therapist: Check all that apply Increase strength & endurance for safe mobility at home: Ordered To design/establish home maintenance program: Ordered Fall reduction therapy program for patient with history of frequent falls: Ordered Home safety evaluation and teaching/gait training including stair management (if applicable): Ordered Occupational Therapist: Evaluate and treat for patient unable to perform ADL/IADL/self-care: Ordered Pharmacy Resource Tech: Assist with community resources: Ordered Assist with skilled nursing care planning: Ordered Home Bound Status Patient has a condition such that leaving home is medically contraindicated (Describe): Unable to see adequately Encounter Date and Reason: I certify that a FTF encounter for this patient was performed on August 06, 2025 and that such encounter was related to the primary reason the patient requires home health services. The encounter was conducted in the following manner: * By me as the certifying physician, CHEMICAL RESEARCH TECHNICIAN, PA or * By an inpatient physician, CHEMICAL RESEARCH TECHNICIAN or PA during an inpatient stay who communicated findings to me, Certification And Authentication I certify that I composed the above information based on my clinical judgment relating to this patient's medical condition and, if applicable, clinical findings communicated to me by the NPP or inpatient physician who performed the FTF encounter. Name of Provider that will be monitoring home health services: Gage Paul
--- NOTE | 2025-08-06 10:39 | W.PM.DS.N ---
Date of service: 08/06/25 Time of Service: 08:00 DS: Diagnosis Discharge Diagnosis (1) Suspected malignant neoplasm of lung: Status: Acute Asessment and Plan: Chest CT showing extensive mediastinal and hilar adenopathy with T3 compression deformity Very concerning for primary lung neoplasm with metastatic disease. Adrenal involvement also a concern. EBUS with Dr Altman July 31 (Flexible video bronchoscopy with endobronchial ultrasound) Cytology and pathology results pending Oncology referal pending results (2) Chronic obstructive pulmonary disease: Status: Chronic Asessment and Plan: Likely new, worse, baseline due to likely malignancy Now requiring home O2 Continue bronchodilators (3) Atrial fibrillation: Asessment and Plan: Continue home apixaban, CCB (4) Diabetes mellitus type II, uncontrolled: Asessment and Plan: Hypoglycemic on admission due to poor PO intake Blood glucose now at appropriate levels A1C 7.6, not well controlled, however risk of hypoglycemia persists Continued Q12H fingersticks while hospitalized At home she will need to have support to maintain nutrition (5) Diastolic heart failure due to valvular disease: Asessment and Plan: Blood pressures soft when nutrition not maintained Patient has fluid buildup when she does not get her diuretics However when she is not getting sufficient nutrition these medications should be held. Continue losartan regardless (6) Cisco Bonnet syndrome: Status: Acute Asessment and Plan: AKA visual release hallucinations when vision rapidly declines Patient feels her vision loss is due to her blood thinner. This is unlikely. Blood thinner would be more likely protective. Patient reported improving vision towards the end of her hospitalization; staff did not appreciate a change. (7) Hypoglycemia: Status: Resolved Asessment and Plan: Home incident with hypoglycemia, used long acting insulin in the morning, poor PO intake Improved with PO intake while hospitalized, resolved from a causation/response standpoint High risk of recurrence if nutrition is not maintained. Discontinued insulin pending PCP review (8) Orthostatic hypotension: Status: Resolved Asessment and Plan: -in ED was 111/83 and dropped to 83/51 when standing -likely due to recent poor PO intake and taking her lasix, losartan and diltiazem (all of which will be held) -s/p 1L NS in ED -was on NS at 75ml/hr -BPs now improved (9) Acute hypoxemic respiratory failure: Status: Resolved Asessment and Plan: -found to require 3L NC to maintain O2 >92% -likely combination of s/p procedure and lung CA -will wean as tolerated -home O2 test showed 3L NC continuous Will need home O2 at discharge Resolved, no longer acute. COPD worsening, new baseline, requiring home O2 at this time. Discharge Plan Disposition Patient Disposition: Home W/Home Health Services Home Health Services: Resumption of Home Health Services Anticipated Discharge Date/Time: 08/06/25 10:12 Condition: Improving Discharge Details Reason For Visit: Hypoglycemia, Orthostatic Hypotension Admit Date/Time: 07/30/25 14:11 Admit Provider: Humza Bueno Attending Provider: Humza Bueno Primary Care Provider: [facility] Hospital Course: Zuleyka Alvarado is a 70 year old woman presenting July 30 with nausea, weakness and pain in her left leg. She has insulin-dependent diabetes and has had poor nutrition; she was found to have hypoglycemia. Her blood pressures were low, with orthostatic BP falling on standing. She had CT chest findings that are very concerning for malignancy; she had EBUS sampling of lung tissue which is still being analyzed but likely-malignant cells were present. During her hospitalization, with good nutrition, her blood sugar and blood pressure stabilized. Her A1C is 7.6 and her blood sugars have been normal on no insulin; at this time she should not continue taking insulin nor metformin until she sees her primary care provider. If she does not have good oral intake, insulin is not appropriate. She has been cleared by physical therapy. At this time she is safe for discharge home. Home Meds and New Rx's Prescriptions: Continued (DME) sarwat.stocking,knee,reg,xlrg Misc See Rx Instructions .ROUTE .MEDSUPPLY Qty: 12 6RF Rx Instructions: As directed apixaban 5 mg tablet 5 mg PO BID Qty: 60 3RF atorvastatin 40 mg tablet 40 mg PO DAILY Qty: 90 3RF clotrimazole-betamethasone 1-0.05 % cream 1 applic topical BID 10 Days Qty: 15 2RF sertraline 50 mg tablet 50 mg PO DAILY Qty: 90 3RF metoprolol succinate 100 mg tablet extended release 24 hr 100 mg PO BID 90 Days Qty: 180 3RF multivitamin [One-A-Day Essential] 1 EACH tablet 1 ea PO DAILY budesonide-formoterol [Breyna] 80-4.5 mcg/actuation HFA aerosol inhaler 1 - 2 puff inhalation 12XD PRNQty: 10.2 0RF Rx Instructions: up to max 12 times per day (24h) as needed for difficulty breathing Discontinued furosemide 40 mg tablet 40 mg PO BID Qty: 180 3RF insulin degludec [Tresiba FlexTouch U-200] 200 unit/mL (3 mL) insulin pen See Rx Instructions subcut DAILY Qty: 9 6RF Rx Instructions: 20 units qam, 50 units qhs subcutaneously daily; losartan 25 mg tablet 25 mg PO BID Qty: 180 3RF spironolactone 25 mg tablet 25 mg PO DAILY Qty: 90 3RF (DME) Blood Glucose Test Strip See Rx Instructions .Route Qty: 300 3RF Rx Instructions: Accu-check test sstrips. test 4x/day to keep HbA1c less than 6/5%. Dx E11.9 (DME) blood-glucose meter Misc See Rx Instructions .Route Qty: 1 0RF Rx Instructions: accu-check meter. to test 4x/day to keep HbA1c less than 6.5% Dx E11.9 (DME) lancets 33 gauge misc See Rx Instructions .ROUTE .MEDSUPPLY Qty: 100 11RF Rx Instructions: As directed, TID, to keep HbA1c below 6.5%, on insulin; Dx: E11.9 (DME) pen needle, diabetic [BD Ultra-Fine Orig Pen Needle] 29 gauge x 1/2 needle 0 .ROUTE .MEDSUPPLY Qty: 100 12RF Rx Instructions: As directed, 5x day insulin aspart U-100 [Novolog FlexPen U-100 Insulin] 100 unit/mL (3 mL) insulin pen See Rx Instructions subcut TID MDD 30 units Qty: 15 11RF Rx Instructions: Inject 1-10 units SQ TID with each meal acording to sliding scale subcut three times a day; 140-180 3 units, 181-240 4 units, 241-300 6 units, 301-350 8 units, 351-400 10 units metformin 1,000 mg tablet 1,000 mg PO BID Qty: 180 3RF acetaminophen [Mapap Extra Strength] 500 MG tablet 500 - 1,000 mg PO PRN PRN No Action diltiazem HCl 360 mg capsule,extended release 24 hr 360 mg PO DAILY Qty: 90 3RF gabapentin 300 mg capsule 300 mg PO TID Qty: 270 3RF magnesium chloride [Mag 64] 64 mg Tablet,Delayed Release (Dr/Ec) 64 mg PO NOW Qty: 30 0RF Discharge Instructions Instructions: Dealing with Low Blood Sugar from the Drugs You Take Stand Alone Forms: Portal Information, Nursing Discharge Form Referrals: Gage Paul DO [Primary Care Provider, Medicine] - 08/07/25 3:00 pm Referral Note: Your PCP will reach out, if you do not hear from them please call. Activity:: Activity as Tolerated Equipment/Supplies:: Oxygen (L/min Below) Diet:: As Tolerated Discharge Orders Discharge Orders: Discharge Order (Routine); Ordered 08/06/25 Ordered By: Diego Kc Discharge Data Discharge Date/Time-TO BE ENTERED AT DEPARTURE: 08/06/25 14:04 DS: Summary Time Spent with Patient providing and/or coordinating discharge services: Greater than 30 minutes Status at Discharge Functional status at discharge: independent ambulation Overall status at discharge: patient is progressing back to baseline Mental Status: mental status grossly normal Speech and Movement: speech and movement normal Mood: congruent mood Affect: normal affect Quality:SDOH Health Related Social Needs: Health related social needs food insecurity material hardship house/econ circumstance daily activities lonely/isolated Health related social needs details poor vision, has cataract appointments 10/12 and 10/17 Health related social needs details: poor vision, has cataract appointments 10/12 and 10/17 Exam Narrative Exam Narrative: General: This is a pleasant woman in no distress HEENT: Normocephalic, atraumatic. Vision deficit. CV: irregularly irregular Resp: CTAB Abd: soft, NTND MSK: voluntary motion x4 Neuro: awake, alert, poor visual perception Psych Mental Status: mental status grossly normal Speech and Movement: speech and movement normal Mood: congruent mood Affect: normal affect DS: Data Vitals/I&O Vitals and I&O: Vital Signs Temperature 36.6 C 08/06/25 07:53 Temperature Source Tympanic 08/06/25 07:53 Pulse 90 08/06/25 07:53 Pulse Rhythm Irregular 07/30/25 15:49 Pulse 117 H 07/31/25 15:36 Respiratory Rate 16 08/06/25 07:53 Respiratory Effort Short of Breath 07/30/25 15:49 Respiratory Depth Normal 07/30/25 15:49 Respiratory Pattern Normal 07/30/25 15:49 Blood Pressure 110/70 08/06/25 07:53 Blood Pressure Mean 83 08/06/25 07:53 Blood Pressure Position Supine 07/30/25 09:09 Pulse Oximetry 92 08/06/25 08:27 Respiratory End-tidal CO2 17 07/31/25 15:36 Oxygen Delivery Method Nasal Cannula 08/06/25 08:27 Oxygen Flow Rate 1 08/06/25 08:27 Pain Level 0 08/06/25 07:53 Comment Pt refused vitals, Nurse notified. 08/02/25 19:26 Intake & Output 08/05/25 08/05/25 08/06/25 11:59 23:59 11:59 Intake Total 240 / 600 360 / 600 120 / 120 Output Total 600 / 950 350 / 950 Balance -360 / -350 10 / -350 120 / 120 Intake: Oral 240 / 600 360 / 600 120 / 120 Output: Urine 600 / 950 350 / 950 Other: Urine Color Yellow [place] Urine Appearance Clear Clear Urine Odor Normal None Stool Size Large Stool Characteristics Soft Data Completed and Pending Pending Labs at Discharge: 07/30/25 07/30/25 07/30/25 09:35 10:35 12:43 WBC 11.09 H RBC 4.56 Hgb 13.4 Hct 40.7 MCV 89 MCH 29.4 MCHC 32.9 RDW 16.7 H Plt Count 281 MPV 9.4 Immature Gran % 0.4 Neutrophils % 74.8 Lymphocytes % 14.4 Monocytes % 9.1 Eosinophils % 0.9 Basophils % 0.4 Nucleated RBC % 0.0 Absolute Neutrophils 8.30 H Absolute Lymphocytes 1.60 Absolute Monocytes 1.01 H Absolute Eosinophils 0.10 Absolute Basophils 0.04 VBG pH 7.36 VBG pCO2 54 H VBG pO2 27 VBG HCO3 31 H VBG Total CO2 28 VBG O2 Saturation 43 VBG Base Excess 5 H Sodium 135 L Potassium 4.4 Chloride 99 Carbon Dioxide 30.7 Anion Gap 5.4 BUN 21 Creatinine 1.03 H Est GFR (CKD-EPI 2020) 53.10 Glucose 73 L Hemoglobin A1c Calcium 9.2 Magnesium Total Bilirubin 0.4 AST 26 ALT 15 Alkaline Phosphatase 92 Troponin I 3 3 NT-Pro-B Natriuret Pep 292 Total Protein 7.9 Albumin 4.2 Urine Color Yellow Urine Clarity Clear Urine pH 7.0 Ur Specific [place] 1.010 Urine Protein Negative Urine Ketones Negative Urine Blood Negative Urine Nitrite Negative Urine Bilirubin Negative Urine Urobilinogen 0.2 Ur Leukocyte Esterase Negative Urine Glucose Negative 07/31/25 08/03/25 08/04/25 06:15 06:32 06:15 WBC 7.97 8.00 RBC 3.89 L 4.18 Hgb 11.4 D 12.0 Hct 34.6 L 36.7 MCV 89 88 MCH 29.3 28.7 MCHC 32.9 32.7 RDW 16.7 H 16.0 H Plt Count 241 226 MPV 9.8 9.3 Immature Gran % 0.4 Neutrophils % 65.1 Lymphocytes % 20.9 Monocytes % 10.4 Eosinophils % 2.4 Basophils % 0.8 Nucleated RBC % 0.0 Absolute Neutrophils 5.22 Absolute Lymphocytes 1.67 Absolute Monocytes 0.83 H Absolute Eosinophils 0.19 Absolute Basophils 0.06 VBG pH VBG pCO2 VBG pO2 VBG HCO3 VBG Total CO2 VBG O2 Saturation VBG Base Excess Sodium 141 141 Potassium 4.5 3.9 Chloride 107 105 Carbon Dioxide 27.4 28.5 Anion Gap 6.6 7.5 BUN 17 11 Creatinine 0.88 0.84 Est GFR (CKD-EPI 2020) 63.68 67.19 Glucose 69 L 116 H Hemoglobin A1c 7.6 H Calcium 8.5 8.7 Magnesium 1.5 L 1.5 L 1.6 Total Bilirubin 0.6 AST 19 ALT 11 Alkaline Phosphatase 67 Troponin I NT-Pro-B Natriuret Pep Total Protein 6.8 Albumin 3.6 Urine Color Urine Clarity Urine pH Ur Specific [place] Urine Protein Urine Ketones Urine Blood Urine Nitrite Urine Bilirubin Urine Urobilinogen Ur Leukocyte Esterase Urine Glucose 08/05/25 08/06/25 06:10 06:36 WBC 8.98 9.08 RBC 4.31 4.25 Hgb 12.5 12.4 Hct 38.1 37.7 MCV 88 89 MCH 29.0 29.2 MCHC 32.8 32.9 RDW 16.0 H 16.3 H Plt Count 262 265 MPV 9.3 9.4 Immature Gran % 0.3 0.3 Neutrophils % 66.3 68.5 Lymphocytes % 21.3 18.9 Monocytes % 9.8 10.2 Eosinophils % 1.6 1.3 Basophils % 0.7 0.8 Nucleated RBC % 0.0 0.0 Absolute Neutrophils 5.96 6.21 Absolute Lymphocytes 1.91 1.72 Absolute Monocytes 0.88 H 0.93 H Absolute Eosinophils 0.14 0.12 Absolute Basophils 0.06 0.07 VBG pH VBG pCO2 VBG pO2 VBG HCO3 VBG Total CO2 VBG O2 Saturation VBG Base Excess Sodium 142 Potassium 3.9 Chloride 105 Carbon Dioxide 27.8 Anion Gap 9.2 BUN 12 Creatinine 0.81 Est GFR (CKD-EPI 2020) 70.07 Glucose 114 H Hemoglobin A1c Calcium 9.1 Magnesium Total Bilirubin 0.5 AST 17 ALT 12 Alkaline Phosphatase 69 Troponin I NT-Pro-B Natriuret Pep Total Protein 7.0 Albumin 3.8 Urine Color Urine Clarity Urine pH Ur Specific [place] Urine Protein Urine Ketones Urine Blood Urine Nitrite Urine Bilirubin Urine Urobilinogen Ur Leukocyte Esterase Urine Glucose PFSH All Active Problems (Updated 08/07/25 @ 00:04 by GRABIEL KO) ACP (advance care planning) (Acute) Impaired instrumental activities of daily living (Acute) Palliative care encounter (Acute) Atrial fibrillation (Chronic) Diabetes (Chronic) Hypoglycemia (Acute) Respiratory failure (Acute) Orthostasis (Acute) Cisco Bonnet syndrome (Acute) Vision loss, bilateral (Acute) Suspected malignant neoplasm of lung (Acute) Cystitis (Acute) Hypnopompic hallucination (Acute) Environmental allergies (Acute) Wound of right leg (Acute) Onychogryphosis (Acute) Nocturnal hypoxia (Acute) Personal history of nicotine dependence (Acute) Cardiomyopathy (Acute) Diabetic peripheral neuropathy (Acute) Chronic obstructive pulmonary disease (Chronic) Chronic diastolic heart failure (Acute) Venous stasis dermatitis of both lower extremities (Acute) Toenail deformity (Acute) Atrial fibrillation with rapid ventricular response (Acute) Pneumonia (Acute) Acute respiratory failure with hypoxia (Acute) Sebaceous cyst (Acute 10/12/17) Nocturnal hypoxemia (Chronic) Restless leg syndrome (Chronic) Degenerative joint disease of left knee (Chronic) Lipoma of left shoulder (Acute) Hyperlipidemia (Acute) Venous stasis ulcer limited to breakdown of skin with varicose veins (Acute) Elevated BP without diagnosis of hypertension (Chronic 10/12/17) Medical History Diabetes mellitus type II, uncontrolled Diastolic heart failure due to valvular disease Atrial fibrillation Diabetes CHF (congestive heart failure) A-fib Pulmonary edema inpatient [facility] 03/06-03/09/21 Acute respiratory failure with hypercapnia inpatient [facility] 03/06-03/09/21 Arthritis (10/12/17) Heart murmur (10/12/17) Rheumatic fever (10/12/17) Loss of taste Venous insufficiency (chronic) (peripheral) Afib Family History Mother Diabetes Hypertension Heart disease Depression Anxiety Maternal Aunt Diabetes Neoplasm Breast Maternal Uncle Neoplasm Father , cardiac issues at age 64. 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 - [employer] Pets and animals: Yes Pets and animals: cat(s) Do you think of yourself as: straight/heterosexual Current gender identity: female What is your relationship status?: How often do you talk on the phone with friends or family?: three or more times per week How often do you get together with friends or relatives?: twice per week Do you belong to any clubs or organized social groups?: no Panel score (0-1 are the most socially isolated patients): 1 What type of physical activity do you participate in: walking Duration: 15-30 minutes/day Frequency: 1-2 times per week Rebecca/Voodoo: [employer] [facility] rebecca needs: No Seatbelt use: always Helmet use: Yes Helmet use: sometimes Drive intox or ride w/intox 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
[2025-08-06 11:32] VITALS: PULSE 101; PULSE 84; PULSE 93; RESP 16; RESP 20; RESP 22; O2SAT 86; O2SAT 91; O2SAT 92
[2025-08-06 11:38] VITALS: O2SAT 92
[2025-08-06 11:54] VITALS: BP 105/79; PULSE 82; RESP 16; TEMP 36.4; O2SAT 92
--- NOTE | 2025-08-06 12:41 | RESPIRATORY ---
Patient sent home with [employer] concentrator SN#[id number] for new home O2 requirement of 2L with ambulation/ RA at rest. [facility] order processed through [employer]
--- NOTE | 2025-08-06 13:09 | PCNE_ITS ---
Date of service: 08/06/25 Time of Service: 12:15 History of Present Illness Narrative: Ms. Gardiner is a 70 y/o F currently hospitalized 2/2 hypoglycemia, weakness and orthostatic hypotension; PMHx sig for A Fib, DM, HFrEF, COPD and new lung mass s/p EBUS on 07/31 Hospital Course: presented to ED on 07/30 w/CC swelling, nausea, weakness w/reduced oral intake/no meds for at least one day, hypoglycemia at demi w/43 finger stick called EMS, had OJ, increased to 88 via EMS, persistent hypoglycemia in ED, persistent tachycardia despite home metop ER dose and found to have orthostatic hypotension, admitted for ongoing evaluation and management; on 07/31 she was able to have EBUS for new lung mass via pulm; w/acute resp failure s/p procedure w/new O2 requirement; 08/04 pulm consult w/preliminary report indicating cancer of lung mass, outpatient oncology referral placed; now on RA which is her baseline; planning for discharge home today Zuleyka is looking forward to returning to her home. She feels she is back to her baseline nad can take care of self at home. She will have supports from and MOW w/some other supports she thinks coordinated via hospital Vision: acute onset of blindness she a/w blood thinner; she does have cataracts and is scheduled for surgery on 10/01 and 10/16. She can see sometimes and feels she would be able to care for self despite vision changes; these vision changes also caused hallucinations; Resp/Onc: now on RA, at baseline does not use O2, aware of new O2 for home recommendations. She has never felt the effects of COPD. She is not suprised she may have lung cancer d/t smoking history. At this time would want to pursue treatment for lung cancer and learning more from oncology. aware of outpatient referral Kristin: she has been struggling w/her appetite more often, w/low appetite, not feeling hungry and loss of taste chronically. She reports issues w/chewing/swallowing at this time; she did eat some fruit, cookies nad chips today, she does not like the food here. She is aware she has had some weight loss, a/w reduced appetite; Social: her in 2016, mom in 2019 and one brother in 2023; she lives alone in [facility]. Her brother lives next door and while he was helping her significantly prior to this hospitalization, she is aware he is no longer willing to provide her this assistance; She has coordinated w/a friend a ride and help into home today ACP: she has never completed an advanced directive; she would want every opportunity to be kept alive, including doing CPR if her heart were to stop, she would want a trial of all LST but would not want to be kept alive on machines permanently. she cannot identify anyone today she would trust to be her HCA if she could not make her own decisions - she would want to pursue oncology treatment - she would want to live in my home until I Assessment and Plan Assessment and plan (1) Lung cancer: Status: Chronic Assessment and plan: preliminary report indicating positive for cancer - previous CT w/extensive mediastinal hilar adenopathy w/primary lung neoplasm, potential metastasis to T3 and L adrenal; - pt aware it is likely cancer; pending biopsy confirmation - outpatient oncology referral - okay w/presenting to for oncology (2) Hypoglycemia: Status: Acute Assessment and plan: d/t low oral intake resolved (3) Diabetes: Status: Chronic Assessment and plan: difficulty w/medications and food security new connections to services (4) Cisco Bonnet syndrome: Status: Acute Assessment and plan: can see occasionally; feels able to care for self at home w/current abilities - scheduled for cataracts 10/01 and 10/16 (5) Acute hypoxemic respiratory failure: Status: Resolved Assessment and plan: now on RA initially w/new O2 requirement post EBUS; respiratory therapy following, will go home w/O2 today (6) Chronic obstructive pulmonary disease: Status: Chronic Assessment and plan: aware of diagnosis, has never felt effects of COPD historically (7) CHF (congestive heart failure): Assessment and plan: did not review today (8) A-fib: (9) Impaired instrumental activities of daily living: Status: Acute Assessment and plan: near full dependence; able to use microwave; MOW brother was providing significant supports, he is no long able to do this - services on discharge, MOW need for f/u at home (10) Palliative care encounter: Status: Acute Assessment and plan: PC will continue to follow [facility] outpatient for HV at soonest available - review AD/HCA - review chronic conditions of COPD/CHF - review oncology diagnosis/work up and treatment plans pending oncology visit (11) ACP (advance care planning): Status: Acute Assessment and plan: reviewed CODE status, remains full code; would not want to be kept alive in vegetative state; reviewed preferences to remain home thru EOL; feels safe to return home today w/current abilities reviewed likely lung cancer dx, preferences to pursue inintial oncology referral and pursue treatment; reviewed option to opt out at any time if she chooses, would be eligible for hospice spent 15m w/ACP Review of Systems Narrative: as per HPI PFSH All Active Problems (Updated 08/06/25 @ 13:40 by Karli Garrett NP) ACP (advance care planning) (Acute) Impaired instrumental activities of daily living (Acute) Palliative care encounter (Acute) Lung cancer (Chronic) Atrial fibrillation (Chronic) Diabetes (Chronic) Hypoglycemia (Acute) Lung mass (Acute) Respiratory failure (Acute) Orthostasis (Acute) Cisco Bonnet syndrome (Acute) Right hilar mass (Acute) Vision loss, bilateral (Acute) Suspected malignant neoplasm of lung (Acute) Cystitis (Acute) Hypnopompic hallucination (Acute) Environmental allergies (Acute) Wound of right leg (Acute) Onychogryphosis (Acute) Nocturnal hypoxia (Acute) Personal history of nicotine dependence (Acute) Cardiomyopathy (Acute) Diabetic peripheral neuropathy (Acute) Chronic obstructive pulmonary disease (Chronic) Chronic diastolic heart failure (Acute) Venous stasis dermatitis of both lower extremities (Acute) Toenail deformity (Acute) Atrial fibrillation with rapid ventricular response (Acute) Pneumonia (Acute) Acute respiratory failure with hypoxia (Acute) Sebaceous cyst (Acute 10/12/17) Nocturnal hypoxemia (Chronic) Restless leg syndrome (Chronic) Degenerative joint disease of left knee (Chronic) Lipoma of left shoulder (Acute) Hyperlipidemia (Acute) Venous stasis ulcer limited to breakdown of skin with varicose veins (Acute) Elevated BP without diagnosis of hypertension (Chronic 10/12/17) Medical History Diabetes mellitus type II, uncontrolled Diastolic heart failure due to valvular disease Atrial fibrillation Diabetes CHF (congestive heart failure) A-fib [place] [facility] [place] respiratory [place] with [place] [facility] [place] Arthritis (10/12/17) Heart murmur (10/12/17) Rheumatic fever (10/12/17) Loss of taste Venous insufficiency (chronic) (peripheral) Afib Family History Mother Diabetes Hypertension Heart disease Depression Anxiety Maternal Aunt Diabetes Neoplasm Breast Maternal Uncle Neoplasm Father , cardiac issues at age 64. 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 - [employer] Pets and animals: Yes Pets and animals: cat(s) Do you think of yourself as: straight/heterosexual Current gender identity: female What is your relationship status?: How often do you talk on the phone with friends or family?: three or more times per week How often do you get together with friends or relatives?: twice per week Do you belong to any clubs or organized social groups?: no Panel score (0-1 are the most socially isolated patients): 1 What type of physical activity do you participate in: walking Duration: 15-30 minutes/day Frequency: 1-2 times per week Rebecac/Restoration: Gnosticism Special rebecca needs: No Seatbelt use: always Helmet use: Yes Helmet use: sometimes 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 Working smoke detector in home: Yes Carbon monox detector in home: Yes Do you feel safe at home: Yes Do you feel safe in your relationship?: Yes Exam Narrative Exam Narrative: General: older adult chronically ill appearing female, lying half out of bed by preference throughout visit; HEENT: does not make eye contact, eyes intermittently open but remain closed most often; normocephalic, atraumatic, hearing grossly WNL Resp: even and unlabored at rest, speaks full sentences w/some SOB w/prolonged speech, recovers quickly; no audible wheeze; cough intermittent nonproductive Ext: BLE edema, erythema, dry skin Psych: MS WNL, speech clear, mood/affect congruent; thought process normal to impoverished/illogical/loose association; insight/judgement limited; thought content normal Results Last Vital Signs Temp 97.5 F L 08/06/25 11:54 Pulse 82 08/06/25 11:54 Resp 16 08/06/25 11:54 BP 105/79 08/06/25 11:54 Pulse Ox 92 08/06/25 11:54 Labs 08/06/25 06:36 08/05/25 06:10 Labs: Laboratory Results - last 24 hr 08/06/25 06:36 WBC 9.08 RBC 4.25 Hgb 12.4 Hct 37.7 MCV 89 MCH 29.2 MCHC 32.9 RDW 16.3 H Plt Count 265 MPV 9.4 Immature Gran % 0.3 Neutrophils % 68.5 Lymphocytes % 18.9 Monocytes % 10.2 Eosinophils % 1.3 Basophils % 0.8 Nucleated RBC % 0.0 Absolute Neutrophils 6.21 Absolute Lymphocytes 1.72 Absolute Monocytes 0.93 H Absolute Eosinophils 0.12 Absolute Basophils 0.07 Time Spent Time Spent with Patient Time Spent(min): 45
== END 2025-08-06 14:04 | disposition home health service (06) | DRG 180 ==
LOC: ER 14:48 → MS 15:44
PROVIDERS: Internal Medicine Pulmonary Disease; Admitting Provider Family Medicine; Emergency Provider Physician Assistant; PCP Family Medicine; Responsible Provider Family Medicine; Visit Provider Family Medicine
PROC: BB4BZZZ Ultrasonography of Pleura (ICD-10-PCS; CPT 31652; principal; 2025-07-31 13:00)
DX: C34.01 Malignant neoplasm of right main bronchus (principal); J96.01 Acute respiratory failure with hypoxia; C77.1 Secondary and unspecified malignant neoplasm of intrathoracic lymph nodes; Z68.41 Body mass index [BMI] 40.0-44.9, adult; I42.9 Cardiomyopathy, unspecified; I50.32 Chronic diastolic (congestive) heart failure; C79.72 Secondary malignant neoplasm of left adrenal gland; C79.51 Secondary malignant neoplasm of bone; J98.11 Atelectasis; E11.649 Type 2 diabetes mellitus with hypoglycemia without coma; J44.9 Chronic obstructive pulmonary disease, unspecified; I48.91 Unspecified atrial fibrillation; E11.65 Type 2 diabetes mellitus with hyperglycemia; H53.16 Psychophysical visual disturbances; R63.4 Abnormal weight loss; Z79.4 Long term (current) use of insulin; I95.1 Orthostatic hypotension; E11.42 Type 2 diabetes mellitus with diabetic polyneuropathy; L60.2 Onychogryphosis; Z87.891 Personal history of nicotine dependence; G25.81 Restless legs syndrome; M17.12 Unilateral primary osteoarthritis, left knee; E78.5 Hyperlipidemia, unspecified; I87.2 Venous insufficiency (chronic) (peripheral); Z79.84 Long term (current) use of oral hypoglycemic drugs; Z59.89 Other problems related to housing and economic circumstances; H54.7 Unspecified visual loss; R00.0 Tachycardia, unspecified; Z79.01 Long term (current) use of anticoagulants; Z59.41 Food insecurity; Z59.87 Material hardship due to limited financial resources, not elsewhere classified; Z73.89 Other problems related to life management difficulty; R45.89 Other symptoms and signs involving emotional state
CPT/HCPCS: 31652; 00123; 36415; 36416; 80048; 80053; 82805; 82962; 85027; 93005; 94618; 94640; 96361; 96374; 97110; 97116; 97161; 97530; 99222; 99232; 99285; 71046; 73590; 74177; 81003; 83036; 83735; 83880; 84484; 85025; 88104; 93010; 93971; 94664; 94760; 99223; 99231; 99233; 99239; J0131; J2003; J2004; J2371; J2405; J2704; J3490; J7613; J7620

== ENCOUNTER 2025-08-12 20:47 | Inpatient (IN) | payer MEDICARE, SELFPAY ==
[2025-08-12] VITALS (25 sets, daily range): BP systolic 90–118; BP diastolic 63–87; PULSE 68–146; RESP 20–26; TEMP 36.7; O2SAT 80–98
--- NOTE | 2025-08-12 20:30 | RT.EKG_ITS ---
APPROVED REPORT Exam: Resting ECG Reason for Exam: ams, falls Patient Location: E HR:144 bpm ECG Measurements Heart Rate 144 AXIS NJ 82 P 0 QRSd 98 QRS 81 QT 334 T [id number] QTc [address] elevation secondary to high heart rate Abnormal T, consider ischemia, lateral leads...T <-0.20mV, I aVL V5 V6 Prolonged QT interval...QTc >500mS
[2025-08-12 21:19] LABS: Abs Immature Grans 0.06 10^3/uL (0.0-0.06); HCT 40.8 % (36.0-46.0); HGB 13.2 g/dL (11.2-15.7); Immature Grans % 0.5 %; MCH 28.4 pg (27.0-33.0); MCHC 32.4 % (32.0-36.0); MCV 88 fL (80-95); MPV 9.7 fL (8.0-11.0); Platelet Count 350 10^3/uL (130-400); RBC 4.64 10^6/uL (3.93-5.22); RDW 16.3 % (11.7-14.6); RDW-SD 52.2 fL; WBC 12.76 10^3/uL (4.4-10.8)
--- NOTE | 2025-08-12 21:30 | DI.CT_ITS ---
Exam(s) CT HEAD CERVICAL SPINE WO EXAM: CT HEAD CERVICAL SPINE WO CLINICAL HISTORY: fall, facial trauma, altered. TECHNIQUE: Imaging Protocol: Axial computed tomography images with coronal and sagittal reformatted images were created and reviewed COMPARISON: CT CT HEAD WO from 07/20/2025 FINDINGS: BRAIN: There are no skull fractures. Opacification of the left maxillary sinus is unchanged. There is no evidence of intracranial hemorrhage, mass effect, or shift of midline structures. There are no extra-axial fluid collections. The ventricles are not enlarged or shifted and there is no blood within the ventricular system nor within the basal cisterns. CERVICAL SPINE: No evidence of acute cervical spine fracture. There is mild degenerative anterolisthesis of C4 upon C5. All the disc spaces exhibit normal height. There is multilevel facet arthropathy but no facet joint malalignment. There is calcification in the supraspinous ligament at C6 and C7 levels. No obvious acute spinous process fractures. There is no significant facet joint malalignment. No significant osseous lesions evident. IMPRESSION: No acute intracranial findings on this noninfused CT scan of the brain. No evidence of cervical spine fracture, malalignment, nor acute compromise of the cervical spinal canal. Multilevel facet arthropathy noted. Preliminary vRad report was reviewed RADIATION DOSE DELIVERED: 1,175.78mGy.cm Total DLP DATA REPOSITORY: All CT scans at this facility are submitted to the National Radiology Data Registry (NRDR) Dose Index Registry (DIR) with the [employer] (ACR). RADIATION OPTIMIZATION: All CT scans at this facility use at least one of these dose optimization techniques: automated exposure control; mA and/or kV adjustment per patient size (includes targeted exams where dose is matched to clinical indication); or iterative reconstruction.
[2025-08-12 21:35] LABS: Magnesium 1.7 mg/dL (1.6-2.6)
[2025-08-12 21:37] LABS: ALT 22 U/L (10-49); AST 30 U/L (<34); Albumin 4.2 g/dL (3.2-5.0); Alkaline Phosphatase 91 U/L (46-116); Anion Gap 11.2 mmol/L (3-11); BUN 20 mg/dL (9-23); Bilirubin, Total 0.8 mg/dL (0.2-1.2); CO2 24.8 mmol/L (20.0-31.0); Calcium 9.7 mg/dL (8.3-10.6); Chloride 103 mmol/L (98-107); Glucose 141 mg/dL (74-106); Potassium 4.1 mmol/L (3.5-5.1); Sodium 139 mmol/L (136-145); Total Protein 8.0 g/dL (5.7-8.2)
[2025-08-12 21:40] LABS: TSH (W/Ref FT4) 8.36 uIU/mL (0.55-4.78)
[2025-08-12 21:46] LABS: D-Dimer 1997 ng/mlFEU (<500)
[2025-08-12 21:47] LABS: Ammonia < 10 umol/L (11-32)
--- NOTE | 2025-08-12 22:20 | DI.VRAD_ITS ---
PROCEDURE INFORMATION: Exam: CT Head Without Contrast Exam date and time: 08/12/2025 9:37 PM Age: 70 years old Clinical indication: Injury or trauma; Blunt trauma (contusions or hematomas); Injury details: Fall, facial trauma, altered TECHNIQUE: Imaging protocol: Computed tomography of the head without contrast. COMPARISON: MR BRAIN WO/W 07/21/2025 9:21 AM FINDINGS: Brain: Normal. No hemorrhage. Unremarkable white matter. No mass effect. Cerebral ventricles: No ventriculomegaly. Paranasal sinuses: Visualized sinuses are unremarkable. No fluid levels. Mastoid air cells: Visualized mastoid air cells are well aerated. Bones: Unremarkable. No acute fracture. Soft tissues: Unremarkable. IMPRESSION: No acute intracranial abnormality. PROCEDURE INFORMATION: Exam: CT Cervical Spine Without Contrast Exam date and time: 08/12/2025 9:37 PM Age: 70 years old Clinical indication: Injury or trauma; Blunt trauma (contusions or hematomas); Injury details: Fall, facial trauma, altered TECHNIQUE: Imaging protocol: Computed tomography of the cervical spine without contrast. COMPARISON: MR BRAIN WO/W 07/21/2025 9:21 AM FINDINGS: Bones/joints: No acute fracture. Normal alignment. C2-C3: No significant disc bulge or herniation. No severe spinal canal stenosis. No significant neural foraminal narrowing. C3-C4: No significant disc bulge or herniation. No severe spinal canal stenosis. No significant neural foraminal narrowing. C4-C5: No significant disc bulge or herniation. No severe spinal canal stenosis. No significant neural foraminal narrowing. C5-C6: No significant disc bulge or herniation. No severe spinal canal stenosis. No significant neural foraminal narrowing. C6-C7: No significant disc bulge or herniation. No severe spinal canal stenosis. No significant neural foraminal narrowing. C7-T1: No significant disc bulge or herniation. No severe spinal canal stenosis. No significant neural foraminal narrowing. Lungs: Lung apices are normal. Soft tissues: Unremarkable. IMPRESSION: No acute cervical spine fracture. Dictated and Authenticated by: Ayla Duffy MD. Orderin [place] Gustafson MD
[2025-08-12 22:40] LABS: Creatine Kinase 248 U/L (34-145)
--- NOTE | 2025-08-12 22:45 | DI.CT_ITS ---
Exam(s) CT CHEST PE CTA EXAM: CT CHEST PE CTA CLINICAL HISTORY: elevated ddimer, freq falls, cancer hx. TECHNIQUE: Imaging Protocol: CT angiography of the chest was performed using pulmonary embolus protocol. Multi planar reconstructions were performed. CONTRAST MATERIAL: Intravenous: Omnipaque 350 Contrast volume: 100 cc COMPARISON: CT CT CHEST PE CTA from 07/20/2025 FINDINGS: CHEST: PULMONARY ARTERIES: There are no intraluminal filling defects to suggest acute pulmonary emboli. LUNGS: Again noted is the previously described large right hilar and mediastinal mass consistent with malignancy. There is also prominent contiguous subcarinal adenopathy.. There is significant infiltrate in the right middle lobe, somewhat increased from previous study of 07/20/2025. There are no focal findings in the right lower lobe and no pleural effusion. The opposite-left lung is clear. There are emphysematous changes in lung [place], most prominent on the right side. MEDIASTINUM: Right hilar-lung mass with contiguous large involvement of the subcarinal region as well as paratracheal adenopathy again noted. Visualized thyroid unremarkable. CARDIAC: Heart size is upper normal. There is no pericardial effusion.Caliber of the thoracic aorta is within normal limits. No dissection. There is no significant shift of the interventricular septum. PARTIALLY VISUALIZED UPPERMOST ABDOMEN: Left adrenal nodule again noted, unchanged. Cannot exclude metastatic disease. Slight thickening of the medial limb of the right adrenal gland also noted. Spleen size normal. No ascites evident in the upper abdomen.. OSSEOUS: Mild T3 height loss again noted, unchanged. This may be metastatic. No additional vertebral height loss nor other osseous lesions.. IMPRESSION: 1. No evidence of acute pulmonary emboli. 2. Again noted is large mass involving the right hilum and mediastinum consistent with neoplasm. 3. Left adrenal nodule again noted. May be metastatic. T3 vertebral height loss is unchanged. May be metastatic. Preliminary V rad report was reviewed RADIATION DOSE DELIVERED: 154.17mGy.cm Total DLP DATA REPOSITORY: All CT scans at this facility are submitted to the National Radiology Data Registry (NRDR) Dose Index Registry (DIR) with the [employer] (ACR). RADIATION OPTIMIZATION: All CT scans at this facility use at least one of these dose optimization techniques: automated exposure control; mA and/or kV adjustment per patient size (includes targeted exams where dose is matched to clinical indication); or iterative reconstruction.
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
[2025-08-12] MEDS: Omnipaque 350 MG/ML 100 ML BTL IJ (23:33)
[2025-08-12] MEDS: Normal Saline Flush 10 ML SYR IVP (23:40)
[2025-08-12] MEDS: Normal Saline - Diluent 50 ML VIAL IJ (23:40)
[2025-08-12] MEDS: ceFAZolin 2 GM/50 ML BAG IVPB (23:55)
--- NOTE | 2025-08-12 23:57 | DI.VRAD_ITS ---
PROCEDURE INFORMATION: Exam: CTA Chest With Contrast Exam date and time: 08/12/2025 11:30 PM Age: 70 years old Clinical indication: Abnormal findings; Abnormal diagnostic tests; Elevated d-dimer, frequent falls, cancer HX TECHNIQUE: Imaging protocol: Computed tomographic angiography of the chest with contrast. Exam focused on the arteries. 3D rendering (Not supervised by radiologist): MIP and/or 3D reconstructed images were created by the technologist. Radiation optimization: All CT scans at this facility use at least one of these dose optimization techniques: automated exposure control; mA and/or kV adjustment per patient size (includes targeted exams where dose is matched to clinical indication); or iterative reconstruction. Contrast material: OMNIPAQUE 350; Contrast volume: 90 ml; Contrast route: INTRAVENOUS (IV); COMPARISON: CT CHEST PE CTA 07/20/2025 7:36 PM FINDINGS: Pulmonary arteries: There is narrowing of the segmental branch of the right lower lobe pulmonary artery. No evidence of pulmonary embolism. Aorta: Unremarkable. No aortic aneurysm. No aortic dissection. Thyroid: No thyroid lesions. No thyroid enlargement. Lungs: Right middle lobe atelectasis again noted. Underlying COPD again noted. Bibasilar atelectasis Pleural spaces: Unremarkable. No pneumothorax. No pleural effusion. Heart: The heart demonstrates diffuse enlargement. Mediastinal space: Again seen is soft tissue mass in the mediastinum and right hilum measuring up to 6.5 x 9.0 cm using similar measuring technique, likely represents neoplasm. Lymph nodes: Scattered mediastinal lymph nodes, likely reactive. No axillary adenopathy. Adrenal glands: Stable left adrenal lesion Bones/joints: Stable T3 compression fracture Soft tissues: Unremarkable. IMPRESSION: 1. There is narrowing of the segmental branch of the right lower lobe pulmonary artery. No evidence of pulmonary embolism. 2. Again seen is soft tissue mass in the mediastinum and right hilum measuring up to 6.5 x 9.0 cm likely represents neoplasm. 3. Scattered mediastinal lymph nodes, likely reactive. Dictated and Authenticated by: Ayla Duffy MD. Orderin [place] Gustafson MD
[2025-08-13] VITALS (91 sets, daily range): BP systolic 94–123; BP diastolic 46–100; PULSE 70–146; RESP 14–28; TEMP 36.1–36.6; O2SAT 86–96
--- NOTE | 2025-08-13 | DI.US_ITS ---
Exam(s) US LOWER EXTREMITY VENOUS LT EXAM: US LOWER EXTREMITY VENOUS LT CLINICAL HISTORY: asymmetric swelling TECHNIQUE: Grayscale, color, and doppler imaging of the deep venous system of the left lower extremity was performed. COMPARISON: US US LOWER EXTREMITY VENOUS LT from 07/30/2025 FINDINGS: There is no evidence of intraluminal thrombus and there is normal compression and augmentation demonstrated within the common femoral vein, femoral vein, and popliteal vein. In the ipsilateral calf the interrogated veins also exhibit normal compression/ augmentation properties. The ipsilateral saphenofemoral junction is patent. IMPRESSION: 1. No evidence of DVT in the left lower extremity. DATA REPOSITORY:
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
[2025-08-13] MEDS: dilTIAZem 25 MG/5 ML VIAL 15 MG IVP (00:25)
[2025-08-13] MEDS: dilTIAZem 125 MG in Normal Saline 100 ML IV INF (00:37)
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
[2025-08-13 06:54] LABS: HCT 36.2 % (36.0-46.0); HGB 11.7 g/dL (11.2-15.7); MCH 28.5 pg (27.0-33.0); MCHC 32.3 % (32.0-36.0); MCV 88 fL (80-95); MPV 9.7 fL (8.0-11.0); Platelet Count 289 10^3/uL (130-400); RBC 4.11 10^6/uL (3.93-5.22); RDW 16.4 % (11.7-14.6); RDW-SD 52.5 fL; WBC 9.44 10^3/uL (4.4-10.8)
[2025-08-13 07:09] LABS: Anion Gap 8.8 mmol/L (3-11); BUN 16 mg/dL (9-23); CO2 25.2 mmol/L (20.0-31.0); Calcium 9.1 mg/dL (8.3-10.6); Chloride 106 mmol/L (98-107); Glucose 140 mg/dL (74-106); Potassium 4.0 mmol/L (3.5-5.1); Sodium 140 mmol/L (136-145)
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
[2025-08-13] MEDS: ceFAZolin 2 GM/50 ML BAG IVPB ×3 (08:29→23:54)
[2025-08-13] MEDS: Normal Saline Flush 10 ML SYR IVP ×3 (08:29→17:25)
[2025-08-13] MEDS: Enoxaparin 40 MG/0.4 ML SYR SC (08:53)
[2025-08-13] MEDS: Metoprolol CR 100 MG TABCR PO ×2 (08:54→19:30)
[2025-08-13] MEDS: Sertraline 50 MG TAB PO (08:54)
[2025-08-13] MEDS: Atorvastatin 40 MG TAB PO (08:54)
[2025-08-13] MEDS: dilTIAZem CD 180 MG CAPCR 360 MG PO (10:38)
[2025-08-13] MEDS: Clotrimazole/Betamet Diprop Cream 15 GM TUBE TP ×2 (10:38→19:30)
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
--- NOTE | 2025-08-13 11:27 | PHA.REVIEW2 ---
Pharmacy Admission Review Admission Clinical Review Admission Pharmacy Review: Left leg cellulitis (Acute) Recurrent falls (Acute) Heart failure with mildly reduced ejection fraction (HFmrEF, 41-49%) (Acute) Small cell carcinoma of lung (Acute) Atrial fibrillation with rapid ventricular response (Acute) No Known Allergies Allergy (Verified 07/30/25 09:09) Resuscitation Status Full Code Height 5 ft 4 in Weight 102.1 kg Comments Comments/Follow Ups: Watch for addition of any QTc prolonging medications Pharmacy Admission Review Renal Dosing Renal Dosing: BUN 16 mg/dL (9-23) 08/13/25 05:45 Creatinine 0.84 mg/dL (0.55-1.02) 08/13/25 05:45 Medications needing adjustments: Reviewed (Crcl 61.74 mL/min) List of meds needing interventions: Current medications are okay Anticoagulation Anticoagulation: Hgb 11.7 g/dL (11.2-15.7) 08/13/25 05:45 Hct 36.2 % (36.0-46.0) 08/13/25 05:45 Plt Count 289 10^3/uL (130-400) 08/13/25 05:45 Creatinine 0.84 mg/dL (0.55-1.02) 08/13/25 05:45 DVT Prophylaxis: Reviewed Medications: Enoxaparin (40mg daily) Relevant Labs Relevant Labs: Sodium 140 mmol/L (136-145) 08/13/25 05:45 Potassium 4.0 mmol/L (3.5-5.1) 08/13/25 05:45 Chloride 106 mmol/L (98-107) 08/13/25 05:45 Magnesium 1.7 mg/dL (1.6-2.6) 08/12/25 20:35 Electrolytes, C-Reactive P, ESR: Reviewed DM Control DM Control: Glucose 140 mg/dL (74-106) H 08/13/25 05:45 DM Control: Reviewed Insulin Dosing, Diabetic Medication: Diabetes listed in chart - no medications ordered Cardiac Review Cardiac Review: Blood Pressure : Heart Rate 108/72 : 96 1021 Blood Pressure : Heart Rate 96/85 : 99 1009 Blood Pressure : Heart Rate 120/75 : 107 0800 Blood Pressure : Heart Rate 104/83 : 111 0702 Blood Pressure : Heart Rate 113/81 : 104 0601 Blood Pressure : Heart Rate 95/74 : 114 0501 Blood Pressure : Heart Rate 122/76 : 117 0400 BP, HR, EF%: Reviewed (oxygen flow rate = 5) List meds needing interventions: Has orders for diltiazem CD 360mg daily and metoprolol XL 100mg BID. Currently on diltiazem infusion @15mg/hr. Reached out to provider to verify that they want both the PO and infusion diltiazem. Per provider would like her to get both (trying to wean the infusion) QTc Review QTc: Reviewed (518 from 08/12/25) List meds needing interventions: Current medications are okay. Watch for addition of any QTc prolonging medications IV to PO Switch IV Medications: Reviewed (diltiazem infusion and cefazolin) Home Meds Home Med List reviewed: Intervened Relevent Home Meds Not ordered & why?: Per H+P patient has hallucinations (not new with this admission per provider). Spoke to provider about patients pramipexole (can worsen/exacerbate hallucinations/psychiatric conditions) - provider aware and is looking into this Current Meds Current Medication Order Review: Intervened Comments: Change magnesium order from NOW MARY ANN to DAILY MARY ANN per external fill history discontinued duplicate Miralax order Pharmacy Antibiotic Review Relevant Labs: WBC 9.44 10^3/uL (4.4-10.8) 08/13/25 05:45 Temperature 36.3 C Temperature 36.1 C Temperature 36.1 C Pharmacy Antibiotic Activity: C/S review and Reviewed, no change Comments: Patient is on cefazolin, day 1, for possible cellulitis. WBC decreased from 12.76 and no cultures pending at this time. Comments Comments/Follow Ups: Watch for addition of any QTc prolonging medications
[2025-08-13] MEDS: Gabapentin 300 MG CAP PO ×2 (14:28→19:29)
[2025-08-13] MEDS: Acetaminophen 325 MG TAB 650 MG PO (14:28)
[2025-08-13] MEDS: Normal Saline 500 ML IV (16:13)
--- NOTE | 2025-08-13 16:23 | W.PM.PROGNOT ---
Date of Service Date of service: 08/13/25 Time of Service: 08:00 Assessment and Plan Assessment and plan (1) Atrial fibrillation with rapid ventricular response: Status: Acute Assessment and plan: She may not be taking her rate control medicatoins. Started in diltiazem in ED. Plan to rate control with IV diltiazem drip and restart her oral medicaitons. To ICU Aug 13: Trialing off diltiazem gtt, HR to 130's with exertion. Restarted home rate control meds. Restart diltiazem gtt if HR sustained over 120. (2) Small cell carcinoma of lung: Status: Acute Assessment and plan: Newly diagnosed, hasn't started treatment. Has oncology follow up, needs to schedule. (3) Left leg cellulitis: Status: Acute Assessment and plan: I'm not sure this is truly infected, but with asymmetry and WBC will continue cefazolin and monitor get LLE doppler as well Aug 13: Extremity venous study without evidence of DVT. Continue cefazolin. (4) Chronic obstructive pulmonary disease: Status: Chronic Assessment and plan: Not active, cotninue her chronic inhalers. (5) Heart failure with mildly reduced ejection fraction (HFmrEF, 41-49%): Status: Acute Assessment and plan: LVEF 45% with global hypokenesis noted on echo Jun 2025. 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 Not in active CHF (6) Hypothyroid: Status: Chronic Assessment and plan: Mild. With her acute illness I would defer starting levothyroxine to PCP (7) Recurrent falls: Status: Acute Assessment and plan: She is unable to accomplish IADLs. Recurrent falls. Order PT and consider placement. Subjective Subjective Interval history since last seen: Ms. Alvarado is up in a chair watching TV. No overnight events. Exam Narrative Exam Narrative: General: This is a pleasant woman in no distress HEENT: Normocephalic, atraumatic. Vision deficit. CV: irregularly irregular, tachycardic Resp: CTAB Abd: soft, NTND MSK: voluntary motion x4 Neuro: awake, alert, poor visual perception Objective Last Vital Signs Temp 36.6 C 08/13/25 13:00 Pulse 105 H 08/13/25 16:01 Resp 18 08/13/25 16:01 BP 115/75 08/13/25 16:01 Pulse Ox 95 08/13/25 16:01 Laboratory Results - last 24 hr 08/12/25 08/12/25 08/12/25 20:35 21:23 21:26 WBC 12.76 H RBC 4.64 Hgb 13.2 Hct 40.8 MCV 88 MCH 28.4 MCHC 32.4 RDW 16.3 H Plt Count 350 MPV 9.7 Immature Gran % 0.5 Neutrophils % 78.6 Lymphocytes % 12.1 Monocytes % 8.5 Eosinophils % 0.0 Basophils % 0.3 Nucleated RBC % 0.0 Absolute Neutrophils 10.03 H Absolute Lymphocytes 1.54 Absolute Monocytes 1.08 H Absolute Eosinophils 0.00 Absolute Basophils 0.04 D-Dimer 1997 H VBG Lactate 2.0 Sodium 139 Potassium 4.1 Chloride 103 Carbon Dioxide 24.8 Anion Gap 11.2 H BUN 20 Creatinine 1.10 H Est GFR (CKD-EPI 2020) 49.22 Glucose 141 H Calcium 9.7 Magnesium 1.7 Total Bilirubin 0.8 AST 30 ALT 22 Alkaline Phosphatase 91 Ammonia < 10 L Creatine Kinase 248 H Total Protein 8.0 Albumin 4.2 TSH 8.36 H Free T4 0.81 L Ethyl Alcohol < 3.0 08/12/25 08/13/25 23:12 05:45 WBC 9.44 RBC 4.11 Hgb 11.7 Hct 36.2 MCV 88 MCH 28.5 MCHC 32.3 RDW 16.4 H Plt Count 289 MPV 9.7 Immature Gran % Neutrophils % Lymphocytes % Monocytes % Eosinophils % Basophils % Nucleated RBC % Absolute Neutrophils Absolute Lymphocytes Absolute Monocytes Absolute Eosinophils Absolute Basophils D-Dimer VBG Lactate 1.9 Sodium 140 Potassium 4.0 Chloride 106 Carbon Dioxide 25.2 Anion Gap 8.8 BUN 16 Creatinine 0.84 Est GFR (CKD-EPI 2020) 67.18 Glucose 140 H Calcium 9.1 Magnesium Total Bilirubin AST ALT Alkaline Phosphatase Ammonia Creatine Kinase Total Protein Albumin TSH Free T4 Ethyl Alcohol VTE Prohylaxis Risk Level: Moderate/High Risk Contraindications: None Prophylaxis: Pharmacologic Time Spent with Patient Time Spent with Patient: 35-49 minutes Time was spent: preparing to see the patient(eg.review tests), obtaining and/or reviewing separately otained hiistory, ordering medications,tests, procedures, referring, communicating with other health animal care giver, indepentently interpreting results, counseling the patient and care coordination
[2025-08-13] MEDS: Pramipexole 0.5 MG TAB 1.5 MG PO (19:30)
[2025-08-13 21:56] LABS: Glucose Negative (Negative)
[2025-08-13 22:03] LABS: C & S Indicated? No; RBC Negative HPF (0-2); WBC Negative HPF (0-5)
[2025-08-13 22:23] LABS: Cannabinoids THC Negative (Negative)
[2025-08-13] MEDS: Normal Saline 500 ML 100 ML IV (23:54)
[2025-08-14] VITALS (29 sets, daily range): BP systolic 90–105; BP diastolic 59–93; PULSE 79–140; RESP 15–31; TEMP 36–36.6; O2SAT 87–94
[2025-08-14] MEDS: Normal Saline Flush 10 ML SYR IVP ×3 (00:09→18:59)
[2025-08-14] MEDS: Budesonide/Formoterol 80/4.5 6.9 GM 60 PUFF INH IH ×2 (05:35→19:14)
[2025-08-14 07:11] LABS: Abs Immature Grans 0.02 10^3/uL (0.0-0.06); HCT 33.2 % (36.0-46.0); HGB 11.0 g/dL (11.2-15.7); Immature Grans % 0.3 %; MCH 29.8 pg (27.0-33.0); MCHC 33.1 % (32.0-36.0); MCV 90 fL (80-95); MPV 9.4 fL (8.0-11.0); Platelet Count 247 10^3/uL (130-400); RBC 3.69 10^6/uL (3.93-5.22); RDW 16.8 % (11.7-14.6); RDW-SD 55.6 fL; WBC 7.49 10^3/uL (4.4-10.8)
[2025-08-14 07:32] LABS: ALT 14 U/L (10-49); AST 22 U/L (<34); Albumin 3.4 g/dL (3.2-5.0); Alkaline Phosphatase 71 U/L (46-116); Anion Gap 8.2 mmol/L (3-11); BUN 11 mg/dL (9-23); Bilirubin, Total 0.5 mg/dL (0.2-1.2); CO2 26.8 mmol/L (20.0-31.0); Calcium 8.6 mg/dL (8.3-10.6); Chloride 107 mmol/L (98-107); Glucose 109 mg/dL (74-106); Potassium 3.6 mmol/L (3.5-5.1); Sodium 142 mmol/L (136-145); Total Protein 6.2 g/dL (5.7-8.2)
[2025-08-14] MEDS: ceFAZolin 2 GM/50 ML BAG IVPB ×2 (08:25→16:18)
[2025-08-14] MEDS: Gabapentin 300 MG CAP PO ×3 (08:26→18:57)
[2025-08-14] MEDS: Sertraline 50 MG TAB PO (08:26)
[2025-08-14] MEDS: Magnesium Chloride 64 MG TABCR PO (08:26)
[2025-08-14] MEDS: Enoxaparin 40 MG/0.4 ML SYR SC (08:26)
[2025-08-14] MEDS: dilTIAZem CD 180 MG CAPCR 360 MG PO (08:26)
[2025-08-14] MEDS: Atorvastatin 40 MG TAB PO (08:27)
[2025-08-14] MEDS: Metoprolol CR 100 MG TABCR PO ×2 (08:27→18:57)
[2025-08-14] MEDS: Clotrimazole/Betamet Diprop Cream 15 GM TUBE TP ×2 (08:27→19:14)
[2025-08-14] MEDS: Acetaminophen 325 MG TAB 650 MG PO ×2 (10:47→18:52)
[2025-08-14] MEDS: Ondansetron O.D.T. 4 MG TABEF PO (11:02)
[2025-08-14] MEDS: Lidocaine 5% Patch 1 PATCH TP (11:02)
--- NOTE | 2025-08-14 15:16 | W.PM.PROGNOT ---
Date of Service Date of service: 08/14/25 Time of Service: 08:00 Assessment and Plan Assessment and plan (1) Atrial fibrillation with rapid ventricular response: Status: Acute Assessment and plan: She may not be taking her rate control medicatoins. Started in diltiazem in ED. Plan to rate control with IV diltiazem drip and restart her oral medicaitons. To ICU Aug 13: Trialing off diltiazem gtt, HR to 130's with exertion. Restarted home rate control meds. Restart diltiazem gtt if HR sustained over 120. Aug 14: Off drips, transferred to the floor. Continue home rate control medications. She will require placement as returning to her home is not safe. (2) Small cell carcinoma of lung: Status: Acute Assessment and plan: Newly diagnosed, hasn't started treatment. Has oncology follow up, needs to schedule. (3) Left leg cellulitis: Status: Acute Assessment and plan: I'm not sure this is truly infected, but with asymmetry and WBC will continue cefazolin and monitor get LLE doppler as well Aug 13: Extremity venous study without evidence of DVT. Continue cefazolin. (4) Chronic obstructive pulmonary disease: Status: Chronic Assessment and plan: Not active, cotninue her chronic inhalers. (5) Heart failure with mildly reduced ejection fraction (HFmrEF, 41-49%): Status: Acute Assessment and plan: LVEF 45% with global hypokenesis noted on echo Jun 2025. 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 Not in active CHF (6) Hypothyroid: Status: Chronic Assessment and plan: Mild. With her acute illness I would defer starting levothyroxine to PCP (7) Recurrent falls: Status: Acute Assessment and plan: She is unable to accomplish IADLs. Recurrent falls. Order PT and consider placement. Subjective Subjective Interval history since last seen: Ms. Alvarado is comfortable in bed. Heart rates around 100, no longer requiring ICU care. Exam Narrative Exam Narrative: General: This is a pleasant woman in no distress HEENT: Normocephalic, atraumatic. Vision deficit. CV: irregularly irregular, tachycardic Resp: CTAB Abd: soft, NTND MSK: voluntary motion x4 Neuro: awake, alert, poor visual perception Objective Last Vital Signs Temp 36.5 C 08/14/25 08:00 Pulse 90 08/14/25 12:00 Resp 22 08/14/25 12:00 BP 91/73 L 08/14/25 11:41 Pulse Ox 94 08/14/25 12:00 Laboratory Results - last 24 hr 08/13/25 08/14/25 21:43 07:02 WBC 7.49 RBC 3.69 L Hgb 11.0 L Hct 33.2 L MCV 90 MCH 29.8 MCHC 33.1 RDW 16.8 H Plt Count 247 MPV 9.4 Immature Gran % 0.3 Neutrophils % 67.3 Lymphocytes % 17.8 Monocytes % 10.5 Eosinophils % 3.2 Basophils % 0.9 Nucleated RBC % 0.0 Absolute Neutrophils 5.04 Absolute Lymphocytes 1.33 Absolute Monocytes 0.79 Absolute Eosinophils 0.24 Absolute Basophils 0.07 Sodium 142 Potassium 3.6 Chloride 107 Carbon Dioxide 26.8 Anion Gap 8.2 BUN 11 Creatinine 0.70 Est GFR (CKD-EPI 2020) 82.91 Glucose 109 H Calcium 8.6 Total Bilirubin 0.5 AST 22 ALT 14 Alkaline Phosphatase 71 Total Protein 6.2 Albumin 3.4 Urine Color Yellow Urine Clarity Clear Urine pH 5.5 Ur Specific [place] 1.025 Urine Protein 30 H Urine Ketones Trace H Urine Blood Negative Urine Nitrite Negative Urine Bilirubin Negative Urine Urobilinogen 0.2 Ur Leukocyte Esterase Negative Urine RBC Negative Urine WBC Negative Ur Epithelial Cells Moderate Urine Crystals Negative Urine Bacteria Few Urine Casts 0-2 Hyaline Urine Mucus Negative Ur Culture Indicated? No Urine Glucose Negative Urine Opiates Screen Negative Urine Methadone Screen Negative Ur Barbiturates Screen Negative Ur Tricyclics Screen Negative Ur Amphetamines Screen Negative U Benzodiazepines Scrn Negative Urine Cocaine Screen Negative U Cannabinoids Screen Negative VTE Prohylaxis Risk Level: Moderate/High Risk Contraindications: None Prophylaxis: Pharmacologic Time Spent with Patient Time Spent with Patient: 25-34 minutes Time was spent: preparing to see the patient(eg.review tests), obtaining and/or reviewing separately otained hiistory, ordering medications,tests, procedures, referring, communicating with other health healthcare marketer, indepentently interpreting results, counseling the patient and care coordination
[2025-08-14] MEDS: Pramipexole 0.5 MG TAB 1.5 MG PO (18:56)
[2025-08-14] MEDS: Melatonin 3 MG TAB PO (18:57)
[2025-08-14] MEDS: Albuterol/Ipratropium 3 ML UPD VIAL UPD (19:40)
[2025-08-15] VITALS (25 sets, daily range): BP systolic 83–108; BP diastolic 60–80; PULSE 51–99; RESP 14–30; TEMP 34–36.2; O2SAT 82–95
--- NOTE | 2025-08-15 | DI.RAD_ITS ---
Exam(s) XR PORTABLE CHEST AP EXAM: XR PORTABLE CHEST AP CLINICAL HISTORY: worsening dyspnea TECHNIQUE: 2D digital imaging was performed of the chest. One image was obtained. An AP view was obtained. COMPARISON: CR XR CHEST 2V PA LATERAL from 07/30/[address] CHEST PE CTA from 08/12/2025 FINDINGS: MEDIASTINUM: Normal. HEART: The heart is enlarged. PULMONARY VASCULATURE: There is pulmonary venous congestion. LUNGS: There are diffuse interstitial markings most prominent in the right lung base. There is again seen prominence of the right infrahilar region consistent with the patient's known perihilar mass. PLEURAL SPACE: There may be a small right pleural effusion. There is no left pleural effusion. There is no pneumothorax. BONE:Within normal limits for the patient's age. OTHER FINDINGS:Normal. IMPRESSION: 1. Cardiomegaly. 2. Pulmonary venous congestion and pulmonary interstitial edema. 3. Right hilar mass and right basilar infiltrate. This may be postobstructive infiltrate. The findings have worsened compared to the prior examination from 07/30/2025. DATA REPOSITORY: RADIATION DOSE DELIVERED:
[2025-08-15] MEDS: ceFAZolin 2 GM/50 ML BAG IVPB ×4 (00:04→23:57)
[2025-08-15] MEDS: Normal Saline Flush 10 ML SYR IVP ×5 (00:05→23:19)
[2025-08-15] MEDS: Lidocaine Patch Removal 1 EACH TP ×2 (00:06→23:21)
[2025-08-15] MEDS: Acetaminophen 325 MG TAB 650 MG PO ×2 (04:31→16:25)
[2025-08-15] MEDS: Budesonide/Formoterol 80/4.5 6.9 GM 60 PUFF INH IH ×2 (07:51→19:30)
[2025-08-15] MEDS: Magnesium Chloride 64 MG TABCR PO (08:04)
[2025-08-15] MEDS: Gabapentin 300 MG CAP PO ×3 (08:04→19:13)
[2025-08-15] MEDS: Sertraline 50 MG TAB PO (08:04)
[2025-08-15] MEDS: dilTIAZem CD 180 MG CAPCR 360 MG PO (08:04)
[2025-08-15] MEDS: Metoprolol CR 100 MG TABCR PO ×2 (08:04→19:12)
[2025-08-15] MEDS: Enoxaparin 40 MG/0.4 ML SYR SC ×2 (08:05→19:12)
[2025-08-15] MEDS: Atorvastatin 40 MG TAB PO (08:05)
[2025-08-15] MEDS: Clotrimazole/Betamet Diprop Cream 15 GM TUBE TP ×2 (08:06→19:10)
[2025-08-15 08:30] LABS: Magnesium 1.7 mg/dL (1.6-2.6)
[2025-08-15 08:32] LABS: ALT 9 U/L (10-49); AST 18 U/L (<34); Albumin 3.4 g/dL (3.2-5.0); Alkaline Phosphatase 72 U/L (46-116); Anion Gap 6 mmol/L (3-11); BUN 11 mg/dL (9-23); Bilirubin, Total 0.3 mg/dL (0.2-1.2); CO2 27.0 mmol/L (20.0-31.0); Calcium 8.5 mg/dL (8.3-10.6); Chloride 108 mmol/L (98-107); Glucose 121 mg/dL (74-106); Potassium 4.1 mmol/L (3.5-5.1); Sodium 141 mmol/L (136-145); Total Protein 6.3 g/dL (5.7-8.2)
--- NOTE | 2025-08-15 09:31 | PT.INTREAT ---
Date of service: 08/15/25 PT Notes Visit Reasons: Afib with RVR, Cellulitis,Falls,Lung Cancer Inpatient Physical Therapy Treatment Note [facility] Date: August 15, 2025 PRECAUTIONS: Impaired vision, fall risk, standard, telemetry, Oxygen continuous 4L/m via nc SUBJECTIVE: Patient motivated to participate in therapy today OBJECTIVE: ? PAIN: 0/10 VITALS: O2 saturation during ambulation. At start of ambulation was 90% on 4 L O2. O2 saturation dropping to 83-85% with amb despite PLB She is able to do pursed lip breathing and bring it up to 88-90% when at rest. Therapeutic Activities (45189 ): Direct one-on-one instruction in dynamic activities to improve functional performance. ? BED MOBILITY/TRANSFERS? Rolling L/R: Independent Supine-sit: Independent ? Sit-supine: Independent ? Sit-stand: SBA? Stand-sit: SBA? Bed-Chair: CGA with FWW verbal cues to compensate for vision loss? Provided skilled cues and instruction on performance and technique throughout. [x] employing an assistive device [x] movement sequencing [x] turning and movement with proper form : Requiring verbal cues secondary to impaired vision [x] Provided verbal cues for equipment management and technique [x] Patient education regarding pacing and breathing techniques to maximize activity tolerance? Ambulation ? Assistive Device: [Front wheel walker]? Weight bearing: [Full weightbearing] Assist: CGA assist? Distance: 25 feet x 2 distance limited by increased work of breathing ? Deviation: Left and right secondary to impaired vision ? Therapeutic Exercises (73015g[]): Direct one-on-one instruction in therapeutic exercises to develop strength, endurance, range of motion and flexibility. ? Exercises Pursed lip breathing techniques x 2 min Long arc quad bilateral 2 x 10 in sitting Seated marching 2 x 10 Ankle pumps 20 times left and right seated Seated hip abduction 10 x 3-second hold? ? Provided skilled instruction in proper exercise performance ASSESSMENT:?Need to monitor O2 saturations as she does desat with ambulation. Due to vision impairment requires verbal cues for directional assistance. Tolerated her therapeutic exercises well with no significant drop in O2 saturation. Pt with poor activity tolerance and need for 4L/Min with rest periods to sustain oxygen saturation > 88%. PLAN: Continue as above until medically cleared for discharge. TREATMENT CODE/TIME: 85729 X1, [id number] / [id number] DISCHARGE RECOMMENDATION: SNF
[2025-08-15] MEDS: Normal Saline 500 ML IV (10:00)
[2025-08-15] MEDS: Lidocaine 5% Patch 1 PATCH TP (10:17)
--- NOTE | 2025-08-15 10:19 | TELEFU_ITS ---
Documented by User: Garett Haney 08/15/25 11:15 Date of service: 08/15/25 Time of Service: 10:19 Nutrition Note NOTE: Patient seen by dietitian on 08/15. She was diagnosed with T2DM ~1.5 years ago, relatively well controlled with a1c around 7.6. Patient reports dissatisfaction with meals during this stay and previous stays; reports a lack of flavor. For breakfast, had the Omelette, toast, and fruit. Reports that the toast and fruit were good. Outside of the hospital, she lives alone and cooks for herself. Has 2-3 meals per day, occasionally skipping breakfast. Her weight has been on an unintentional downward trend. She reports losing 70 pounds over a month and a half, though her chart displays a weight reduction from 262 lbs on 05/30 to 233 lbs on 08/15, a loss of 29 pounds, or 11%. To help with nutrition intake and support weight maintenance, kitchen staff will provide a glucose control boost nutritional supplement at lunch and dinner daily. The patient reports no issues with swallowing, masticating, or bowell movements. No nutrition-focused physical examination was performed, but the patient Nutrition dx: Documented by User: Lisandro Block RDN 08/15/25 12:16 Nutrition Note NOTE: 70yo female being treated in ICU for Afib, HF, small cell carcinoma of lung, L leg cellulits. Pt has a PMH significant for hypothyroidism, COPD, diabetes, obesity and recent falls due reduced ADL's. Pt with vision loss, lives alone at home in [facility] at baseline - brother lives nearby. 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 Reportedly eats 2 meals per day most days - sometimes 3. May skip breakfast some days and opt for just coffee. Had a little omelet, toast and grapes this morning. Reports some dissatisfaction with food quality here - says it is bland. Pt's diet order liberalized to Consistent CHO diet as majority of foods for pts is low in sodium regardless. Pt confirms unintentional wt loss related to decereased appetite and repeat hospitalizatyions (where she reports lack of interest in the food quality). She reports a wt loss of 70lbs in less than 2 months time where wt data supports a wt loss of 29lbs over this period - an 11% loss of weight. IBW: 54.7kg, AjBW: 75.5kg Estimated energy needs: 1900kcals, 90-113g protein (1.2-1.5g/kg AjBW) and 1900mL fluid (1mL per required kcal). recommend pt decrease kcals for wt loss but prioritize meeting protein needs to minimize sarcopenia- healthy wt loss recommended. NFPE not performed at this time. Pt denies concerns with chewing/swallowing. Nutrition Dx: Inadequate intake related to baseline eating pattern of only 2 meals most days and general decrease in appetite with frequent recent hosptalizations where she doesn't enjoy the food as much. Intervention: Kitchen will offer glucose control boost ONS at lunch and dinner meals for added protein. Pt will receive drinks in large hole sip cup to avoid spills and ease of taking (will provide straws for drinks) Monitoring: Will continue to assess recent intake at meals as patient may fit criteria for moderate malnutrition based on recent wt loss combined with reduced po intake. Will monitor intake, nutrition related labs, weight, meal and ONS satisfaction Time Spent in Nutritional Counseling and Treatment: 15 min
[2025-08-15] MEDS: Normal Saline 1,000 ML 500 ML IV (13:19)
--- NOTE | 2025-08-15 14:25 | W.PM.PROGNOT ---
Date of Service Date of service: 08/15/25 Time of Service: 08:00 Assessment and Plan Assessment and plan (1) Atrial fibrillation with rapid ventricular response: Status: Resolved Assessment and plan: Likely due to missed rate control medications Diltiazem drip discontinued Aug 13. Resumed PO regimen (2) Small cell carcinoma of hilum of right lung: Status: Acute Assessment and plan: Confirmed diagnosis from Jul 31 EBUS Oncology followup to be arranged. (3) Hallucinations, visual: Status: Acute Assessment and plan: No metastases seen in brain MRI July 21 Hallucinations of children, fires, Isaias Jiménez Consider teleneurology (4) Left leg cellulitis: Status: Acute Assessment and plan: Cellulitis vs venous stasis vs thrombosis. Extremity US negative for DVT Continue cefazolin to complete 5 day course (5) Chronic obstructive pulmonary disease: Status: Chronic Assessment and plan: No exacerbation Continue bronchodilators (6) Heart failure with mildly reduced ejection fraction (HFmrEF, 41-49%): Status: Acute Assessment and plan: LVEF 45% with global hypokenesis noted on echo Jun 2025. group home could benefit from SGLT2i. Not in active CHF (7) Hypothyroid: Status: Chronic Assessment and plan: Mild. With her acute illness I would defer starting levothyroxine to PCP (8) Recurrent falls: Status: Acute Assessment and plan: She is unable to accomplish IADLs. Recurrent falls. Order PT and consider placement. Subjective Subjective Interval history since last seen: Ms. Alvarado is comfortable in bed. She is concerned about going home before her vision is addressed with upcoming cataract surgery. Lengthy bedside discussion regarding new SCC diagnosis. Coordination of oncology care will be complex due to anticipated need for nursing facility placement. Exam Narrative Exam Narrative: General: This is a pleasant woman in no distress HEENT: Normocephalic, atraumatic. Vision deficit. CV: irregularly irregular, tachycardic Resp: CTAB on NC4L Abd: soft, NTND MSK: voluntary motion x4 Neuro: awake, alert, poor visual perception Objective Last Vital Signs Temp 36.2 C L 08/15/25 12:02 Pulse 83 08/15/25 12:02 Resp 21 08/15/25 12:02 BP 105/77 08/15/25 12:02 Pulse Ox 89 L 08/15/25 08:09 Laboratory Results - last 24 hr 08/15/25 07:51 Sodium 141 Potassium 4.1 Chloride 108 H Carbon Dioxide 27.0 Anion Gap 6 BUN 11 Creatinine 0.78 Est GFR (CKD-EPI 2020) 73.18 Glucose 121 H Calcium 8.5 Magnesium 1.7 Total Bilirubin 0.3 AST 18 ALT 9 L Alkaline Phosphatase 72 Total Protein 6.3 Albumin 3.4 VTE Prohylaxis Risk Level: Moderate/High Risk Contraindications: None Prophylaxis: Pharmacologic Time Spent with Patient Time Spent with Patient: 35-49 minutes Time was spent: preparing to see the patient(eg.review tests), obtaining and/or reviewing separately otained hiistory, ordering medications,tests, procedures, referring, communicating with other health palliative care coordinator, indepentently interpreting results, counseling the patient and care coordination
--- NOTE | 2025-08-15 14:30 | CMPROGNOTE_ITS ---
Date of service: 08/15/25 Time of Service: 11:45 Care Management Progress Note Progress Note Text Progress Note Text: Zuleyka was sitting up in the bedside chair when CM met with her today. She was pleasant with CM. She is still interested in short term rehab, and her referrals were followed up on today, and a new referral was sent to [facility]. Zuleyka fully wants to return home and feels that she will be capable after her eyes are done and she can see better. She has an appointment on 10/01/25 for her right eye, and 10/12/25 for her left. Zuleyka stated that since she has starting receiving meals on wheels, she has been at least able to eat. Provider spoke with Zuleyka today about her new diagnosis of lung CA. CM went to check in on Zuleyka after their talk. She stated that she will fight this to the end. She also stated that she was not really surprised with the diagnosis, as she has been smoking for a very long time. Zuleyka was very appreciative that CM went to check on her. LEONILA spoke with the MECHANICAL INSPECTOR at [facility] today, as Zuleyka was pretty sure that she had applied for [place] Medicaid. It was confirmed that her application was submitted, and as of 08/13, it had not been received by the RN at [facility]. SNF referrals: [facility] - referral sent on 08/13 - Unable to take [employer]- sent info along today that LTM application was submitted. [facility] - referral sent on 08/13 , updated on LTM on 08/15, reviewing [facility] - referral sent on 08/15 with updated notes and LTM info [facility]- referral sent on 08/13- declined as they do not take [employer]. 08/15 - Can resend if confirmation of LTM [facility]- referral faxed 08/15 [facility] [place] -referral faxed 08/15 [place] - referral sent via email on 08/15 Discharge Potential Discharge Needs: PCP F/U Appt and Other (oncology) Anticipated Barriers to Discharge: Bed availability Patient/Family Education Needs: Review discharge instructions, discuss [facility] [employer] Transportation: [facility] RCT Transportation: Wheel chair van Plan: Referrals have been sent to many SNFs. With her new cancer diagnosis, placement will be difficult, but CM will follow up with all the referrals that have been sent. Regardless, Zuleyka will need to f/u with her PCP and will need to establish with oncology. CM will continue to follow closely and persue a safe discharge plan for Zuleyka. Social Determinants of Health Screening Social Determinants of health last assessed in clinic: 08/15/25 Will the Patient Participate in the Screening?: Yes Do you worry about having a steady place to live?: no Problems where you live: water leaks In the past 12 months, have you had to go without electric, gas, oil or water in your home?: no 1. Within the past 12 months, we worried whether our food would run out before we got money to buy more.: Sometimes true 2. Within the past 12 months, the food we bought just didn't last and we didn't have money to get more.: Sometimes true Has lack of transportation kept you from medical appointments or from doing things needed for daily living?: no Has anyone in your life made you feel unsafe or unsupported?: yes How often does anyone, including family and friends, physically hurt you?: Never How often does anyone, including family and friends, insult or talk down to you?: Fairly Often How often does anyone, including family and friends, threaten you with harm?: Never How often does anyone, including family and friends, scream or curse at you?: Never HRSN Safety total score: 7 How hard is it for you to pay for the very basics like food, housing, medical care, and heating? Would you say it is:: Very hard Do you want help finding or keeping work or a job?: I do not need or want help If for any reason you need help with day-to-day activities such as bathing, preparing meals, shopping, managing finances, etc., do you get the help you need?: I get all the help I need How often do you feel lonely or isolated from those around you?: Never Do you speak a language other than Frisian at home?: No Does the patient want assistance with any of the above?: Yes Comments: Sisters in law makes her feel unsafe/unsupported Health Related Social Needs Health related social needs: inadequate housing (Z59.1), food insecurity (Z59.41) and problems related to housing/economic circumstances (Z59.89) Health related social needs details: She has significant worries about food but says Meals on Wheels has been set up recently
--- NOTE | 2025-08-15 15:46 | PT.INTREAT ---
PT Notes Visit Reasons: Afib with RVR, Cellulitis,Falls,Lung Cancer Date: 08/15/2025 PRECAUTIONS: Impaired vision, fall risk, standard, telemetry, Oxygen continuous 5L/m via nc SUBJECTIVE: Pt in bed when approached for therapy this afternoon. pt agrees to participating with therapy session. OBJECTIVE: ? PAIN: non reported VITALS: ? monitored via telemetry, pt desaturating to low 80's in semireclined position at 5L O2 support Therapeutic Activities 15530: Direct one-on-one instruction in dynamic activities to improve functional performance. ?? BED MOBILITY/TRANSFERS? Rolling L/R: supervision Supine-sit: ? supervision? Sit-supine: ? supervision? Sit-stand: ? supervision ? Stand-sit: ??supervision ? Provided skilled cues and instruction on performance and technique throughout. Patient education regarding pacing and breathing techniques to maximize activity tolerance? Therapeutic Exercises 04847: Direct one-on-one instruction in therapeutic exercises to develop strength, endurance, range of motion and flexibility. Exercises: Sit to stand 10x5 rest break and deep breathing in between sets to help with O2 saturation ASSESSMENT:? Pt O2 saturation responded well with standing activity with saturation reaching 96% at the highest, pt saturation going back to low 80's after getting back in bed. PLAN: Continue with balance training, global strengthening and general conditioning for improved safety, mobility and activity tolerance until pt is ready for DC. TREATMENT CODE/TIME: 94542e7 30mins (3:15-3:45pm)
[2025-08-15 16:49] LABS: BE (Venous) -1 mmol/L (-2-3); HCO3 (Venous) 25 mmol/L (23-28); O2 Sat (Venous) 75 %; TCO2 (Venous) 24 mmol/L (24-29); pCO2 (Venous) 52 mmHg (41-51); pO2 (Venous) 45 mmHg
[2025-08-15] MEDS: guaiFENesin/D-METHORPHAN HB 5 ML CUP PO (19:10)
[2025-08-15] MEDS: HYDROcodone 5/Acetaminophen 325 TAB PO ×2 (19:11→23:18)
[2025-08-15] MEDS: Pramipexole 0.5 MG TAB 1.5 MG PO (19:12)
[2025-08-15] MEDS: Normal Saline 1,000 ML 150 ML IV (19:16)
[2025-08-16] VITALS (46 sets, daily range): BP systolic 82–110; BP diastolic 60–79; PULSE 68–93; RESP 11–22; TEMP 34–36.6; O2SAT 83–94
--- NOTE | 2025-08-16 | DI.CT_ITS ---
Exam(s) CT CHEST PE CTA EXAM: CT CHEST PE CTA CLINICAL HISTORY: query PE, abrupt hypoxemia, new malignancy. TECHNIQUE: Imaging Protocol: CT angiography of the chest was performed using pulmonary embolus protocol. Multi planar reconstructions were performed. CONTRAST MATERIAL: Intravenous: Omnipaque 350 Contrast volume: 100 cc COMPARISON: CT CT CHEST PE CTA from 08/12/2025 FINDINGS: CHEST: PULMONARY ARTERIES: There are no intraluminal filling defects to suggest acute pulmonary emboli.The right main pulmonary artery there is engulfed by neoplastic tissue but does not exhibit intraluminal filling defects. LUNGS: The large right hilar and right lung and mediastinal neoplastic mass is again noted. Postobstructive infiltrate in the right upper lobe noted there is now a moderate size right pleural effusion and partial collapse of the right lower lobe. There is also now a small pleural effusion on the left side with some volume loss in the basal segments of the left lower lobe now evident. MEDIASTINUM: Extensive right hilar and mediastinal adenopathy again noted, again most prominent in the subcarinal region. CARDIAC: Heart size is upper normal. There is no pericardial effusion.Caliber of the thoracic aorta is within normal limits. There is no significant shift of the interventricular septum. PARTIALLY VISUALIZED UPPERMOST ABDOMEN: Left adrenal nodule again noted. No ascites evident. OSSEOUS: Mild-moderate T3 height loss again noted, possibly metastatic. No other compression fractures evident.. IMPRESSION: 1. No evidence of acute pulmonary emboli. 2. However, when compared to the CT scan of 08/12/2025 there are now bilateral pleural effusions with volume loss of the basal segments of both lower lobes related to these effusions, these findings not previously present 4 days ago. Large right hilar-perihilar mass also involving the right lung extensive subcarinal mediastinum adenopathy again noted. 3. Persistent right upper lobe infiltrate. RADIATION DOSE DELIVERED: 125.27mGy.cm Total DLP DATA REPOSITORY: All CT scans at this facility are submitted to the National Radiology Data Registry (NRDR) Dose Index Registry (DIR) with the [employer] (ACR). RADIATION OPTIMIZATION: All CT scans at this facility use at least one of these dose optimization techniques: automated exposure control; mA and/or kV adjustment per patient size (includes targeted exams where dose is matched to clinical indication); or iterative reconstruction.
[2025-08-16] MEDS: Normal Saline 1,000 ML 150 ML IV (03:12)
[2025-08-16 05:39] LABS: Abs Immature Grans 0.04 10^3/uL (0.0-0.06); HCT 33.2 % (36.0-46.0); HGB 10.4 g/dL (11.2-15.7); Immature Grans % 0.7 %; MCH 29.5 pg (27.0-33.0); MCHC 31.3 % (32.0-36.0); MCV 94 fL (80-95); MPV 8.9 fL (8.0-11.0); Platelet Count 224 10^3/uL (130-400); RBC 3.53 10^6/uL (3.93-5.22); RDW 17.2 % (11.7-14.6); RDW-SD 58.7 fL; WBC 6.06 10^3/uL (4.4-10.8)
[2025-08-16] MEDS: HYDROcodone 5/Acetaminophen 325 TAB PO ×3 (05:40→19:51)
[2025-08-16] MEDS: Albuterol/Ipratropium 3 ML UPD VIAL UPD ×2 (05:47→14:49)
[2025-08-16 06:05] LABS: ALT < 7 U/L (10-49); AST 16 U/L (<34); Albumin 3.2 g/dL (3.2-5.0); Alkaline Phosphatase 70 U/L (46-116); Anion Gap 5.5 mmol/L (3-11); BUN 9 mg/dL (9-23); Bilirubin, Total 0.2 mg/dL (0.2-1.2); CO2 27.5 mmol/L (20.0-31.0); Calcium 7.8 mg/dL (8.3-10.6); Chloride 108 mmol/L (98-107); Glucose 115 mg/dL (74-106); Magnesium 1.6 mg/dL (1.6-2.6); Potassium 4.1 mmol/L (3.5-5.1); Sodium 141 mmol/L (136-145); Total Protein 6.1 g/dL (5.7-8.2)
[2025-08-16] MEDS: Budesonide/Formoterol 80/4.5 6.9 GM 60 PUFF INH IH ×2 (08:08→19:51)
[2025-08-16] MEDS: Furosemide 40 MG/4 ML VIAL IVP ×3 (08:28→21:41)
[2025-08-16] MEDS: Normal Saline Flush 10 ML SYR IVP ×4 (08:28→22:46)
[2025-08-16] MEDS: Enoxaparin 40 MG/0.4 ML SYR SC ×2 (08:30→19:50)
[2025-08-16] MEDS: ceFAZolin 2 GM/50 ML BAG IVPB ×2 (08:30→15:39)
[2025-08-16] MEDS: Gabapentin 300 MG CAP PO ×3 (08:32→19:51)
[2025-08-16] MEDS: Tamsulosin 0.4 MG CAPCR 0.8 MG PO (08:32)
[2025-08-16] MEDS: Sertraline 50 MG TAB PO (08:33)
[2025-08-16] MEDS: Magnesium Chloride 64 MG TABCR PO (08:34)
[2025-08-16] MEDS: Atorvastatin 40 MG TAB PO (08:34)
[2025-08-16] MEDS: Metoprolol CR 100 MG TABCR PO (08:41)
[2025-08-16] MEDS: dilTIAZem CD 180 MG CAPCR 360 MG PO (08:41)
[2025-08-16] MEDS: Clotrimazole/Betamet Diprop Cream 15 GM TUBE TP ×2 (08:42→19:53)
[2025-08-16] MEDS: Lidocaine 5% Patch 1 PATCH TP (10:43)
--- NOTE | 2025-08-16 12:11 | PTTR_ITS ---
PT Notes Visit Reasons: Afib with RVR, Cellulitis,Falls,Lung Cancer Inpatient Physical Therapy Treatment Note [facility] Date: 08/16/25 PRECAUTIONS: Impaired vision, fall risk, standard, telemetry, Oxygen continuous 5L/m via nc SUBJECTIVE: Pt was willing to get OOB and sit in a chair however, she c/o that the chair in her room caused back pain. Chair was switched and pt reported that it was she was more comfortable. OBJECTIVE: VITALS: Monitored by nursing, O2 sat decreased to 83% with ther ex but increase back to 89% with rest break Therapeutic Activities (26029u[1]): Direct one-on-one instruction in dynamic activities to improve functional performance. ? BED MOBILITY/TRANSFERS? Supine-sit: Supervision to CG of 1? Sit to stand with CGA of 1 and tactile cues for hand placement on walker? Bed-Chair: Stand pivot transfer with use of rolling walker and CG o1, 2nd person to manage equipment ? Provided skilled cues and instruction on performance and technique throughout. ? Therapeutic Exercises (43858v[1]): Direct one-on-one instruction in therapeutic exercises to develop strength, endurance, range of motion and flexibility. ? Exercises ? Ankle pumps (B), hip abd/add, heel slides all x 10 with some tactile and verbal cues Provided skilled instruction in proper exercise performance ASSESSMENT:? Pt was able to tolerated ther ex, sitting at edge of bed and stand pivot transfer. She required a minimal rest break following ther ex. PLAN: 1-2x/day, 7 days/week x 1 week. Plan of care has been reviewed with the BUSINESS PROCESS CONSULTANT providing the service under Physical Therapy direction. Continue Physical Therapy intervention for strengthening, bed mobility, transfers, gait, stairs, balance training, use of assistive device. TREATMENT CODE/TIME: 88021/87380 30 minutes 11:15-11:45 DISCHARGE RECOMMENDATION: SNF
[2025-08-16] MEDS: Normal Saline - Diluent 50 ML VIAL IJ (18:02)
[2025-08-16] MEDS: Omnipaque 350 MG/ML 100 ML BTL IJ (18:03)
--- NOTE | 2025-08-16 18:06 | W.PM.PROGNOT ---
Date of Service Date of service: 08/16/25 Time of Service: 08:00 Assessment and Plan Assessment and plan (1) Fluid overload: Status: Acute Assessment and plan: Patient anuric Aug 15, with scarcely any PO intake for 2+ days Gave fluid bolus and maintenance fluid without urine output Switched to diuresis morning of Aug 16, furosemide 40 IV BID Her oxygen demand increased, requiring high flow oxygen Will evaluate for PE, PNA, increase diuresis tonight (2) Atrial fibrillation with rapid ventricular response: Status: Resolved Assessment and plan: Likely due to missed rate control medications Diltiazem drip discontinued Aug 13. 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 (4) Hallucinations, visual: Status: Acute Assessment and plan: No metastases seen in brain MRI July 21 Hallucinations of children, fires, Isaias Jiménez Consider teleneurology (5) Left leg cellulitis: Status: Acute Assessment and plan: Cellulitis vs venous stasis vs thrombosis. Extremity US negative for DVT Continue cefazolin to complete 5 day course (6) Chronic obstructive pulmonary disease: Status: Chronic Assessment and plan: No exacerbation Continue bronchodilators (7) Heart failure with mildly reduced ejection fraction (HFmrEF, 41-49%): Status: Acute Assessment and plan: LVEF 45% with global hypokenesis noted on echo Jun 2025. 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 Not in active CHF (8) Hypothyroid: Status: Chronic Assessment and plan: Mild. With her acute illness I would defer starting levothyroxine to PCP (9) Recurrent falls: Status: Acute Assessment and plan: She is unable to accomplish IADLs. Recurrent falls. Order PT and consider placement. Subjective Subjective Interval history since last seen: Ms. Alvarado is on high flow this morning after fluid resuscitation yesterday. Diuresis restarted this morning. She reports no SOB an is comfortable. Exam Narrative Exam Narrative: General: This is a pleasant woman in no distress HEENT: Normocephalic, atraumatic. Vision deficit. CV: irregularly irregular, tachycardic Resp: CTAB on NC4L Abd: soft, NTND MSK: voluntary motion x4 Neuro: awake, alert, poor visual perception Objective Last Vital Signs Temp 36.5 C 08/16/25 13:09 Pulse 76 08/16/25 15:01 Resp 15 08/16/25 15:01 BP 92/60 L 08/16/25 13:09 Pulse Ox 89 L 08/16/25 15:01 Laboratory Results - last 24 hr 08/16/25 05:25 WBC 6.06 RBC 3.53 L Hgb 10.4 L Hct 33.2 L MCV 94 D MCH 29.5 MCHC 31.3 L RDW 17.2 H Plt Count 224 MPV 8.9 Immature Gran % 0.7 Neutrophils % 60.0 Lymphocytes % 24.3 Monocytes % 11.1 Eosinophils % 3.1 Basophils % 0.8 Nucleated RBC % 0.0 Absolute Neutrophils 3.64 Absolute Lymphocytes 1.47 Absolute Monocytes 0.67 Absolute Eosinophils 0.19 Absolute Basophils 0.05 Sodium 141 Potassium 4.1 Chloride 108 H Carbon Dioxide 27.5 Anion Gap 5.5 BUN 9 Creatinine 0.73 Est GFR (CKD-EPI 2020) 78.99 Glucose 115 H Calcium 7.8 L Magnesium 1.6 Total Bilirubin 0.2 AST 16 ALT < 7 L Alkaline Phosphatase 70 Total Protein 6.1 Albumin 3.2 VTE Prohylaxis Risk Level: Moderate/High Risk Contraindications: None Prophylaxis: Pharmacologic Time Spent with Patient Time Spent with Patient: 35-49 minutes Time was spent: preparing to see the patient(eg.review tests), obtaining and/or reviewing separately otained hiistory, ordering medications,tests, procedures, referring, communicating with other health special needs caregiver, indepentently interpreting results, counseling the patient and care coordination
[2025-08-16 18:57] LABS: COVID-19 PCR Negative (Negative); RSV PCR Negative (Negative)
[2025-08-16] MEDS: Pramipexole 0.5 MG TAB 1.5 MG PO (19:52)
[2025-08-16] MEDS: Lidocaine Patch Removal 1 EACH TP (21:42)
[2025-08-16] MEDS: cefTRIAXone 2 GM/50 ML BAG IVPB (22:45)
[2025-08-17] VITALS (30 sets, daily range): BP systolic 81–117; BP diastolic 52–78; PULSE 65–118; RESP 11–25; TEMP 34–37.2; O2SAT 90–95
[2025-08-17] MEDS: guaiFENesin/D-METHORPHAN HB 5 ML CUP PO (04:48)
[2025-08-17] MEDS: HYDROcodone 5/Acetaminophen 325 TAB PO (04:51)
[2025-08-17] MEDS: Furosemide 40 MG/4 ML VIAL IVP ×2 (05:27→09:24)
[2025-08-17] MEDS: Normal Saline Flush 10 ML SYR IVP ×2 (05:28→08:09)
[2025-08-17 06:36] LABS: Abs Immature Grans 0.02 10^3/uL (0.0-0.06); HCT 33.5 % (36.0-46.0); HGB 10.6 g/dL (11.2-15.7); Immature Grans % 0.3 %; MCH 28.7 pg (27.0-33.0); MCHC 31.6 % (32.0-36.0); MCV 91 fL (80-95); MPV 9.4 fL (8.0-11.0); Platelet Count 264 10^3/uL (130-400); RBC 3.69 10^6/uL (3.93-5.22); RDW 17.0 % (11.7-14.6); RDW-SD 56.1 fL; WBC 6.18 10^3/uL (4.4-10.8)
[2025-08-17 07:14] LABS: ALT < 7 U/L (10-49); AST 15 U/L (<34); Albumin 3.4 g/dL (3.2-5.0); Alkaline Phosphatase 77 U/L (46-116); Anion Gap 7 mmol/L (3-11); BUN 11 mg/dL (9-23); Bilirubin, Total 0.3 mg/dL (0.2-1.2); CO2 32.0 mmol/L (20.0-31.0); Calcium 8.4 mg/dL (8.3-10.6); Chloride 103 mmol/L (98-107); Glucose 107 mg/dL (74-106); Potassium 4.2 mmol/L (3.5-5.1); Sodium 142 mmol/L (136-145); Total Protein 6.4 g/dL (5.7-8.2)
[2025-08-17] MEDS: dilTIAZem CD 180 MG CAPCR 360 MG PO (08:10)
[2025-08-17] MEDS: Gabapentin 300 MG CAP PO ×2 (08:10→13:52)
[2025-08-17] MEDS: Sertraline 50 MG TAB PO (08:10)
[2025-08-17] MEDS: Azithromycin 250 MG TAB 500 MG PO (08:10)
[2025-08-17] MEDS: Enoxaparin 40 MG/0.4 ML SYR SC (08:10)
[2025-08-17] MEDS: Atorvastatin 40 MG TAB PO (08:10)
[2025-08-17] MEDS: Magnesium Chloride 64 MG TABCR PO (08:10)
[2025-08-17 08:11] LABS: Lab Add On Test DONE
[2025-08-17] MEDS: Clotrimazole/Betamet Diprop Cream 15 GM TUBE TP (08:11)
[2025-08-17 08:23] LABS: Magnesium 1.3 mg/dL (1.6-2.6)
[2025-08-17] MEDS: Budesonide/Formoterol 80/4.5 6.9 GM 60 PUFF INH IH (08:24)
[2025-08-17] MEDS: Sennosides/Docusate Sodium TAB 1 TAB PO (09:24)
[2025-08-17] MEDS: Lidocaine 5% Patch 1 PATCH TP (09:24)
--- NOTE | 2025-08-17 11:30 | DI.RAD_ITS ---
Exam(s) XR PORTABLE CHEST AP EXAM: XR PORTABLE CHEST AP CLINICAL HISTORY: interval effusions - upright study please. TECHNIQUE: 2D digital imaging was performed. COMPARISON: No exams were available for comparison FINDINGS: Single AP portable view. Mild cardiomegaly. Right hilar paratracheal mass and subcarinal density reflect the extensive adenopathy seen on CT scan. There is a moderate size right pleural effusion. Some infiltrate and volume loss in the right lung base is noted. The small amount of pleural fluid on the opposite-left side, as seen on recent CT scan. IMPRESSION: Moderate size right pleural effusion has slightly further increased from 08/15/2025.. Volume loss right lower lobe and right lower lobe infiltrate, as also seen on yesterday's CT scan. DATA REPOSITORY: RADIATION DOSE DELIVERED:
--- NOTE | 2025-08-17 11:34 | PT.INTREAT ---
PT Notes Visit Reasons: Afib with RVR, Cellulitis,Falls,Lung Cancer Inpatient Physical Therapy Treatment Note [facility] Date: 08/17/25 PRECAUTIONS: Impaired vision, fall risk, standard, telemetry, Oxygen Airvo high flow 60L/min via NC SUBJECTIVE: Pt wanted to get OOB to the commode. c/o dizziness once on the commode. OBJECTIVE: VITALS: Monitored by nursing Therapeutic Activities (77718x[2]): Direct one-on-one instruction in dynamic activities to improve functional performance. ? BED MOBILITY/TRANSFERS? Supine-sit: Supervision to CG of 1? Sit to stand with CGA of 1 and tactile cues for hand placement on walker? Bed-Commode: Stand pivot transfer with use of rolling walker and CG of 1, 2nd person to manage equipment ? Commode to bed: Stand pivot transfer with use of rolling walker and CG of 2 secondary to report of dizziness Sit to supine: min A of 1 for trunk and mod A of 1 for LE Provided skilled cues and instruction on performance and technique throughout. ? ASSESSMENT:? Pt had difficulty with dizziness once she was up to the commode. Returned to bed following use of the commode because of this. PLAN: 1-2x/day, 7 days/week x 1 week. Plan of care has been reviewed with the BOARD CERTIFIED FAMILY PHYSICIAN providing the service under Physical Therapy direction. Continue Physical Therapy intervention for strengthening, bed mobility, transfers, gait, stairs, balance training, use of assistive device. TREATMENT CODE/TIME: 44990 29 minutes 11:05-11:34 DISCHARGE RECOMMENDATION: SNF
[2025-08-17 13:05] LABS: BE (Venous) 7 mmol/L (-2-3); HCO3 (Venous) 31 mmol/L (23-28); O2 Sat (Venous) 83 %; TCO2 (Venous) 29 mmol/L (24-29); pCO2 (Venous) 48 mmHg (41-51); pO2 (Venous) 48 mmHg
--- NOTE | 2025-08-17 13:24 | DI.VRAD_ITS ---
PROCEDURE INFORMATION: Exam: XR Chest Exam date and time: 08/17/2025 12:11 PM Age: 70 years old Clinical indication: Condition or disease; Other: Interval effusions TECHNIQUE: Imaging protocol: Radiologic exam of the chest. Views: 1 view. COMPARISON: CT CHEST PE CTA 08/16/2025 6:11 PM FINDINGS: Lungs: Chronic interstitial lung disease. Bilateral lower lobe atelectasis. Right lower lobe consolidation. Pleural spaces: Right pleural effusion. Heart/Mediastinum: Known mediastinal adenopathy is not conspicuous. There is right hilar adenopathy. Bones/joints: Unremarkable. IMPRESSION: Livfj-oevwjyh-[id number]-left pleural effusions with lower lobe atelectasis and lung consolidation. Dictated and Authenticated by: Vaibhav Travis MD. Orderin De Cortez MD
[2025-08-17] MEDS: MAGNESIUM SULFATE 2 GM/50 ML BAG IV_INF (16:24)
[2025-08-17] MEDS: Ondansetron O.D.T. 4 MG TABEF PO (16:25)
[2025-08-17] MEDS: Furosemide 100 MG/10 ML VIAL 80 MG IVP (16:25)
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
[2025-08-17 21:30] LABS: Legionella Ag Detection Urine Negative (Negative)
== END 2025-08-17 18:30 | disposition short-term general hospital (02) | DRG 308 ==
LOC: ER 08-13 00:13 → ICU 08-13 07:15
PROVIDERS: Family Medicine; Hospitalist; Admitting Provider Family Medicine; Emergency Provider Student in an Organized Health Care Education/Training Program; PCP Family Medicine; Responsible Provider Family Medicine; Visit Provider Family Medicine
DX: I48.91 Unspecified atrial fibrillation (principal); J18.9 Pneumonia, unspecified organism; J96.21 Acute and chronic respiratory failure with hypoxia; C34.01 Malignant neoplasm of right main bronchus; L03.116 Cellulitis of left lower limb; I50.32 Chronic diastolic (congestive) heart failure; I50.20 Unspecified systolic (congestive) heart failure; E03.9 Hypothyroidism, unspecified; J44.9 Chronic obstructive pulmonary disease, unspecified; G25.81 Restless legs syndrome; E11.42 Type 2 diabetes mellitus with diabetic polyneuropathy; H53.16 Psychophysical visual disturbances; R05.9 Cough, unspecified; Z79.01 Long term (current) use of anticoagulants; R29.6 Repeated falls; I42.9 Cardiomyopathy, unspecified; I87.2 Venous insufficiency (chronic) (peripheral); D72.829 Elevated white blood cell count, unspecified; R79.1 Abnormal coagulation profile; R59.0 Localized enlarged lymph nodes; Z59.87 Material hardship due to limited financial resources, not elsewhere classified; Z59.41 Food insecurity; Z73.89 Other problems related to life management difficulty; R45.89 Other symptoms and signs involving emotional state; H54.3 Unqualified visual loss, both eyes; E78.5 Hyperlipidemia, unspecified; M17.12 Unilateral primary osteoarthritis, left knee; Z87.891 Personal history of nicotine dependence; E87.79 Other fluid overload; Z99.81 Dependence on supplemental oxygen; W19.XXXA Unspecified fall, initial encounter; S05.12XA Contusion of eyeball and orbital tissues, left eye, initial encounter
CPT/HCPCS: 00123; 36415; 71275; 80048; 80053; 80307; 82550; 82805; 85027; 87449; 87637; 93005; 94640; 96365; 96366; 97110; 97161; 97530; 99291; J1650; 70450; 71045; 72125; 80320; 81003; 81015; 82140; 83605; 83735; 84439; 84443; 85025; 85379; 93010; 93971; 94664; 94667; 94668; 94760; 99223; 99232; 99233; 99239; J0690; J0696; J1938; J3475; J3490; J7620